=== PATIENT | female | born 1970 | race American Indian/Alaskan Native ===

== ENCOUNTER 2019-02-28 22:30 | Emergency (ER) | payer MEDICARE, OTHER ==
[~2019-02-28] VITALS: Ht 162.6 cm; Wt 114.3 kg
--- OUTSIDE RECORDS SUMMARY | 2019-02-28 22:33 | XMS REPORT | Clinical Summary ---
Author Author DINO [facility] Address Unknown Phone Unavailable Care Team Providers Care Fire Control Technician B Name Role Phone Rashaad Rivera MD PCP Unavailable Allergies Comments Active Allergy Reactions Severity Noted Date Aspirin 12/23/2016 Salicylates Anaphylaxis High 02/29/2016 Meperidine 06/17/2015 Dichloralphenazone 12/23/2016 Dicyclomine 12/23/2016 Erythromycin 06/17/2015 Erythromycin (Bulk) 12/23/2016 Eyes don't blink Haloperidol 06/17/2015 Sumatriptan Succinate Anaphylaxis High 02/29/2016 Isometheptene 12/23/2016 Other reaction(s): Hives Nsaids (Non-Steroidal Anaphylaxis High 06/17/2015 Anti-Inflammatory Drug) Shellfish Containing 12/23/2016 Products Sulfa (Sulfonamide Hives 06/17/2015 Antibiotics) Sumatriptan 12/23/2016 Tolmetin 12/23/2016 Ketorolac Anaphylaxis High 06/17/2015 Tramadol 12/23/2016 Troleandomycin 12/23/2016 Hydrocodone-Acetaminophen 06/17/2015 Vancomycin 12/23/2016 Medications End Date Status Medication Sig Dispensed Refills Start Date Active clonazePAM (KLONOPIN) 1 Take 1 mg by 0 MG tablet mouth 3 (three) times daily . Active QUEtiapine (SEROQUEL) 300 Take 100 mg 0 MG tablet by mouth 2 (two) times daily . Active ziprasidone (GEODON) 60 Take 60 mg by 0 MG capsule mouth 2 (two) times daily with breakfast and dinner. Active ondansetron (ZOFRAN) 4 MG Take 4 mg by 0 tablet mouth 2 (two) times daily as needed for Nausea. Active metFORMIN (GLUCOPHAGE) Take 500 mg 0 500 MG tablet by mouth 2 (two) times daily with breakfast and dinner. Active QUEtiapine (SEROQUEL) 400 Take 400 mg 0 MG tablet by mouth nightly. Active zolpidem (AMBIEN) 10 mg Take 10 mg by 0 tablet mouth every night as needed for Insomnia. 07/03/2019 Active atorvastatin (LIPITOR) 20 Take 1 tablet 30 tablet 0 07/03/201 MG tablet (20 mg total) 8 by mouth nightly. Active clopidogrel (PLAVIX) 75 Take 1 tablet 30 tablet 0 07/03/201 mg tablet (75 mg total) 8 by mouth daily. Active escitalopram oxalate Take 1 tablet 30 tablet 0 (LEXAPRO) 20 MG tablet (20 mg total) 8 by mouth daily. Active levETIRAcetam (KEPPRA) Take 1 tablet 60 tablet 0 500 MG tablet (500 mg 8 total) by mouth 2 (two) times daily. Active metoprolol (LOPRESSOR) 25 Take 1 tablet 60 tablet 0 07/03/201 MG tablet (25 mg total) 8 by mouth 2 (two) times daily. 07/03/2018 Discontinued citalopram (CELEXA) 40 MG Take 40 mg by 0 tablet mouth daily. 07/03/2018 Discontinued divalproex (DEPAKOTE) 500 Take 500 mg 0 MG EC tablet by mouth 3 (three) times daily. 07/03/2018 Discontinued temazepam (RESTORIL) 22.5 Take 22.5 mg 0 MG capsule by mouth every night as needed for Sleep. 07/03/2018 Discontinued methadone (DOLOPHINE) 10 Take 10 mg by 0 MG tablet mouth every 6 (six) hours as needed for Pain. 07/03/2018 Discontinued clopidogrel (PLAVIX) 75 Take 75 mg by 0 mg tablet mouth daily. 07/03/2018 Discontinued escitalopram oxalate Take 20 mg by 0 (LEXAPRO) 20 MG tablet mouth daily. 07/03/2018 Discontinued lisinopril Take 20 mg by 0 (PRINIVIL,ZESTRIL) 20 MG mouth daily. tablet 07/03/2018 Discontinued levETIRAcetam (KEPPRA) Take 500 mg 0 500 MG tablet by mouth 2 (two) times daily. 07/03/2018 Discontinued metoprolol (LOPRESSOR) 25 Take 25 mg by 0 MG tablet mouth 2 (two) times daily. Active Problems Problem Noted Date Dizziness 07/01/2018 Dyspnea 07/01/2018 Chest pain 07/01/2018 Chest pain at rest 06/30/2018 Encounters Care Team Description Date Type Specialty [employer] MD Ray-Droddy, Kelly Morris MD Chest pain on breathing 06/30/2018 [facility] General Internal Medicine - Encounter 07/03/2018 06/30/2018 Orders Only General Internal Medicine after 02/27/2018 Social History Date Tobacco Use Types Packs/Day Years Used Current Every Day Smoker Cigarettes Alcohol Use Drinks/Week oz/Week Comments No Sex Assigned at Date Recorded Not on file Industry Job Start Date Occupation Not on file Not on file Not on file Travel End Travel History Travel Start No recent travel history available. Last Filed Vital Signs Time Taken Vital Sign Reading 07/03/2018 11:11 AM CDT Blood Pressure 116/73 07/03/2018 11:11 AM CDT Pulse 84 07/03/2018 11:11 AM CDT Temperature 36.6 C (97.9 F) 07/03/2018 11:11 AM CDT Respiratory Rate 18 07/03/2018 11:11 AM CDT Oxygen Saturation 99% - Inhaled Oxygen - Concentration 06/30/2018 11:31 PM CDT Weight 100.2 kg (221 lb) 06/30/2018 11:31 PM CDT Height 162.6 cm (5' 4") 06/30/2018 11:31 PM CDT Body Mass Index 37.93 Plan of Treatment Not on file Procedures Comments Procedure Name Priority Date/Time Associated Diagnosis REPORT OF PROCEDURE - 07/04/2018 ENDOSCOPY SCAN 3:20 PM CDT RHYTHM STRIP - SCAN 07/04/2018 3:13 PM CDT STRESS-TEST SCANNED 07/04/2018 3:13 PM CDT POCT-GLUCOSE METER Routine 07/03/2018 11:47 AM CDT NM MYOCARDIAL PERFUSION Routine 07/03/2018 SPECT, PHARM(LEXISCAN) 10:12 AM CDT POCT-GLUCOSE METER Routine 07/03/2018 5:00 AM CDT COMPREHENSIVE METABOLIC Routine 07/03/2018 PANEL 3:25 AM CDT POCT-GLUCOSE METER Routine 07/02/2018 7:46 PM CDT CBC (HEMOGRAM ONLY) Routine 07/02/2018 4:13 PM CDT POCT-GLUCOSE METER Routine 07/02/2018 3:35 PM CDT POCT-GLUCOSE METER Routine 07/02/2018 11:09 AM CDT ECHOCARDIOGRAM REPORT - 07/02/2018 SCAN 8:20 AM CDT POCT-GLUCOSE METER Routine 07/02/2018 5:33 AM CDT POCT-GLUCOSE METER Routine 07/01/2018 8:53 PM CDT POCT-GLUCOSE METER Routine 07/01/2018 4:00 PM CDT XR CHEST 1 VIEW STAT 07/01/2018 PORTABLE/BEDSIDE 1:11 PM CDT POCT-GLUCOSE METER Routine 07/01/2018 10:49 AM CDT APTT Routine 07/01/2018 9:40 AM CDT 2D ECHO W/ DOPPLER Routine 07/01/2018 (CW/PW/COLOR) 7:41 AM CDT POCT-GLUCOSE METER Routine 07/01/2018 6:04 AM CDT CBC W/PLT COUNT & AUTO Routine 07/01/2018 DIFFERENTIAL 4:48 AM CDT CBC W/PLT COUNT & AUTO Routine 07/01/2018 DIFFERENTIAL 4:48 AM CDT LIPID PANEL Routine 07/01/2018 4:48 AM CDT MAGNESIUM Routine 07/01/2018 4:48 AM CDT BASIC METABOLIC PANEL (7) Routine 07/01/2018 4:48 AM CDT TROPONIN I Routine 07/01/2018 4:48 AM CDT APTT Routine 07/01/2018 1:17 AM CDT PLATELET COUNT Routine 06/30/2018 10:38 PM CDT B-TYPE NATRIURETIC FACTOR Routine 06/30/2018 (BNP) 10:38 PM CDT TROPONIN I Routine 06/30/2018 10:38 PM CDT POCT-GLUCOSE METER Routine 06/30/2018 9:28 PM CDT ECG 12-LEAD Routine 06/30/2018 8:41 PM CDT Procedure Note - Interface, External Ris In - 06/30/2018 9:37 PM CDT Ventricula r Rate 82 BPM Atrial Rate 82 BPM P-R Interval 170 ms QRS Duration 94 ms Q-T Interval 410 ms QTC Calculatio n(Bazett) 479 ms P [place] 63 degrees R [place] 58 degrees T [place] 70 degrees Normal sinus rhythm Normal ECG When compared with ECG of 7 23:04, PREVIOUS ECG IS PRESENT after 02/27/2018 Results * EKG-SCANNED (07/04/2018 3:20 PM CDT) Narrative Performed At * RHYTHM STRIP - SCAN (07/04/2018 3:13 PM CDT) Narrative Performed At * STRESS-TEST SCANNED (07/04/2018 3:13 PM CDT) Narrative Performed At * POC-Glucose meter (07/03/2018 11:47 AM CDT) Only the most recent of 11 results within the time period is included. POC-Glucose Meter 129 (H)Comment: TESTED AT [facility] 70 - 110 mg/dL [facility]outrL[facility] [address] [facility] [id number] Specimen Blood Performing Organization Address City/State/Zipcode Phone Number [facility] [address] [place] [address] [facility] * NM myocardial perfusion SPECT, pharm(Lexiscan) (07/03/2018 10:12 AM CDT) Narrative Performed At FINAL REPORT [employer] PROCEDURE: Rest/Stress MYOCARDIAL PERFUSION SCAN with regadenosine CPT CODE:94825, 47296, 01621 INDICATION:Chest pain PROTOCOL: The patient underwent rest and post-stress imaging. 9.9 mCi of Tc-99m sestamibi was injected intravenously at rest, and tomographic (SPECT) images were obtained. 30 mCi of Tc-99m sestamibi was injected intravenously during intravenous infusion of 0.4 mg of regadenosine.The patient's resting heart rate of 69 beats/minute reached a peak rate of 97 beats/minute (57% of MPHR).Blood pressure reached a maximum of 112/68 mm Hg.Other stress and monitoring data are reported separately.Gated SPECT images were obtained after stress injection. FINDINGS:Images obtained after resting and stress injections of tracer show normal tracer distribution in the LV myocardium.LV size appears size appears normal.Gated images obtained at rest after stress injection show normal LV wall motion and thickening. The QGS LVEF is 67%. IMPRESSION:Normal myocardial perfusion.Normal resting LV function. Signed: Pasha Lugo MD Report Verified Date/Time:07/03/2018 12:29:53 Reading Location: [facility] Cardiology Reading Room Procedure Note Interface, External Ris In - 07/03/2018 12:32 PM CDT FINAL REPORT PROCEDURE: Rest/Stress MYOCARDIAL PERFUSION SCAN with regadenosine CPT CODE: 78028, 84297, 23665 INDICATION: Chest pain PROTOCOL: The patient underwent rest and post-stress imaging. 9.9 mCi of Tc-99m sestamibi was injected intravenously at rest, and tomographic (SPECT) images were obtained. 30 mCi of Tc-99m sestamibi was injected intravenously during intravenous infusion of 0.4 mg of regadenosine. The patient's resting heart rate of 69 beats/minute reached a peak rate of 97 beats/minute (57% of MPHR). Blood pressure reached a maximum of 112/68 mm Hg. Other stress and monitoring data are reported separately. Gated SPECT images were obtained after stress injection. FINDINGS: Images obtained after resting and stress injections of tracer show normal tracer distribution in the LV myocardium. LV size appears size appears normal. Gated images obtained at rest after stress injection show normal LV wall motion and thickening. The QGS LVEF is 67%. IMPRESSION: Normal myocardial perfusion. Normal resting LV function. Signed: Pasha Lugo MD Report Verified Date/Time: 07/03/2018 12:29:53 Reading Location: [facility] Cardiology Reading Room Performing Organization Address [facility] Phone Number GE RIS * Comprehensive metabolic panel (07/03/2018 3:25 AM CDT) Protein, Total 6.3 6.0 - 8.5 gm/dL [facility] Albumin 3.4 (L) 3.5 - 5.0 g/dL [facility] Alkaline Phosphatase 105 30 - 115 U/L [facility] Total Bilirubin 0.2 0.1 - 1.3 mg/dL [facility] Sodium 139 135 - 148 meq/L [facility] Potassium 4.5 3.5 - 5.5 meq/L [facility] Chloride 111 (H) 98 - 106 meq/L [facility] CO2 20 20 - 31 meq/L [facility] BUN 20 10 - 26 mg/dL [facility] Creatinine 0.69 0.50 - 1.20 mg/dL [facility] Glucose 99 70 - 110 mg/dL [facility] Calcium 8.7 8.5 - 10.5 mg/dL [facility] AST 16 5 - 40 U/L [facility] ALT 37 6 - 50 U/L [facility] EGFR 90Comment: ESTIMATED GFR IS mL/min/1.73 sq m [facility] NOT ACCURATE CREATININE CLEARANCE IN PREDICTING GLOMERULAR FILTRATION RATE. ESTIMATED GFR IS NOT APPLICABLE FOR DIALYSIS PATIENTS. Specimen Blood - Arm, Left Performing Organization Address City/[facility] Phone Number [facility] [address] [place], [place] [address] * CBC (hemogram only) (07/02/2018 4:13 PM CDT) WBC 6.2 4.0 - 10.0 K/L [facility] RBC 3.61 (L) 4.00 - 5.00 M/L [facility] Hemoglobin 11.6 (L) 12.0 - 15.0 GM/DL [facility] Hematocrit 33.8 (L) 36.0 - 45.0 % [facility] MCV 93.4 82.0 - 99.0 fL [facility] MCH 32.0 27.0 - 33.0 pg [facility] MCHC 34.3 32.0 - 36.0 GM/DL [facility] RDW 13.3 12.0 - 15.0 % [facility] Platelets 126 (L) 150 - 430 K/CU MM [facility] MPV 8.1 6.5 - 10.5 fL [facility] nRBC 0 0 - 0 /100 WBC [facility] Specimen Blood - Line, Venous Performing Organization Address City/State/Zipcode Phone Number [facility] [address] [place] [address] * ECHOCARDIOGRAM REPORT - SCAN (07/02/2018 8:20 AM CDT) Narrative Performed At * XR chest 1 view portable / bedside (07/01/2018 1:11 PM CDT) Narrative Performed At FINAL REPORT [facility] Chest, AP view. History: Chest pain. Comparison: 01/05/2017. Discussion:The cardiomediastinal silhouette and pulmonary vasculature are within normal limits. The lungs are clear without evidence of consolidation or effusion.There are no acute osseous abnormalities. The soft tissues are unremarkable. IMPRESSION: No acute cardiopulmonary abnormality. Signed: Eli Berry MD Report Verified Date/Time:07/01/2018 13:12:56 Reading Location: [address] Ortho Consult Reading Room Procedure Note Interface, External Ris In - 07/01/2018 1:15 PM CDT FINAL REPORT Chest, AP view. History: Chest pain. Comparison: 01/05/2017. Discussion: The cardiomediastinal silhouette and pulmonary vasculature are within normal limits. The lungs are clear without evidence of consolidation or effusion. There are no acute osseous abnormalities. The soft tissues are unremarkable. IMPRESSION: No acute cardiopulmonary abnormality. Signed: Eli Berry MD Report Verified Date/Time: 07/01/2018 13:12:56 Reading Location: [facility] C013 Ortho Consult Reading Room Performing Organization Address City/[facility] Phone Number GE RIS * aPTT (07/01/2018 9:40 AM CDT) Only the most recent of 2 results within the time period is included. PTT 24.1 23.2 - 36.1 seconds [facility] Specimen Blood - Arm, Left Performing Organization Address City/[facility]/Zipcode Phone Number [facility] [address] [place] [address] * 2D Echo W/Doppler(CW/PW/Color) (07/01/2018 7:41 AM CDT) Ejection Fraction Est EF is 55-60% [facility] Narrative Performed At Transthoracic Echocardiography Report (TTE) [facility] Demographics [facility] Patient Name BJ,Date of Study 07/01/2018 ESTELA [id number] GenderFemale Visit Number [id number] RaceCaucasian [id number] Number [id number] Number Date of Birth1970 Referring Physician [employer]ANING Age48 year(s) Medical Billing Associate Jase Pope, RCS, RVT Inter[facility]tingPARKVIEW [facility]ALTH Physician Sandor Davis MD Procedure Type of Study TTE procedure:2DECHO W DOPPLER(CW/PW/COLOR) (Routine) Indications:Chest pain. Clinical History CAD,STENT Height: 64 inches Weight: 100.24 kg (220.99 lbs) BSA: 2.04 m^2 BMI: 37.93 kg/m^2 HR: 72 bpm BP: 100/63 mmHg Summary The aortic root is normal size at the Sinus of Valsalva. Normal left ventricular chamber size. Normal wall thickness. Normal overall left ventricular systolic function. No apparent segmental wall motion abnormalities. Estimated LVEF is 55-60%. Normal diastolic function. Normal right ventricle structure and function. No significant valvular heart disease. PA pressure estimated at 20-25 mmHg. No evidence of pericardial effusion. Signature Findings Technical Quality: TDS Left Ventricle Normal left ventricular chamber size. Normal wall thickness. Normal overall left ventricular systolic function. No apparent segmental wall motion abnormalities. Estimated LVEF is 55-60%. Normal diastolic function. Left AtriumNormal size left atrium. Right VentricleNormal right ventricle structure and function. Right Atrium Normal right atrium. Aortic Valve Normal aortic valve structure and function. Mitral Valve Normal mitral valve structure and function. Tricuspid ValveNormal tricuspid valve structure and function. PA pressure estimated at 20-25 mmHg. Pulmonic Valve Normal pulmonic valve structure and function. AortaThe aortic root is normal size at the Sinus of Valsalva. PericardiumNo evidence of pericardial effusion. IVC/SVC/PA/PV/PleuralRA pressure estimated at 5-10 mmHg. Chambers/Structures Left Atrium LA Dimension: 4.26 cmLA Area: 20.13 cm^2 LA Volume: 62.08 ml LA Vol. Index: 30 ml/m^2 Left Ventricle LVIDd: 4.52 cmLVEDV:92.3 6 ml LVIDs: 3.19 cmLVESV:32.3 3 ml LV Septum Diastolic: 0.99 cmLVEF 2D Cube: 65 % LV PW Diastolic: 0.97 cm LV FS: 29.4 % LVOT Diameter: 2.1 cm LVEF: 65 % Right Atrium RA Systolic Pressure: 10 mmHg Right Ventricle RV Systolic Pressure: 25.47 mmHg Aorta Ao Root S of Monique.: 2.98 cmAscending Aorta: 2.81 cm Pulmonary Vein: S Velocity: 0.37 m/s D Velocity: 0.27 m/s Doppler/Quantitative Measurements Mitral Valve MV Peak E-Wave: 0.7 m/s MV Peak A-Wave: 0.76 m/s Peak Velocity: 0.87 m/s E/A Ratio: 0.93 Mean Velocity: 0.54 m/s Peak Gradient: 1.96 mmHg Mean Gradient: 1.29 mmHgDeceleration Time: 343.9 msec Area (continuity): 3.79 cm^2 MV VTI: 22.82 cm MV Noble. Peak: Tissue Doppler E' Septal Velocity: 0.09 m/s E' Lateral Velocity: 0.09 m/s Aortic Valve Peak Velocity: 1.14 m/sMean Velocity: 0.82 m/s Peak Gradient: 5.22 mmHg Mean Gradient: 3.04 mmHg AV Area (continuity): 3.55 cm^2 AV VTI: 24.38 cm Cusp Separation: 2.02 cm AV DVI: 1.03 LVOT Peak Velocity: 1.18 m/s Peak Gradient: 5.54 mmHg Mean Velocity: 0.76 m/s Mean Gradient: 2.73 mmHg LVOT Diameter: 2.1 cm LVOT VTI: 24.99 cm LVOT Area: 3.46 cm^2LVOT SV:86.51 ml LVOT CO: 6.23 l/min LVOT CI: 3.05 l/min/m^2 Tricuspid Valve Estimated RVSP: 25.47 mmHg Estimated RAP: 10 mmHg TR Velocity: 1.97 m/s TR Gradient: 15.47 mmHg Pulmonic Valve Peak Velocity: 0.8 m/s Peak Gradient: 2.56 mmHg Estimated PASP: 25.47 mmHg Procedure Note Interface, External Ris In - 07/01/2018 10:17 PM CDT Transthoracic Echocardiography Report (TTE) Demographics Patient Name BJ, Date of Study 07/01/2018 ESTELA Gender Female Visit Number [id number] Race Room Number [id number] Number Date of 1970 Referring Physician E[employer]TA CLEANING Age 48 year(s) Medical Billing Associate HERMELINDO Garza, RVT Interpreting [facility] Physician Sandor Davis MD Procedure Type of Study TTE procedure:2DECHO W DOPPLER(CW/PW/COLOR) (Routine) Indications:Chest pain. Clinical History CAD,STENT Height: 64 inches Weight: 100.24 kg (220.99 lbs) BSA: 2.04 m^2 BMI: 37.93 kg/m^2 HR: 72 bpm BP: 100/63 mmHg Summary The aortic root is normal size at the Sinus of Valsalva. Normal left ventricular chamber size. Normal wall thickness. Normal overall left ventricular systolic function. No apparent segmental wall motion abnormalities. Estimated LVEF is 55-60%. Normal diastolic function. Normal right ventricle structure and function. No significant valvular heart disease. PA pressure estimated at 20-25 mmHg. No evidence of pericardial effusion. Signature Findings Technical Quality: TDS Left Ventricle Normal left ventricular chamber size. Normal wall thickness. Normal overall left ventricular systolic function. No apparent segmental wall motion abnormalities. Estimated LVEF is 55-60%. Normal diastolic function. Left Atrium Normal size left atrium. Right Ventricle Normal right ventricle structure and function. Right Atrium Normal right atrium. Aortic Valve Normal aortic valve structure and function. Mitral Valve Normal mitral valve structure and function. Tricuspid Valve Normal tricuspid valve structure and function. PA pressure estimated at 20-25 mmHg. Pulmonic Valve Normal pulmonic valve structure and function. Aorta The aortic root is normal size at the Sinus of Valsalva. Pericardium No evidence of pericardial effusion. IVC/SVC/PA/PV/Pleural RA pressure estimated at 5-10 mmHg. Chambers/Structures Left Atrium LA Dimension: 4.26 cm LA Area: 20.13 cm^2 LA Volume: 62.08 ml LA Vol. Index: 30 ml/m^2 Left Ventricle LVIDd: 4.52 cm LVEDV:92.36 ml LVIDs: 3.19 cm LVESV:32.33 ml LV Septum Diastolic: 0.99 cm LVEF 2D Cube: 65 % LV PW Diastolic: 0.97 cm LV FS: 29.4 % LVOT Diameter: 2.1 cm LVEF: 65 % Right Atrium RA Systolic Pressure: 10 mmHg Right Ventricle RV Systolic Pressure: 25.47 mmHg Aorta Ao Root S of Monique.: 2.98 cm Ascending Aorta: 2.81 cm Pulmonary Vein: S Velocity: 0.37 m/s D Velocity: 0.27 m/s Doppler/Quantitative Measurements Mitral Valve MV Peak E-Wave: 0.7 m/s MV Peak A-Wave: 0.76 m/s Peak Velocity: 0.87 m/s E/A Ratio: 0.93 Mean Velocity: 0.54 m/s Peak Gradient: 1.96 mmHg Mean Gradient: 1.29 mmHg Deceleration Time: 343.9 msec Area (continuity): 3.79 cm^2 MV VTI: 22.82 cm MV Noble. Peak: Tissue Doppler E' Septal Velocity: 0.09 m/s E' Lateral Velocity: 0.09 m/s Aortic Valve Peak Velocity: 1.14 m/s Mean Velocity: 0.82 m/s Peak Gradient: 5.22 mmHg Mean Gradient: 3.04 mmHg AV Area (continuity): 3.55 cm^2 AV VTI: 24.38 cm Cusp Separation: 2.02 cm AV DVI: 1.03 LVOT Peak Velocity: 1.18 m/s Peak Gradient: 5.54 mmHg Mean Velocity: 0.76 m/s Mean Gradient: 2.73 mmHg LVOT Diameter: 2.1 cm LVOT VTI: 24.99 cm LVOT Area: 3.46 cm^2 LVOT SV:86.51 ml LVOT CO: 6.23 l/min LVOT CI: 3.05 l/min/m^2 Tricuspid Valve Estimated RVSP: 25.47 mmHg Estimated RAP: 10 mmHg TR Velocity: 1.97 m/s TR Gradient: 15.47 mmHg Pulmonic Valve Peak Velocity: 0.8 m/s Peak Gradient: 2.56 mmHg Estimated PASP: 25.47 mmHg Performing Organization Address City/State/Zipcode Phone Number [facility] * CBC with platelet count + automated diff (07/01/2018 4:48 AM CDT) WBC 6.7 4.0 - 10.0 K/L [facility] RBC 3.76 (L) 4.00 - 5.00 M/L [facility] Hemoglobin 12.2 12.0 - 15.0 GM/DL [facility] Hematocrit 34.9 (L) 36.0 - 45.0 % [facility] MCV 92.9 82.0 - 99.0 fL [facility] MCH 32.5 27.0 - 33.0 pg [facility] MCHC 35.0 32.0 - 36.0 GM/DL [facility] RDW 13.4 12.0 - 15.0 % [facility] Platelets 134 (L) 150 - 430 K/CU MM [facility] MPV 7.6 6.5 - 10.5 fL [facility] nRBC 0 0 - 0 /100 WBC [facility] % Neutros 46 % [facility] % Lymphs 47 % [facility] % Monos 5 % [facility] % Eos 2 % [facility] % Baso 1 % [facility] # Neutros 3.00 1.80 - 8.00 K/L [facility] # Lymphs 3.20 1.48 - 4.50 K/L [facility] # Monos 0.30 0.00 - 1.30 K/L [facility] # Eos 0.10 0.00 - 0.50 K/L [facility] # Baso 0.00 0.00 - 0.20 K/L [facility] Specimen Blood Performing Organization Address [facility] Phone Number [facility] [address] [place] [address] * Troponin I (07/01/2018 4:48 AM CDT) Only the most recent of 2 results within the time period is included. Troponin I <0.01 0.00 - 0.15 ng/mL [facility] Specimen Blood Narrative Performed At Troponin I (TnI) levels must be interpreted in the context of the presenting [facility] symptoms and the clinical findings. Elevated TnI levels indicate myocardial damage, but are not specific for ischemic heart disease. Elevated TnI levels are seen in patients with other cardiac conditions (including myocarditis and congestive heart failure), and slight TnI elevations occur in patients with other conditions, including sepsis, renal failure, acidosis, acute neurological disease, and persistent tachyarrhythmia. Performing Organization Address City/[facility] Phone Number [facility] [address] [place] [address] * Magnesium (07/01/2018 4:48 AM CDT) Magnesium 1.7 1.5 - 3.0 mg/dL [facility] LABORATORY Specimen Blood Performing Organization Address [facility] Phone Number [facility] [address] [place] [address] * Lipid panel (07/01/2018 4:48 AM CDT) Triglycerides 151 mg/dL [facility] Cholesterol 162 mg/dL [facility] HDL 30 mg/dL [facility] LDL Calculated 102 mg/dL [facility] Specimen Blood Narrative Performed At Triglyceride Reference Range: [facility] Low Risk <150 [id number] High Risk 200-499 Very High Risk>=500 Cholesterol Reference Range: Low Risk <200 [id number] High Risk>240 HDL Cholesterol Reference Range: Low Risk >=60 High Risk <40 LDL Cholesterol Reference Range: Optimal<100 Near [id number] Very High >=190 Performing Organization Address [facility] Number [facility] [address] [place] [address] * Basic metabolic panel (07/01/2018 4:48 AM CDT) Sodium 139 135 - 148 meq/L [facility] Potassium 3.6 3.5 - 5.5 meq/L [facility] Chloride 111 (H) 98 - 106 meq/L [facility] CO2 17 (L) 20 - 31 meq/L [facility] BUN 19 10 - 26 mg/dL [facility] Creatinine 0.74 0.50 - 1.20 mg/dL [facility] Glucose 98 70 - 110 mg/dL [facility] Calcium 9.2 8.5 - 10.5 mg/dL [facility] EGFR 83Comment: ESTIMATED GFR IS mL/min/1.73 sq m [facility] NOT ACCURATE CREATININE CLEARANCE IN PREDICTING GLOMERULAR FILTRATION RATE. ESTIMATED GFR IS NOT APPLICABLE FOR DIALYSIS PATIENTS. Specimen Blood Performing Organization Address [facility] Phone Number [facility] [address] [place] [address] * Platelet count (06/30/2018 10:38 PM CDT) Platelets 139 (L) 150 - 430 K/CU MM [facility] Specimen Blood - Arm, Right Performing Organization Address [facility] Phone Number [facility] [address] [place] [address] * B-type Natriuretic Factor (BNP) (06/30/2018 10:38 PM CDT) BNP 11 0 - 100 pg/mL [facility] Specimen Blood - Arm, Right Performing Organization Address City/State/Zipcode Phone Number [facility] [address] [place] [address] after 02/27/2018 Insurance Payer Benefit Subscriber ID Type Phone Address Plan / Group MEDICARE MEDICARE A xxxxxxxxxxx Medicare B MEDICAID - MEDICAID [facility] xxxxxxxxx Medicaid CARE COMM STAR Contracted PLAN MEDICAID MEDICAID xxxxxxxxx Medicaid [place] Advance Directives For more information, please contact: [facility] [address] [place], [place] [id number] Date Inactivated Comments Code Status Date Activated 07/03/2018 10:16 PM Full Code 06/30/2018 8:22 PM This code status was determined by: Patient
--- OUTSIDE RECORDS SUMMARY | 2019-02-28 22:38 | XMS REPORT | Summary of Care ---
Author Organization Unknown Address Unknown Phone Unavailable Encounter [facility] [place](MARY BETH) [phone] Date(s): 05/02/15 - 05/03/15 [facility] [address] [employer] provided by [employer] [facility] [employer] [place] [address]- Discharge Diagnosis: Chronic leg pain Discharge Diagnosis: Chronic back pain Discharge Disposition: Home Physician Attending: Franko Forte MD Vital Signs 1 2 3 Most recent to oldest [Reference Range]: 165.1 cm (05/02/15 11:39 PM) Height 97.9 DegF (05/03/15 3:50 AM) 99.3 DegF *HI* (05/02/15 11:39 PM) Temperature Oral [96.4-99.1 DegF] 100/63 mmHg (05/03/15 8:49 AM) 99/60 mmHg (05/03/15 7:18 AM) 108/71 mmHg (05/03/15 3:50 AM) Blood Pressure [90-140/60-90 mmHg] 20 BRMIN (05/03/15 8:49 AM) 16 BRMIN (05/03/15 7:18 AM) 18 BRMIN (05/03/15 3:50 AM) Respiratory Rate [14-20 BRMIN] 86 bpm (05/03/15 8:49 AM) 72 bpm (05/03/15 7:18 AM) 65 bpm (05/03/15 3:50 AM) Peripheral Pulse Rate [60-100 bpm] 69.091 kg (05/02/15 11:39 PM) Weight 25.35 m2 (05/02/15 11:39 PM) Body Mass Index Problem List Condition Effective Dates Status Health Status Informant Bladder Resolved disease(Confirmed) Diabetic Active care(Confirmed) Hepatitis Resolved C(Confirmed) Lupus(Confirmed) Resolved Allergies, Adverse Reactions, Alerts Substance Reaction Severity Status aspirin Active Demerol HCl Active erythromycin Active Imitrex Active NSAIDs Active Stelazine Active sulfa drugs Active Toradol Active Medications Dilaudid 1 mg, Route: IM, ONCE, Dosing Weight 69.091, kg, Start date: 05/03/15 7:34:00, S top date: 05/03/15 7:34:00 Start Date: 05/03/15 Stop Date: 05/03/15 Status: Completed Dilaudid 1 mg, Route: IM, ONCE, Dosing Weight 69.091, kg, Priority: STAT, Start date: 6:00:00, Stop date: 05/03/15 6:00:00 Start Date: 05/03/15 Stop Date: 05/03/15 Status: Completed Tylenol 975 mg, Route: PO, Drug form: TAB, ONCE, Dosing Weight 69.091, kg, Priority: STA T, Start date: 05/03/15 5:56:00, Stop date: 05/03/15 5:56:00 Start Date: 05/03/15 Stop Date: 05/03/15 Status: Completed Results No data available for this section Immunizations Vaccine Date Refusal Reason diphtheria/pertussis, acel/tetanus adult 01/06/13 Procedures No data available for this section Social History Social History Type Response Smoking Status Current every day smoker; Type: Cigarettes; Exposure to Tobacco Smoke None; Cigarette Smoking Last 365 Days No; Reg Smoking Cessation Counseling No Assessment and Plan No data available for this section
--- OUTSIDE RECORDS SUMMARY | 2019-02-28 22:38 | XMS REPORT | Summary of Care ---
Author Author [facility] Organization [facility] Address Unknown Phone Unavailable Encounter [facility] [place](MARY BETH) [id number] Date(s): 02/09/16 - 02/10/16 [facility] [address] [place] [address]- [phone] Discharge Diagnosis: Herpes zoster, ocular Discharge Diagnosis: Herpes zoster Discharge Diagnosis: Corneal abrasion, right Discharge Diagnosis: Drug-seeking behavior Discharge Diagnosis: Bipolar disease, chronic Discharge Diagnosis: Shingles Discharge Diagnosis: Tobacco abuse Discharge Disposition: Home Attending Physician: Óscar Tracy DO Vital Signs 1 2 3 Most recent to oldest [Reference Range]: 162.56 cm (02/10/16 12:00 AM) Height 97.9 DegF (02/10/16 3:17 AM) 98.1 DegF (02/10/16 1:10 AM) 98.6 DegF (02/10/16 12:00 AM) Temperature Oral [96.4-99.1 DegF] 111/69 mmHg (02/10/16 3:17 AM) 122/69 mmHg (02/10/16 1:10 AM) 118/78 mmHg (02/10/16 12:00 AM) Blood Pressure [90-140/60-90 mmHg] 17 BRMIN (02/10/16 3:17 AM) 17 BRMIN (02/10/16 1:10 AM) 18 BRMIN (02/10/16 12:00 AM) Respiratory Rate [14-20 BRMIN] 99 bpm (02/10/16 3:17 AM) 97 bpm (02/10/16 1:10 AM) 98 bpm (02/10/16 12:00 AM) Peripheral Pulse Rate [60-100 bpm] 83.545 kg (02/10/16 12:00 AM) Weight 31.61 m2 (02/10/16 12:00 AM) Body Mass Index Problem List Condition Effective Dates Status Health Status Informant Bipolar(Confirmed) Active Bladder Resolved disease(Confirmed) COPD(Confirmed) Resolved Diabetic Active care(Confirmed) Hepatitis Resolved C(Confirmed) Lupus(Confirmed) Resolved Schizo-affective Active schizophrenia(Confir med) Seizure(Confirmed) Resolved Allergies, Adverse Reactions, Alerts Substance Reaction Severity Status aspirin Active Demerol HCl Active erythromycin Active Imitrex Active NSAIDs Active Stelazine Active sulfa drugs Active Toradol Active Medications acyclovir 800 mg oral tablet 800 mg=1 tab, PO, 5X Day, X 10 day, # 50 tab, 0 Refill(s) Start Date: 02/10/16 Stop Date: 02/20/16 Status: Ordered BD Normal Saline Flush 10 mL, Route: IV, Drug Form: INJ, PRN, PRN Line Flush, Start date: 02/10/16 2:11 :00, Duration: 30 day, Stop date: 03/11/16 2:10:00 Notes: (Same as: BD Posiflush) Start Date: 02/10/16 Stop Date: 02/10/16 Status: Discontinued ciprofloxacin ophthalmic 0.3% solution 2 drp, RIGHT EYE, Q4H, X 5 day, # 5 mL, 0 Refill(s) Start Date: 02/10/16 Stop Date: 02/15/16 Status: Ordered clindamycin 450 mg, Route: PO, ONCE, Dosing Weight 83.545, kg, Start date: 02/10/16 0:50:00, Stop date: 02/10/16 0:50:00 Start Date: 02/10/16 Stop Date: 02/10/16 Status: Completed clindamycin 300 mg oral capsule 300 mg=1 cap, PO, Q6H, X 10 day, # 40 cap, 0 Refill(s) Start Date: 02/10/16 Stop Date: 02/20/16 Status: Ordered fluorescein ophthalmic 1 mg test 1 strip, Route: RIGHT EYE, ONCE, Start date: 02/10/16 0:25:00, Stop date: 0:25:00 Start Date: 02/10/16 Stop Date: 02/10/16 Status: Completed morphine Sulfate 4 mg, Route: IM, Drug form: INJ, ONCE, Dosing Weight 83.545, kg, Priority: STAT, Start date: 02/10/16 0:24:00, Stop date: 02/10/16 0:24:00 Start Date: 02/10/16 Stop Date: 02/10/16 Status: Completed Frankewing 5/325 oral tablet 1 tab, Route: PO, Drug Form: TAB, Dosing Weight 83.545, kg, ONCE, STAT, Start da te: 02/10/16 2:16:00, Stop date: 02/10/16 2:16:00 Start Date: 02/10/16 Stop Date: 02/10/16 Status: Completed Frankewing 5/325 oral tablet 1 tab, PO, TID, X 5 day, # 15 tab, 0 Refill(s) Start Date: 02/10/16 Stop Date: 02/15/16 Status: Ordered Sodium Chloride 0.9% IV 25 mL, Route: IV, Start date: 02/10/16 2:11:00, Duration: 30 day, Stop date: 2:10:00, PRN Line Flush Start Date: 02/10/16 Stop Date: 02/10/16 Status: Discontinued tetracaine ophthalmic 0.5% solution 1 drp, Route: RIGHT EYE, ONCE, Start date: 02/10/16 0:25:00, Stop date: 02/10/16 0:25:00 Start Date: 02/10/16 Stop Date: 02/10/16 Status: Completed Valtrex 1,000 mg, 2 tab, Route: PO, Drug form: TAB, ONCE, Dosing Weight 83.545, kg, Star t date: 02/10/16 1:49:00, Stop date: 02/10/16 1:49:00 Notes: (Same As: Valtrex) Start Date: 02/10/16 Stop Date: 02/10/16 Status: Completed Zofran ODT 4 mg, 1 tab, Route: PO, Drug form: TABDIS, ONCE, Dosing Weight 83.545, kg, Prior ity: STAT, Start date: 02/10/16 2:44:00, Stop date: 02/10/16 2:44:00 Notes: (Same as: Zofran ODT) Start Date: 02/10/16 Stop Date: 02/10/16 Status: Completed Zofran ODT 4 mg, Route: PO, Drug form: TABDIS, ONCE, Dosing Weight 83.545, kg, Priority: ST AT, Start date: 02/10/16 0:24:00, Stop date: 02/10/16 0:24:00 Start Date: 02/10/16 Stop Date: 02/10/16 Status: Completed Results No data available for this section Immunizations Vaccine Date Refusal Reason diphtheria/pertussis, acel/tetanus adult 01/06/13 Procedures Procedure Date Related Diagnosis Body Site Appendectomy Cholecystectomy Hysterectomy PTCA - Percutaneous transluminal coronary angioplasty Social History Social History Type Response Smoking Status Current every day smoker; Type: Cigarettes; Exposure to Tobacco Smoke None; Cigarette Smoking Last 365 Days No; Reg Smoking Cessation Counseling No Assessment and Plan No data available for this section
--- OUTSIDE RECORDS SUMMARY | 2019-02-28 22:38 | XMS REPORT | Continuity of Care Document ---
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 tab, Route: PO, Drug form: ERTAB, Q12H, Dosing Weight 111.364, kg, Start date: 01/01/17 9:00:00 BIT SETTER, Duration: 30 day, Stop date: 01/30/17 21:00:00 CDTNotes: (Do not crush) (Same As: Wellbutrin SR) Inactive 01/01/2017 [facility] Dilaudid 0.2 mg, 0.2 mL, Route: IVP, Drug form: INJ, ONCE, Dosing Weight 111.364, kg, PRN Pain Score 7-10, Start date: 01/01/17 8:39:00 BIT SETTER Inactive 01/01/2017 [facility] Nitroglycerin 0.02 MG/MG Topical Ointment 0.5 inch, Route: TOP, Drug Form: OINT, Dosing Weight 111.364, kg, TID, Start date: 01/01/17 6:00:00 BIT SETTER, Duration: 30 day, Stop date: 01/30/17 18:00:00 CDTNotes: 1 gram is approximately 1 inch of nitroglycerin ointment (20 mg NTG per gram) (Same as:Nitro-Bid) Inactive 01/01/2017 [facility] Enoxaparin 40 mg, 0.4 mL, Route: SUB-Q, Drug form: INJ, [id number], Dosing Weight 111.364, kg, Consider for obese patients, Start date: 12/31/16 22:00:00 BIT SETTER, Duration: 30 day, Stop date: 01/30/17 10:00:00 CDTNotes: (Same as: Lovenox) No Longer Active 01/01/2017 [facility] Sodium Chloride 0.9% IV 250 mL, Route: IVPB, Start date: 12/31/16 21:34:00 BIT SETTER, Duration: 30 day, Stop date: 01/30/17 22:33:00 CDT, PRN Line Flush No Longer Active 01/01/2017 [facility] BD Normal Saline Flush 10 mL, Route: IVP, Drug Form: INJ, PRN, PRN Line Flush, Start date: 12/31/16 21:33:00 BIT SETTER, Duration: 30 day, Stop date: 01/30/17 22:32:00 CDTNotes: (Same as: BD Posiflush) No Longer Active 01/01/2017 [facility] Ambien 10 mg, 2 tab, Route: PO, Drug form: TAB, Bedtime, Dosing Weight 111.364, kg, PRN Sleep, Start date: 12/31/16 21:27:00 BIT SETTER, Duration: 30 day, Stop date: 01/30/17 21:26:00 CDTNotes: (Same As: Ambien) No Longer Active 01/01/2017 [facility] cyclobenzaprine 10 mg, 1 tab, Route: PO, Drug form: TAB, TID, Dosing Weight 111.364, kg, PRN as needed for muscle spasm, Start date: 12/31/16 21:25:00 BIT SETTER, Duration: 30 day, Stop date: 01/30/17 21:24:00 CDTNotes: (Same As: Flexeril) No Longer Active 01/01/2017 [facility] Saline Flush 0.9% 10 ml, Route: IVP, Drug Form: INJ, Dosing Weight 111.364, kg, PRN, PRN Line Flush, Start date: 12/31/16 21:23:00 BIT SETTER, Duration: 30 day, Stop date: 01/30/17 22:22:00 CDT Inactive 01/01/2017 [facility] Acetaminophen 325 MG / Hydrocodone Bitartrate 5 MG Oral Tablet 2 tab, Route: PO, Drug Form: TAB, Dosing Weight 111.364, kg, Q4H, PRN Pain Score 7-10, Start date: 12/31/16 21:23:00 BIT SETTER, Duration: 30 day, Stop date: 01/30/17 21:22:00 CDTNotes: (Same as: [place] 325/5) Do not exceed 4gm/day of acetaminophen. No Longer Active 01/01/2017 [facility] Acetaminophen 650 mg, 2 tab, Route: PO, Drug form: TAB, Q4H, Dosing Weight 111.364, kg, PRN Headache 1-5, Start date: 12/31/16 21:23:00 BIT SETTER, Duration: 30 day, Stop date: 01/30/17 21:22:00 CDTNotes: Do not exceed 4 gm/day. (Same as: Tylenol) No Longer Active 01/01/2017 [facility] Nitroglycerin 0.4 mg, 1 tab, Route: SL, Drug form: TAB, Q5Min, Dosing Weight 111.364, kg, PRN Chest Pain, Start date: 12/31/16 21:23:00 BIT SETTER, Duration: 30 day, Stop date: 01/30/17 22:22:00 CDTNotes: (Same as:Nitroq uick, Nitrostat) "Do Not Crush" Sublingual tablet No Longer Active 01/01/2017 [facility] Morphine 2 mg, 1 mL, Route: IVP, Drug form: INJ, Q15Min, Dosing Weight 111.364, kg, PRN Chest Pain, Start date: 12/31/16 21:23:00 BIT SETTER, Duration: 2 doses or times, Stop date: Limited # of timesNotes: (Same as: MORPhine Sulfate) No Longer Active 01/01/2017 [facility] Ondansetron 4 mg, 2 mL, Route: IV, Drug form: INJ, Q4H, Dosing Weight 111.364, kg, PRN Nausea & Vomiting, Start date: 12/31/16 21:23:00 BIT SETTER, Duration: 30 day, Stop date: 01/30/17 21:22:00 CDTNotes: (Same as: Zofran) MEDICATION WASTE Product Size: 4 mg Product Wasted: ___ mg No Longer Active 01/01/2017 [facility] Sodium Chloride 0.0769 MEQ/ML Injectable Solution 1,000 mL, Rate: 75 ml/hr, Infuse over: 13.3 hr, Route: IV, Dosing Weight 111.364 kg, Total Volume: 1,000, Start date: 12/31/16 21:23:00 BIT SETTER, Duration: 30 day, Stop date: 01/30/17 21:22:00 CDT No Longer Active 01/01/2017 [facility] Insulin, Aspart, Human 10 unit, 0.1 mL, Route: SUB-Q, Drug form: SOLN, Bedtime, Dosing Weight 111.364, kg, PRN Blood Glucose Results, Start date: 12/31/16 21:23:00 BIT SETTER, Duration: 30 day, Stop date: 01/30/17 21:22:00 CDTNotes: Roll in palms of hands gently; Do not shake vigorously. (Same as: NovoLOG) "single patient use only" WASTE: F/P - Black; E - Municipal Trash Bin Stable for 28 days at room temperature. Expires in days from Date No Longer Active 01/01/2017 [facility] Dextrose 50% Syringe 12.5 gm, 25 mL, Route: IVP, Drug Form: INJ, Dosing Weight 111.364, kg, PRN, PRN Blood Glucose Results, Start date: 12/31/16 21:23:00 BIT SETTER, Duration: 30 day, Stop date: 01/30/17 22:22:00 CDT No Longer Active 01/01/2017 [facility] Glucagon 1 mg, Route: IM, Drug form: PDR/INJ, PRN, Dosing Weight 111.364, kg, PRN Blood Glucose Results, Start date: 12/31/16 21:23:00 BIT SETTER, Duration: 30 day, Stop date: 01/30/17 22:22:00 CDT No Longer Active 01/01/2017 [facility] influenza virus vaccine, inactivated 0.5 mL, Route: IM, ONCALL, Start date: 12/31/16 21:19:45 BIT SETTER, Stop date: 01/30/17 21:14:45 CDT Inactive 01/01/2017 [facility] 24 HR Bupropion Hydrochloride 150 MG Extended Release Tablet [Wellbutrin] 150 mg=1 tab, PO, Q12H, 0 Refill(s) Active 01/01/2017 [facility] Metformin 500 mg, PO, BID, 0 Refill(s) Active 01/01/2017 [facility] lisinopril 20 mg oral tablet 20 mg=1 tab, PO, Daily, # 30 tab, 0 Refill(s) Active 01/01/2017 [facility] Ondansetron 4 mg, 2 mL, Route: IVP, Drug form: INJ, ONCE, Dosing Weight 100, kg, Priority: STAT, Start date: 12/31/16 16:37:00 BIT SETTER, Stop date: 12/31/16 16:37:00 CSTNotes: (Same as: Jen) MEDICATION WASTE Product Size: 4 mg Product Wasted: ___ mg Inactive 12/31/2016 [facility] Morphine 4 mg, 1 mL, Route: IVP, Drug form: INJ, ONCE, Dosing Weight 100, kg, Priority: STAT, Start date: 12/31/16 16:37:00 BIT SETTER, Stop date: 12/31/16 16:37:00 CSTNotes: (Same as:MORPhine Sulfate) Inactive 12/31/2016 [facility] Furosemide 20 MG Oral Tablet 20 mg, 1 tab, Route: PO, Drug form: TAB, Daily, Dosing Weight 95.455, kg, Start date: 12/19/16 9:00:00 BIT SETTER, Duration: 30 day, Stop date: 01/17/17 9:00:00 CSTNotes: (Same as: Lasix) May cause GI upset. Give with food or milk. No Longer Active 12/19/2016 [facility] 24 HR Divalproex Sodium 500 MG Extended Release Tablet 500 mg, 2 tab, Route: PO, Drug form: ERTAB, QAM, Dosing Weight 95.455, kg, Start date: 12/19/16 9:00:00 BIT SETTER, Duration: 30 day, Stop date: 01/17/17 9:00:00 CSTNotes: (Same as: Depakote ER) (Do Not Crush) "Do Not Crush" No Longer Active 12/19/2016 [facility] Plavix 75 mg, 1 tab, Route: PO, Drug form: TAB, Daily, Dosing Weight 95.455, kg, Start date: 12/19/16 9:00:00 BIT SETTER, Duration: 30 day, Stop date: 01/17/17 9:00:00 CSTNotes: (Same As: Plavix) No Longer Active 12/19/2016 [facility] RN: pls ask pt for lisinopril home dose RN: pls ask pt for lisinopril home dose, RN: to obtain home dose of lisinopril, Drug form: MISC, Route: MISCLILLY, 12/19/16 0:00:00 BIT SETTER, Duration: 30 day, Stop date: 01/17/17 16:00:00 BIT SETTER No Longer Active 12/19/2016 [facility] Lipitor 40 mg, 1 tab, Route: PO, Drug form: TAB, Bedtime, Dosing Weight 95.455, kg, Start date: 12/18/16 21:00:00 BIT SETTER, Duration: 30 day, Stop date: 01/16/17 21:00:00 CSTNotes: (Same as: Lipitor) Inactive 12/19/2016 [facility] Lisinopril Route: PO, BID, Dosing Weight 95.455, kg, Start date: 12/18/16 17:00:00 BIT SETTER, Duration: 30 day, Stop date: 01/17/17 9:00:00 BIT SETTER Inactive 12/18/2016 [facility] Levetiracetam 250 MG Oral Tablet [Keppra] 500 mg, 1 tab, Route: PO, Drug form: TAB, BID, Dosing Weight 95.455, kg, Start date: 12/18/16 17:00:00 BIT SETTER, Duration: 30 day, Stop date: 01/17/17 9:00:00 CSTNotes: (Same as:Keppra) Inactive 12/18/2016 [facility] 24 HR Divalproex Sodium 500 MG Extended Release Tablet 1,000 mg, 4 tab, Route: PO, Drug form: ERTAB, QPM, Dosing Weight 95.455, kg, Start date: 12/18/16 17:00:00 BIT SETTER, Duration: 30 day, Stop date: 01/16/17 17:00:00 CSTNotes: (Same as: Depakote ER) (Do Not Crush) "Do Not Crush" Inactive 12/18/2016 [facility] Klonopin 1 mg, 1 tab, Route: PO, Drug form: TAB, TID, Dosing Weight 95.455, kg, Start date: 12/18/16 17:00:00 BIT SETTER, Duration: 30 day, Stop date: 01/17/17 13:00:00 CSTNotes: (Same As: KlonoPIN) Inactive 12/18/2016 [facility] Geodon 60 mg, 3 cap, Route: PO, Drug form: CAP, TID, Dosing Weight 95.455, kg, Start date: 12/18/16 17:00:00 BIT SETTER, Duration: 30 day, Stop date: 01/17/17 13:00:00 CSTNotes: (Same As: Geodon) Give with Food Inactive 12/18/2016 [facility] Seroquel 100 mg, 1 tab, Route: PO, Drug form: TAB, BID, Dosing Weight 95.455, kg, Start date: 12/18/16 17:00:00 BIT SETTER, Duration: 30 day, Stop date: 01/17/17 9:00:00 CSTNotes: (Same as: SEROquel) Inactive 12/18/2016 [facility] Lyrica 25 mg, 1 cap, Route: PO, Drug form: CAP, BID, Dosing Weight 95.455, kg, Start date: 12/18/16 17:00:00 BIT SETTER, Duration: 30 day, Stop date: 01/17/17 9:00:00 CSTNotes: (Same as: Lyrica) Inactive 12/18/2016 [facility] Ambien 10 mg, 1 tab, Route: PO, Drug form: TAB, Bedtime, Dosing Weight 95.455, kg, PRN Sleep, Start date: 12/18/16 14:06:00 BIT SETTER, Duration: 30 day, Stop date: 01/17/17 14:05:00 CSTNotes: (Same As: Ambien) Inactive 12/18/2016 [facility] Zofran 4 mg, 1 tab, Route: PO, Drug form: TAB, Q6H, Dosing Weight 95.455, kg, PRN Nausea & Vomiting, Start date: 12/18/16 14:06:00 BIT SETTER, Duration: 30 day, Stop date: 01/17/17 14:05:00 CSTNotes: (Same as: Zofran) Inactive 12/18/2016 [facility] Methadone 10 mg, 1 tab, Route: PO, Drug form: TAB, TID, Dosing Weight 95.455, kg, PRN Pain Score 4-6, Start date: 12/18/16 14:05:00 BIT SETTER, Duration: 30 day, Stop date: 01/17/17 14:04:00 BIT SETTER, chronic painNotes: ( Same as: Dolophine) Inactive 12/18/2016 [facility] cyclobenzaprine 10 mg, 1 tab, Route: PO, Drug form: TAB, TID, Dosing Weight 95.455, kg, PRN as needed for muscle spasm, Start date: 12/18/16 14:05:00 BIT SETTER, Duration: 30 day, Stop date: 01/17/17 14:04:00 CSTNotes: (Same As: Flexeril) Inactive 12/18/2016 [facility] Lipitor 40 mg, PO, Bedtime, 0 Refill(s) Active 12/18/2016 [facility] Lisinopril PO, BID, 0 Refill(s) Active 12/18/2016 [facility] clopidogrel 75 MG Oral Tablet [Plavix] 75 mg=1 tab, PO, Daily, 0 Refill(s) Active 12/18/2016 [facility] influenza virus vaccine, inactivated 0.5 mL, Route: IM, Drug Form: SUSP, Daily, Start date: 12/18/16 9:00:00 BIT SETTER, Duration: 1 doses or times, Stop date: 12/18/16 9:00:00 CSTNotes: (Same as: Fluzone Quadrivalent, Fluarix Quadrivalent) For 3 years of age and older (0.5 mL IM) Shake well before use Inactive 12/18/2016 [facility] nitroglycerin 0.4 mg sublingual tablet 0.4 mg, 1 tab, Route: SL, Drug form: TAB, Q5Min, PRN Chest Pain, Start date: 12/18/16 6:59:00 BIT SETTER, Duration: 30 day, Stop date: 01/17/17 6:58:00 CSTNotes: (Same as:Nitroquick, Nitrostat) "Do Not Crush" Sublingual tablet Inactive 12/18/2016 [facility] atropine 0.5 mg, 5 mL, Route: IVP, Drug form: INJ, PRN, PRN Bradycardia, Start date: 12/18/16 6:59:00 BIT SETTER, Duration: 30 day, Stop date: 01/17/17 6:58:00 BIT SETTER Inactive 12/18/2016 [facility] Ondansetron 4 mg, 2 mL, Route: IVP, Drug form: INJ, Q6H, Dosing Weight 95.455, kg, PRN Nausea & Vomiting, Start date: 12/18/16 4:47:00 BIT SETTER, Duration: 30 day, Stop date: 01/17/17 4:46:00 CSTNotes: (Same as: Zofran) MEDICATION WASTE Product Size: 4 mg Product Wasted: ___ mg Inactive 12/18/2016 [facility] Acetaminophen 325 MG / Hydrocodone Bitartrate 5 MG Oral Tablet 1 tab, Route: PO, Drug Form: TAB, Dosing Weight 95.455, kg, Q4H, PRN Pain Score 4-6, Start date: 12/18/16 4:47:00 BIT SETTER, Duration: 30 day, Stop date: 01/17/17 4:46:00 CSTNotes: (Same as: [place] 325/5) Do not exceed 4gm/day of acetaminophen. Inactive 12/18/2016 [facility] Morphine 6 mg, 1.5 mL, Route: IVP, Drug form: SOLN, Q4H, Dosing Weight 95.455, kg, PRN as needed for chest pain, Start date: 12/18/16 4:01:00 BIT SETTER, Duration: 30 day, Stop date: 01/17/17 4:00:00 CSTNotes: (Same as:MORPhine Sulfate) Inactive 12/18/2016 [facility] Morphine 6 mg, Route: IVP, ONCE, Dosing Weight 95.455, kg, Priority: STAT, Start date: 12/18/16 4:00:00 BIT SETTER, Stop date: 12/18/16 4:00:00 BIT SETTER Inactive 12/18/2016 [facility] Zofran 4 mg, Route: IVP, Drug form: INJ, ONCE, Dosing Weight 95.455, kg, Start date: 12/18/16 2:49:00 BIT SETTER, Stop date: 12/18/16 2:49:00 BIT SETTER Inactive 12/18/2016 [facility] Nitroglycerin 0.4 MG Sublingual Tablet 0.4 mg, 0, Route: SL, Drug form: TAB, ONCE, Dosing Weight 95.455, kg, PRN Chest Pain, Start date: 12/18/16 2:38:00 BIT SETTER, Duration: 1 doses or times, Stop date: Limited # of times Inactive 12/18/2016 [facility] Morphine 2 mg, Route: IVP, ONCE, Dosing Weight 95.455, kg, Start date: 12/18/16 2:37:00 BIT SETTER, Stop date: 12/18/16 2:37:00 BIT SETTER Inactive 12/18/2016 [facility] Nitroglycerin 0.4 mg, Route: SL, ONCE, Dosing Weight 95.455, kg, Start date: 12/18/16 0:05:00 BIT SETTER, Stop date: 12/18/16 0:05:00 BIT SETTER Inactive 12/18/2016 [facility] Saline Flush 0.9% 10 mL, Route: IVP, Drug Form: INJ, Dosing Weight 95.455, kg, PRN, PRN Line Flush, Start date: 12/17/16 17:59:00 BIT SETTER, Duration: 30 day, Stop date: 01/16/17 17:58:00 CSTNotes: (Same as: BD Posiflush) No Longer Active 12/17/2016 [facility] tramadol hydrochloride 50 MG Oral Tablet [Ultram] 50 mg=1 tab, PO, Q4H, PRN pain, X 3 day, # 12 tab, 0 Refill(s) Active 03/22/2016 [facility] Cyclobenzaprine hydrochloride 10 MG Oral Tablet [Flexeril] 10 mg=1 tab, PO, TID, PRN for spasm, X 5 day, # 15 tab, 0 Refill(s) Active 03/22/2016 [facility] Acetaminophen 325 MG / Hydrocodone Bitartrate 5 MG Oral Tablet [[place] 5/325] 1 tab, Route: PO, Drug Form: TAB, Dosing Weight 86.364, kg, ONCE, STAT, Start date: 03/21/16 21:00:00 CDT, Stop date: 03/21/16 21:00:00 CDTNotes: (Same as: [place] 325/5) Do not exceed 4gm/day of acetaminophen. Inactive 03/22/2016 [facility] Furosemide 20 MG Oral Tablet 20 mg, 1 tab, Route: PO, Drug form: TAB, Daily, Dosing Weight 86.364, kg, Start date: 03/20/16 9:00:00 CDT, Duration: 30 day, Stop date: 04/18/16 9:00:00 CDTNotes: (Same as: Lasix) May cause GI upset. Give with food or milk. Inactive 03/20/2016 [facility] 24 HR Divalproex Sodium 500 MG Extended Release Tablet 500 mg, 1 tab, Route: PO, Drug form: ERTAB, QAM, Dosing Weight 86.364, kg, Start date: 03/20/16 9:00:00 CDT, Duration: 30 day, Stop date: 04/18/16 9:00:00 CDTNotes: (Same as: Depakote ER) Once daily dosing; indicated for migraines. Divalproex sodium extended-release tab. Do not chew or crush. "Do Not Crush" Inactive 03/20/2016 [facility] clopidogrel 75 mg, 1 tab, Route: PO, Drug form: TAB, Daily, Dosing Weight 86.364, kg, Start date: 03/20/16 9:00:00 CDT, Duration: 30 day, Stop date: 04/18/16 9:00:00 CDTNotes: (Same As: Plavix) Inactive 03/20/2016 [facility] Saline Flush 0.9% 10 ml, Route: IVP, Drug Form: INJ, Dosing Weight 86.364, kg, Q12H, Start date: 03/19/16 21:00:00 CDT, Duration: 30 day, Stop date: 04/18/16 9:00:00 CDTNotes: (Same as: BD Posiflush) No Longer Active 03/20/2016 [facility] quetiapine 200 mg, 1 tab, Route: PO, Drug form: TAB, Bedtime, Dosing Weight 86.364, kg, Start date: 03/19/16 21:00:00 CDT, Duration: 30 day, Stop date: 04/17/16 21:00:00 CDTNotes: (Same as: SEROquel) No Longer Active 03/20/2016 [facility] Levetiracetam 250 MG Oral Tablet [Keppra] 500 mg, 1 tab, Route: PO, Drug form: TAB, BID, Dosing Weight 86.364, kg, Start date: 03/19/16 17:00:00 CDT, Duration: 30 day, Stop date: 04/18/16 9:00:00 CDTNotes: (Same as:Keppra) No Longer Active 03/19/2016 [facility] 24 HR Divalproex Sodium 500 MG Extended Release Tablet 1,000 mg, 2 tab, Route: PO, Drug form: ERTAB, QPM, Dosing Weight 86.364, kg, Start date: 03/19/16 17:00:00 CDT, Duration: 30 day, Stop date: 04/17/16 17:00:00 CDTNotes: (Same as: Depakote ER) Once daily dosing; indicated for migraines. Divalproex sodium extended-release tab. Do not chew or crush. "Do Not Crush" No Longer Active 03/19/2016 [facility] Geodon 60 mg, 3 cap, Route: PO, Drug form: CAP, TID, Dosing Weight 86.364, kg, Start date: 03/19/16 17:00:00 CDT, Duration: 30 day, Stop date: 04/18/16 13:00:00 CDTNotes: (Same As: Tracy) Give with Food No Longer Active 03/19/2016 [facility] Seroquel 50 mg, 2 tab, Route: PO, Drug form: TAB, BID, Dosing Weight 86.364, kg, Start date: 03/19/16 17:00:00 CDT, Duration: 30 day, Stop date: 04/18/16 9:00:00 CDTNotes: (Same as: SEROquel) No Longer Active 03/19/2016 [facility] Klonopin 1 mg, 1 tab, Route: PO, Drug form: TAB, TID, Dosing Weight 86.364, kg, Start date: 03/19/16 17:00:00 CDT, Duration: 30 day, Stop date: 04/18/16 13:00:00 CDTNotes: (Same As: KlonoPIN) No Longer Active 03/19/2016 [facility] Lyrica 25 mg, 1 cap, Route: PO, Drug form: CAP, BID, Dosing Weight 86.364, kg, Start date: 03/19/16 17:00:00 CDT, Duration: 30 day, Stop date: 04/18/16 9:00:00 CDTNotes: (Same as: Lyrica) No Longer Active 03/19/2016 [facility] Zofran 4 mg, 2 mL, Route: IVP, Drug form: INJ, Q8H, PRN Nausea, Start date: 03/19/16 14:05:00 CDT, Duration: 30 day, Stop date: 04/18/16 14:04:00 CDTNotes: (Same as: Zofran) MEDICATION WASTE Product Size: 4 mg Product Wasted: ___ mg No Longer Active 03/19/2016 [facility] Morphine 2 mg, 1 mL, Route: IVP, Drug form: INJ, Q4H, Dosing Weight 86.364, kg, PRN Chest Pain, Start date: 03/19/16 13:19:00 CDT, Duration: 30 day, Stop date: 04/18/16 13:18:00 CDTNotes: (Same as:MORPhine Sulfate) No Longer Active 03/19/2016 [facility] Ambien 10 mg, 1 tab, Route: PO, Drug form: TAB, Bedtime, Dosing Weight 86.364, kg, PRN Sleep, Start date: 03/19/16 13:17:00 CDT, Duration: 30 day, Stop date: 04/18/16 13:16:00 CDTNotes: (Same As: Ambien) No Longer Active 03/19/2016 [facility] cyclobenzaprine 10 mg, 1 tab, Route: PO, Drug form: TAB, TID, Dosing Weight 86.364, kg, PRN Muscle Spasms, Start date: 03/19/16 13:15:00 CDT, Duration: 30 day, Stop date: 04/18/16 13:14:00 CDT, painNotes: (Same As: Flexeril) No Longer Active 03/19/2016 [facility] Saline Flush 0.9% 10 ml, Route: IVP, Drug Form: INJ, Dosing Weight 86.364, kg, PRN, PRN Line Flush, Start date: 03/19/16 12:41:00 CDT, Duration: 30 day, Stop date: 04/18/16 12:40:00 CDTNotes: (Same as: BD Posiflush) Inactive 03/19/2016 [facility] Morphine 2 mg, 1 mL, Route: IVP, Drug form: INJ, Q15Min, Dosing Weight 86.364, kg, PRN Chest Pain, Start date: 03/19/16 12:41:00 CDT, Duration: 2 doses or times, Stop date: Limited # of timesNotes: (Same as:M ORPhine Sulfate) No Longer Active 03/19/2016 [facility] Nitroglycerin 0.4 mg, 1 tab, Route: SL, Drug form: TAB, Q5Min, Dosing Weight 86.364, kg, PRN Chest Pain, Start date: 03/19/16 12:41:00 CDT, Duration: 3 doses or times, Stop date: Limited # of timesNotes: (Same as: Nitroquick, Nitrostat) "Do Not Crush" Sublingual tablet Inactive 03/19/2016 [facility] Morphine 2 mg, Route: IVP, ONCE, Dosing Weight 86.364, kg, Start date: 03/19/16 9:52:00 CDT, Stop date: 03/19/16 9:52:00 CDT Inactive 03/19/2016 [facility] Geodon 60 mg, 3 cap, Route: PO, Drug form: CAP, TID, Start date: 03/19/16 9:00:00 CDT, Duration: 30 day, Stop date: 04/17/16 17:00:00 CDTNotes: (Same As: Geodon) Give with Food Inactive 03/19/2016 [facility] SEROquel 50 mg, 2 tab, Route: PO, Drug form: TAB, BID, Start date: 03/19/16 9:00:00 CDT, Duration: 30 day, Stop date: 04/17/16 17:00:00 CDTNotes: (Same as: SEROquel) Inactive 03/19/2016 [facility] KlonoPIN 1 mg, 1 tab, Route: PO, Drug form: TAB, TID, Start date: 03/19/16 9:00:00 CDT, Duration: 30 day, Stop date: 04/17/16 17:00:00 CDTNotes: (Same As: KlonoPIN) Inactive 03/19/2016 [facility] Lyrica 25 mg, 1 cap, Route: PO, Drug form: CAP, BID, Start date: 03/19/16 9:00:00 CDT, Duration: 30 day, Stop date: 04/17/16 17:00:00 CDTNotes: (Same as: Lyrica) Inactive 03/19/2016 [facility] Keppra 500 mg, 1 tab, Route: PO, Drug form: TAB, BID, Start date: 03/19/16 9:00:00 CDT, Duration: 30 day, Stop date: 04/17/16 17:00:00 CDTNotes: (Same as:Keppra) Inactive 03/19/2016 [facility] Lasix 20 mg, 1 tab, Route: PO, Drug form: TAB, Daily, Start date: 03/19/16 9:00:00 CDT, Duration: 30 day, Stop date: 04/17/16 9:00:00 CDTNotes: (Same as: Lasix) May cause GI upset. Give with food or milk. Inactive 03/19/2016 [facility] divalproex sodium 500 mg, 1 tab, Route: PO, Drug form: ERTAB, Daily, Start date: 03/19/16 9:00:00 CDT, Duration: 30 day, Stop date: 04/17/16 9:00:00 CDTNotes: (Same as: Depakote ER) Once daily dosing; indicated for migraines. Divalproex sodium extended-release tab. Do not chew or crush. "Do Not Crush" Inactive 03/19/2016 [facility] Aspirin 81 MG Enteric Coated Tablet 81 mg, 1 tab, Route: PO, Drug form: ECTAB, Daily, Dosing Weight 86.364, kg, Start date: 03/19/16 9:00:00 CDT, Duration: 30 day, Stop date: 04/17/16 9:00:00 CDTNotes: Do not crush or chew. (Same As: Ecotrin) No Longer Active 03/19/2016 [facility] Nitroglycerin 0.02 MG/MG Topical Ointment 2 inch, Route: TOP, Drug Form: OINT, Dosing Weight 86.364, kg, ONCE, STAT, Start date: 03/19/16 8:19:00 CDT, Stop date: 03/19/16 8:19:00 CDT Inactive 03/19/2016 [facility] Morphine 2 mg, Route: IVP, Drug form: INJ, ONCE, Dosing Weight 86.364, kg, Priority: STAT, Start date: 03/19/16 8:05:00 CDT, Stop date: 03/19/16 8:05:00 CDT Inactive 03/19/2016 [facility] Plavix 75 mg, Route: PO, Drug form: TAB, ONCE, Dosing Weight 86.364, kg, Priority: STAT, Start date: 03/19/16 8:03:00 CDT, Stop date: 03/19/16 8:03:00 CDT Inactive 03/19/2016 [facility] Zofran 4 mg, Route: IVP, Drug form: INJ, ONCE, Dosing Weight 86.364, kg, Priority: STAT, Start date: 03/19/16 7:35:00 CDT, Stop date: 03/19/16 7:35:00 CDT Inactive 03/19/2016 [facility] Morphine 2 mg, Route: IVP, Drug form: INJ, ONCE, Dosing Weight 86.364, kg, Priority: STAT, Start date: 03/19/16 6:15:00 CDT, Stop date: 03/19/16 6:15:00 CDT Inactive 03/19/2016 [facility] Nitroglycerin 0.4 mg, 1 tab, Route: SL, Drug form: TAB, Q5Min, Dosing Weight 86.364, kg, PRN Chest Pain, Priority: STAT, Start date: 03/19/16 6:14:00 CDT, Duration: 3 doses or times, Stop date: Limited # of timesN otes: (Same as:Nitroquick, Nitrostat) "Do Not Crush" Sublingual tablet No Longer Active 03/19/2016 [facility] Saline Flush 0.9% 10 mL, Route: IVP, Drug Form: INJ, Dosing Weight 86.364, kg, PRN, PRN Line Flush, Start date: 03/19/16 5:44:00 CDT, Duration: 30 day, Stop date: 04/18/16 5:43:00 CDTNotes: (Same as: BD Posiflush) No Longer Active 03/19/2016 [facility] nitroglycerin 2% topical ointment 0.5 inch, Route: TOP, Drug form: OINT, Q8H, Start date: 03/19/16 0:00:00 CDT, Duration: 30 day, Stop date: 04/17/16 16:00:00 CDTNotes: 1 gram is approximately 1 inch of nitroglycerin ointment (20 mg NTG per gram) (Same as:Nitro-Bid) Inactive 03/19/2016 [facility] SEROquel 200 mg, 1 tab, Route: PO, Drug form: TAB, Bedtime, Start date: 03/18/16 21:00:00 CDT, Duration: 30 day, Stop date: 04/16/16 21:00:00 CDTNotes: (Same as: SEROquel) No Longer Active 03/19/2016 [facility] Saline Flush 0.9% 10 ml, Route: IVP, Drug Form: INJ, Dosing Weight 87.273, kg, Q12H, Start date: 03/18/16 21:00:00 CDT, Duration: 30 day, Stop date: 04/17/16 9:00:00 CDTNotes: (Same as: BD Posiflush) No Longer Active 03/19/2016 [facility] divalproex sodium 1,000 mg, 2 tab, Route: PO, Drug form: ERTAB, Bedtime, Start date: 03/18/16 21:00:00 CDT, Duration: 30 day, Stop date: 04/16/16 21:00:00 CDTNotes: (Same as: Depakote ER) Once daily dosing; indicated for migraines. Divalproex sodium extended-release tab. Do not chew or crush. "Do Not Crush" No Longer Active 03/19/2016 [facility] Tylenol 650 mg, 2 tab, Route: PO, Drug form: TAB, Q6H, PRN Pain Score 1-3, Start date: 03/18/16 19:11:00 CDT, Duration: 30 day, Stop date: 04/17/16 19:10:00 CDTNotes: Do not exceed 4 gm/day. (Same as: Tylenol) No Longer Active 03/19/2016 [facility] Ambien 10 mg, 2 tab, Route: PO, Drug form: TAB, Bedtime, PRN Sleep, Start date: 03/18/16 19:10:00 CDT, Duration: 30 day, Stop date: 04/17/16 19:09:00 CDTNotes: (Same As: Ambien) No Longer Active 03/19/2016 [facility] Zofran 4 mg, 1 tab, Route: PO, Drug form: TAB, Q6H, PRN Nausea, Start date: 03/18/16 19:08:00 CDT, Duration: 30 day, Stop date: 04/17/16 19:07:00 CDTNotes: (Same as: Zofran) No Longer Active 03/19/2016 [facility] 24 HR Divalproex Sodium 500 MG Extended Release Tablet 1,000 mg=2 tab, PO, QPM, # 60 tab, 1 Refill(s) Active 03/18/2016 [facility] pregabalin 25 MG Oral Capsule [Lyrica] 25 mg=1 cap, PO, BID, # 30 cap, 0 Refill(s) Active 03/18/2016 [facility] Enoxaparin 90 mg, 0.9 mL, Route: SUB-Q, Drug form: INJ, [id number], Dosing Weight 86.364, kg, Start date: 03/18/16 18:00:00 CDT, Duration: 30 day, Stop date: 04/17/16 6:00:00 CDTNotes: Nurse to ensure documentation of patient education per anticoagulation policy. (Same as: Lovenox) No Longer Active 03/18/2016 [facility] Saline Flush 0.9% 10 ml, Route: IVP, Drug Form: INJ, Dosing Weight 87.273, kg, PRN, PRN Line Flush, Start date: 03/18/16 17:52:00 CDT, Duration: 30 day, Stop date: 04/17/16 17:51:00 CDTNotes: (Same as: BD Posiflush) No Longer Active 03/18/2016 [facility] Nitroglycerin 0.4 mg, 1 tab, Route: SL, Drug form: TAB, Q5Min, Dosing Weight 87.273, kg, PRN Chest Pain, Start date: 03/18/16 17:52:00 CDT, Duration: 3 doses or times, Stop date: Limited # of timesNotes: (Same as: Nitroquick, Nitrostat) "Do Not Crush" Sublingual tablet No Longer Active 03/18/2016 [facility] Saline Flush 0.9% 10 ml, Route: IVP, Drug Form: INJ, Dosing Weight 86.364, kg, PRN, PRN Line Flush, Start date: 03/18/16 17:46:00 CDT, Duration: 30 day, Stop date: 04/17/16 17:45:00 CDTNotes: (Same as: BD Posiflush) No Longer Active 03/18/2016 [facility] Acetaminophen 650 mg, 2 tab, Route: PO, Drug form: TAB, Q4H, Dosing Weight 86.364, kg, PRN Headache 1-5, Start date: 03/18/16 17:46:00 CDT, Duration: 30 day, Stop date: 04/17/16 17:45:00 CDTNotes: Do not exceed 4 gm/day. (Same as: Tylenol) No Longer Active 03/18/2016 [facility] Nitroglycerin 0.4 mg, 1 tab, Route: SL, Drug form: TAB, Q5Min, Dosing Weight 86.364, kg, PRN Chest Pain, Start date: 03/18/16 17:46:00 CDT, Duration: 3 doses or times, Stop date: Limited # of timesNotes: (Same as: Nitroquick, Nitrostat) "Do Not Crush" Sublingual tablet No Longer Active 03/18/2016 [facility] pregabalin 200 MG Oral Capsule [Lyrica] 200 mg=1 cap, PO, Q12H, # 30 cap, 1 Refill(s) Inactive 03/18/2016 [facility] Zolpidem tartrate 10 MG Oral Tablet [Ambien] 10 mg=1 tab, PO, Bedtime, PRN for sleep, 0 Refill(s) Active 03/18/2016 [facility] Sodium Chloride 0.154 MEQ/ML Injectable Solution 1,000 mL, 1,000 ml/hr, Infuse Over: 1 hr, Route: IV, 1,000, Drug form: INJ, ONCE, Priority: STAT, Dosing Weight 86.364 kg, Start date: 03/18/16 13:54:00 CDT, Duration: 1 doses or times, Stop date: 03/18/16 13:54:00 CDT Inactive 03/18/2016 [facility] Ondansetron 4 mg, 2 mL, Route: IVP, Drug form: INJ, ONCE, Dosing Weight 86.364, kg, Priority: STAT, Start date: 03/18/16 13:54:00 CDT, Stop date: 03/18/16 13:54:00 CDTNotes: (Same as: Zoleeroy) MEDICATION WASTE Product Size: 4 mg Product Wasted: ___ mg Inactive 03/18/2016 [facility] Zofran ODT 4 mg, Route: PO, Drug form: TABDIS, ONCE, Dosing Weight 86.364, kg, Priority: STAT, Start date: 02/28/16 1:01:00 CDT, Stop date: 02/28/16 1:01:00 CDT Inactive 02/28/2016 [facility] Dilaudid 1 mg, 0.5 mL, Route: IM, Drug form: INJ, ONCE, Dosing Weight 86.364, kg, Start date: 02/27/16 23:13:00 CDT, Stop date: 02/27/16 23:13:00 CDTNotes: Same as: Dilaudid Inactive 02/28/2016 [facility] Dilaudid 1 mg, Route: IM, ONCE, Dosing Weight 86.364, kg, Start date: 02/27/16 22:14:00 CDT, Stop date: 02/27/16 22:14:00 CDT Inactive 02/28/2016 [facility] Metoclopramide 5 MG Oral Tablet [Reglan] 5 mg, 1 tab, Route: PO, Drug form: TAB, QID-Before Meals, Dosing Weight 86.364, kg, Start date: 02/27/16 21:00:00 CDT, Duration: 30 day, Stop date: 03/28/16 16:30:00 CDTNotes: (Same as: Reglan) Take 30 min before meals No Longer Active 02/28/2016 [facility] Acetaminophen 325 MG / Hydrocodone Bitartrate 5 MG Oral Tablet [[place] 5/325] 2 tab, Route: PO, Drug Form: TAB, Dosing Weight 86.364, kg, ONCE, STAT, Start date: 02/27/16 20:39:00 CDT, Stop date: 02/27/16 20:39:00 CDTNotes: (Same as: [place] 325/5) Do not exceed 4gm/day of acetaminophen. Inactive 02/28/2016 [facility] Acetaminophen 325 MG / Hydrocodone Bitartrate 5 MG Oral Tablet [[place] 5/325] 1 tab, Route: PO, Drug Form: TAB, Dosing Weight 86.364, kg, ONCE, STAT, Start date: 02/27/16 20:38:00 CDT, Stop date: 02/27/16 20:38:00 CDTNotes: (Same as: [place] 325/5) Do not exceed 4gm/day of acetaminophen. Inactive 02/28/2016 [facility] Acetaminophen 325 MG / Hydrocodone Bitartrate 5 MG Oral Tablet 1 tab, Route: PO, Drug Form: TAB, Dosing Weight 86.364, kg, ONCE, STAT, Start date: 02/27/16 4:12:00 CDT, Stop date: 02/27/16 4:12:00 CDTNotes: (Same as: [place] 325/5) Do not exceed 4gm/day of acetaminophen. Inactive 02/27/2016 [facility] Promethazine 12.5 mg, 0.5 mL, Route: IM, Drug form: INJ, ONCE, Dosing Weight 86.364, kg, Priority: STAT, Start date: 02/27/16 4:12:00 CDT, Stop date: 02/27/16 4:12:00 CDTNotes: Do not give IV push. (Same as: Phe nergan) Inactive 02/27/2016 [facility] Acetaminophen 325 MG / Hydrocodone Bitartrate 5 MG Oral Tablet 1 tab, Route: PO, Drug Form: TAB, Dosing Weight 86.364, kg, ONCE, STAT, Start date: 02/27/16 4:11:00 CDT, Stop date: 02/27/16 4:11:00 CDTNotes: (Same as: [place] 325/5) Do not exceed 4gm/day of acetaminophen. Inactive 02/27/2016 [facility] Zofran 4 mg, 1 tab, Route: PO, Drug form: TAB, Q6H, Dosing Weight 81.818, kg, PRN Nausea, Start date: 02/24/16 3:02:00 CDT, Duration: 30 day, Stop date: 03/25/16 3:01:00 CDTNotes: (Same as: Zofran) No Longer Active 02/24/2016 [facility] Acetaminophen 300 MG / Codeine Phosphate 30 MG Oral Tablet [Tylenol with Codeine #3] 1 tab, PO, BID, PRN Pain, X 3 day, # 6 tab, 0 Refill(s) No Longer Active 02/23/2016 [facility] 24 HR Nicotine 0.875 MG/HR Transdermal Patch =1 patch, TOP, Daily, X 7 day, # 7 patch, 0 Refill(s) Active 02/23/2016 [facility] Zofran 4 mg, 2 mL, Route: IV, Drug form: INJ, Q6H, Dosing Weight 81.818, kg, PRN Nausea, Start date: 02/23/16 0:43:00 CDT, Duration: 30 day, Stop date: 03/24/16 0:42:00 CDTNotes: (Same as: Zofran) MEDICATION WASTE Product Size: 4 mg Product Wasted: ___ mg No Longer Active 02/23/2016 [facility] Methadone 10 mg, 2 tab, Route: PO, Drug form: TAB, Q8H, Dosing Weight 81.818, kg, Priority: NOW, Start date: 02/23/16 0:42:00 CDT, Duration: 30 day, Stop date: 03/24/16 0:00:00 CDTNotes: (Same as: Dolophine) No Longer Active 02/23/2016 [facility] hydromorphone 1 mg, 1 mL, Route: IV, Drug form: INJ, Q4H, PRN Pain Score 7-10, Start date: 02/22/16 17:53:00 CDT, Duration: 30 day, Stop date: 03/23/16 17:52:00 CDT No Longer Active 02/22/2016 [facility] Furosemide 20 MG Oral Tablet 20 mg, 1 tab, Route: PO, Drug form: TAB, Daily, Dosing Weight 81.818, kg, Start date: 02/22/16 9:00:00, Duration: 30 day, Stop date: 03/22/16 9:00:00Notes: (Same as: Lasix) May cause GI upset. Give with food or milk. No Longer Active 02/22/2016 [facility] 24 HR Divalproex Sodium 500 MG Extended Release Tablet [Depakote] 500 mg, 1 tab, Route: PO, Drug form: ERTAB, Daily, Dosing Weight 81.818, kg, Start date: 02/22/16 9:00:00, Duration: 30 day, Stop date: 03/22/16 9:00:00Notes: (Same as: Depakote ER) Once daily dosing; indicated for migraines. Divalproex sodium extended-release tab. Do not chew or crush. "Do Not Crush" No Longer Active 02/22/2016 [facility] Citalopram 40 mg, 2 tab, Route: PO, Drug form: TAB, Daily, Dosing Weight 81.818, kg, Start date: 02/22/16 9:00:00, Duration: 30 day, Stop date: 03/22/16 9:00:00Notes: (Same As: CeleXA) No Longer Active 02/22/2016 [facility] remove patch 1 patch, Route: TOP, Drug form: ERFILM, Daily, Start date: 02/22/16 9:00:00, Duration: 30 day, Stop date: 03/22/16 9:00:00Notes: Remove old patch before application of new patch. WASTE: F/P - P Waste Black; E - P Waste Black No Longer Active 02/22/2016 [facility] Prednisone 5 mg, 1 tab, Route: PO, Drug form: TAB, Daily, Dosing Weight 81.818, kg, Start date: 02/22/16 9:00:00, Duration: 30 day, Stop date: 03/22/16 9:00:00Notes: Take with food. No Longer Active 02/22/2016 [facility] Rocephin 2 gm, Route: IVPB, Q12H, Dosing Weight 83.545, kg, Priority: Routine, Start date: 02/21/16 21:00:00, Duration: 30 day, Stop date: 03/22/16 9:00:00Notes: (Same As: Rocephin). Use with 100 mL NS and infuse over 30 min MEDICATION WASTE Product Size: 2000 mg Product Wasted: ___ mg Inactive 02/22/2016 [facility] Vancomycin 1 gm, Route: IVPB, Q12H, Dosing Weight 83.545, kg, Priority: Routine, Start date: 02/21/16 21:00:00, Duration: 30 day, Stop date: 03/22/16 9:00:00Notes: TIME CRITICAL MEDICATION (Same As: Vancocin) Inf usion rate 2001 mg: infuse over 2.5 hours MEDICATION WASTE Product Size: 1000 mg Product Wasted: ___ mg Inactive 02/22/2016 [facility] 24 HR Divalproex Sodium 500 MG Extended Release Tablet 1,000 mg, 2 tab, Route: PO, Drug form: ERTAB, Bedtime, Dosing Weight 81.818, kg, Start date: 02/21/16 21:00:00, Duration: 30 day, Stop date: 03/21/16 21:00:00Notes: (Same as: Depakote ER) Once daily dosing; indicated for migraines. Divalproex sodium extended-release tab. Do not chew or crush. "Do Not Crush" No Longer Active 02/22/2016 [facility] quetiapine 200 mg, 1 tab, Route: PO, Drug form: TAB, Bedtime, Dosing Weight 81.818, kg, Start date: 02/21/16 21:00:00, Duration: 30 day, Stop date: 03/21/16 21:00:00Notes: (Same as: SEROquel) No Longer Active 02/22/2016 [facility] Lyrica 25 mg, 1 cap, Route: PO, Drug form: CAP, Daily, Dosing Weight 81.818, kg, Start date: 02/21/16 19:02:00, Duration: 30 day, Stop date: 03/22/16 9:00:00Notes: (Same as: Lyrica) No Longer Active 02/22/2016 [facility] Ambien 5 mg, 1 tab, Route: PO, Drug form: TAB, Bedtime, PRN Sleep, Start date: 02/21/16 18:52:00, Duration: 30 day, Stop date: 03/22/16 18:51:00Notes: (Same As: Ambien) No Longer Active 02/21/2016 [facility] Levetiracetam 250 MG Oral Tablet [Keppra] 500 mg, 1 tab, Route: PO, Drug form: TAB, BID, Dosing Weight 81.818, kg, Start date: 02/21/16 17:00:00, Duration: 30 day, Stop date: 03/22/16 9:00:00Notes: (Same as:Keppra) No Longer Active 02/21/2016 [facility] Klonopin 1 mg, 1 tab, Route: PO, Drug form: TAB, TID, Dosing Weight 81.818, kg, Start date: 02/21/16 17:00:00, Duration: 30 day, Stop date: 03/22/16 13:00:00Notes: (Same As: KlonoPIN) No Longer Active 02/21/2016 [facility] Zofran 4 mg, 1 tab, Route: PO, Drug form: TAB, Q6H, Dosing Weight 81.818, kg, PRN Nausea, Start date: 02/21/16 16:20:00, Duration: 30 day, Stop date: 03/22/16 16:19:00Notes: (Same as: Zofran) No Longer Active 02/21/2016 [facility] cyclobenzaprine 10 mg, 1 tab, Route: PO, Drug form: TAB, TID, Dosing Weight 81.818, kg, PRN Spasm, Start date: 02/21/16 16:18:00, Duration: 30 day, Stop date: 03/22/16 16:17:00Notes: (Same As: Flexeril) No Longer Active 02/21/2016 [facility] Clindamycin 600 mg, 50 mL, Route: IVPB, Drug form: INJ, Q8H, Dosing Weight 83.545, kg, Priority: Routine, Start date: 02/21/16 16:00:00, Duration: 30 day, Stop date: 03/22/16 8:00:00 Inactive 02/21/2016 [facility] Morphine 4 mg, 1 mL, Route: IVP, Drug form: INJ, Q4H, Dosing Weight 83.545, kg, PRN Pain Score 6-10, Priority: Routine, Start date: 02/21/16 12:37:00, Duration: 2 doses or times, Stop date: Limited # of timesNotes: (Same as:MORPhine Sulfate) Inactive 02/21/2016 [facility] Acetaminophen 650 mg, 2 tab, Route: PO, Drug form: TAB, Q4H, Dosing Weight 81.818, kg, PRN Pain 1-3/Temp > 100.4 F, Start date: 02/21/16 12:37:00, Duration: 30 day, Stop date: 03/22/16 12:36:00Notes: Do not exceed 4 gm/day. (Same as: Tylenol) No Longer Active 02/21/2016 [facility] Ondansetron 4 mg, 2 mL, Route: IVP, Drug form: INJ, Q6H, Dosing Weight 81.818, kg, PRN Nausea & Vomiting, Start date: 02/21/16 12:37:00, Duration: 30 day, Stop date: 03/22/16 12:36:00Notes: (Same as: Zofran) MEDICATION WASTE Product Size: 4 mg Product Wasted: ___ mg Inactive 02/21/2016 [facility] Reglan 10 mg, 2 mL, Route: IVP, Drug form: INJ, Q6H, Dosing Weight 83.545, kg, Start date: 02/21/16 12:00:00, Duration: 30 day, Stop date: 03/22/16 6:00:00Notes: (Same as: Reglan) No Longer Active 02/21/2016 [facility] Lovenox 40 mg, 0.4 mL, Route: SUB-Q, Drug form: INJ, Q24H, Start date: 02/21/16 12:00:00, Duration: 30 day, Stop date: 03/21/16 12:00:00Notes: (Same as: Lovenox) No Longer Active 02/21/2016 [facility] Ondansetron 4 MG Oral Tablet [Zofran] 4 mg=1 tab, PO, Q6H, PRN Nausea/Vomiting, # 30 tab, 0 Refill(s) Active 02/21/2016 [facility] Clonazepam 1 MG Oral Tablet [Klonopin] 1 mg=1 tab, PO, TID, # 270 tab, 0 Refill(s) Active 02/21/2016 [facility] Levetiracetam 250 MG Oral Tablet [Keppra] 500 mg=2 tab, PO, BID, # 120 tab, 0 Refill(s) Active 02/21/2016 [facility] Nicotine 21 mg, 1 patch, Route: TOP, Drug form: ERFILM, Daily, Dosing Weight 83.545, kg, Start date: 02/21/16 9:00:00, Duration: 30 day, Stop date: 03/21/16 9:00:00Notes: (Same as: Habitrol) "Remove old patch before application of new patch" WASTE: F/P - P Waste Black; E - P Waste Black No Longer Active 02/21/2016 [facility] Lovenox 40 mg, Route: SUB-Q, Drug form: INJ, [id number], Dosing Weight 83.545, kg, Start date: 02/21/16 9:00:00, Duration: 30 day, Stop date: 03/21/16 9:00:00 Inactive 02/21/2016 [facility] Reglan 10 mg, Route: IVP, Drug form: INJ, ONCE, Dosing Weight 83.545, kg, Start date: 02/21/16 8:14:00, Stop date: 02/21/16 8:14:00 Inactive 02/21/2016 [facility] Acetaminophen 325 MG / butalbital 50 MG / Caffeine 40 MG Oral Tablet [Esgic] 1 tab, Route: PO, Drug Form: TAB, Dosing Weight 83.545, kg, Q6H, PRN Headache 1-5, Start date: 02/21/16 8:11:00, Duration: 30 day, Stop date: 03/22/16 8:10:00Notes: ([id number] 325-50-40mg) Do not exceed 4 gm/day of acetaminophen. (Same as: Esgic, Fioricet) No Longer Active 02/21/2016 [facility] Dilaudid 0.5 mg, 0.5 mL, Route: IV, Drug form: INJ, Q4H, Dosing Weight 83.545, kg, PRN Pain Score 7-10, Start date: 02/21/16 8:10:00, Duration: 30 day, Stop date: 03/22/16 8:09:00 No Longer Active 02/21/2016 [facility] Docusate 100 mg, 1 cap, Route: PO, Drug form: CAP, BID, Dosing Weight 83.545, kg, PRN Constipation, Start date: 02/21/16 8:09:00, Duration: 30 day, Stop date: 03/22/16 8:08:00Notes: (Same as: Colace) (Do Not Crush) No Longer Active 02/21/2016 [facility] Acetaminophen 650 mg, 2 tab, Route: PO, Drug form: TAB, Q4H, Dosing Weight 83.545, kg, PRN Pain 1-3/Temp > 100.4 F, Start date: 02/21/16 8:09:00, Duration: 30 day, Stop date: 03/22/16 8:08:00Notes: Do not exceed 4 gm/day. (Same as: Tylenol) No Longer Active 02/21/2016 [facility] Acetaminophen 325 MG / Hydrocodone Bitartrate 5 MG Oral Tablet 1 tab, Route: PO, Drug Form: TAB, Dosing Weight 83.545, kg, Q4H, PRN Pain Score 4-6, Start date: 02/21/16 8:09:00, Duration: 30 day, Stop date: 03/22/16 8:08:00Notes: (Same as: [place] 325/5) Do not exceed 4gm/day of acetaminophen. No Longer Active 02/21/2016 [facility] Morphine 4 mg, Route: IVP, Drug form: INJ, ONCE, Dosing Weight 83.545, kg, Priority: STAT, Start date: 02/21/16 6:23:00, Stop date: 02/21/16 6:23:00 Inactive 02/21/2016 [facility] Rocephin 2 gm, Route: IVPB, Drug form: PDR/INJ, ONCE, Dosing Weight 83.545, kg, Priority: STAT, Start date: 02/21/16 6:21:00, Stop date: 02/21/16 6:21:00 Inactive 02/21/2016 [facility] Zofran 4 mg, Route: IVP, Drug form: INJ, ONCE, Dosing Weight 83.545, kg, Priority: STAT, Start date: 02/21/16 5:53:00, Stop date: 02/21/16 5:53:00 Inactive 02/21/2016 [facility] Dilaudid 1 mg, Route: IVP, ONCE, Dosing Weight 83.545, kg, Priority: STAT, Start date: 02/21/16 2:15:00, Stop date: 02/21/16 2:15:00 Inactive 02/21/2016 [facility] Clindamycin 600 mg, Route: IVPB, ONCE, Dosing Weight 83.545, kg, Priority: STAT, Start date: 02/20/16 23:35:00, Stop date: 02/20/16 23:35:00 No Longer Active 02/21/2016 [facility] Vancomycin 1 gm, Route: IVPB, Drug form: INJ, ONCE, Dosing Weight 83.545, kg, Priority: STAT, Start date: 02/20/16 23:35:00, Stop date: 02/20/16 23:35:00 No Longer Active 02/21/2016 [facility] Sodium Chloride 0.154 MEQ/ML Injectable Solution 1,000 mL, Infuse Over: 1 hr, Route: IV, ONCE, Priority: STAT, Dosing Weight 83.545 kg, Start date: 02/20/16 22:47:00, Duration: 1 doses or times, Stop date: 02/20/16 22:47:00 No Longer Active 02/21/2016 [facility] Saline Flush 0.9% 10 mL, Route: IVP, Drug Form: INJ, Dosing Weight 83.545, kg, PRN, PRN Line Flush, Start date: 02/20/16 22:47:00, Duration: 30 day, Stop date: 03/21/16 22:46:00Notes: (Same as: BD Posiflush) No Longer Active 02/21/2016 [facility] Zofran 4 mg, Route: IVP, Drug form: INJ, ONCE, Dosing Weight 83.545, kg, Priority: STAT, Start date: 02/20/16 22:46:00, Stop date: 02/20/16 22:46:00 No Longer Active 02/21/2016 [facility] Morphine 4 mg, Route: IVP, Drug form: INJ, ONCE, Dosing Weight 83.545, kg, Priority: STAT, Start date: 02/20/16 22:46:00, Stop date: 02/20/16 22:46:00 No Longer Active 02/21/2016 [facility] Ciprofloxacin 3 MG/ML Ophthalmic Solution 2 drp, RIGHT EYE, Q4H, X 5 day, # 5 mL, 0 Refill(s) Active 02/10/2016 [facility] Zofran ODT 4 mg, 1 tab, Route: PO, Drug form: TABDIS, ONCE, Dosing Weight 83.545, kg, Priority: STAT, Start date: 02/10/16 2:44:00, Stop date: 02/10/16 2:44:00Notes: (Same as: Zofran ODT) Inactive 02/10/2016 [facility] Acetaminophen 325 MG / Hydrocodone Bitartrate 5 MG Oral Tablet [[place] 5/325] 1 tab, Route: PO, Drug Form: TAB, Dosing Weight 83.545, kg, ONCE, STAT, Start date: 02/10/16 2:16:00, Stop date: 02/10/16 2:16:00 Inactive 02/10/2016 [facility] Sodium Chloride 0.9% IV 25 mL, Route: IV, Start date: 02/10/16 2:11:00, Duration: 30 day, Stop date: 03/11/16 2:10:00, PRN Line Flush Inactive 02/10/2016 [facility] BD Normal Saline Flush 10 mL, Route: IV, Drug Form: INJ, PRN, PRN Line Flush, Start date: 02/10/16 2:11:00, Duration: 30 day, Stop date: 03/11/16 2:10:00Notes: (Same as: BD Posiflush) Inactive 02/10/2016 [facility] Valtrex 1,000 mg, 2 tab, Route: PO, Drug form: TAB, ONCE, Dosing Weight 83.545, kg, Start date: 02/10/16 1:49:00, Stop date: 02/10/16 1:49:00Notes: (Same As: Valtrex) Inactive 02/10/2016 [facility] Acetaminophen 325 MG / Hydrocodone Bitartrate 5 MG Oral Tablet [[place] 5/325] 1 tab, PO, TID, X 5 day, # 15 tab, 0 Refill(s) Active 02/10/2016 [facility] clindamycin 300 mg oral capsule 300 mg=1 cap, PO, Q6H, X 10 day, # 40 cap, 0 Refill(s) Active 02/10/2016 [facility] acyclovir 800 mg oral tablet 800 mg=1 tab, PO, 5X Day, X 10 day, # 50 tab, 0 Refill(s) Active 02/10/2016 [facility] Clindamycin 450 mg, Route: PO, ONCE, Dosing Weight 83.545, kg, Start date: 02/10/16 0:50:00, Stop date: 02/10/16 0:50:00 Inactive 02/10/2016 [facility] Tetracaine hydrochloride 5 MG/ML Ophthalmic Solution 1 drp, Route: RIGHT EYE, ONCE, Start date: 02/10/16 0:25:00, Stop date: 02/10/16 0:25:00 Inactive 02/10/2016 [facility] fluorescein ophthalmic 1 mg test 1 strip, Route: RIGHT EYE, ONCE, Start date: 02/10/16 0:25:00, Stop date: 02/10/16 0:25:00 Inactive 02/10/2016 [facility] Zofran ODT 4 mg, Route: PO, Drug form: TABDIS, ONCE, Dosing Weight 83.545, kg, Priority: STAT, Start date: 02/10/16 0:24:00, Stop date: 02/10/16 0:24:00 Inactive 02/10/2016 [facility] Morphine 4 mg, Route: IM, Drug form: INJ, ONCE, Dosing Weight 83.545, kg, Priority: STAT, Start date: 02/10/16 0:24:00, Stop date: 02/10/16 0:24:00 Inactive 02/10/2016 [facility] tramadol hydrochloride 50 MG Oral Tablet 50 mg=1 tab, PO, BID, X 15 day, # 30 tab, 0 Refill(s) Active 01/06/2016 [facility] Morphine 4 mg, Route: IVP, Drug form: INJ, ONCE, Dosing Weight 83.636, kg, Priority: STAT, Start date: 01/06/16 17:48:00, Stop date: 01/06/16 17:48:00 Inactive 01/06/2016 [facility] Zofran ODT 4 mg, Route: PO, Drug form: TABDIS, ONCE, Dosing Weight 83.636, kg, Priority: STAT, Start date: 01/06/16 15:26:00, Stop date: 01/06/16 15:26:00 Inactive 01/06/2016 [facility] Saline Flush 0.9% 10 mL, Route: IVP, Drug Form: INJ, Dosing Weight 83.636, kg, PRN, PRN Line Flush, Start date: 01/06/16 15:22:00, Duration: 30 day, Stop date: 02/05/16 16:21:00Notes: (Same as: BD Posiflush) Inactive 01/06/2016 [facility] Acetaminophen 325 MG / Hydrocodone Bitartrate 5 MG Oral Tablet [[place] 5/325] 1 tab, Route: PO, Drug Form: TAB, Dosing Weight 83.636, kg, ONCE, STAT, Start date: 01/06/16 15:22:00, Stop date: 01/06/16 15:22:00 Inactive 01/06/2016 [facility] Geodon 60 mg, 3 cap, Route: PO, Drug form: CAP, BID, Dosing Weight 81.818, kg, Start date: 06/08/15 9:00:00, Duration: 30 day, Stop date: 07/07/15 17:00:00Notes: (Same As: Tracy) Give with Food No Longer Active 06/08/2015 [facility] Ondansetron 4 mg, Route: IVP, Drug form: INJ, ONCE, Dosing Weight 81.818, kg, Priority: STAT, Start date: 06/07/15 16:43:00, Stop date: 06/07/15 16:43:00 Inactive 06/07/2015 [facility] Geodon 60 mg, 3 cap, Route: PO, Drug form: CAP, ONCE, Start date: 06/07/15 16:01:00, Stop date: 06/07/15 16:01:00Notes: (Same As: Tracy) Give with Food Inactive 06/07/2015 [facility] Prednisone 5 mg, 1 tab, Route: PO, Drug form: TAB, ONCE, Dosing Weight 81.818, kg, Priority: STAT, Start date: 06/07/15 15:38:00, Stop date: 06/07/15 15:38:00Notes: Take with food. Inactive 06/07/2015 [facility] Lasix 20 mg, 1 tab, Route: PO, Drug form: TAB, ONCE, Dosing Weight 81.818, kg, Priority: STAT, Start date: 06/07/15 15:38:00, Stop date: 06/07/15 15:38:00Notes: (Same as: Lasix) May cause GI upset. Give with food or milk. Inactive 06/07/2015 [facility] 24 HR Divalproex Sodium 500 MG Extended Release Tablet [Depakote] 500 mg, 1 tab, Route: PO, Drug form: ERTAB, ONCE, Dosing Weight 81.818, kg, Start date: 06/07/15 15:38:00, Stop date: 06/07/15 15:38:00Notes: (Same as: Depakote ER) Once daily dosing; indicated for migraines. Divalproex sodium extended-release tab. Do not chew or crush. "Do Not Crush" Inactive 06/07/2015 [facility] quetiapine 50 MG Oral Tablet [Seroquel] 50 mg=1 tab, PO, BID, # 180 tab, 0 Refill(s) Active 06/07/2015 [facility] 24 HR Divalproex Sodium 500 MG Extended Release Tablet [Depakote] 500 mg=1 tab, PO, Daily, # 90 tab, 0 Refill(s) Active 06/07/2015 [facility] ziprasidone 60 MG Oral Capsule [Geodon] 60 mg=1 cap, PO, TID, # 180 cap, 0 Refill(s) Active 06/07/2015 [facility] cyclobenzaprine 10 mg oral tablet 10 mg=1 tab, PO, TID, PRN for spasms, # 30 tab, 0 Refill(s) Active 06/07/2015 [facility] methadone 10 mg oral tablet 10 mg=1 tab, PO, TID, PRN Pain, 0 Refill(s) Active 06/07/2015 [facility] trazodone 150 mg oral tablet 150 mg=1 tab, PO, Bedtime, 0 Refill(s) Active 06/07/2015 [facility] predniSONE 5 mg oral tablet 5 mg=1 tab, PO, Daily, Give with food., # 10 tab, 0 Refill(s)Special Instructions: Give with food. Active 06/07/2015 [facility] 24 HR Divalproex Sodium 500 MG Extended Release Tablet 1,000 mg=2 tab, PO, Bedtime, # 90 tab, 0 Refill(s) Active 06/07/2015 [facility] Furosemide 20 MG Oral Tablet 20 mg=1 tab, PO, Daily, # 90 tab, 0 Refill(s) Active 06/07/2015 [facility] pregabalin 25 MG Oral Capsule [Lyrica] 25 mg=1 cap, PO, Daily, # 30 cap, 0 Refill(s) Active 06/07/2015 [facility] citalopram 40 mg oral tablet 40 mg=1 tab, PO, Daily, # 30 tab, 1 Refill(s) Active 06/07/2015 [facility] QUEtiapine 200 mg oral tablet 200 mg=1 tab, PO, Bedtime, # 180 tab, 0 Refill(s) Active 06/07/2015 [facility] Ondansetron 4 mg, Route: IVP, Drug form: INJ, ONCE, Dosing Weight 81.818, kg, Priority: STAT, Start date: 06/07/15 10:50:00, Stop date: 06/07/15 10:50:00 Inactive 06/07/2015 [facility] Ondansetron 4 MG Disintegrating Tablet 4 mg, Route: PO, Drug form: TABDIS, ONCE, Dosing Weight 81.818, kg, Priority: STAT, Start date: 06/07/15 5:53:00, Stop date: 06/07/15 5:53:00 Inactive 06/07/2015 [facility] Metoclopramide 10 MG Oral Tablet [Reglan] 10 mg, 1 tab, Route: PO, ONCE, Dosing Weight 81.818, kg, Priority: STAT, Start date: 06/07/15 5:50:00, Stop date: 06/07/15 5:50:00 Inactive 06/07/2015 [facility] Reglan 10 mg, Route: IVP, Drug form: INJ, ONCE, Dosing Weight 81.818, kg, Priority: STAT, Start date: 06/07/15 5:49:00, Stop date: 06/07/15 5:49:00 Inactive 06/07/2015 [facility] Protonix 40 mg, Route: PO, Drug form: ECTAB, ONCE, Dosing Weight 81.818, kg, Priority: STAT, Start date: 06/06/15 19:35:00, Stop date: 06/06/15 19:35:00 Inactive 06/07/2015 [facility] Zofran ODT 4 mg, 1 tab, Route: PO, Drug form: TABDIS, ONCE, Dosing Weight 81.818, kg, Priority: STAT, Start date: 06/06/15 19:34:00, Stop date: 06/06/15 19:34:00Notes: (Same as: Zofran ODT) Inactive 06/07/2015 [facility] Protonix 40 mg, Route: IVP, ONCE, Dosing Weight 81.818, kg, Priority: STAT, Start date: 06/06/15 19:32:00, Stop date: 06/06/15 19:32:00 Inactive 06/07/2015 [facility] normal saline 0.9% IV 1,000 mL 1,000 mL, Rate: 75 ml/hr, Infuse over: 13.3 hr, Route: IV, Dosing Weight 81.818 kg, Total Volume: 1,000, Priority: STAT, Start date: 06/06/15 4:45:00, Duration: 1 doses or times, Stop date: 06/06/15 18:02:00 Inactive 06/06/2015 [facility] charcoal 50 g oral suspension 50 gm, 240 mL, Route: PO, Drug form: SUSP, ONCE, Dosing Weight 81.818, kg, Priority: STAT, Start date: 06/05/15 22:57:00, Stop date: 06/05/15 22:57:00Notes: (Same As: Actidose-Aqua, Liqui-Theresa) Inactive 06/06/2015 [facility] Saline Flush 0.9% 10 mL, Route: IVP, Drug Form: INJ, Dosing Weight 81.818, kg, PRN, PRN Line Flush, Start date: 06/05/15 22:57:00, Duration: 30 day, Stop date: 07/05/15 22:56:00Notes: (Same as: BD Posiflush) No Longer Active 06/06/2015 [facility] Amoxicillin 875 MG / Clavulanate 125 MG Oral Tablet [Augmentin 875-mg] 875 mg, Route: PO, Drug Form: TAB, Dosing Weight 73.182, kg, Q12H, Start date: 06/05/15 21:00:00, Duration: 14 day, Stop date: 06/19/15 9:00:00, Special Instructions: Notes: With food. (Same as: Augmentin 875) Inactive 06/06/2015 [facility] Gentamicin Sulfate ([facility]) 0.003 MG/MG Ophthalmic Ointment 0.25 inch, Route: BOTH EYES, TID, Drug form: OINT, Priority: STAT, Start date: 06/05/15 17:45:00, Duration: 30 day, Stop date: 07/05/15 17:00:00Notes: (Same as: Garamcyin) Inactive 06/05/2015 [facility] Gentamicin Sulfate ([facility]) 3 MG/ML Ophthalmic Solution [Gentak] 1 drp, RIGHT EYE, QID, # 5 ml, 0 Refill(s) Inactive 06/05/2015 [facility] Amoxicillin 875 MG / Clavulanate 125 MG Oral Tablet [Augmentin 875-mg] 875 mg=1 tab, PO, Q12H, X 14 day, # 28 tab, 0 Refill(s) Active 06/05/2015 [facility] Gentamicin Sulfate ([facility]) 0.003 MG/MG Ophthalmic Ointment 0.25 inch, Route: BOTH EYES, TID, Drug form: OINT, Start date: 06/05/15 13:00:00, Duration: 30 day, Stop date: 07/05/15 9:00:00Notes: (Same as: Garamcyin) Inactive 06/05/2015 [facility] tramadol hydrochloride 50 MG Oral Tablet 100 mg, 2 tab, Route: PO, Drug form: TAB, ONCE, Dosing Weight 73.182, kg, Priority: STAT, Start date: 06/05/15 11:45:00, Stop date: 06/05/15 11:45:00Notes: Not to exceed 400mg/day. (Same As: Ultram) Inactive 06/05/2015 [facility] Dilaudid 1 mg, Route: IM, ONCE, Dosing Weight 69.091, kg, Start date: 05/03/15 7:34:00, Stop date: 05/03/15 7:34:00 Inactive 05/03/2015 [facility] Dilaudid 1 mg, Route: IM, ONCE, Dosing Weight 69.091, kg, Priority: STAT, Start date: 05/03/15 6:00:00, Stop date: 05/03/15 6:00:00 Inactive 05/03/2015 [facility] Tylenol 975 mg, Route: PO, Drug form: TAB, ONCE, Dosing Weight 69.091, kg, Priority: STAT, Start date: 05/03/15 5:56:00, Stop date: 05/03/15 5:56:00 Inactive 05/03/2015 [facility] Allergies, Adverse Reactions, Alerts Substance Category Reaction Severity Reaction type Status Date Reported Comments Source aspirin Assertion Drug allergy Active [facility] Demerol HCl Assertion Drug allergy Active [facility] erythromycin Assertion Drug allergy Active [facility] Imitrex Assertion Drug allergy Active [facility] NSAIDs Assertion Drug allergy Active [facility] Stelazine Assertion Drug allergy Active [facility] sulfa drugs Assertion Drug allergy Active [facility] Toradol Assertion Drug allergy Active [facility] Haldol Assertion Drug allergy Active [facility] Immunizations Immunization Date Given Site Status Last Updated Comments Source pneumococcal 23-valent vaccine<sup>1</sup> 01/15/2017 Not Given [facility] influenza virus vaccine, inactivated 12/18/2016 Right deltoid completed Ricki [facility] diphtheria/pertussis, acel/tetanus adult 01/06/2013 Right deltoid completed Bauman [facility] Results Order Name Results Value Reference Range Date Interpretation Comments Source CARDIAC ENZYMES Troponin-I null 0.00 - 0.40 02/03/2017 [facility] CHEM PANEL Lactic Acid Lvl 1.2 mMol/L 0.5 - 2.2 02/03/2017 [facility] CHEM PANEL eGFR 103 mL/min/1.73m2 02/03/2017 Result Comment: The eGFR is calculated using the CKD-EPI formula. In most young, healthy individuals the eGFR will be >90 mL/min/1.73m2. The eGFR declines with age. An eGFR of 60-89 may be normal in some populations, particularly the elderly, for whom the CKD-EPI formula has not been extensively validated. Use of the eGFR is not recommended in the following populations: Individuals with unstable creatinine concentrations, including patients and those with serious co-morbid conditions. Patients with extremes in muscle mass or diet. The data above are obtained from the National Kidney Disease Education Program (NKDEP) which additionally recommends that when the eGFR is used in patients with extremes of body mass index for purposes of drug dosing, the eGFR should be multiplied by the estimated BMI. [facility] CHEM PANEL Chloride Lvl 108 meq/L 95 - 109 02/03/2017 [facility] CHEM PANEL Calcium Lvl 9.3 mg/dL 8.5 - 10.5 02/03/2017 [facility] CHEM PANEL AGAP 15.0 meq/L 10.0 - 20.0 02/03/2017 [facility] CHEM PANEL CO2 23 meq/L 24 - 32 02/03/2017 [facility] CHEM PANEL Glucose Lvl 88 mg/dL 70 - 99 02/03/2017 [facility] CHEM PANEL Potassium Lvl 3.0 meq/L 3.5 - 5.1 02/03/2017 Result Comment: Critical Result(s) called to Dr. Larissa Aquino at _02/03/2017 17:49 by_CPang. Read back OK. [facility] CHEM PANEL Sodium Lvl 143 meq/L 135 - 145 02/03/2017 [facility] CHEM PANEL Creatinine Lvl 0.69 mg/dL 0.50 - 1.40 02/03/2017 [facility] CHEM PANEL BUN 11 mg/dL 7 - 22 02/03/2017 [facility] HEMATOLOGY MPV 8.2 fL 7.4 - 10.4 02/03/2017 [facility] HEMATOLOGY Platelet 199 K/CMM 133 - 450 02/03/2017 [facility] HEMATOLOGY MCHC 35.2 g/dL 32.0 - 36.0 02/03/2017 [facility] HEMATOLOGY RDW 14.2 % 11.5 - 14.5 02/03/2017 [facility] HEMATOLOGY RBC 4.05 M/CMM 4.20 - 5.40 02/03/2017 [facility] HEMATOLOGY Hgb 13.0 g/dL 12.0 - 16.0 02/03/2017 [facility] HEMATOLOGY Hct 37.0 % 36.0 - 48.0 02/03/2017 [facility] HEMATOLOGY MCV 91.4 fL 80.0 - 98.0 02/03/2017 [facility] HEMATOLOGY MCH 32.2 pg 27.0 - 31.0 02/03/2017 [facility] HEMATOLOGY WBC 9.5 K/CMM 3.7 - 10.4 02/03/2017 [facility] HEMATOLOGY Monocytes # 0.5 K/CMM 0.0 - 0.8 02/03/2017 [facility] HEMATOLOGY Segs-Bands # 4.4 K/CMM 1.5 - 8.1 02/03/2017 [facility] HEMATOLOGY Eosinophils # 0.1 K/CMM 0.0 - 0.5 02/03/2017 [facility] HEMATOLOGY Lymphocytes # 4.3 K/CMM 1.0 - 5.5 02/03/2017 [facility] HEMATOLOGY Basophils # 0.1 K/CMM 0.0 - 0.2 02/03/2017 [facility] HEMATOLOGY Segs 46.9 % 45.0 - 75.0 02/03/2017 [facility] HEMATOLOGY Eosinophils 1.5 % 0.0 - 4.0 02/03/2017 [facility] HEMATOLOGY Lymphocytes 45.5 % 20.0 - 40.0 02/03/2017 [facility] HEMATOLOGY Monocytes 5.3 % 2.0 - 12.0 02/03/2017 [facility] HEMATOLOGY Basophils 0.8 % 0.0 - 1.0 02/03/2017 [facility] Chest 2 views DX Chest 2 views DX EXAM: XR CHEST 2 VIEWS DATE: 02/03/2017 3:55 PM CDT INDICATION: Chest pain - h/o CAD \\T\\ ID s/p stent x2, frequent CP=angina, with acute on chronic CP COMPARISON: Chest radiographs dated 01/30/2017 TECHNIQUE: PA and lateral chest radiographs FINDINGS: Lungs and pleura: No pulmonary or pleural based abnormality is identified. Again seen is minimal interstitial prominence. No focal consolidation or pleural effusion is identified. Heart and mediastinum: The heart size is normal. The mediastinal contours are normal. Bones: No acute bony abnormality is identified. Note made of post vertebroplasty changes at the thoracolumbar junction. Surgical clips overlie the right upper quadrant. IMPRESSION: Unchanged appearance of the chest without acute cardiopulmonary abnormality. 02/03/2017 - - This report was dictated by a Coating Mixer Supervisor/Fellow. I have personally reviewed the images as well as the Resident's interpretation and agree with the findings. Read by: Kilo Love MD Resident: Kilo Love MD Dictated Date/time: 02/03/17 16:25 Electronically Signed by: Ned To MD 02/03/17 16:32 FINAL REPORT [facility] URINE AND STOOL UA Sq Epi Few /LPF Few /LPF 01/30/2017 [facility] URINE AND STOOL UA Urobilinogen <=1.0 mg/dL 0.1 - 1.0 01/30/2017 [facility] URINE AND STOOL UA Bacteria Occasional /HPF None Seen /HPF 01/30/2017 [facility] URINE AND STOOL UA WBC 2 /HPF 0 - 5 01/30/2017 [facility] URINE AND STOOL UA RBC 5 /HPF 0 - 2 01/30/2017 [facility] URINE AND STOOL UA Mucus Few /LPF None Seen /LPF 01/30/2017 [facility] URINE AND STOOL UA Blood Small *ABN* (01/30/17 5:28 PM) Negative 01/30/2017 [facility] URINE AND STOOL UA Leuk Est Negative (01/30/17 5:28 PM) Negative 01/30/2017 [facility] URINE AND STOOL UA Nitrite Negative (01/30/17 5:28 PM) Negative 01/30/2017 [facility] URINE AND STOOL UA Spec Grav 1.020 <=1.030 01/30/2017 [facility] URINE AND STOOL UA pH 6.0 5.0 - 8.0 01/30/2017 [facility] URINE AND STOOL UA Protein 50 mg/dL Negative mg/dL 01/30/2017 [facility] URINE AND STOOL UA Glucose Negative mg/dL Negative mg/dL 01/30/2017 [facility] URINE AND STOOL UA Bili Negative *NA* (01/30/17 5:28 PM) Negative 01/30/2017 [facility] URINE AND STOOL UA Ketones Negative mg/dL Negative mg/dL 01/30/2017 [facility] URINE AND STOOL UA Color Yellow *NA* (01/30/17 5:28 PM) Yellow 01/30/2017 [facility] URINE AND STOOL UA Turbidity Clear (01/30/17 5:28 PM) Clear 01/30/2017 [facility] CARDIAC ENZYMES Troponin-I null 0.00 - 0.40 01/30/2017 [facility] CHEM PANEL Lactic Acid Lvl 1.2 mMol/L 0.5 - 2.2 01/30/2017 [facility] CHEM PANEL Lactic Acid WB 1.1 mmol/L 0.5 - 2.2 01/30/2017 [facility] CARDIAC ENZYMES Troponin-I null 0.00 - 0.40 01/30/2017 [facility] CHEM PANEL eGFR 89 mL/min/1.73m2 01/30/2017 Result Comment: The eGFR is calculated using the CKD-EPI formula. In most young, healthy individuals the eGFR will be >90 mL/min/1.73m2. The eGFR declines with age. An eGFR of 60-89 may be normal in some populations, particularly the elderly, for whom the CKD-EPI formula has not been extensively validated. Use of the eGFR is not recommended in the following populations: Individuals with unstable creatinine concentrations, including patients and those with serious co-morbid conditions. Patients with extremes in muscle mass or diet. The data above are obtained from the National Kidney Disease Education Program (NKDEP) which additionally recommends that when the eGFR is used in patients with extremes of body mass index for purposes of drug dosing, the eGFR should be multiplied by the estimated BMI. [facility] CHEM PANEL Calcium Lvl 8.5 mg/dL 8.5 - 10.5 01/30/2017 [facility] CHEM PANEL Chloride Lvl 106 meq/L 95 - 109 01/30/2017 [facility] CHEM PANEL CO2 20 meq/L 24 - 32 01/30/2017 [facility] CHEM PANEL Potassium Lvl 3.9 meq/L 3.5 - 5.1 01/30/2017 [facility] CHEM PANEL Creatinine Lvl 0.79 mg/dL 0.50 - 1.40 01/30/2017 [facility] CHEM PANEL Sodium Lvl 140 meq/L 135 - 145 01/30/2017 [facility] CHEM PANEL Glucose Lvl 84 mg/dL 70 - 99 01/30/2017 [facility] CHEM PANEL BUN 13 mg/dL 7 - 22 01/30/2017 [facility] CHEM PANEL AGAP 17.9 meq/L 10.0 - 20.0 01/30/2017 [facility] HEMATOLOGY Eosinophils 1.2 % 0.0 - 4.0 01/30/2017 [facility] HEMATOLOGY Monocytes 6.4 % 2.0 - 12.0 01/30/2017 [facility] HEMATOLOGY Lymphocytes 34.5 % 20.0 - 40.0 01/30/2017 [facility] HEMATOLOGY Segs-Bands # 6.0 K/CMM 1.5 - 8.1 01/30/2017 [facility] HEMATOLOGY Basophils 0.7 % 0.0 - 1.0 01/30/2017 [facility] HEMATOLOGY Basophils # 0.1 K/CMM 0.0 - 0.2 01/30/2017 [facility] HEMATOLOGY Lymphocytes # 3.6 K/CMM 1.0 - 5.5 01/30/2017 [facility] HEMATOLOGY Monocytes # 0.7 K/CMM 0.0 - 0.8 01/30/2017 [facility] HEMATOLOGY Eosinophils # 0.1 K/CMM 0.0 - 0.5 01/30/2017 [facility] HEMATOLOGY Segs 57.2 % 45.0 - 75.0 01/30/2017 [facility] HEMATOLOGY Hct 37.2 % 36.0 - 48.0 01/30/2017 [facility] HEMATOLOGY MCV 91.4 fL 80.0 - 98.0 01/30/2017 [facility] HEMATOLOGY WBC 10.5 K/CMM 3.7 - 10.4 01/30/2017 [facility] HEMATOLOGY RBC 4.08 M/CMM 4.20 - 5.40 01/30/2017 [facility] HEMATOLOGY Platelet 194 K/CMM 133 - 450 01/30/2017 [facility] HEMATOLOGY MPV 8.1 fL 7.4 - 10.4 01/30/2017 [facility] HEMATOLOGY MCH 32.1 pg 27.0 - 31.0 01/30/2017 [facility] HEMATOLOGY MCHC 35.1 g/dL 32.0 - 36.0 01/30/2017 [facility] HEMATOLOGY RDW 14.2 % 11.5 - 14.5 01/30/2017 [facility] HEMATOLOGY Hgb 13.1 g/dL 12.0 - 16.0 01/30/2017 [facility] CHEM PANEL Lactic Acid WB 3.0 mmol/L 0.5 - 2.2 01/30/2017 [facility] Chest 2 views DX Chest 2 views DX EXAM: XR CHEST 2 VIEWS DATE: 01/30/2017 at 1106 hours INDICATION: chest pain, productive cough COMPARISON: 01/24/2017 TECHNIQUE: PA and lateral chest radiographs FINDINGS: Lines and tubes: None. Surgical clips overlie the gallbladder fossa. Lungs and pleura: No pulmonary or pleural based abnormality is identified. Minimal interstitial prominence is unchanged from prior, without focal consolidation or effusion. Heart and mediastinum: The heart size is normal. The mediastinal contours are normal. Bones: No acute bony abnormality is identified. Vertebroplasty cement is again identified at the thoracolumbar junction. IMPRESSION: No acute cardiopulmonary abnormality. 01/30/2017 - - Read by: Adia Montaño MD Dictated Date/time: 01/30/17 11:16 Electronically Signed by: Adia Montaño MD 01/30/17 11:17 FINAL REPORT [facility] CARDIAC ENZYMES Troponin-I null 0.00 - 0.40 01/25/2017 [facility] CARDIAC ENZYMES Troponin-I null 0.00 - 0.40 01/24/2017 [facility] CARDIAC ENZYMES Troponin-T null 0.000 - 0.100 01/24/2017 [facility] CARDIAC ENZYMES Total CK 40 unit/L 12 - 191 01/24/2017 [facility] CHEM PANEL eGFR 89 mL/min/1.73m2 01/24/2017 Result Comment: The eGFR is calculated using the CKD-EPI formula. In most young, healthy individuals the eGFR will be >90 mL/min/1.73m2. The eGFR declines with age. An eGFR of 60-89 may be normal in some populations, particularly the elderly, for whom the CKD-EPI formula has not been extensively validated. Use of the eGFR is not recommended in the following populations: Individuals with unstable creatinine concentrations, including patients and those with serious co-morbid conditions. Patients with extremes in muscle mass or diet. The data above are obtained from the National Kidney Disease Education Program (NKDEP) which additionally recommends that when the eGFR is used in patients with extremes of body mass index for purposes of drug dosing, the eGFR should be multiplied by the estimated BMI. [facility] CHEM PANEL Calcium Lvl 9.9 mg/dL 8.5 - 10.5 01/24/2017 [facility] CHEM PANEL CO2 28 meq/L 24 - 32 01/24/2017 [facility] CHEM PANEL Creatinine Lvl 0.79 mg/dL 0.50 - 1.40 01/24/2017 [facility] CHEM PANEL BUN 12 mg/dL 7 - 22 01/24/2017 [facility] CHEM PANEL Glucose Lvl 92 mg/dL 70 - 99 01/24/2017 [facility] CHEM PANEL Sodium Lvl 143 meq/L 135 - 145 01/24/2017 [facility] CHEM PANEL Chloride Lvl 107 meq/L 95 - 109 01/24/2017 [facility] CHEM PANEL Potassium Lvl 4.9 meq/L 3.5 - 5.1 01/24/2017 [facility] CHEM PANEL AGAP 12.9 meq/L 10.0 - 20.0 01/24/2017 [facility] HEMATOLOGY MPV 7.9 fL 7.4 - 10.4 01/24/2017 [facility] HEMATOLOGY RDW 14.3 % 11.5 - 14.5 01/24/2017 [facility] HEMATOLOGY MCHC 34.8 g/dL 32.0 - 36.0 01/24/2017 [facility] HEMATOLOGY MCH 32.0 pg 27.0 - 31.0 01/24/2017 [facility] HEMATOLOGY Platelet 204 K/CMM 133 - 450 01/24/2017 [facility] HEMATOLOGY Hct 38.8 % 36.0 - 48.0 01/24/2017 [facility] HEMATOLOGY RBC 4.21 M/CMM 4.20 - 5.40 01/24/2017 [facility] HEMATOLOGY Hgb 13.5 g/dL 12.0 - 16.0 01/24/2017 [facility] HEMATOLOGY MCV 92.1 fL 80.0 - 98.0 01/24/2017 [facility] HEMATOLOGY WBC 9.2 K/CMM 3.7 - 10.4 01/24/2017 [facility] HEMATOLOGY Eosinophils # 0.2 K/CMM 0.0 - 0.5 01/24/2017 [facility] HEMATOLOGY Basophils # 0.1 K/CMM 0.0 - 0.2 01/24/2017 [facility] HEMATOLOGY Lymphocytes # 3.9 K/CMM 1.0 - 5.5 01/24/2017 [facility] HEMATOLOGY Segs-Bands # 4.5 K/CMM 1.5 - 8.1 01/24/2017 [facility] HEMATOLOGY Basophils 0.6 % 0.0 - 1.0 01/24/2017 [facility] HEMATOLOGY Eosinophils 1.7 % 0.0 - 4.0 01/24/2017 [facility] HEMATOLOGY Monocytes # 0.5 K/CMM 0.0 - 0.8 01/24/2017 [facility] HEMATOLOGY Lymphocytes 42.7 % 20.0 - 40.0 01/24/2017 [facility] HEMATOLOGY Segs 49.1 % 45.0 - 75.0 01/24/2017 [facility] HEMATOLOGY Monocytes 5.9 % 2.0 - 12.0 01/24/2017 [facility] Chest 2 views DX Chest 2 views DX EXAM: XR CHEST PA AND LATERAL 2 VIEWS DATE: 01/24/2017 12:20 PM CDT INDICATION: Chest pain COMPARISON: 01/14/2017 1233 hours TECHNIQUE: Chest PA and Lateral -- 2 Views FINDINGS: Cardiac silhouette size is normal. Central pulmonary vascularity is within normal limits. Mediastinal and hilar contours are normal. No airspace consolidation, pleural effusion, or pneumothorax present. Skeletal structures demonstrate no acute findings. Mild degenerative disk disease is present. Vertebroplasty and chronic compression fractures at the thoracolumbar junction noted. IMPRESSION: No acute cardiopulmonary abnormality is observed. 01/24/2017 - - Read by: Brien Zapien MD Dictated Date/time: 01/24/17 13:07 Electronically Signed by: Brien Zapien MD 01/24/17 13:09 FINAL REPORT [facility] CARDIAC ENZYMES Troponin-I null 0.00 - 0.40 01/17/2017 [facility] CARDIAC ENZYMES Total CK 40 unit/L 12 - 191 01/17/2017 [facility] ELECTROLYTES AGAP 14.9 meq/L 10.0 - 20.0 01/17/2017 [facility] ELECTROLYTES eGFR 60 mL/min/1.73m2 01/17/2017 Result Comment: The eGFR is calculated using the CKD-EPI formula. In most young, healthy individuals the eGFR will be >90 mL/min/1.73m2. The eGFR declines with age. An eGFR of 60-89 may be normal in some populations, particularly the elderly, for whom the CKD-EPI formula has not been extensively validated. Use of the eGFR is not recommended in the following populations: Individuals with unstable creatinine concentrations, including patients and those with serious co-morbid conditions. Patients with extremes in muscle mass or diet. The data above are obtained from the National Kidney Disease Education Program (NKDEP) which additionally recommends that when the eGFR is used in patients with extremes of body mass index for purposes of drug dosing, the eGFR should be multiplied by the estimated BMI. [facility] ELECTROLYTES CO2 24 meq/L 24 - 32 01/17/2017 [facility] ELECTROLYTES BUN 20 mg/dL 7 - 22 01/17/2017 [facility] ELECTROLYTES Creatinine Lvl 1.10 mg/dL 0.50 - 1.40 01/17/2017 [facility] ELECTROLYTES Potassium Lvl 3.9 meq/L 3.5 - 5.1 01/17/2017 [facility] ELECTROLYTES Sodium Lvl 142 meq/L 135 - 145 01/17/2017 [facility] ELECTROLYTES Chloride Lvl 107 meq/L 95 - 109 01/17/2017 [facility] ELECTROLYTES Calcium Lvl 9.4 mg/dL 8.5 - 10.5 01/17/2017 [facility] ELECTROLYTES Glucose Lvl 128 mg/dL 70 - 99 01/17/2017 [facility] HEMATOLOGY Segs 50.7 % 45.0 - 75.0 01/17/2017 [facility] HEMATOLOGY Lymphocytes 40.4 % 20.0 - 40.0 01/17/2017 [facility] HEMATOLOGY Segs-Bands # 4.6 K/CMM 1.5 - 8.1 01/17/2017 [facility] HEMATOLOGY Basophils 0.5 % 0.0 - 1.0 01/17/2017 [facility] HEMATOLOGY Eosinophils 2.2 % 0.0 - 4.0 01/17/2017 [facility] HEMATOLOGY Monocytes 6.2 % 2.0 - 12.0 01/17/2017 [facility] HEMATOLOGY Monocytes # 0.6 K/CMM 0.0 - 0.8 01/17/2017 [facility] HEMATOLOGY Lymphocytes # 3.6 K/CMM 1.0 - 5.5 01/17/2017 [facility] HEMATOLOGY Eosinophils # 0.2 K/CMM 0.0 - 0.5 01/17/2017 [facility] HEMATOLOGY Hct 39.2 % 36.0 - 48.0 01/17/2017 [facility] HEMATOLOGY Hgb 13.4 g/dL 12.0 - 16.0 01/17/2017 [facility] HEMATOLOGY RBC 4.28 M/CMM 4.20 - 5.40 01/17/2017 [facility] HEMATOLOGY WBC 9.0 K/CMM 3.7 - 10.4 01/17/2017 [facility] HEMATOLOGY MCH 31.4 pg 27.0 - 31.0 01/17/2017 [facility] HEMATOLOGY MCV 91.7 fL 80.0 - 98.0 01/17/2017 [facility] HEMATOLOGY Platelet 189 K/CMM 133 - 450 01/17/2017 [facility] HEMATOLOGY RDW 13.9 % 11.5 - 14.5 01/17/2017 [facility] HEMATOLOGY MCHC 34.3 g/dL 32.0 - 36.0 01/17/2017 [facility] HEMATOLOGY MPV 7.7 fL 7.4 - 10.4 01/17/2017 [facility] TOXICOLOGY Salicylate Lvl 2.4 mg/dL 0.0 - 30.0 01/17/2017 [facility] TOXICOLOGY Ethanol Lvl <3.0 mg/dL 01/17/2017 [facility] TOXICOLOGY Etoh (%) <0.003 % 01/17/2017 [facility] TOXICOLOGY Acetaminoph Lvl <2
(01/17/17 2:24 AM) 10 - 20 01/17/2017 [facility] DRUG SCREEN U Phencyc Scr Negative *NA* (01/17/17 2:11 AM) Negative 01/17/2017 [facility] DRUG SCREEN UDS Note See Note *NA* (01/17/17 2:11 AM) 01/17/2017 [facility] DRUG SCREEN U Opiate Scr Negative *NA* (01/17/17 2:11 AM) Negative 01/17/2017 [facility] DRUG SCREEN U Cannab Scr Negative *NA* (01/17/17 2:11 AM) Negative 01/17/2017 [facility] DRUG SCREEN U Benzodia Scr Negative *NA* (01/17/17 2:11 AM) Negative 01/17/2017 [facility] DRUG SCREEN U Cocaine Scr Negative *NA* (01/17/17 2:11 AM) Negative 01/17/2017 [facility] DRUG SCREEN U Rahel Scr Negative *NA* (01/17/17 2:11 AM) Negative 01/17/2017 [facility] DRUG SCREEN U Amph Scr Negative *NA* (01/17/17 2:11 AM) Negative 01/17/2017 [facility] URINE AND STOOL UA RBC 1-3 01/17/2017 [facility] URINE AND STOOL UA Leuk Est Negative (01/17/17 2:11 AM) Negative 01/17/2017 [facility] URINE AND STOOL UA Bacteria Few /HPF None Seen /HPF 01/17/2017 [facility] URINE AND STOOL UA WBC 0-2 /HPF None Seen /HPF 01/17/2017 [facility] URINE AND STOOL UA Sq Epi Few /LPF Few /LPF 01/17/2017 [facility] URINE AND STOOL UA Nitrite Negative (01/17/17 2:11 AM) Negative 01/17/2017 [facility] URINE AND STOOL UA Urobilinogen 0.2 EU/dL 0.1 - 1.0 01/17/2017 [facility] URINE AND STOOL UA Ketones Trace *ABN* (01/17/17 2:11 AM) Negative 01/17/2017 [facility] URINE AND STOOL UA Glucose Negative (01/17/17 2:11 AM) Negative 01/17/2017 [facility] URINE AND STOOL UA Bili Negative *NA* (01/17/17 2:11 AM) Negative 01/17/2017 [facility] URINE AND STOOL UA Blood Moderate *ABN* (01/17/17 2:11 AM) Negative 01/17/2017 [facility] URINE AND STOOL UA Protein Negative (01/17/17 2:11 AM) Negative 01/17/2017 [facility] URINE AND STOOL UA Turbidity Clear (01/17/17 2:11 AM) Clear 01/17/2017 [facility] URINE AND STOOL UA Color Yellow *NA* (01/17/17 2:11 AM) Yellow 01/17/2017 [facility] URINE AND STOOL UA pH 7.0 5.0 - 8.0 01/17/2017 [facility] URINE AND STOOL UA Spec Grav 1.015 <=1.030 01/17/2017 [facility] DRUG SCREEN U Methadone Scr Negative *NA* (01/15/17 4:52 AM) Negative 01/15/2017 [facility] DRUG SCREEN U Alcohol Negative *NA* (01/15/17 4:52 AM) Negative 01/15/2017 [facility] DRUG SCREEN U Propoxyph Scr Negative *NA* (01/15/17 4:52 AM) Negative 01/15/2017 [facility] DRUG SCREEN U Amph Scr Negative *NA* (01/15/17 4:52 AM) Negative 01/15/2017 [facility] DRUG SCREEN U Opiate Scr Positive *ABN* (01/15/17 4:52 AM) Negative 01/15/2017 [facility] DRUG SCREEN U Cannab Scr Negative *NA* (01/15/17 4:52 AM) Negative 01/15/2017 [facility] DRUG SCREEN UDS Note See Note (01/15/17 4:52 AM) 01/15/2017 [facility] DRUG SCREEN U Phencyc Scr Negative *NA* (01/15/17 4:52 AM) Negative 01/15/2017 [facility] DRUG SCREEN U Benzodia Scr Negative *NA* (01/15/17 4:52 AM) Negative 01/15/2017 [facility] DRUG SCREEN U Rahel Scr Negative *NA* (01/15/17 4:52 AM) Negative 01/15/2017 [facility] DRUG SCREEN U Cocaine Scr Negative *NA* (01/15/17 4:52 AM) Negative 01/15/2017 [facility] ELECTROLYTES AGAP 15.2 meq/L 10.0 - 20.0 01/15/2017 [facility] ELECTROLYTES eGFR 102 mL/min/1.73m2 01/15/2017 Result Comment: The eGFR is calculated using the CKD-EPI formula. In most young, healthy individuals the eGFR will be >90 mL/min/1.73m2. The eGFR declines with age. An eGFR of 60-89 may be normal in some populations, particularly the elderly, for whom the CKD-EPI formula has not been extensively validated. Use of the eGFR is not recommended in the following populations: Individuals with unstable creatinine concentrations, including patients and those with serious co-morbid conditions. Patients with extremes in muscle mass or diet. The data above are obtained from the National Kidney Disease Education Program (NKDEP) which additionally recommends that when the eGFR is used in patients with extremes of body mass index for purposes of drug dosing, the eGFR should be multiplied by the estimated BMI. [facility] ELECTROLYTES Creatinine Lvl 0.71 mg/dL 0.50 - 1.40 01/15/2017 [facility] ELECTROLYTES BUN 12 mg/dL 7 - 22 01/15/2017 [facility] ELECTROLYTES Glucose Lvl 108 mg/dL 70 - 99 01/15/2017 [facility] ELECTROLYTES CO2 22 meq/L 24 - 32 01/15/2017 [facility] ELECTROLYTES Sodium Lvl 137 meq/L 135 - 145 01/15/2017 [facility] ELECTROLYTES Chloride Lvl 104 meq/L 95 - 109 01/15/2017 [facility] ELECTROLYTES Potassium Lvl 4.2 meq/L 3.5 - 5.1 01/15/2017 [facility] ELECTROLYTES Calcium Lvl 9.0 mg/dL 8.5 - 10.5 01/15/2017 [facility] HEMATOLOGY Basophils # 0.1 K/CMM 0.0 - 0.2 01/15/2017 [facility] HEMATOLOGY Segs-Bands # 3.3 K/CMM 1.5 - 8.1 01/15/2017 [facility] HEMATOLOGY Lymphocytes # 2.9 K/CMM 1.0 - 5.5 01/15/2017 [facility] HEMATOLOGY Basophils 0.8 % 0.0 - 1.0 01/15/2017 [facility] HEMATOLOGY Monocytes # 0.4 K/CMM 0.0 - 0.8 01/15/2017 [facility] HEMATOLOGY Eosinophils # 0.1 K/CMM 0.0 - 0.5 01/15/2017 [facility] HEMATOLOGY Segs 48.9 % 45.0 - 75.0 01/15/2017 [facility] HEMATOLOGY Lymphocytes 42.5 % 20.0 - 40.0 01/15/2017 [facility] HEMATOLOGY Monocytes 5.7 % 2.0 - 12.0 01/15/2017 [facility] HEMATOLOGY Eosinophils 2.1 % 0.0 - 4.0 01/15/2017 [facility] HEMATOLOGY MCH 31.7 pg 27.0 - 31.0 01/15/2017 [facility] HEMATOLOGY MCV 90.8 fL 80.0 - 98.0 01/15/2017 [facility] HEMATOLOGY MCHC 34.9 g/dL 32.0 - 36.0 01/15/2017 [facility] HEMATOLOGY Platelet 173 K/CMM 133 - 450 01/15/2017 [facility] HEMATOLOGY RDW 13.6 % 11.5 - 14.5 01/15/2017 [facility] HEMATOLOGY MPV 8.0 fL 7.4 - 10.4 01/15/2017 [facility] HEMATOLOGY RBC 4.11 M/CMM 4.20 - 5.40 01/15/2017 [facility] HEMATOLOGY Hct 37.3 % 36.0 - 48.0 01/15/2017 [facility] HEMATOLOGY Hgb 13.0 g/dL 12.0 - 16.0 01/15/2017 [facility] HEMATOLOGY WBC 6.8 K/CMM 3.7 - 10.4 01/15/2017 [facility] CARDIAC ENZYMES Troponin-T null 0.000 - 0.100 01/14/2017 [facility] Chest w contrast CT Chest w contrast CT EXAM: CT CHEST WITH CONTRAST DATE: 01/14/2017 at 1916 hours INDICATION: Chest pain ADDITIONAL INFORMATION: 46-year-old female with chest pain. TECHNIQUE: Volumetric CT acquisition of the chest was obtained following the intravenous administration of 75 mL Omnipaque 350 contrast. Sagittal, coronal and axial MIP reformatted images were reconstructed and obtained at the workstation. COMPARISON: No prior chest CT is available for comparison. FINDINGS: The heart is not enlarged, and no pericardial effusion is identified. The ascending aorta and central pulmonary arteries are normal in caliber. Note is made of subcentimeter mediastinal and hilar lymph nodes. Note is made of cholecystectomy clips. There are a few clusters of tiny pulmonary nodules in the right upper lobe predominantly toward the right apex measuring 2 to 3 mm. Additional tiny 2 to 4 mm pulmonary nodules are identified in the right lower lobe on image 174, left upper lobe image 174, and left lower lobe image 278. There may be some mild paraseptal emphysema at the right apex versus artifact. No pleural effusions are identified. There is a compression deformity of the T12 vertebral body which contains cement. There is also been cement repair of the L1 vertebral body. There are degenerative changes of thoracic spine with osteophytes. IMPRESSION: Several tiny 2 to 4 mm pulmonary nodules are identified, predominantly in the right upper lobe where there are a few small clusters of tiny pulmonary nodules. These could be infectious or inflammatory. According to the Fleischner Society guidelines, if this patient has a low risk patient (nonsmoker and no known tumor or risk factors thereof), then no further follow-up of pulmonary nodules measuring less than 4 mm is required; however, if this patient is considered to be a high risk patient (history of smoking or other known risk factors), then a repeat chest CT may be obtained in 12 months to document long-term stability or resolution. 01/14/2017 - - Read by: Alana Thomason MD Dictated Date/time: 01/14/17 20:03 Electronically Signed by: Alana Thomason MD 01/14/17 20:21 FINAL REPORT [facility] CARDIAC ENZYMES Troponin-I null 0.00 - 0.40 01/14/2017 [facility] CHEM PANEL Calcium Lvl 9.3 mg/dL 8.5 - 10.5 01/14/2017 [facility] CHEM PANEL CO2 21 meq/L 24 - 32 01/14/2017 [facility] CHEM PANEL eGFR 105 mL/min/1.73m2 01/14/2017 Result Comment: The eGFR is calculated using the CKD-EPI formula. In most young, healthy individuals the eGFR will be >90 mL/min/1.73m2. The eGFR declines with age. An eGFR of 60-89 may be normal in some populations, particularly the elderly, for whom the CKD-EPI formula has not been extensively validated. Use of the eGFR is not recommended in the following populations: Individuals with unstable creatinine concentrations, including patients and those with serious co-morbid conditions. Patients with extremes in muscle mass or diet. The data above are obtained from the National Kidney Disease Education Program (NKDEP) which additionally recommends that when the eGFR is used in patients with extremes of body mass index for purposes of drug dosing, the eGFR should be multiplied by the estimated BMI. [facility] CHEM PANEL Glucose Lvl 112 mg/dL 70 - 99 01/14/2017 [facility] CHEM PANEL BUN 12 mg/dL 7 - 22 01/14/2017 [facility] CHEM PANEL Chloride Lvl 108 meq/L 95 - 109 01/14/2017 [facility] CHEM PANEL Potassium Lvl 4.5 meq/L 3.5 - 5.1 01/14/2017 [facility] CHEM PANEL Creatinine Lvl 0.65 mg/dL 0.50 - 1.40 01/14/2017 [facility] CHEM PANEL Sodium Lvl 139 meq/L 135 - 145 01/14/2017 [facility] CHEM PANEL AGAP 14.5 meq/L 10.0 - 20.0 01/14/2017 [facility] HEMATOLOGY MPV 7.7 fL 7.4 - 10.4 01/14/2017 [facility] HEMATOLOGY RBC 4.44 M/CMM 4.20 - 5.40 01/14/2017 [facility] HEMATOLOGY Hct 40.6 % 36.0 - 48.0 01/14/2017 [facility] HEMATOLOGY MCV 91.4 fL 80.0 - 98.0 01/14/2017 [facility] HEMATOLOGY MCHC 34.8 g/dL 32.0 - 36.0 01/14/2017 [facility] HEMATOLOGY MCH 31.8 pg 27.0 - 31.0 01/14/2017 [facility] HEMATOLOGY WBC 7.3 K/CMM 3.7 - 10.4 01/14/2017 [facility] HEMATOLOGY Hgb 14.1 g/dL 12.0 - 16.0 01/14/2017 [facility] HEMATOLOGY RDW 13.7 % 11.5 - 14.5 01/14/2017 [facility] HEMATOLOGY Platelet 183 K/CMM 133 - 450 01/14/2017 [facility] HEMATOLOGY Segs 57.6 % 45.0 - 75.0 01/14/2017 [facility] HEMATOLOGY Lymphocytes 35.5 % 20.0 - 40.0 01/14/2017 [facility] HEMATOLOGY Eosinophils # 0.1 K/CMM 0.0 - 0.5 01/14/2017 [facility] HEMATOLOGY Lymphocytes # 2.6 K/CMM 1.0 - 5.5 01/14/2017 [facility] HEMATOLOGY Monocytes # 0.4 K/CMM 0.0 - 0.8 01/14/2017 [facility] HEMATOLOGY Segs-Bands # 4.2 K/CMM 1.5 - 8.1 01/14/2017 [facility] HEMATOLOGY Basophils 0.4 % 0.0 - 1.0 01/14/2017 [facility] HEMATOLOGY Eosinophils 1.3 % 0.0 - 4.0 01/14/2017 [facility] HEMATOLOGY Monocytes 5.2 % 2.0 - 12.0 01/14/2017 [facility] Chest 2 views DX Chest 2 views DX EXAM: XR CHEST 2 VIEWS DATE: 01/14/2017 11:14 AM BIT SETTER INDICATION: Chest pain COMPARISON: 12/31/2016 TECHNIQUE: PA and lateral chest radiographs FINDINGS: Lung volumes are slightly low with crowding of bronchovascular markings. No priti consolidation or other pulmonary or pleural-based abnormality is identified. The heart size is normal. No acute bony abnormality is identified. Vertebroplasty changes are again noted, incidentally, as well as cholecystectomy clips. IMPRESSION: Low lung volumes with bronchovascular crowding, but no other acute abnormality. 01/14/2017 - - Read by: Lester Tucker MD Dictated Date/time: 01/14/17 12:40 Electronically Signed by: Lester Tucker MD 01/14/17 12:42 FINAL REPORT [facility] CHEM PANEL BUN 12 mg/dL 7 - 22 01/09/2017 [facility] CHEM PANEL Glucose Lvl 117 mg/dL 70 - 99 01/09/2017 [facility] CHEM PANEL Creatinine Lvl 0.77 mg/dL 0.50 - 1.40 01/09/2017 [facility] CHEM PANEL Sodium Lvl 144 meq/L 135 - 145 01/09/2017 [facility] CHEM PANEL Chloride Lvl 110 meq/L 95 - 109 01/09/2017 [facility] CHEM PANEL Potassium Lvl 3.7 meq/L 3.5 - 5.1 01/09/2017 [facility] CHEM PANEL CO2 24 meq/L 24 - 32 01/09/2017 [facility] CHEM PANEL Calcium Lvl 8.9 mg/dL 8.5 - 10.5 01/09/2017 [facility] CHEM PANEL eGFR 92 mL/min/1.73m2 01/09/2017 Result Comment: The eGFR is calculated using the CKD-EPI formula. In most young, healthy individuals the eGFR will be >90 mL/min/1.73m2. The eGFR declines with age. An eGFR of 60-89 may be normal in some populations, particularly the elderly, for whom the CKD-EPI formula has not been extensively validated. Use of the eGFR is not recommended in the following populations: Individuals with unstable creatinine concentrations, including patients and those with serious co-morbid conditions. Patients with extremes in muscle mass or diet. The data above are obtained from the National Kidney Disease Education Program (NKDEP) which additionally recommends that when the eGFR is used in patients with extremes of body mass index for purposes of drug dosing, the eGFR should be multiplied by the estimated BMI. [facility] CHEM PANEL AGAP 13.7 meq/L 10.0 - 20.0 01/09/2017 [facility] CHEM PANEL Lipase Lvl 59 unit/L 73 - 393 01/09/2017 [facility] CHEM PANEL Bili Total 0.2 mg/dL 0.2 - 1.3 01/09/2017 [facility] CHEM PANEL Bili Indirect 0.1 mg/dL 0.0 - 1.0 01/09/2017 [facility] CHEM PANEL Bili Direct 0.1 mg/dL 0.0 - 0.3 01/09/2017 [facility] CHEM PANEL Alk Phos 150 unit/L 39 - 136 01/09/2017 [facility] CHEM PANEL AST 14 unit/L 0 - 37 01/09/2017 [facility] CHEM PANEL A/G Ratio 0.8 0.7 - 1.6 01/09/2017 [facility] CHEM PANEL ALT 39 unit/L 0 - 65 01/09/2017 [facility] CHEM PANEL Albumin Lvl 3.4 g/dL 3.5 - 5.0 01/09/2017 [facility] CHEM PANEL Globulin 4.1 g/dL 2.7 - 4.2 01/09/2017 [facility] CHEM PANEL Total Protein 7.5 g/dL 6.4 - 8.4 01/09/2017 [facility] HEMATOLOGY MPV 7.7 fL 7.4 - 10.4 01/09/2017 [facility] Platelet 164 K/CMM 133 - 450 01/09/2017 [facility] RDW 13.3 % 11.5 - 14.5 01/09/2017 [facility] MCV 91.5 fL 80.0 - 98.0 01/09/2017 [facility] MCH 30.8 pg 27.0 - 31.0 01/09/2017 [facility] MCHC 33.6 g/dL 32.0 - 36.0 01/09/2017 [facility] Hct 40.1 % 36.0 - 48.0 01/09/2017 [facility] WBC 7.7 K/CMM 3.7 - 10.4 01/09/2017 [facility] RBC 4.39 M/CMM 4.20 - 5.40 01/09/2017 [facility] Hgb 13.5 g/dL 12.0 - 16.0 01/09/2017 [facility] Eosinophils # 0.1 K/CMM 0.0 - 0.5 01/09/2017 [facility] HEMATOLOGY Basophils # 0.0 K/CMM 0.0 - 0.2 01/09/2017 [facility] Basophils 0.6 % 0.0 - 1.0 01/09/2017 [facility] HEMATOLOGY Segs-Bands # 4.9 K/CMM 1.5 - 8.1 01/09/2017 [facility] Lymphocytes # 2.3 K/CMM 1.0 - 5.5 01/09/2017 [facility] Monocytes # 0.4 K/CMM 0.0 - 0.8 01/09/2017 [facility] HEMATOLOGY Lymphocytes 29.4 % 20.0 - 40.0 01/09/2017 [facility] HEMATOLOGY Monocytes 4.8 % 2.0 - 12.0 01/09/2017 [facility] HEMATOLOGY Segs 63.7 % 45.0 - 75.0 01/09/2017 [facility] HEMATOLOGY Eosinophils 1.5 % 0.0 - 4.0 01/09/2017 [facility] URINE AND STOOL UA Bacteria Occasional /HPF None Seen /HPF 01/09/2017 [facility] URINE AND STOOL UA Mucus Few /LPF None Seen /LPF 01/09/2017 [facility] URINE AND STOOL UA pH 6.0 5.0 - 8.0 01/09/2017 [facility] URINE AND STOOL UA Protein 30 mg/dL Negative mg/dL 01/09/2017 [facility] URINE AND STOOL UA Glucose Negative mg/dL Negative mg/dL 01/09/2017 [facility] URINE AND STOOL UA Spec Grav 1.019 <=1.030 01/09/2017 [facility] URINE AND STOOL UA Turbidity Slight *ABN* (01/09/17 9:34 AM) Clear 01/09/2017 [facility] URINE AND STOOL UA Urobilinogen <=1.0 mg/dL 0.1 - 1.0 01/09/2017 [facility] URINE AND STOOL UA Color Yellow 01/09/2017 [facility] URINE AND STOOL UA RBC 10 /HPF 0 - 2 01/09/2017 [facility] URINE AND STOOL UA Ketones Negative mg/dL Negative mg/dL 01/09/2017 [facility] URINE AND STOOL UA Nitrite Negative (01/09/17 9:34 AM) Negative 01/09/2017 [facility] URINE AND STOOL UA Leuk Est Negative (01/09/17 9:34 AM) Negative 01/09/2017 [facility] URINE AND STOOL UA Sq Epi Few /LPF Few /LPF 01/09/2017 [facility] URINE AND STOOL UA WBC 2 /HPF 0 - 5 01/09/2017 [facility] URINE AND STOOL UA Bili Negative *NA* (01/09/17 9:34 AM) Negative 01/09/2017 [facility] URINE AND STOOL UA Blood Small *ABN* (01/09/17 9:34 AM) Negative 01/09/2017 [facility] URINE AND STOOL UA Mucus Few /LPF None Seen /LPF 01/07/2017 [facility] URINE AND STOOL UA RBC 13 /HPF 0 - 2 01/07/2017 [facility] URINE AND STOOL UA Urobilinogen <=1.0 mg/dL 0.1 - 1.0 01/07/2017 [facility] URINE AND STOOL UA Leuk Est Negative (01/07/17 11:23 AM) Negative 01/07/2017 [facility] URINE AND STOOL UA WBC 1 /HPF 0 - 5 01/07/2017 [facility] URINE AND STOOL UA Sq Epi Many /LPF Few /LPF 01/07/2017 [facility] URINE AND STOOL UA Color Light Yellow *NA* (01/07/17 11:23 AM) Yellow 01/07/2017 [facility] URINE AND STOOL UA Glucose Negative mg/dL Negative mg/dL 01/07/2017 [facility] URINE AND STOOL UA Protein Negative mg/dL Negative mg/dL 01/07/2017 [facility] URINE AND STOOL UA pH 6.0 5.0 - 8.0 01/07/2017 [facility] URINE AND STOOL UA Nitrite Negative (01/07/17 11:23 AM) Negative 01/07/2017 [facility] URINE AND STOOL UA Blood Moderate *ABN* (01/07/17 11:23 AM) Negative 01/07/2017 [facility] URINE AND STOOL UA Bili Negative *NA* (01/07/17 11:23 AM) Negative 01/07/2017 [facility] URINE AND STOOL UA Ketones Negative mg/dL Negative mg/dL 01/07/2017 [facility] URINE AND STOOL UA Spec Grav 1.047 <=1.030 01/07/2017 [facility] URINE AND STOOL UA Turbidity Slight *ABN* (01/07/17 11:23 AM) Clear 01/07/2017 [facility] CARDIAC ENZYMES Troponin-I null 0.00 - 0.40 01/07/2017 [facility] CARDIAC ENZYMES CK MB null 0.5 - 3.6 01/07/2017 [facility] CHEM PANEL Lipase Lvl 63 unit/L 73 - 393 01/07/2017 [facility] CHEM PANEL A/G Ratio 0.9 0.7 - 1.6 01/07/2017 [facility] CHEM PANEL Globulin 4.6 g/dL 2.7 - 4.2 01/07/2017 [facility] CHEM PANEL AGAP 15.2 meq/L 10.0 - 20.0 01/07/2017 [facility] CHEM PANEL B/C Ratio 25 6 - 25 01/07/2017 [facility] CHEM PANEL eGFR 93 mL/min/1.73m2 01/07/2017 Result Comment: The eGFR is calculated using the CKD-EPI formula. In most young, healthy individuals the eGFR will be >90 mL/min/1.73m2. The eGFR declines with age. An eGFR of 60-89 may be normal in some populations, particularly the elderly, for whom the CKD-EPI formula has not been extensively validated. Use of the eGFR is not recommended in the following populations: Individuals with unstable creatinine concentrations, including patients and those with serious co-morbid conditions. Patients with extremes in muscle mass or diet. The data above are obtained from the National Kidney Disease Education Program (NKDEP) which additionally recommends that when the eGFR is used in patients with extremes of body mass index for purposes of drug dosing, the eGFR should be multiplied by the estimated BMI. [facility] CHEM PANEL Glucose Lvl 97 mg/dL 70 - 99 01/07/2017 [facility] CHEM PANEL BUN 19 mg/dL 7 - 22 01/07/2017 [facility] CHEM PANEL Creatinine Lvl 0.76 mg/dL 0.50 - 1.40 01/07/2017 [facility] CHEM PANEL Sodium Lvl 143 meq/L 135 - 145 01/07/2017 [facility] CHEM PANEL Bili Total 0.4 mg/dL 0.2 - 1.3 01/07/2017 [facility] CHEM PANEL Potassium Lvl 4.2 meq/L 3.5 - 5.1 01/07/2017 [facility] CHEM PANEL Chloride Lvl 106 meq/L 95 - 109 01/07/2017 [facility] CHEM PANEL CO2 26 meq/L 24 - 32 01/07/2017 [facility] CHEM PANEL Calcium Lvl 9.3 mg/dL 8.5 - 10.5 01/07/2017 [facility] CHEM PANEL Total Protein 8.6 g/dL 6.4 - 8.4 01/07/2017 [facility] CHEM PANEL Albumin Lvl 4.0 g/dL 3.5 - 5.0 01/07/2017 [facility] CHEM PANEL AST 20 unit/L 0 - 37 01/07/2017 [facility] CHEM PANEL Alk Phos 166 unit/L 39 - 136 01/07/2017 [facility] CHEM PANEL ALT 45 unit/L 0 - 65 01/07/2017 [facility] HEMATOLOGY RDW 12.9 % 11.5 - 14.5 01/07/2017 [facility] HEMATOLOGY MCV 91.6 fL 80.0 - 98.0 01/07/2017 [facility] RBC 5.09 M/CMM 4.20 - 5.40 01/07/2017 [facility] Hgb 15.6 g/dL 12.0 - 16.0 01/07/2017 [facility] Hct 46.7 % 36.0 - 48.0 01/07/2017 [facility] MCH 30.5 pg 27.0 - 31.0 01/07/2017 [facility] MCHC 33.4 g/dL 32.0 - 36.0 01/07/2017 [facility] Platelet 224 K/CMM 133 - 450 01/07/2017 [facility] MPV 7.8 fL 7.4 - 10.4 01/07/2017 [facility] WBC 7.9 K/CMM 3.7 - 10.4 01/07/2017 [facility] Basophils # 0.0 K/CMM 0.0 - 0.2 01/07/2017 [facility] Eosinophils # 0.1 K/CMM 0.0 - 0.5 01/07/2017 [facility] Monocytes # 0.4 K/CMM 0.0 - 0.8 01/07/2017 [facility] Basophils 0.3 % 0.0 - 1.0 01/07/2017 [facility] Segs 62.7 % 45.0 - 75.0 01/07/2017 [facility] Lymphocytes 30.7 % 20.0 - 40.0 01/07/2017 [facility] Monocytes 5.0 % 2.0 - 12.0 01/07/2017 [facility] Eosinophils 1.3 % 0.0 - 4.0 01/07/2017 [facility] Segs-Bands # 4.9 K/CMM 1.5 - 8.1 01/07/2017 [facility] Lymphocytes # 2.4 K/CMM 1.0 - 5.5 01/07/2017 [facility] ED Abdomen/Pelvis IV contrast only CT ED Abdomen/Pelvis IV contrast only CT ED Abdomen/Pelvis IV contrast only CT 01/07/2017 7:15 AM BIT SETTER Ordering Physician:Anastasia Bull CLINICAL HISTORY: Generalized abdominal pain, acute; dlp 1701mGycm COMPARISON: Abdominopelvic CT December 2008 TECHNIQUE: 5 mm thick axial images of the abdomen and pelvis were obtained with IV contrast. . 5 mm thick delayed axial images were obtained. Coronal and sagittal reformations were created. FINDINGS: Visualized lung bases are clear. Mild diffuse fatty perforation of liver is present. Gallbladder surgically absent, with most likely expected compensatory mild central intrahepatic and extrahepatic biliary ductal prominence is noted. Spleen, pancreas, and adrenal glands are normal. Right renal multifocal cortical scarring is present. Otherwise, kidneys and ureters are normal. Bladder is partially distended. Couple of prominently distended loops of proximal jejunum reaching a maximum caliber of 3.3 cm are present. Remaining gastric intestinal tract is grossly normal. Appendix is not identified. No mesenteric or retroperitoneal lymphadenopathy is present. No free air or free fluid is present. Bones demonstrate T12 and L1 vertebral augmentation postoperative changes, with T12 marked anterior wedge compression deformity greater than 50% anterior height loss that is old. IMPRESSION: 1. Possible mild postinfectious or inflammatory jejunal enteritis. 2. Mild diffuse fatty infiltration of liver. 3. Probable stigmata of old right pyelonephritis. SL: [id number] 01/07/2017 - - Read by: Mica Talbert MD Dictated Date/time: 01/07/17 11:14 Electronically Signed by: Mica Talbert MD 01/07/17 11:26 FINAL REPORT [facility] CARDIAC ENZYMES Total CK 29 unit/L 12 - 191 01/01/2017 [facility] CARDIAC ENZYMES Troponin-I null 0.00 - 0.40 01/01/2017 [facility] CARDIAC ENZYMES Troponin-I null 0.00 - 0.40 01/01/2017 [facility] CARDIAC ENZYMES Total CK 33 unit/L 12 - 191 01/01/2017 [facility] CHEM PANEL Magnesium Lvl 1.8 mg/dL 1.8 - 2.4 01/01/2017 [facility] CHEM PANEL eGFR 103 mL/min/1.73m2 01/01/2017 Result Comment: The eGFR is calculated using the CKD-EPI formula. In most young, healthy individuals the eGFR will be >90 mL/min/1.73m2. The eGFR declines with age. An eGFR of 60-89 may be normal in some populations, particularly the elderly, for whom the CKD-EPI formula has not been extensively validated. Use of the eGFR is not recommended in the following populations: Individuals with unstable creatinine concentrations, including patients and those with serious co-morbid conditions. Patients with extremes in muscle mass or diet. The data above are obtained from the National Kidney Disease Education Program (NKDEP) which additionally recommends that when the eGFR is used in patients with extremes of body mass index for purposes of drug dosing, the eGFR should be multiplied by the estimated BMI. [facility] CHEM PANEL Alk Phos 125 unit/L 39 - 136 01/01/2017 [facility] CHEM PANEL ALT 30 unit/L 0 - 65 01/01/2017 [facility] CHEM PANEL AST 13 unit/L 0 - 37 01/01/2017 [facility] CHEM PANEL Bili Total 0.3 mg/dL 0.2 - 1.3 01/01/2017 [facility] CHEM PANEL Calcium Lvl 9.1 mg/dL 8.5 - 10.5 01/01/2017 [facility] CHEM PANEL Albumin Lvl 3.3 g/dL 3.5 - 5.0 01/01/2017 [facility] CHEM PANEL Chloride Lvl 108 meq/L 95 - 109 01/01/2017 [facility] CHEM PANEL Total Protein 7.1 g/dL 6.4 - 8.4 01/01/2017 [facility] CHEM PANEL CO2 25 meq/L 24 - 32 01/01/2017 [facility] CHEM PANEL Glucose Lvl 97 mg/dL 70 - 99 01/01/2017 [facility] CHEM PANEL BUN 14 mg/dL 7 - 22 01/01/2017 [facility] CHEM PANEL Creatinine Lvl 0.70 mg/dL 0.50 - 1.40 01/01/2017 [facility] CHEM PANEL Potassium Lvl 3.7 meq/L 3.5 - 5.1 01/01/2017 [facility] CHEM PANEL Sodium Lvl 142 meq/L 135 - 145 01/01/2017 [facility] CHEM PANEL Globulin 3.8 g/dL 2.7 - 4.2 01/01/2017 [facility] CHEM PANEL A/G Ratio 0.9 0.7 - 1.6 01/01/2017 [facility] CHEM PANEL AGAP 12.7 meq/L 10.0 - 20.0 01/01/2017 [facility] CHEM PANEL B/C Ratio 20 6 - 25 01/01/2017 [facility] HEMATOLOGY RDW 13.1 % 11.5 - 14.5 01/01/2017 [facility] MCHC 33.7 g/dL 32.0 - 36.0 01/01/2017 [facility] MPV 7.8 fL 7.4 - 10.4 01/01/2017 [facility] Platelet 168 K/CMM 133 - 450 01/01/2017 [facility] MCH 30.7 pg 27.0 - 31.0 01/01/2017 [facility] HEMATOLOGY MCV 91.0 fL 80.0 - 98.0 01/01/2017 [facility] HEMATOLOGY RBC 3.99 M/CMM 4.20 - 5.40 01/01/2017 [facility] HEMATOLOGY WBC 7.7 K/CMM 3.7 - 10.4 01/01/2017 [facility] HEMATOLOGY Hct 36.3 % 36.0 - 48.0 01/01/2017 [facility] Hgb 12.2 g/dL 12.0 - 16.0 01/01/2017 [facility] HEMATOLOGY Basophils # 0.0 K/CMM 0.0 - 0.2 01/01/2017 [facility] HEMATOLOGY Eosinophils # 0.2 K/CMM 0.0 - 0.5 01/01/2017 [facility] HEMATOLOGY Monocytes # 0.4 K/CMM 0.0 - 0.8 01/01/2017 [facility] HEMATOLOGY Lymphocytes # 3.8 K/CMM 1.0 - 5.5 01/01/2017 [facility] HEMATOLOGY Segs-Bands # 3.3 K/CMM 1.5 - 8.1 01/01/2017 [facility] Monocytes 5.2 % 2.0 - 12.0 01/01/2017 [facility] HEMATOLOGY Basophils 0.4 % 0.0 - 1.0 01/01/2017 [facility] HEMATOLOGY Eosinophils 2.2 % 0.0 - 4.0 01/01/2017 [facility] Lymphocytes 49.1 % 20.0 - 40.0 01/01/2017 [facility] HEMATOLOGY Segs 43.1 % 45.0 - 75.0 01/01/2017 [facility] LIPIDS VLDL 27 01/01/2017 [facility] LIPIDS LDL (Calculated) 113 mg/dL <=99 mg/dL 01/01/2017 [facility] LIPIDS HDL 39 mg/dL >=61 mg/dL 01/01/2017 [facility] LIPIDS Chol 179 mg/dL <=199 mg/dL 01/01/2017 [facility] LIPIDS CHD Risk 4.59 3.90 - 5.80 01/01/2017 [facility] LIPIDS Trig 137 mg/dL <=149 mg/dL 01/01/2017 [facility] CARDIAC ENZYMES Troponin-I null 0.00 - 0.40 01/01/2017 [facility] CARDIAC ENZYMES CK MB null 0.5 - 3.6 01/01/2017 [facility] CARDIAC ENZYMES Total CK 34 unit/L 12 - 191 01/01/2017 [facility] CARDIAC ENZYMES CK MB Index null 0.0 - 2.5 01/01/2017 [facility] CHEM PANEL A/G Ratio 0.8 0.7 - 1.6 01/01/2017 [facility] CHEM PANEL eGFR 103 mL/min/1.73m2 01/01/2017 Result Comment: The eGFR is calculated using the CKD-EPI formula. In most young, healthy individuals the eGFR will be >90 mL/min/1.73m2. The eGFR declines with age. An eGFR of 60-89 may be normal in some populations, particularly the elderly, for whom the CKD-EPI formula has not been extensively validated. Use of the eGFR is not recommended in the following populations: Individuals with unstable creatinine concentrations, including patients and those with serious co-morbid conditions. Patients with extremes in muscle mass or diet. The data above are obtained from the National Kidney Disease Education Program (NKDEP) which additionally recommends that when the eGFR is used in patients with extremes of body mass index for purposes of drug dosing, the eGFR should be multiplied by the estimated BMI. [facility] CHEM PANEL Globulin 4.1 g/dL 2.7 - 4.2 01/01/2017 [facility] CHEM PANEL B/C Ratio 23 6 - 25 01/01/2017 [facility] CHEM PANEL Total Protein 7.5 g/dL 6.4 - 8.4 01/01/2017 [facility] CHEM PANEL Albumin Lvl 3.4 g/dL 3.5 - 5.0 01/01/2017 [facility] CHEM PANEL ALT 32 unit/L 0 - 65 01/01/2017 [facility] CHEM PANEL Calcium Lvl 8.5 mg/dL 8.5 - 10.5 01/01/2017 [facility] CHEM PANEL AGAP 12.8 meq/L 10.0 - 20.0 01/01/2017 [facility] CHEM PANEL Bili Total 0.3 mg/dL 0.2 - 1.3 01/01/2017 [facility] CHEM PANEL CO2 25 meq/L 24 - 32 01/01/2017 [facility] CHEM PANEL Alk Phos 138 unit/L 39 - 136 01/01/2017 [facility] CHEM PANEL AST 12 unit/L 0 - 37 01/01/2017 [facility] CHEM PANEL Glucose Lvl 90 mg/dL 70 - 99 01/01/2017 [facility] CHEM PANEL BUN 16 mg/dL 7 - 22 01/01/2017 [facility] CHEM PANEL Chloride Lvl 110 meq/L 95 - 109 01/01/2017 [facility] CHEM PANEL Sodium Lvl 144 meq/L 135 - 145 01/01/2017 [facility] CHEM PANEL Potassium Lvl 3.8 meq/L 3.5 - 5.1 01/01/2017 [facility] CHEM PANEL Creatinine Lvl 0.70 mg/dL 0.50 - 1.40 01/01/2017 [facility] PTT 26.1 s 22.9 - 35.8 01/01/2017 [facility] PT 12.9 s 12.0 - 14.7 01/01/2017 [facility] INR 0.95 0.85 - 1.17 01/01/2017 [facility] MPV 7.8 fL 7.4 - 10.4 01/01/2017 [facility] WBC 8.4 K/CMM 3.7 - 10.4 01/01/2017 [facility] Hgb 12.6 g/dL 12.0 - 16.0 01/01/2017 [facility] RBC 4.14 M/CMM 4.20 - 5.40 01/01/2017 [facility] MCHC 33.4 g/dL 32.0 - 36.0 01/01/2017 [facility] Hct 37.7 % 36.0 - 48.0 01/01/2017 [facility] MCH 30.4 pg 27.0 - 31.0 01/01/2017 [facility] RDW 12.8 % 11.5 - 14.5 01/01/2017 [facility] Platelet 179 K/CMM 133 - 450 01/01/2017 [facility] MCV 91.0 fL 80.0 - 98.0 01/01/2017 [facility] Lymphocytes # 4.2 K/CMM 1.0 - 5.5 01/01/2017 [facility] Basophils # 0.0 K/CMM 0.0 - 0.2 01/01/2017 [facility] Monocytes # 0.4 K/CMM 0.0 - 0.8 01/01/2017 [facility] Eosinophils # 0.1 K/CMM 0.0 - 0.5 01/01/2017 [facility] Lymphocytes 50.0 % 20.0 - 40.0 01/01/2017 [facility] Basophils 0.3 % 0.0 - 1.0 01/01/2017 [facility] HEMATOLOGY Monocytes 4.9 % 2.0 - 12.0 01/01/2017 [facility] HEMATOLOGY Segs-Bands # 3.6 K/CMM 1.5 - 8.1 01/01/2017 [facility] HEMATOLOGY Eosinophils 1.6 % 0.0 - 4.0 01/01/2017 [facility] HEMATOLOGY Segs 43.2 % 45.0 - 75.0 01/01/2017 [facility] Chest 1view DX Chest 1view DX Patient Name: SHIRLENE LORENZO : 1970; Age: 46 years Female MR: [id number] Study: Chest 1view DX Order Time: 12/31/2016 4:37 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 Lungs: The lungs are grossly clear. Mediastinum: The cardiac silhouette is within normal limits of size. Midline trachea. Bones and soft tissues: No acute abnormalities. IMPRESSION: No acute cardiopulmonary abnormalities. SL: [id number] 12/31/2016 - - Read by: Jared Jane MD Dictated Date/time: 12/31/16 16:51 Electronically Signed by: Jared Jane MD 12/31/16 16:51 FINAL REPORT [facility] CARDIAC ENZYMES Troponin-I null 0.00 - 0.40 12/18/2016 [facility] URINE AND STOOL UA Bili Negative *NA* (12/18/16 2:42 AM) Negative 12/18/2016 [facility] URINE AND STOOL UA Nitrite Negative (12/18/16 2:42 AM) Negative 12/18/2016 [facility] URINE AND STOOL UA Blood Small *ABN* (12/18/16 2:42 AM) Negative 12/18/2016 [facility] URINE AND STOOL UA Sq Epi Few /LPF Few /LPF 12/18/2016 [facility] URINE AND STOOL UA Leuk Est Negative (12/18/16 2:42 AM) Negative 12/18/2016 [facility] URINE AND STOOL UA Mucus Few /LPF None Seen /LPF 12/18/2016 [facility] URINE AND STOOL UA Bacteria Occasional /HPF None Seen /HPF 12/18/2016 [facility] URINE AND STOOL UA Urobilinogen <=1.0 mg/dL 0.1 - 1.0 12/18/2016 [facility] URINE AND STOOL UA Protein 30 mg/dL Negative mg/dL 12/18/2016 [facility] URINE AND STOOL UA pH 6.0 5.0 - 8.0 12/18/2016 [facility] URINE AND STOOL UA Ketones Trace mg/dL Negative mg/dL 12/18/2016 [facility] URINE AND STOOL UA Glucose Negative mg/dL Negative mg/dL 12/18/2016 [facility] URINE AND STOOL UA WBC 2 /HPF 0 - 5 12/18/2016 [facility] URINE AND STOOL UA RBC 8 /HPF 0 - 2 12/18/2016 [facility] URINE AND STOOL UA Spec Grav 1.018 <=1.030 12/18/2016 [facility] URINE AND STOOL UA Turbidity Slight *ABN* (12/18/16 2:42 AM) Clear 12/18/2016 [facility] URINE AND STOOL UA Color Yellow *NA* (12/18/16 2:42 AM) Yellow 12/18/2016 [facility] CARDIAC ENZYMES CK MB null 0.5 - 3.6 12/18/2016 [facility] CARDIAC ENZYMES Total CK 70 unit/L 12 - 191 12/18/2016 [facility] CARDIAC ENZYMES Troponin-I null 0.00 - 0.40 12/18/2016 [facility] CARDIAC ENZYMES CK MB Index null 0.0 - 2.5 12/18/2016 [facility] CHEM PANEL Alk Phos 156 unit/L 39 - 136 12/18/2016 [facility] CHEM PANEL Bili Total 0.3 mg/dL 0.2 - 1.3 12/18/2016 [facility] CHEM PANEL Globulin 4.8 g/dL 2.7 - 4.2 12/18/2016 [facility] CHEM PANEL A/G Ratio 0.9 0.7 - 1.6 12/18/2016 [facility] CHEM PANEL B/C Ratio 16 6 - 25 12/18/2016 [facility] CHEM PANEL AGAP 16.1 meq/L 10.0 - 20.0 12/18/2016 [facility] CHEM PANEL eGFR 95 mL/min/1.73m2 12/18/2016 Result Comment: The eGFR is calculated using the CKD-EPI formula. In most young, healthy individuals the eGFR will be >90 mL/min/1.73m2. The eGFR declines with age. An eGFR of 60-89 may be normal in some populations, particularly the elderly, for whom the CKD-EPI formula has not been extensively validated. Use of the eGFR is not recommended in the following populations: Individuals with unstable creatinine concentrations, including patients and those with serious co-morbid conditions. Patients with extremes in muscle mass or diet. The data above are obtained from the National Kidney Disease Education Program (NKDEP) which additionally recommends that when the eGFR is used in patients with extremes of body mass index for purposes of drug dosing, the eGFR should be multiplied by the estimated BMI. [facility] CHEM PANEL AST 14 unit/L 0 - 37 12/18/2016 [facility] CHEM PANEL Albumin Lvl 4.4 g/dL 3.5 - 5.0 12/18/2016 [facility] CHEM PANEL ALT 26 unit/L 0 - 65 12/18/2016 [facility] CHEM PANEL Calcium Lvl 9.5 mg/dL 8.5 - 10.5 12/18/2016 [facility] CHEM PANEL Total Protein 9.2 g/dL 6.4 - 8.4 12/18/2016 [facility] CHEM PANEL Glucose Lvl 102 mg/dL 70 - 99 12/18/2016 [facility] CHEM PANEL BUN 12 mg/dL 7 - 22 12/18/2016 [facility] CHEM PANEL Chloride Lvl 98 meq/L 95 - 109 12/18/2016 [facility] CHEM PANEL CO2 26 meq/L 24 - 32 12/18/2016 [facility] CHEM PANEL Sodium Lvl 136 meq/L 135 - 145 12/18/2016 [facility] CHEM PANEL Potassium Lvl 4.1 meq/L 3.5 - 5.1 12/18/2016 [facility] CHEM PANEL Creatinine Lvl 0.75 mg/dL 0.50 - 1.40 12/18/2016 [facility] HEMATOLOGY MPV 7.3 fL 7.4 - 10.4 12/18/2016 [facility] Platelet 219 K/CMM 133 - 450 12/18/2016 [facility] HEMATOLOGY MCV 90.2 fL 80.0 - 98.0 12/18/2016 [facility] MCHC 34.9 g/dL 32.0 - 36.0 12/18/2016 [facility] MCH 31.5 pg 27.0 - 31.0 12/18/2016 [facility] RDW 12.9 % 11.5 - 14.5 12/18/2016 [facility] WBC 10.9 K/CMM 3.7 - 10.4 12/18/2016 [facility] Hgb 14.7 g/dL 12.0 - 16.0 12/18/2016 [facility] RBC 4.65 M/CMM 4.20 - 5.40 12/18/2016 [facility] HEMATOLOGY Hct 42.0 % 36.0 - 48.0 12/18/2016 [facility] HEMATOLOGY Lymphocytes 34.5 % 20.0 - 40.0 12/18/2016 [facility] HEMATOLOGY Monocytes 5.1 % 2.0 - 12.0 12/18/2016 [facility] Eosinophils 1.5 % 0.0 - 4.0 12/18/2016 [facility] Segs-Bands # 6.4 K/CMM 1.5 - 8.1 12/18/2016 [facility] HEMATOLOGY Segs 58.2 % 45.0 - 75.0 12/18/2016 [facility] Basophils 0.7 % 0.0 - 1.0 12/18/2016 [facility] Basophils # 0.1 K/CMM 0.0 - 0.2 12/18/2016 [facility] Lymphocytes # 3.8 K/CMM 1.0 - 5.5 12/18/2016 [facility] Eosinophils # 0.2 K/CMM 0.0 - 0.5 12/18/2016 [facility] Monocytes # 0.6 K/CMM 0.0 - 0.8 12/18/2016 [facility] Chest 1view DX Chest 1view DX Study: Frontal chest x-ray compared to 03/21/2016 History: Chest pain Comments: The trachea is midline. The cardiomediastinal silhouette is normal in size. No pneumonia.. Linear atelectasis in the left lung base No pleural effusions or pneumothorax. Impression: No acute cardiopulmonary disease. 12/17/2016 - - Read by: Allison Regalado MD Dictated Date/time: 12/17/16 19:32 Electronically Signed by: Allison Regalado MD 12/17/16 19:37 FINAL REPORT [place] Rib[place] unilateral 3 views w PA chest DX Ribs unilateral 3 views w PA chest DX RIGHT RIBS, 4 VIEWS HISTORY: Pain from a fall; fall from wheelchair onto concrete, right-sided chest pain, right knee pain COMPARISON: Chest radiography dated 03/19/2016 FINDINGS: No right rib fracture is seen. No pleural effusion or pleural thickening. No pneumothorax. No acute fractures seen in the thorax. Vertebroplasty noted at T12 and L1. The lungs are clear. Heart size normal. SL: [id number] 03/21/2016 - - Read by: Mark Gilmore MD Dictated Date/time: 03/21/16 21:20 Electronically Signed by: Mark Gilmore MD 03/21/16 21:22 FINAL REPORT [facility] Knee 3 views DX Knee 3 views DX RIGHT KNEE, 4 VIEWS HISTORY: Pain, Trauma; COMPARISON: None available. FINDINGS: No fracture or dislocation is seen. Mild medial and lateral compartment degenerative joint space tear. Moderate patellofemoral degenerative joint space narrowing. SL: [id number] 03/21/2016 - - Read by: Mark Gilmore MD Dictated Date/time: 03/21/16 21:33 Electronically Signed by: Mark Gilmore MD 03/21/16 21:34 FINAL REPORT [facility] CARDIAC ENZYMES CK MB Index null 0.0 - 2.5 03/19/2016 [facility] CARDIAC ENZYMES Total CK 45 unit/L 12 - 191 03/19/2016 [facility] CARDIAC ENZYMES CK MB null 0.5 - 3.6 03/19/2016 [facility] CARDIAC ENZYMES Troponin-I null 0.00 - 0.40 03/19/2016 [facility] CHEM PANEL Magnesium Lvl 2.1 mg/dL 1.8 - 2.4 03/19/2016 [facility] CHEM PANEL eGFR 93 mL/min/1.73m2 03/19/2016 Result Comment: The eGFR is calculated using the CKD-EPI formula. In most young, healthy individuals the eGFR will be >90 mL/min/1.73m2. The eGFR declines with age. An eGFR of 60-89 may be normal in some populations, particularly the elderly, for whom the CKD-EPI formula has not been extensively validated. Use of the eGFR is not recommended in the following populations: Individuals with unstable creatinine concentrations, including patients and those with serious co-morbid conditions. Patients with extremes in muscle mass or diet. The data above are obtained from the National Kidney Disease Education Program (NKDEP) which additionally recommends that when the eGFR is used in patients with extremes of body mass index for purposes of drug dosing, the eGFR should be multiplied by the estimated BMI. [facility] CHEM PANEL Creatinine Lvl 0.77 mg/dL 0.50 - 1.40 03/19/2016 [facility] CHEM PANEL Potassium Lvl 4.3 meq/L 3.5 - 5.1 03/19/2016 [facility] CHEM PANEL Chloride Lvl 108 meq/L 95 - 109 03/19/2016 [facility] CHEM PANEL Sodium Lvl 140 meq/L 135 - 145 03/19/2016 [facility] CHEM PANEL Glucose Lvl 106 mg/dL 70 - 99 03/19/2016 [facility] CHEM PANEL BUN 25 mg/dL 7 - 22 03/19/2016 [facility] CHEM PANEL AST 8 unit/L 0 - 37 03/19/2016 [facility] CHEM PANEL Globulin 3.8 g/dL 2.0 - 4.0 03/19/2016 [facility] CHEM PANEL Albumin Lvl 3.0 g/dL 3.5 - 5.0 03/19/2016 [facility] CHEM PANEL ALT 15 unit/L 0 - 65 03/19/2016 [facility] CHEM PANEL Alk Phos 108 unit/L 39 - 136 03/19/2016 [facility] CHEM PANEL Total Protein 6.8 g/dL 6.4 - 8.4 03/19/2016 [facility] CHEM PANEL B/C Ratio 32 6 - 25 03/19/2016 [facility] CHEM PANEL AGAP 11.3 meq/L 10.0 - 20.0 03/19/2016 [facility] CHEM PANEL CO2 25 meq/L 24 - 32 03/19/2016 [facility] CHEM PANEL A/G Ratio 0.8 0.7 - 1.6 03/19/2016 [facility] CHEM PANEL Calcium Lvl 9.1 mg/dL 8.5 - 10.5 03/19/2016 [facility] CHEM PANEL Bili Total 0.2 mg/dL 0.2 - 1.3 03/19/2016 [facility] HEMATOLOGY Monocytes 7.5 % 2.0 - 12.0 03/19/2016 [facility] HEMATOLOGY Segs 43.9 % 45.0 - 75.0 03/19/2016 [facility] HEMATOLOGY Lymphocytes 46.4 % 20.0 - 40.0 03/19/2016 [facility] HEMATOLOGY Eosinophils # 0.1 K/CMM 0.0 - 0.5 03/19/2016 [facility] HEMATOLOGY Basophils # 0.1 K/CMM 0.0 - 0.2 03/19/2016 [facility] HEMATOLOGY Eosinophils 1.2 % 0.0 - 4.0 03/19/2016 [facility] HEMATOLOGY Lymphocytes # 3.9 K/CMM 1.0 - 5.5 03/19/2016 [facility] HEMATOLOGY Monocytes # 0.6 K/CMM 0.0 - 0.8 03/19/2016 [facility] HEMATOLOGY Basophils 1.0 % 0.0 - 1.0 03/19/2016 [facility] HEMATOLOGY Segs-Bands # 3.7 K/CMM 1.5 - 8.1 03/19/2016 [facility] PTT 32.8 s 22.9 - 35.8 03/19/2016 [facility] INR 1.18 0.85 - 1.17 03/19/2016 [facility] PT 15.3 s 12.0 - 14.7 03/19/2016 [facility] WBC 8.3 K/CMM 3.7 - 10.4 03/19/2016 [facility] Hgb 12.7 g/dL 12.0 - 16.0 03/19/2016 [facility] Hct 38.9 % 36.0 - 48.0 03/19/2016 [facility] RBC 4.05 M/CMM 4.20 - 5.40 03/19/2016 [facility] Platelet 186 K/CMM 133 - 450 03/19/2016 [facility] MCV 96.2 fL 80.0 - 98.0 03/19/2016 [facility] MPV 8.0 fL 7.4 - 10.4 03/19/2016 [facility] MCHC 32.6 g/dL 32.0 - 36.0 03/19/2016 [facility] RDW 14.6 % 11.5 - 14.5 03/19/2016 [facility] MCH 31.3 pg 27.0 - 31.0 03/19/2016 [facility] URINE AND STOOL UA Bacteria Occasional /HPF None Seen /HPF 03/19/2016 [facility] URINE AND STOOL UA Mucus Few /LPF None Seen /LPF 03/19/2016 [facility] URINE AND STOOL UA WBC 3-5 /HPF None Seen /HPF 03/19/2016 [facility] URINE AND STOOL Micro? Performed (03/19/16 6:29 AM) 03/19/2016 [facility] URINE AND STOOL UA Sq Epi Few /LPF Few /LPF 03/19/2016 [facility] URINE AND STOOL UA RBC 3-5 /HPF 0 - 2 03/19/2016 [facility] URINE AND STOOL UA Nitrite Negative (03/19/16 6:29 AM) Negative 03/19/2016 [facility] URINE AND STOOL UA Leuk Est Trace *ABN* (03/19/16 6:29 AM) Negative 03/19/2016 [facility] URINE AND STOOL UA Urobilinogen 0.2 EU/dL 0.1 - 1.0 03/19/2016 [facility] URINE AND STOOL UA Ketones Negative *NA* (03/19/16 6:29 AM) Negative 03/19/2016 [facility] URINE AND STOOL UA Glucose Negative (03/19/16 6:29 AM) Negative 03/19/2016 [facility] URINE AND STOOL UA Blood Small *ABN* (03/19/16 6:29 AM) Negative 03/19/2016 [facility] URINE AND STOOL UA Bili Negative *NA* (03/19/16 6:29 AM) Negative 03/19/2016 [facility] URINE AND STOOL UA pH 7.0 5.0 - 8.0 03/19/2016 [facility] URINE AND STOOL UA Spec Grav 1.020 <=1.030 03/19/2016 [facility] URINE AND STOOL UA Turbidity Clear (03/19/16 6:29 AM) Clear 03/19/2016 [facility] URINE AND STOOL UA Protein Negative (03/19/16 6:29 AM) Negative 03/19/2016 [facility] URINE AND STOOL UA Color Yellow *NA* (03/19/16 6:29 AM) Yellow 03/19/2016 [facility] URINE AND STOOL UA RBC 7 /HPF 0 - 2 03/19/2016 [facility] URINE AND STOOL UA Sq Epi Occasional /LPF Few /LPF 03/19/2016 [facility] URINE AND STOOL UA Urobilinogen null 0.1 - 1.0 03/19/2016 [facility] URINE AND STOOL UA Blood Small *ABN* (03/19/16 4:16 AM) Negative 03/19/2016 [facility] URINE AND STOOL UA Nitrite Negative (03/19/16 4:16 AM) Negative 03/19/2016 [facility] URINE AND STOOL UA Leuk Est Negative (03/19/16 4:16 AM) Negative 03/19/2016 [facility] URINE AND STOOL UA Ketones Negative mg/dL Negative mg/dL 03/19/2016 [facility] URINE AND STOOL UA Bili Negative *NA* (03/19/16 4:16 AM) Negative 03/19/2016 [facility] URINE AND STOOL UA pH 6.0 5.0 - 8.0 03/19/2016 [facility] URINE AND STOOL UA Protein Negative mg/dL Negative mg/dL 03/19/2016 [facility] URINE AND STOOL UA Glucose Negative mg/dL Negative mg/dL 03/19/2016 [facility] URINE AND STOOL UA Turbidity Clear (03/19/16 4:16 AM) Clear 03/19/2016 [facility] URINE AND STOOL UA Spec Grav 1.016 <=1.030 03/19/2016 [facility] URINE AND STOOL UA Color Light Yellow *NA* (03/19/16 4:16 AM) Yellow 03/19/2016 [facility] URINE CHEM U Preg Negative (03/19/16 4:16 AM) Negative 03/19/2016 [facility] Chest 1view DX Chest 1view DX Patient Name: SHIRLENE LORENZO : 1970; Age: 45 years Female MR: [id number] Study: Chest 1view DX Order Time: 03/19/2016 5:44 AM CDT Clinical Indication: Chest pain. COMPARISON: March 2016. December 2015. May 2015. August 2012. FINDINGS: Views: 1 LUNGS: There is normal lung volume. Left lower lobe atelectasis. There are no pleural effusions. There is no pneumothorax. The pulmonary vasculature is normal. MEDIASTINUM: The cardiac silhouette is normal. The trachea is midline. BONES: There are no clinically significant osseous abnormalities noted. IMPRESSION: Left lower lobe atelectasis. SL: [id number] 03/19/2016 - - Read by: Kuldip Fernandez MD Dictated Date/time: 03/19/16 07:54 Electronically Signed by: Kuldip Fernandez MD 03/19/16 07:55 FINAL REPORT [facility] CARDIAC ENZYMES Troponin-I null 0.00 - 0.40 03/19/2016 [facility] CARDIAC ENZYMES CK MB 0.5 ng/mL 0.5 - 3.6 03/19/2016 [facility] CARDIAC ENZYMES Total CK 31 unit/L 12 - 191 03/19/2016 [facility] CHEM PANEL Globulin 3.0 g/dL 2.0 - 4.0 03/19/2016 [facility] CHEM PANEL ALT 12 unit/L 0 - 65 03/19/2016 [facility] CHEM PANEL AST 9 unit/L 0 - 37 03/19/2016 [facility] CHEM PANEL Alk Phos 76 unit/L 39 - 136 03/19/2016 [facility] CHEM PANEL Bili Total 0.2 mg/dL 0.2 - 1.3 03/19/2016 [facility] CHEM PANEL Bili Indirect Unable to Calculate 0.0 - 1.0 03/19/2016 [facility] CHEM PANEL Bili Direct null 0.0 - 0.3 03/19/2016 [facility] CHEM PANEL Total Protein 5.6 g/dL 6.4 - 8.4 03/19/2016 [facility] CHEM PANEL Albumin Lvl 2.6 g/dL 3.5 - 5.0 03/19/2016 [facility] CHEM PANEL A/G Ratio 0.9 0.7 - 1.6 03/19/2016 [facility] CHEM PANEL Phosphorus 2.3 mg/dL 2.5 - 4.5 03/19/2016 [facility] CHEM PANEL Magnesium Lvl 1.8 mg/dL 1.8 - 2.4 03/19/2016 [facility] CHEM PANEL eGFR 116 mL/min/1.73m2 03/19/2016 Result Comment: The eGFR is calculated using the CKD-EPI formula. In most young, healthy individuals the eGFR will be >90 mL/min/1.73m2. The eGFR declines with age. An eGFR of 60-89 may be normal in some populations, particularly the elderly, for whom the CKD-EPI formula has not been extensively validated. Use of the eGFR is not recommended in the following populations: Individuals with unstable creatinine concentrations, including patients and those with serious co-morbid conditions. Patients with extremes in muscle mass or diet. The data above are obtained from the National Kidney Disease Education Program (NKDEP) which additionally recommends that when the eGFR is used in patients with extremes of body mass index for purposes of drug dosing, the eGFR should be multiplied by the estimated BMI. [facility] CHEM PANEL Creatinine Lvl 0.50 mg/dL 0.50 - 1.40 03/19/2016 [facility] CHEM PANEL Chloride Lvl 114 meq/L 95 - 109 03/19/2016 [facility] CHEM PANEL BUN 17 mg/dL 7 - 22 03/19/2016 [facility] CHEM PANEL Sodium Lvl 145 meq/L 135 - 145 03/19/2016 [facility] CHEM PANEL Potassium Lvl 3.3 meq/L 3.5 - 5.1 03/19/2016 [facility] CHEM PANEL AGAP 13.3 meq/L 10.0 - 20.0 03/19/2016 [facility] CHEM PANEL CO2 21 meq/L 24 - 32 03/19/2016 [facility] CHEM PANEL Calcium Lvl 7.2 mg/dL 8.5 - 10.5 03/19/2016 [facility] CHEM PANEL Glucose Lvl 113 mg/dL 70 - 99 03/19/2016 [facility] CARDIAC ENZYMES Total CK 45 unit/L 12 - 191 03/18/2016 [facility] CARDIAC ENZYMES Troponin-I null 0.00 - 0.40 03/18/2016 [facility] CHEM PANEL Lipase Lvl 49 unit/L 73 - 393 03/18/2016 [facility] CHEM PANEL B/C Ratio 31 6 - 25 03/18/2016 [facility] CHEM PANEL A/G Ratio 0.8 0.7 - 1.6 03/18/2016 [facility] CHEM PANEL Globulin 4.0 g/dL 2.0 - 4.0 03/18/2016 [facility] CHEM PANEL AGAP 10.1 meq/L 10.0 - 20.0 03/18/2016 [facility] CHEM PANEL eGFR 108 mL/min/1.73m2 03/18/2016 Result Comment: The eGFR is calculated using the CKD-EPI formula. In most young, healthy individuals the eGFR will be >90 mL/min/1.73m2. The eGFR declines with age. An eGFR of 60-89 may be normal in some populations, particularly the elderly, for whom the CKD-EPI formula has not been extensively validated. Use of the eGFR is not recommended in the following populations: Individuals with unstable creatinine concentrations, including patients and those with serious co-morbid conditions. Patients with extremes in muscle mass or diet. The data above are obtained from the National Kidney Disease Education Program (NKDEP) which additionally recommends that when the eGFR is used in patients with extremes of body mass index for purposes of drug dosing, the eGFR should be multiplied by the estimated BMI. [facility] CHEM PANEL Bili Total 0.2 mg/dL 0.2 - 1.3 03/18/2016 [facility] CHEM PANEL Alk Phos 100 unit/L 39 - 136 03/18/2016 [facility] CHEM PANEL AST 10 unit/L 0 - 37 03/18/2016 [facility] CHEM PANEL Albumin Lvl 3.2 g/dL 3.5 - 5.0 03/18/2016 [facility] CHEM PANEL Total Protein 7.2 g/dL 6.4 - 8.4 03/18/2016 [facility] CHEM PANEL Calcium Lvl 8.7 mg/dL 8.5 - 10.5 03/18/2016 [facility] CHEM PANEL CO2 25 meq/L 24 - 32 03/18/2016 [facility] CHEM PANEL ALT 16 unit/L 0 - 65 03/18/2016 [facility] CHEM PANEL Sodium Lvl 139 meq/L 135 - 145 03/18/2016 [facility] CHEM PANEL Creatinine Lvl 0.61 mg/dL 0.50 - 1.40 03/18/2016 [facility] CHEM PANEL BUN 19 mg/dL 7 - 22 03/18/2016 [facility] CHEM PANEL Glucose Lvl 81 mg/dL 70 - 99 03/18/2016 [facility] CHEM PANEL Chloride Lvl 108 meq/L 95 - 109 03/18/2016 [facility] CHEM PANEL Potassium Lvl 4.1 meq/L 3.5 - 5.1 03/18/2016 [facility] HEMATOLOGY MPV 8.1 fL 7.4 - 10.4 03/18/2016 [facility] MCHC 32.6 g/dL 32.0 - 36.0 03/18/2016 [facility] RDW 14.9 % 11.5 - 14.5 03/18/2016 [facility] Platelet 175 K/CMM 133 - 450 03/18/2016 [facility] Hgb 13.0 g/dL 12.0 - 16.0 03/18/2016 [facility] RBC 4.13 M/CMM 4.20 - 5.40 03/18/2016 [facility] MCV 96.3 fL 80.0 - 98.0 03/18/2016 [facility] Hct 39.8 % 36.0 - 48.0 03/18/2016 [facility] MCH 31.4 pg 27.0 - 31.0 03/18/2016 [facility] WBC 9.0 K/CMM 3.7 - 10.4 03/18/2016 [facility] Lymphocytes # 4.4 K/CMM 1.0 - 5.5 03/18/2016 [facility] HEMATOLOGY Segs-Bands # 3.9 K/CMM 1.5 - 8.1 03/18/2016 [facility] Monocytes # 0.5 K/CMM 0.0 - 0.8 03/18/2016 [facility] HEMATOLOGY Eosinophils # 0.1 K/CMM 0.0 - 0.5 03/18/2016 [facility] Basophils # 0.1 K/CMM 0.0 - 0.2 03/18/2016 [facility] HEMATOLOGY Eosinophils 1.0 % 0.0 - 4.0 03/18/2016 [facility] Monocytes 5.3 % 2.0 - 12.0 03/18/2016 [facility] HEMATOLOGY Basophils 1.0 % 0.0 - 1.0 03/18/2016 [facility] HEMATOLOGY Segs 43.9 % 45.0 - 75.0 03/18/2016 [facility] HEMATOLOGY Lymphocytes 48.8 % 20.0 - 40.0 03/18/2016 [facility] HEMATOLOGY PT 13.7 s 12.0 - 14.7 03/18/2016 [facility] HEMATOLOGY INR 1.02 0.85 - 1.17 03/18/2016 [facility] Chest 1view DX Chest 1view DX Study: Chest 1view DX Clinical Indication: Chest pain Comparison: 01/06/2016 FINDINGS: The cardiac silhouette is normal in size. The lungs are clear and without consolidation or congestion. No pleural effusion or pneumothorax is seen. The osseous structures are unremarkable. IMPRESSION: No acute cardiopulmonary disease. SL: [id number] 03/18/2016 - - Read by: Leonard Sparks MD Dictated Date/time: 03/18/16 15:21 Electronically Signed by: Leonard Sparks MD 03/18/16 15:21 FINAL REPORT [facility] CHEM PANEL Phosphorus 4.1 mg/dL 2.5 - 4.5 02/23/2016 [facility] CHEM PANEL Magnesium Lvl 2.0 mg/dL 1.8 - 2.4 02/23/2016 [facility] CHEM PANEL Calcium Lvl 9.1 mg/dL 8.5 - 10.5 02/23/2016 [facility] CHEM PANEL ALT 20 unit/L 0 - 65 02/23/2016 [facility] CHEM PANEL Total Protein 7.0 g/dL 6.4 - 8.4 02/23/2016 [facility] CHEM PANEL CO2 23 meq/L 24 - 32 02/23/2016 [facility] CHEM PANEL Albumin Lvl 3.2 g/dL 3.5 - 5.0 02/23/2016 [facility] CHEM PANEL Alk Phos 114 unit/L 39 - 136 02/23/2016 [facility] CHEM PANEL Globulin 3.8 g/dL 2.0 - 4.0 02/23/2016 [facility] CHEM PANEL B/C Ratio 29 6 - 25 02/23/2016 [facility] CHEM PANEL Bili Total 0.2 mg/dL 0.2 - 1.3 02/23/2016 [facility] CHEM PANEL AST 12 unit/L 0 - 37 02/23/2016 [facility] CHEM PANEL AGAP 16.3 meq/L 10.0 - 20.0 02/23/2016 [facility] CHEM PANEL Potassium Lvl 4.3 meq/L 3.5 - 5.1 02/23/2016 [facility] CHEM PANEL Creatinine Lvl 0.70 mg/dL 0.50 - 1.40 02/23/2016 [facility] CHEM PANEL Glucose Lvl 89 mg/dL 70 - 99 02/23/2016 [facility] CHEM PANEL Sodium Lvl 141 meq/L 135 - 145 02/23/2016 [facility] CHEM PANEL BUN 20 mg/dL 7 - 22 02/23/2016 [facility] CHEM PANEL Chloride Lvl 106 meq/L 95 - 109 02/23/2016 [facility] CHEM PANEL A/G Ratio 0.8 0.7 - 1.6 02/23/2016 [facility] CHEM PANEL eGFR 104 mL/min/1.73m2 02/23/2016 Result Comment: The eGFR is calculated using the CKD-EPI formula. In most young, healthy individuals the eGFR will be >90 mL/min/1.73m2. The eGFR declines with age. An eGFR of 60-89 may be normal in some populations, particularly the elderly, for whom the CKD-EPI formula has not been extensively validated. Use of the eGFR is not recommended in the following populations: Individuals with unstable creatinine concentrations, including patients and those with serious co-morbid conditions. Patients with extremes in muscle mass or diet. The data above are obtained from the National Kidney Disease Education Program (NKDEP) which additionally recommends that when the eGFR is used in patients with extremes of body mass index for purposes of drug dosing, the eGFR should be multiplied by the estimated BMI. [facility] MCHC 33.5 g/dL 32.0 - 36.0 02/23/2016 [facility] HEMATOLOGY RDW 14.3 % 11.5 - 14.5 02/23/2016 [facility] Platelet 199 K/CMM 133 - 450 02/23/2016 [facility] MPV 8.4 fL 7.4 - 10.4 02/23/2016 [facility] RBC 3.85 M/CMM 4.20 - 5.40 02/23/2016 [facility] WBC 9.3 K/CMM 3.7 - 10.4 02/23/2016 [facility] Hgb 12.1 g/dL 12.0 - 16.0 02/23/2016 [facility] MCH 31.4 pg 27.0 - 31.0 02/23/2016 [facility] Hct 36.1 % 36.0 - 48.0 02/23/2016 [facility] MCV 93.8 fL 80.0 - 98.0 02/23/2016 [facility] HEMATOLOGY Basophils 0.4 % 0.0 - 1.0 02/23/2016 [facility] Eosinophils 1.8 % 0.0 - 4.0 02/23/2016 [facility] Monocytes 6.0 % 2.0 - 12.0 02/23/2016 [facility] Segs-Bands # 3.3 K/CMM 1.5 - 8.1 02/23/2016 [facility] Lymphocytes # 5.2 K/CMM 1.0 - 5.5 02/23/2016 [facility] Lymphocytes 55.7 % 20.0 - 40.0 02/23/2016 [facility] Segs 36.1 % 45.0 - 75.0 02/23/2016 [facility] Eosinophils # 0.2 K/CMM 0.0 - 0.5 02/23/2016 [facility] Monocytes # 0.6 K/CMM 0.0 - 0.8 02/23/2016 [facility] ELECTROLYTES Potassium Lvl 4.2 meq/L 3.5 - 5.1 02/22/2016 [facility] ELECTROLYTES Chloride Lvl 116 meq/L 95 - 109 02/22/2016 [facility] ELECTROLYTES Calcium Lvl 8.6 mg/dL 8.5 - 10.5 02/22/2016 [facility] ELECTROLYTES CO2 21 meq/L 24 - 32 02/22/2016 [facility] ELECTROLYTES eGFR 109 mL/min/1.73m2 02/22/2016 Result Comment: The eGFR is calculated using the CKD-EPI formula. In most young, healthy individuals the eGFR will be >90 mL/min/1.73m2. The eGFR declines with age. An eGFR of 60-89 may be normal in some populations, particularly the elderly, for whom the CKD-EPI formula has not been extensively validated. Use of the eGFR is not recommended in the following populations: Individuals with unstable creatinine concentrations, including patients and those with serious co-morbid conditions. Patients with extremes in muscle mass or diet. The data above are obtained from the National Kidney Disease Education Program (NKDEP) which additionally recommends that when the eGFR is used in patients with extremes of body mass index for purposes of drug dosing, the eGFR should be multiplied by the estimated BMI. [facility] ELECTROLYTES BUN 16 mg/dL 7 - 22 02/22/2016 [facility] ELECTROLYTES Glucose Lvl 91 mg/dL 70 - 99 02/22/2016 [facility] ELECTROLYTES Sodium Lvl 144 meq/L 135 - 145 02/22/2016 [facility] ELECTROLYTES Creatinine Lvl 0.60 mg/dL 0.50 - 1.40 02/22/2016 [facility] ELECTROLYTES AGAP 11.2 meq/L 10.0 - 20.0 02/22/2016 [facility] HEMATOLOGY MPV 7.9 fL 7.4 - 10.4 02/22/2016 [facility] MCH 31.6 pg 27.0 - 31.0 02/22/2016 [facility] MCV 94.8 fL 80.0 - 98.0 02/22/2016 [facility] RDW 14.3 % 11.5 - 14.5 02/22/2016 [facility] Platelet 196 K/CMM 133 - 450 02/22/2016 [facility] MCHC 33.4 g/dL 32.0 - 36.0 02/22/2016 [facility] Hgb 12.9 g/dL 12.0 - 16.0 02/22/2016 [facility] RBC 4.09 M/CMM 4.20 - 5.40 02/22/2016 [facility] WBC 8.1 K/CMM 3.7 - 10.4 02/22/2016 [facility] Hct 38.8 % 36.0 - 48.0 02/22/2016 [facility] Eosinophils # 0.2 K/CMM 0.0 - 0.5 02/22/2016 [facility] Basophils # 0.0 K/CMM 0.0 - 0.2 02/22/2016 [facility] Monocytes # 0.4 K/CMM 0.0 - 0.8 02/22/2016 [facility] Basophils 0.4 % 0.0 - 1.0 02/22/2016 [facility] Lymphocytes # 4.3 K/CMM 1.0 - 5.5 02/22/2016 [facility] Segs-Bands # 3.1 K/CMM 1.5 - 8.1 02/22/2016 [facility] Eosinophils 2.1 % 0.0 - 4.0 02/22/2016 [facility] Segs 38.2 % 45.0 - 75.0 02/22/2016 [facility] HEMATOLOGY Plt Morph Normal (02/22/16 1:31 AM) 02/22/2016 [facility] HEMATOLOGY Monocytes 5.5 % 2.0 - 12.0 02/22/2016 [facility] HEMATOLOGY Lymphocytes 53.8 % 20.0 - 40.0 02/22/2016 [facility] HEMATOLOGY RBC Morph Normal (02/22/16 1:31 AM) 02/22/2016 [facility] TOXICOLOGY Valproic Acid Lvl null 50 - 100 02/22/2016 [facility] CHEM PANEL Lactic Acid Lvl 0.8 mMol/L 0.5 - 2.2 02/21/2016 [facility] Brain wo contrast CT Brain wo contrast CT Study: Brain wo contrast CT Clinical Indication: Headache with Dizziness and Giddiness Comparison: None TECHNIQUE: Multiple axial CT images of the brain were acquired without the administration of intravenous contrast. Coronal and sagittal reconstructions were obtained. CT radiation dose DLP: 577 mGy-cm FINDINGS: Age-related involutional changes of the brain parenchyma are seen. No acute intracranial hemorrhage, mass effect, midline shift, or hydrocephalus is seen. There are no extra-axial fluid collections. The visualized paranasal sinuses and mastoid air cells are well aerated. IMPRESSION: No acute intracranial abnormality. SL: [id number] 02/21/2016 - - Read by: Leonard Sparks MD Dictated Date/time: 02/21/16 05:10 Electronically Signed by: Leonard Sparks MD 02/21/16 05:11 FINAL REPORT [facility] DRUG SCREEN U Phencyc Scr Negative *NA* (02/20/16 6:52 PM) Negative 02/20/2016 [facility] DRUG SCREEN U Opiate Scr Negative *NA* (02/20/16 6:52 PM) Negative 02/20/2016 [facility] DRUG SCREEN UDS Note See Note *NA* (02/20/16 6:52 PM) 02/20/2016 [facility] DRUG SCREEN U Benzodia Scr Negative *NA* (02/20/16 6:52 PM) Negative 02/20/2016 [facility] DRUG SCREEN U Cocaine Scr Negative *NA* (02/20/16 6:52 PM) Negative 02/20/2016 [facility] DRUG SCREEN U Cannab Scr Negative *NA* (02/20/16 6:52 PM) Negative 02/20/2016 [facility] DRUG SCREEN U Amph Scr Negative *NA* (02/20/16 6:52 PM) Negative 02/20/2016 [facility] DRUG SCREEN U Rahel Scr Negative *NA* (02/20/16 6:52 PM) Negative 02/20/2016 [facility] DRUG SCREEN U Propoxyph Scr Negative *NA* (02/20/16 6:52 PM) Negative 02/20/2016 [facility] DRUG SCREEN U Methadone Scr Negative *NA* (02/20/16 6:52 PM) Negative 02/20/2016 [facility] ELECTROLYTES AGAP 10.6 meq/L 10.0 - 20.0 02/20/2016 [facility] ELECTROLYTES Globulin 4.6 g/dL 2.0 - 4.0 02/20/2016 [facility] ELECTROLYTES B/C Ratio 26 6 - 25 02/20/2016 [facility] ELECTROLYTES A/G Ratio 1.0 0.7 - 1.6 02/20/2016 [facility] ELECTROLYTES eGFR 94 mL/min/1.73m2 02/20/2016 Result Comment: The eGFR is calculated using the CKD-EPI formula. In most young, healthy individuals the eGFR will be >90 mL/min/1.73m2. The eGFR declines with age. An eGFR of 60-89 may be normal in some populations, particularly the elderly, for whom the CKD-EPI formula has not been extensively validated. Use of the eGFR is not recommended in the following populations: Individuals with unstable creatinine concentrations, including patients and those with serious co-morbid conditions. Patients with extremes in muscle mass or diet. The data above are obtained from the National Kidney Disease Education Program (NKDEP) which additionally recommends that when the eGFR is used in patients with extremes of body mass index for purposes of drug dosing, the eGFR should be multiplied by the estimated BMI. [facility] ELECTROLYTES ALT 31 unit/L 0 - 65 02/20/2016 [facility] ELECTROLYTES Glucose Lvl 100 mg/dL 70 - 99 02/20/2016 [facility] ELECTROLYTES Total Protein 9.2 g/dL 6.4 - 8.4 02/20/2016 [facility] ELECTROLYTES BUN 20 mg/dL 7 - 22 02/20/2016 [facility] ELECTROLYTES Sodium Lvl 140 meq/L 135 - 145 02/20/2016 [facility] ELECTROLYTES Creatinine Lvl 0.76 mg/dL 0.50 - 1.40 02/20/2016 [facility] ELECTROLYTES Chloride Lvl 110 meq/L 95 - 109 02/20/2016 [facility] ELECTROLYTES Potassium Lvl 3.6 meq/L 3.5 - 5.1 02/20/2016 [facility] ELECTROLYTES Calcium Lvl 10.1 mg/dL 8.5 - 10.5 02/20/2016 [facility] ELECTROLYTES CO2 23 meq/L 24 - 32 02/20/2016 [facility] ELECTROLYTES Albumin Lvl 4.6 g/dL 3.5 - 5.0 02/20/2016 [facility] ELECTROLYTES Alk Phos 132 unit/L 39 - 136 02/20/2016 [facility] ELECTROLYTES AST 16 unit/L 0 - 37 02/20/2016 [facility] ELECTROLYTES Bili Total 0.5 mg/dL 0.2 - 1.3 02/20/2016 [facility] ENDOCRINOLOGY S Preg Negative *NA* (02/20/16 6:52 PM) Negative 02/20/2016 [facility] HEMATOLOGY Basophils # 0.0 K/CMM 0.0 - 0.2 02/20/2016 [facility] HEMATOLOGY Monocytes # 0.6 K/CMM 0.0 - 0.8 02/20/2016 [facility] HEMATOLOGY Lymphocytes # 4.8 K/CMM 1.0 - 5.5 02/20/2016 [facility] HEMATOLOGY Eosinophils # 0.1 K/CMM 0.0 - 0.5 02/20/2016 [facility] HEMATOLOGY Basophils 0.4 % 0.0 - 1.0 02/20/2016 [facility] HEMATOLOGY Segs-Bands # 5.3 K/CMM 1.5 - 8.1 02/20/2016 [facility] HEMATOLOGY Eosinophils 0.7 % 0.0 - 4.0 02/20/2016 [facility] Monocytes 5.5 % 2.0 - 12.0 02/20/2016 [facility] Lymphocytes 44.1 % 20.0 - 40.0 02/20/2016 [facility] HEMATOLOGY Segs 49.3 % 45.0 - 75.0 02/20/2016 [facility] WBC 10.8 K/CMM 3.7 - 10.4 02/20/2016 [facility] Hgb 16.1 g/dL 12.0 - 16.0 02/20/2016 [facility] Hct 48.5 % 36.0 - 48.0 02/20/2016 [facility] RBC 5.22 M/CMM 4.20 - 5.40 02/20/2016 [facility] HEMATOLOGY MCV 92.8 fL 80.0 - 98.0 02/20/2016 [facility] HEMATOLOGY MPV 7.8 fL 7.4 - 10.4 02/20/2016 [facility] HEMATOLOGY MCH 30.9 pg 27.0 - 31.0 02/20/2016 [facility] HEMATOLOGY Platelet 263 K/CMM 133 - 450 02/20/2016 [facility] HEMATOLOGY RDW 14.1 % 11.5 - 14.5 02/20/2016 [facility] HEMATOLOGY MCHC 33.3 g/dL 32.0 - 36.0 02/20/2016 [facility] URINE AND STOOL UA WBC 0-2 /HPF None Seen /HPF 02/20/2016 [facility] URINE AND STOOL UA Sq Epi Occasional /LPF Few /LPF 02/20/2016 [facility] URINE AND STOOL UA Bacteria Few /HPF None Seen /HPF 02/20/2016 [facility] URINE AND STOOL UA RBC 6-10 /HPF 0 - 2 02/20/2016 [facility] URINE AND STOOL UA Mucus Moderate /LPF None Seen /LPF 02/20/2016 [facility] URINE AND STOOL UA CaOx Miriam Occasional /HPF None Seen /HPF 02/20/2016 [facility] URINE AND STOOL UA Amorph Miriam Few /HPF None Seen /HPF 02/20/2016 [facility] URINE AND STOOL UA Ketones 15 mg/dL Negative mg/dL 02/20/2016 [facility] URINE AND STOOL UA Urobilinogen 1.0 EU/dL 0.1 - 1.0 02/20/2016 [facility] URINE AND STOOL UA Nitrite Negative (02/20/16 6:52 PM) Negative 02/20/2016 [facility] URINE AND STOOL UA Bili Moderate *ABN* (02/20/16 6:52 PM) Negative 02/20/2016 [facility] URINE AND STOOL UA Blood Large *ABN* (02/20/16 6:52 PM) Negative 02/20/2016 [facility] URINE AND STOOL UA Leuk Est Negative (02/20/16 6:52 PM) Negative 02/20/2016 [facility] URINE AND STOOL UA pH 6.0 5.0 - 8.0 02/20/2016 [facility] URINE AND STOOL UA Protein 100 mg/dL Negative mg/dL 02/20/2016 [facility] URINE AND STOOL UA Turbidity Clear (02/20/16 6:52 PM) Clear 02/20/2016 [facility] URINE AND STOOL UA Spec Grav 1.025 <=1.030 02/20/2016 [facility] URINE AND STOOL UA Glucose Negative (02/20/16 6:52 PM) Negative 02/20/2016 [facility] URINE AND STOOL UA Color Yellow *NA* (02/20/16 6:52 PM) Yellow 02/20/2016 [facility] URINE AND STOOL UA Urobilinogen <=1.0 mg/dL 0.1 - 1.0 01/06/2016 [facility] URINE AND STOOL UA Sq Epi Many /LPF Few /LPF 01/06/2016 [facility] URINE AND STOOL UA Leuk Est Small *ABN* (01/06/16 4:15 PM) Negative 01/06/2016 [facility] URINE AND STOOL UA Nitrite Negative (01/06/16 4:15 PM) Negative 01/06/2016 [facility] URINE AND STOOL UA Ketones Negative 01/06/2016 [facility] URINE AND STOOL UA Spec Grav 1.012 <=1.030 01/06/2016 [facility] URINE AND STOOL UA Turbidity Slight *ABN* (01/06/16 4:15 PM) Clear 01/06/2016 [facility] URINE AND STOOL UA Color Yellow *NA* (01/06/16 4:15 PM) Yellow 01/06/2016 [facility] URINE AND STOOL UA Mucus Few /LPF None Seen /LPF 01/06/2016 [facility] URINE AND STOOL UA RBC 22 /HPF 0 - 2 01/06/2016 [facility] URINE AND STOOL UA WBC 8 /HPF 0 - 5 01/06/2016 [facility] URINE AND STOOL UA Bacteria Occasional /HPF None Seen /HPF 01/06/2016 [facility] URINE AND STOOL UA Glucose Negative mg/dL Negative mg/dL 01/06/2016 [facility] URINE AND STOOL UA Blood Moderate *ABN* (01/06/16 4:15 PM) Negative 01/06/2016 [facility] URINE AND STOOL UA Bili Negative *NA* (01/06/16 4:15 PM) Negative 01/06/2016 [facility] URINE AND STOOL UA Protein Negative mg/dL Negative mg/dL 01/06/2016 [facility] URINE AND STOOL UA pH 6.0 5.0 - 8.0 01/06/2016 [facility] CARDIAC ENZYMES CK MB Index 1.0 0.0 - 2.5 01/06/2016 [facility] CARDIAC ENZYMES Troponin-I null 0.00 - 0.40 01/06/2016 [facility] CARDIAC ENZYMES Total CK 84 unit/L 12 - 191 01/06/2016 [facility] CARDIAC ENZYMES CK MB 0.8 ng/mL 0.5 - 3.6 01/06/2016 [facility] CHEM PANEL eGFR 108 mL/min/1.73m2 01/06/2016 Result Comment: The eGFR is calculated using the CKD-EPI formula. In most young, healthy individuals the eGFR will be >90 mL/min/1.73m2. The eGFR declines with age. An eGFR of 60-89 may be normal in some populations, particularly the elderly, for whom the CKD-EPI formula has not been extensively validated. Use of the eGFR is not recommended in the following populations: Individuals with unstable creatinine concentrations, including patients and those with serious co-morbid conditions. Patients with extremes in muscle mass or diet. The data above are obtained from the National Kidney Disease Education Program (NKDEP) which additionally recommends that when the eGFR is used in patients with extremes of body mass index for purposes of drug dosing, the eGFR should be multiplied by the estimated BMI. [facility] CHEM PANEL BUN 14 mg/dL 7 - 22 01/06/2016 [facility] CHEM PANEL Total Protein 7.5 g/dL 6.4 - 8.4 01/06/2016 [facility] CHEM PANEL Creatinine Lvl 0.61 mg/dL 0.50 - 1.40 01/06/2016 [facility] CHEM PANEL CO2 25 meq/L 24 - 32 01/06/2016 [facility] CHEM PANEL B/C Ratio 23 6 - 25 01/06/2016 [facility] CHEM PANEL Globulin 4.2 g/dL 2.0 - 4.0 01/06/2016 [facility] CHEM PANEL A/G Ratio 0.8 0.7 - 1.6 01/06/2016 [facility] CHEM PANEL ALT 28 unit/L 0 - 65 01/06/2016 [facility] CHEM PANEL Albumin Lvl 3.3 g/dL 3.5 - 5.0 01/06/2016 [facility] CHEM PANEL AST 20 unit/L 0 - 37 01/06/2016 [facility] CHEM PANEL Alk Phos 119 unit/L 39 - 136 01/06/2016 [facility] CHEM PANEL Bili Total 0.4 mg/dL 0.2 - 1.3 01/06/2016 [facility] CHEM PANEL AGAP 12.4 meq/L 10.0 - 20.0 01/06/2016 [facility] CHEM PANEL Glucose Lvl 80 mg/dL 70 - 99 01/06/2016 [facility] CHEM PANEL Sodium Lvl 144 meq/L 135 - 145 01/06/2016 [facility] CHEM PANEL Potassium Lvl 4.4 meq/L 3.5 - 5.1 01/06/2016 [facility] CHEM PANEL Chloride Lvl 111 meq/L 95 - 109 01/06/2016 [facility] CHEM PANEL Calcium Lvl 9.0 mg/dL 8.5 - 10.5 01/06/2016 [facility] ENDOCRINOLOGY S Preg Negative *NA* (01/06/16 3:31 PM) Negative 01/06/2016 [facility] HEMATOLOGY Monocytes # 0.5 K/CMM 0.0 - 0.8 01/06/2016 [facility] HEMATOLOGY Lymphocytes # 3.0 K/CMM 1.0 - 5.5 01/06/2016 [facility] HEMATOLOGY Eosinophils # 0.2 K/CMM 0.0 - 0.5 01/06/2016 [facility] HEMATOLOGY Basophils # 0.0 K/CMM 0.0 - 0.2 01/06/2016 [facility] HEMATOLOGY Segs 55.1 % 45.0 - 75.0 01/06/2016 [facility] HEMATOLOGY Lymphocytes 35.9 % 20.0 - 40.0 01/06/2016 [facility] HEMATOLOGY Eosinophils 2.4 % 0.0 - 4.0 01/06/2016 [facility] HEMATOLOGY Monocytes 6.3 % 2.0 - 12.0 01/06/2016 [facility] HEMATOLOGY Basophils 0.3 % 0.0 - 1.0 01/06/2016 [facility] HEMATOLOGY Segs-Bands # 4.6 K/CMM 1.5 - 8.1 01/06/2016 [facility] HEMATOLOGY MPV 7.9 fL 7.4 - 10.4 01/06/2016 [facility] HEMATOLOGY Platelet 161 K/CMM 133 - 450 01/06/2016 [facility] HEMATOLOGY MCHC 33.3 g/dL 32.0 - 36.0 01/06/2016 [facility] HEMATOLOGY MCH 31.2 pg 27.0 - 31.0 01/06/2016 [facility] HEMATOLOGY RDW 13.3 % 11.5 - 14.5 01/06/2016 [facility] HEMATOLOGY Hct 41.4 % 36.0 - 48.0 01/06/2016 [facility] HEMATOLOGY Hgb 13.8 g/dL 12.0 - 16.0 01/06/2016 [facility] HEMATOLOGY MCV 93.6 fL 80.0 - 98.0 01/06/2016 [facility] HEMATOLOGY WBC 8.3 K/CMM 3.7 - 10.4 01/06/2016 [facility] HEMATOLOGY RBC 4.42 M/CMM 4.20 - 5.40 01/06/2016 [facility] IMMUNOLOGY CDC HIV 4th GEN Negative (01/06/16 3:31 PM) Negative 01/06/2016 [facility] Chest 1view DX Chest 1view DX EXAM: Single view chest. INDICATION: Chest pain. COMPARISON: Chest x-ray: 06/06/2015. FINDINGS: Support apparatus: None. Cardiac silhouette: Unremarkable. Justina: Unremarkable. Lobar consolidation: None. Pleural effusion: None. Pneumothorax: None. Other: None. Bones: Unremarkable. Other: None. IMPRESSION: 1. No acute cardiopulmonary process. 01/06/2016 - - Read by: Cecil Aggarwal MD Dictated Date/time: 01/06/16 16:06 Electronically Signed by: Cecil Aggarwal MD 01/06/16 16:07 FINAL REPORT [facility] CARDIAC ENZYMES Troponin-I null 0.00 - 0.40 06/07/2015 [facility] CARDIAC ENZYMES Total CK 41 unit/L 12 - 191 06/07/2015 [facility] Chest 1view DX Chest 1view DX Clinical history: Chest pain. : 1970. Technique: Portable AP chest x-ray on Jun 06, 2015 07:34:00 PM compared to previous on August 23, 2012. Heart size is normal. No acute consolidation. Interval improved bibasilar opacities with small persistent linear scarring on the left noted No pleural effusion. Impression: 1. No active disease in the chest. 06/06/2015 - - Read by: Leonard Diaz MD Dictated Date/time: 06/06/15 20:03 Electronically Signed by: Leonard Diaz MD 06/06/15 20:04 FINAL REPORT [facility] TOXICOLOGY Salicylate Lvl null 0.0 - 30.0 06/06/2015 [facility] TOXICOLOGY Acetaminoph Lvl null 10 - 20 06/06/2015 [facility] DRUG SCREEN UDS Note See Note *NA* (06/06/15 12:51 AM) 06/06/2015 [facility] DRUG SCREEN U Phencyc Scr Negative *NA* (06/06/15 12:51 AM) Negative 06/06/2015 [facility] DRUG SCREEN U Amph Scr Negative *NA* (06/06/15 12:51 AM) Negative 06/06/2015 [facility] DRUG SCREEN U Cannab Scr Negative *NA* (06/06/15 12:51 AM) Negative 06/06/2015 [facility] DRUG SCREEN U Opiate Scr Negative *NA* (06/06/15 12:51 AM) Negative 06/06/2015 [facility] DRUG SCREEN U Rahel Scr Negative *NA* (06/06/15 12:51 AM) Negative 06/06/2015 [facility] DRUG SCREEN U Benzodia Scr Negative *NA* (06/06/15 12:51 AM) Negative 06/06/2015 [facility] DRUG SCREEN U Cocaine Scr Negative *NA* (06/06/15 12:51 AM) Negative 06/06/2015 [facility] URINE AND STOOL UA Urobilinogen <=1.0 mg/dL 0.1 - 1.0 06/06/2015 [facility] URINE AND STOOL UA Bili Negative *NA* (06/06/15 12:51 AM) Negative 06/06/2015 [facility] URINE AND STOOL UA Blood Moderate *ABN* (06/06/15 12:51 AM) Negative 06/06/2015 [facility] URINE AND STOOL UA Nitrite Negative (06/06/15 12:51 AM) Negative 06/06/2015 [facility] URINE AND STOOL UA Ketones Negative mg/dL Negative mg/dL 06/06/2015 [facility] URINE AND STOOL UA Leuk Est Negative (06/06/15 12:51 AM) Negative 06/06/2015 [facility] URINE AND STOOL UA Sq Epi Occasional /LPF Few /LPF 06/06/2015 [facility] URINE AND STOOL UA WBC 6 /HPF 0 - 5 06/06/2015 [facility] URINE AND STOOL UA RBC 24 /HPF 0 - 2 06/06/2015 [facility] URINE AND STOOL UA Mucus Few /LPF None Seen /LPF 06/06/2015 [facility] URINE AND STOOL UA Color Yellow *NA* (06/06/15 12:51 AM) Yellow 06/06/2015 [facility] URINE AND STOOL UA Turbidity Clear (06/06/15 12:51 AM) Clear 06/06/2015 [facility] URINE AND STOOL UA Protein 30 mg/dL Negative mg/dL 06/06/2015 [facility] URINE AND STOOL UA Glucose Negative mg/dL Negative mg/dL 06/06/2015 [facility] URINE AND STOOL UA Spec Grav 1.013 <=1.030 06/06/2015 [facility] URINE AND STOOL UA pH 8.0 5.0 - 8.0 06/06/2015 [facility] CHEM PANEL A/G Ratio 0.8 0.7 - 1.6 06/06/2015 [facility] CHEM PANEL AST 11 unit/L 0 - 37 06/06/2015 [facility] CHEM PANEL Bili Total 0.6 mg/dL 0.2 - 1.3 06/06/2015 [facility] CHEM PANEL Alk Phos 98 unit/L 39 - 136 06/06/2015 [facility] CHEM PANEL ALT 17 unit/L 0 - 65 06/06/2015 [facility] CHEM PANEL Globulin 4.0 g/dL 2.0 - 4.0 06/06/2015 [facility] CHEM PANEL Total Protein 7.0 g/dL 6.4 - 8.4 06/06/2015 [facility] CHEM PANEL AGAP 12.7 meq/L 10.0 - 20.0 06/06/2015 [facility] CHEM PANEL B/C Ratio 24 6 - 25 06/06/2015 [facility] CHEM PANEL Albumin Lvl 3.0 g/dL 3.5 - 5.0 06/06/2015 [facility] CHEM PANEL Glucose Lvl 125 mg/dL 70 - 99 06/06/2015 [facility] CHEM PANEL BUN 17 mg/dL 7 - 22 06/06/2015 [facility] CHEM PANEL CO2 26 meq/L 24 - 32 06/06/2015 [facility] CHEM PANEL Calcium Lvl 8.7 mg/dL 8.5 - 10.5 06/06/2015 [facility] CHEM PANEL eGFR 104 mL/min/1.73m2 06/06/2015 Result Comment: The eGFR is calculated using the CKD-EPI formula. In most young, healthy individuals the eGFR will be >90 mL/min/1.73m2. The eGFR declines with age. An eGFR of 60-89 may be normal in some populations, particularly the elderly, for whom the CKD-EPI formula has not been extensively validated. Use of the eGFR is not recommended in the following populations: Individuals with unstable creatinine concentrations, including patients and those with serious co-morbid conditions. Patients with extremes in muscle mass or diet. The data above are obtained from the National Kidney Disease Education Program (NKDEP) which additionally recommends that when the eGFR is used in patients with extremes of body mass index for purposes of drug dosing, the eGFR should be multiplied by the estimated BMI. [facility] CHEM PANEL Potassium Lvl 3.7 meq/L 3.5 - 5.1 06/06/2015 [facility] CHEM PANEL Sodium Lvl 140 meq/L 135 - 145 06/06/2015 [facility] CHEM PANEL Chloride Lvl 105 meq/L 95 - 109 06/06/2015 [facility] CHEM PANEL Creatinine Lvl 0.7 mg/dL 0.5 - 1.4 06/06/2015 [facility] HEMATOLOGY Monocytes 3.9 % 2.0 - 12.0 06/06/2015 [facility] HEMATOLOGY Eosinophils # 0.1 K/CMM 0.0 - 0.5 06/06/2015 [facility] HEMATOLOGY Segs-Bands # 4.9 K/CMM 1.5 - 8.1 06/06/2015 [facility] HEMATOLOGY Lymphocytes # 4.1 K/CMM 1.0 - 5.5 06/06/2015 [facility] HEMATOLOGY Eosinophils 1.2 % 0.0 - 4.0 06/06/2015 [facility] HEMATOLOGY Monocytes # 0.4 K/CMM 0.0 - 0.8 06/06/2015 [facility] HEMATOLOGY Lymphocytes 42.8 % 20.0 - 40.0 06/06/2015 [facility] HEMATOLOGY Basophils 0.3 % 0.0 - 1.0 06/06/2015 [facility] HEMATOLOGY Segs 51.8 % 45.0 - 75.0 06/06/2015 [facility] HEMATOLOGY Platelet 186 K/CMM 133 - 450 06/06/2015 [facility] HEMATOLOGY MPV 7.4 fL 7.4 - 10.4 06/06/2015 [facility] HEMATOLOGY MCHC 33.5 g/dL 32.0 - 36.0 06/06/2015 [facility] HEMATOLOGY RDW 14.2 % 11.5 - 14.5 06/06/2015 [facility] HEMATOLOGY MCH 31.2 pg 27.0 - 31.0 06/06/2015 [facility] HEMATOLOGY Hct 37.1 % 36.0 - 48.0 06/06/2015 [facility] HEMATOLOGY MCV 93.0 fL 80.0 - 98.0 06/06/2015 [facility] HEMATOLOGY RBC 3.99 M/CMM 4.20 - 5.40 06/06/2015 [facility] HEMATOLOGY Hgb 12.5 g/dL 12.0 - 16.0 06/06/2015 [facility] HEMATOLOGY WBC 9.5 K/CMM 3.7 - 10.4 06/06/2015 [facility] TOXICOLOGY Salicylate Lvl null 0.0 - 30.0 06/06/2015 [facility] TOXICOLOGY Acetaminoph Lvl null 10 - 20 06/06/2015 [facility] TOXICOLOGY Ethanol Lvl null 06/06/2015 [facility] TOXICOLOGY Etoh (%) null 06/06/2015 [facility] CHEM PANEL eGFR 109 mL/min/1.73m2 06/05/2015 Result Comment: The eGFR is calculated using the CKD-EPI formula. In most young, healthy individuals the eGFR will be >90 mL/min/1.73m2. The eGFR declines with age. An eGFR of 60-89 may be normal in some populations, particularly the elderly, for whom the CKD-EPI formula has not been extensively validated. Use of the eGFR is not recommended in the following populations: Individuals with unstable creatinine concentrations, including patients and those with serious co-morbid conditions. Patients with extremes in muscle mass or diet. The data above are obtained from the National Kidney Disease Education Program (NKDEP) which additionally recommends that when the eGFR is used in patients with extremes of body mass index for purposes of drug dosing, the eGFR should be multiplied by the estimated BMI. [facility] CHEM PANEL Sodium Lvl 138 meq/L 135 - 145 06/05/2015 [facility] CHEM PANEL Creatinine Lvl 0.6 mg/dL 0.5 - 1.4 06/05/2015 [facility] CHEM PANEL Potassium Lvl 4.5 meq/L 3.5 - 5.1 06/05/2015 [facility] CHEM PANEL Calcium Lvl 8.6 mg/dL 8.5 - 10.5 06/05/2015 [facility] CHEM PANEL Chloride Lvl 103 meq/L 95 - 109 06/05/2015 [facility] CHEM PANEL BUN 20 mg/dL 7 - 22 06/05/2015 [facility] CHEM PANEL AGAP 13.5 meq/L 10.0 - 20.0 06/05/2015 [facility] CHEM PANEL CO2 26 meq/L 24 - 32 06/05/2015 [facility] CHEM PANEL Glucose Lvl 84 mg/dL 70 - 99 06/05/2015 [facility] Brain wo contrast CT Brain wo contrast CT CT BRAIN WITHOUT CONTRAST COMPARISON: 01/06/2013 CT exam. COMMENTS: Coronal and sagittal multiplanar reformatted images are also submitted for interpretation. The DLP is 780 mGy - cm. No intracranial hemorrhage, ventriculomegaly, or midline shift is seen. Beam hardening artifacts obscure portions of the exam. The calvarium appears intact. Paranasal sinusitis is present. IMPRESSION: 1. No acute intracranial hemorrhage, mass or acute ischemia seen. 06/05/2015 - - Read by: Bruno Cervantes MD Dictated Date/time: 06/05/15 14:21 Electronically Signed by: Bruon Cervantes MD 06/05/15 14:46 FINAL REPORT [facility] Sinus wo contrast CT Sinus wo contrast CT CT paranasal sinuses without contrast Clinical: Facial pain. Comparison: None available. Finding: The DLP is 97 mGy - cm. Maxillary: Mild bilateral maxillary sinus mucosal disease is seen without air- fluid level. Sphenoid: Well-aerated. Ethmoid: Complete opacification of the left posterior ethmoid air cell. Otherwise well aerated ethmoid air cells. Frontal: Well-aerated. Nasal cavity/Ostiomeatal units: Nasal septal deviation to the left with a small bony spur projecting to the left is seen, with the tip of the bony spur approximately 6.8 mm from the midline. No león bullosa or nasal cavity soft tissue mass is seen. Moderate nasal turbinate mucosal hypertrophy is present. Small Wilbur air cells are seen bilaterally. There is mild stenosis of the bilateral ethmoid infundibuli and bilateral middle meati. Soft tissues/Mastoids: Unremarkable. IMPRESSION: 1. Mild bilateral maxillary sinusitis without air-fluid level. 2. Complete opacification of left posterior ethmoid air cell. 3. Nasal septal deviation to the left with bony spur as above. 4. Mild stenosis of the bilateral ostiomeatal units. 06/05/2015 - - Read by: Bruno Cervantes MD Dictated Date/time: 06/05/15 14:05 Electronically Signed by: Bruno Cervantes MD 06/05/15 14:13 FINAL REPORT [facility] Vital Signs Vital Sign Value Date Comments Source Respitory Rate 16 02/04/2017 [facility] Systolic (mm Hg) 100 02/04/2017 [facility] Diastolic (mm Hg) 66 02/04/2017 [facility] Temperature Oral (F) 97.9 F 02/03/2017 [facility] Systolic (mm Hg) 113 02/03/2017 [facility] Diastolic (mm Hg) 74 02/03/2017 [facility] Respitory Rate 18 02/03/2017 [facility] Systolic (mm Hg) 111 02/03/2017 [facility] Diastolic (mm Hg) 78 02/03/2017 [facility] Respitory Rate 16 02/03/2017 [facility] BMI Calculated 45.86 02/03/2017 [facility] Height 165.1 cm 02/03/2017 [facility] Temperature Oral (F) 98.2 F 02/03/2017 [facility] Heart Rate 92 02/03/2017 [facility] Weight 125 02/03/2017 [facility] Respitory Rate 18 01/30/2017 [facility] Temperature Oral (F) 98.3 F 01/30/2017 [facility] Systolic (mm Hg) 101 01/30/2017 [facility] Diastolic (mm Hg) 57 01/30/2017 [facility] Respitory Rate 16 01/30/2017 [facility] Systolic (mm Hg) 100 01/30/2017 [facility] Diastolic (mm Hg) 59 01/30/2017 [facility] Systolic (mm Hg) 85 01/30/2017 [facility] Diastolic (mm Hg) 63 01/30/2017 [facility] Respitory Rate 18 01/30/2017 [facility] Temperature Oral (F) 98.1 F 01/30/2017 [facility] BMI Calculated 35.26 01/30/2017 [facility] Height 162.56 cm 01/30/2017 [facility] Weight 93.182 01/30/2017 [facility] Temperature Oral (F) 98.6 F 01/30/2017 [facility] Heart Rate 80 01/30/2017 [facility] Systolic (mm Hg) 105 01/25/2017 [facility] Diastolic (mm Hg) 58 01/25/2017 [facility] Systolic (mm Hg) 104 01/25/2017 [facility] Diastolic (mm Hg) 64 01/25/2017 [facility] Systolic (mm Hg) 111 01/25/2017 [facility] Diastolic (mm Hg) 68 01/25/2017 [facility] Height 162.56 cm 01/25/2017 [facility] BMI Calculated 35.26 01/25/2017 [facility] Weight 93.182 01/25/2017 [facility] Temperature Oral (F) 97.2 F 01/25/2017 [facility] Heart Rate 99 01/25/2017 [facility] Respitory Rate 20 01/25/2017 [facility] Systolic (mm Hg) 95 01/25/2017 [facility] Diastolic (mm Hg) 54 01/25/2017 [facility] Temperature Oral (F) 98 F 01/25/2017 [facility] Respitory Rate 20 01/25/2017 [facility] Temperature Oral (F) 97.9 F 01/24/2017 [facility] Respitory Rate 38 01/24/2017 [facility] Systolic (mm Hg) 103 01/24/2017 [facility] Diastolic (mm Hg) 65 01/24/2017 [facility] Temperature Oral (F) 98.9 F 01/24/2017 [facility] Systolic (mm Hg) 108 01/24/2017 [facility] Diastolic (mm Hg) 63 01/24/2017 [facility] Respitory Rate 33 01/24/2017 [facility] Weight 93.182 01/24/2017 [facility] BMI Calculated 35.26 01/24/2017 [facility] Height 162.56 cm 01/24/2017 [facility] Heart Rate 83 01/24/2017 [facility] Respitory Rate 16 01/17/2017 [facility] Heart Rate 76 01/17/2017 [facility] Temperature Oral (F) 98.4 F 01/17/2017 [facility] Systolic (mm Hg) 123 01/17/2017 [facility] Diastolic (mm Hg) 68 01/17/2017 [facility] Systolic (mm Hg) 110 01/17/2017 [facility] Diastolic (mm Hg) 79 01/17/2017 [facility] Respitory Rate 18 01/17/2017 [facility] Temperature Oral (F) 98.2 F 01/17/2017 [facility] Heart Rate 82 01/17/2017 [facility] Systolic (mm Hg) 102 01/17/2017 [facility] Diastolic (mm Hg) 78 01/17/2017 [facility] Respitory Rate 18 01/17/2017 [facility] Heart Rate 85 01/17/2017 [facility] Height 162.56 cm 01/17/2017 [facility] Temperature Oral (F) 97.7 F 01/17/2017 [facility] Weight 93.182 01/17/2017 [facility] BMI Calculated 35.26 01/17/2017 [facility] Systolic (mm Hg) 110 01/15/2017 [facility] Diastolic (mm Hg) 55 01/15/2017 [facility] Temperature Oral (F) 97.9 F 01/15/2017 [facility] Respitory Rate 18 01/15/2017 [facility] Heart Rate 94 01/15/2017 [facility] Heart Rate 92 01/15/2017 [facility] Temperature Oral (F) 97.7 F 01/15/2017 [facility] Systolic (mm Hg) 140 01/15/2017 [facility] Diastolic (mm Hg) 79 01/15/2017 [facility] Respitory Rate 17 01/15/2017 [facility] Temperature Oral (F) 98.8 F 01/15/2017 [facility] Systolic (mm Hg) 133 01/15/2017 [facility] Diastolic (mm Hg) 93 01/15/2017 [facility] Heart Rate 97 01/14/2017 [facility] Respitory Rate 23 01/14/2017 [facility] BMI Calculated 35.26 01/14/2017 [facility] Height 162.56 cm 01/14/2017 [facility] Weight 93.182 01/14/2017 [facility] Height 162.56 cm 01/14/2017 [facility] Weight 93.182 01/14/2017 [facility] BMI Calculated 35.26 01/14/2017 [facility] Temperature Oral (F) 98.2 F 01/09/2017 [facility] Respitory Rate 18 01/09/2017 [facility] Heart Rate 85 01/09/2017 [facility] Systolic (mm Hg) 102 01/09/2017 [facility] Diastolic (mm Hg) 60 01/09/2017 [facility] BMI Calculated 35.26 01/09/2017 [facility] Height 162.56 cm 01/09/2017 [facility] Weight 93.182 01/09/2017 [facility] Systolic (mm Hg) 126 01/09/2017 [facility] Diastolic (mm Hg) 90 01/09/2017 [facility] Temperature Oral (F) 98.8 F 01/09/2017 [facility] Respitory Rate 20 01/09/2017 [facility] Heart Rate 94 01/09/2017 [facility] Heart Rate 90 01/07/2017 [facility] Temperature Oral (F) 98.5 F 01/07/2017 [facility] Respitory Rate 19 01/07/2017 [facility] Systolic (mm Hg) 143 01/07/2017 [facility] Diastolic (mm Hg) 82 01/07/2017 [facility] Systolic (mm Hg) 137 01/07/2017 [facility] Diastolic (mm Hg) 87 01/07/2017 [facility] Respitory Rate 20 01/07/2017 [facility] Heart Rate 77 01/07/2017 [facility] Temperature Oral (F) 97.9 F 01/07/2017 [facility] Respitory Rate 18 01/07/2017 [facility] Systolic (mm Hg) 132 01/07/2017 [facility] Diastolic (mm Hg) 89 01/07/2017 [facility] Heart Rate 81 01/07/2017 [facility] Weight 93.182 01/07/2017 [facility] Temperature Oral (F) 98.0 F 01/07/2017 [facility] BMI Calculated 35.26 01/07/2017 [facility] Height 162.56 cm 01/07/2017 [facility] Respitory Rate 18 01/01/2017 [facility] Systolic (mm Hg) 123 01/01/2017 [facility] Diastolic (mm Hg) 73 01/01/2017 [facility] Heart Rate 76 01/01/2017 [facility] Temperature Oral (F) 98.3 F 01/01/2017 [facility] Systolic (mm Hg) 119 01/01/2017 [facility] Diastolic (mm Hg) 73 01/01/2017 [facility] Temperature Oral (F) 98.4 F 01/01/2017 [facility] Heart Rate 80 01/01/2017 [facility] Respitory Rate 18 01/01/2017 [facility] Systolic (mm Hg) 113 01/01/2017 [facility] Diastolic (mm Hg) 76 01/01/2017 [facility] Respitory Rate 20 01/01/2017 [facility] Heart Rate 84 01/01/2017 [facility] Temperature Oral (F) 98 F 01/01/2017 [facility] Weight 111.364 01/01/2017 [facility] BMI Calculated 42.14 01/01/2017 [facility] Height 162.56 cm 01/01/2017 [facility] Weight 100 12/31/2016 [facility] BMI Calculated 37.84 12/31/2016 [facility] Height 162.56 cm 12/31/2016 [facility] Systolic (mm Hg) 132 12/18/2016 [facility] Diastolic (mm Hg) 84 12/18/2016 [facility] Temperature Oral (F) 98.4 F 12/18/2016 [facility] Heart Rate 92 12/18/2016 [facility] Respitory Rate 17 12/18/2016 [facility] Respitory Rate 18 12/18/2016 [facility] Systolic (mm Hg) 128 12/18/2016 [facility] Diastolic (mm Hg) 76 12/18/2016 [facility] Temperature Oral (F) 98.0 F 12/18/2016 [facility] Heart Rate 75 12/18/2016 [facility] Respitory Rate 18 12/18/2016 [facility] Heart Rate 86 12/18/2016 [facility] Systolic (mm Hg) 152 12/18/2016 [facility] Diastolic (mm Hg) 84 12/18/2016 [facility] Temperature Oral (F) 98.5 F 12/18/2016 [facility] Weight 95.455 12/18/2016 [facility] Height 165.1 cm 12/18/2016 [facility] BMI Calculated 35.02 12/18/2016 [facility] Weight 95.455 12/17/2016 [facility] BMI Calculated 35.02 12/17/2016 [facility] Height 165.1 cm 12/17/2016 [facility] Weight 86.364 03/22/2016 [facility] BMI Calculated 31.68 03/22/2016 [facility] Temperature Oral (F) 97.8 F 03/22/2016 [facility] Height 165.1 cm 03/22/2016 [facility] Respitory Rate 18 03/22/2016 [facility] Heart Rate 104 03/22/2016 [facility] Systolic (mm Hg) 104 03/22/2016 [facility] Diastolic (mm Hg) 61 03/22/2016 [facility] Heart Rate 90 03/22/2016 [facility] Respitory Rate 18 03/22/2016 [facility] Systolic (mm Hg) 120 03/22/2016 [facility] Diastolic (mm Hg) 75 03/22/2016 [facility] Respitory Rate 18 03/22/2016 [facility] Heart Rate 99 03/22/2016 [facility] Systolic (mm Hg) 123 03/22/2016 [facility] Diastolic (mm Hg) 78 03/22/2016 [facility] Temperature Oral (F) 97.8 F 03/22/2016 [facility] Weight 86.364 03/22/2016 [facility] BMI Calculated 32.68 03/22/2016 [facility] Height 162.56 cm 03/22/2016 [facility] Systolic (mm Hg) 104 03/20/2016 [facility] Diastolic (mm Hg) 72 03/20/2016 [facility] Temperature Oral (F) 98.3 F 03/20/2016 [facility] Respitory Rate 16 03/20/2016 [facility] Heart Rate 78 03/20/2016 [facility] Temperature Oral (F) 98.9 F 03/20/2016 [facility] Heart Rate 89 03/20/2016 [facility] Respitory Rate 17 03/20/2016 [facility] Systolic (mm Hg) 98 03/20/2016 [facility] Diastolic (mm Hg) 69 03/20/2016 [facility] Respitory Rate 18 03/19/2016 [facility] Temperature Oral (F) 98.5 F 03/19/2016 [facility] Heart Rate 96 03/19/2016 [facility] Systolic (mm Hg) 107 03/19/2016 [facility] Diastolic (mm Hg) 70 03/19/2016 [facility] Height 162.56 cm 03/19/2016 [facility] BMI Calculated 32.68 03/19/2016 [facility] Weight 86.364 03/19/2016 [facility] Height 162.56 cm 03/19/2016 [facility] Systolic (mm Hg) 120 03/19/2016 [facility] Diastolic (mm Hg) 80 03/19/2016 [facility] Respitory Rate 16 03/19/2016 [facility] Heart Rate 84 03/19/2016 [facility] Temperature Oral (F) 98.5 F 03/19/2016 [facility] Systolic (mm Hg) 120 03/19/2016 [facility] Diastolic (mm Hg) 80 03/19/2016 [facility] Temperature Oral (F) 98.3 F 03/19/2016 [facility] Respitory Rate 17 03/19/2016 [facility] Heart Rate 96 03/19/2016 [facility] Systolic (mm Hg) 117 03/19/2016 [facility] Diastolic (mm Hg) 79 03/19/2016 [facility] Heart Rate 93 03/19/2016 [facility] Temperature Oral (F) 98.3 F 03/19/2016 [facility] Respitory Rate 17 03/19/2016 [facility] Weight 87.273 03/18/2016 [facility] BMI Calculated 33.03 03/18/2016 [facility] Height 162.56 cm 03/18/2016 [facility] Weight 86.364 03/18/2016 [facility] BMI Calculated 32.68 03/18/2016 [facility] Height 162.56 cm 03/18/2016 [facility] Temperature Oral (F) 97.6 F 02/28/2016 [facility] Heart Rate 94 02/28/2016 [facility] Respitory Rate 18 02/28/2016 [facility] Systolic (mm Hg) 106 02/28/2016 [facility] Diastolic (mm Hg) 68 02/28/2016 [facility] Height 167.64 cm 02/28/2016 [facility] BMI Calculated 30.73 02/28/2016 [facility] Weight 86.364 02/28/2016 [facility] Respitory Rate 18 02/28/2016 [facility] Heart Rate 98 02/28/2016 [facility] Temperature Oral (F) 98.4 F 02/28/2016 [facility] Systolic (mm Hg) 144 02/28/2016 [facility] Diastolic (mm Hg) 94 02/28/2016 [facility] Systolic (mm Hg) 112 02/27/2016 [facility] Diastolic (mm Hg) 57 02/27/2016 [facility] Respitory Rate 16 02/27/2016 [facility] Heart Rate 65 02/27/2016 [facility] Temperature Oral (F) 96.8 F 02/27/2016 [facility] Systolic (mm Hg) 125 02/27/2016 [facility] Diastolic (mm Hg) 68 02/27/2016 [facility] Temperature Oral (F) 98.0 F 02/27/2016 [facility] Respitory Rate 16 02/27/2016 [facility] Heart Rate 82 02/27/2016 [facility] Respitory Rate 18 02/27/2016 [facility] Heart Rate 91 02/27/2016 [facility] Temperature Oral (F) 98.4 F 02/27/2016 [facility] Systolic (mm Hg) 142 02/27/2016 [facility] Diastolic (mm Hg) 92 02/27/2016 [facility] BMI Calculated 32.68 02/26/2016 [facility] Weight 86.364 02/26/2016 [facility] Height 162.56 cm 02/26/2016 [facility] Heart Rate 88 02/24/2016 [facility] Temperature Oral (F) 97.4 F 02/24/2016 [facility] Respitory Rate 18 02/24/2016 [facility] Systolic (mm Hg) 132 02/24/2016 [facility] Diastolic (mm Hg) 84 02/24/2016 [facility] Systolic (mm Hg) 112 02/24/2016 [facility] Diastolic (mm Hg) 87 02/24/2016 [facility] Heart Rate 97 02/24/2016 [facility] Respitory Rate 18 02/24/2016 [facility] Temperature Oral (F) 97 F 02/24/2016 [facility] Respitory Rate 20 02/24/2016 [facility] Systolic (mm Hg) 111 02/24/2016 [facility] Diastolic (mm Hg) 64 02/24/2016 [facility] Temperature Oral (F) 96.6 F 02/24/2016 [facility] Heart Rate 92 02/24/2016 [facility] Height 162.56 cm 02/21/2016 [facility] Height 162.56 cm 02/21/2016 [facility] BMI Calculated 30.96 02/21/2016 [facility] Weight 81.818 02/21/2016 [facility] Systolic (mm Hg) 111 02/10/2016 [facility] Diastolic (mm Hg) 69 02/10/2016 [facility] Respitory Rate 17 02/10/2016 [facility] Temperature Oral (F) 97.9 F 02/10/2016 [facility] Heart Rate 99 02/10/2016 [facility] Heart Rate 97 02/10/2016 [facility] Respitory Rate 17 02/10/2016 [facility] Temperature Oral (F) 98.1 F 02/10/2016 [facility] Systolic (mm Hg) 122 02/10/2016 [facility] Diastolic (mm Hg) 69 02/10/2016 [facility] Weight 83.545 02/10/2016 [facility] Heart Rate 98 02/10/2016 [facility] Respitory Rate 18 02/10/2016 [facility] Systolic (mm Hg) 118 02/10/2016 [facility] Diastolic (mm Hg) 78 02/10/2016 [facility] Height 162.56 cm 02/10/2016 [facility] BMI Calculated 31.61 02/10/2016 [facility] Temperature Oral (F) 98.6 F 02/10/2016 [facility] Systolic (mm Hg) 118 01/07/2016 [facility] Diastolic (mm Hg) 82 01/07/2016 [facility] Respitory Rate 18 01/07/2016 [facility] Heart Rate 94 01/07/2016 [facility] Respitory Rate 18 01/06/2016 [facility] Heart Rate 86 01/06/2016 [facility] Systolic (mm Hg) 118 01/06/2016 [facility] Diastolic (mm Hg) 79 01/06/2016 [facility] Heart Rate 85 01/06/2016 [facility] [facility] Systolic (mm Hg) 101 01/06/2016 [facility] Diastolic (mm Hg) 69 01/06/2016 [facility] Respitory Rate 18 01/06/2016 [facility] Weight 83.636 01/06/2016 [facility] Height 162.56 cm 01/06/2016 [facility] BMI Calculated 31.65 01/06/2016 [facility] Temperature Oral (F) 98 F 01/06/2016 [facility] Respitory Rate 18 06/07/2015 [facility] Systolic (mm Hg) 114 06/07/2015 [facility] Diastolic (mm Hg) 75 06/07/2015 [facility] Temperature Oral (F) 98.1 F 06/07/2015 [facility] Respitory Rate 18 06/07/2015 [facility] Heart Rate 70 06/07/2015 [facility] Systolic (mm Hg) 113 06/07/2015 [facility] Diastolic (mm Hg) 70 06/07/2015 [facility] Systolic (mm Hg) 115 06/07/2015 [facility] Diastolic (mm Hg) 67 06/07/2015 [facility] Heart Rate 72 06/07/2015 [facility] Respitory Rate 18 06/07/2015 [facility] Heart Rate 69 06/07/2015 [facility] Temperature Oral (F) 98.5 F 06/07/2015 [facility] Temperature Oral (F) 98.2 F 06/07/2015 [facility] Weight 81.818 06/06/2015 [facility] Height 162.56 cm 06/06/2015 [facility] BMI Calculated 30.96 06/06/2015 [facility] Respitory Rate 16 06/06/2015 [facility] Systolic (mm Hg) 134 06/06/2015 [facility] Diastolic (mm Hg) 76 06/06/2015 [facility] Heart Rate 96 06/06/2015 [facility] Temperature Oral (F) 98.7 F 06/06/2015 [facility] Heart Rate 97 06/06/2015 [facility] Systolic (mm Hg) 138 06/06/2015 [facility] Diastolic (mm Hg) 78 06/06/2015 [facility] Respitory Rate 16 06/06/2015 [facility] Heart Rate 100 06/05/2015 [facility] Respitory Rate 16 06/05/2015 [facility] Systolic (mm Hg) 140 06/05/2015 [facility] Diastolic (mm Hg) 88 06/05/2015 [facility] Temperature Oral (F) 98 F 06/05/2015 [facility] BMI Calculated 27.69 06/05/2015 [facility] Weight 73.182 06/05/2015 [facility] Height 162.56 cm 06/05/2015 [facility] Temperature Oral (F) 98.6 F 06/05/2015 [facility] Respitory Rate 20 05/03/2015 [facility] Heart Rate 86 05/03/2015 [facility] Systolic (mm Hg) 100 05/03/2015 [facility] Diastolic (mm Hg) 63 05/03/2015 [facility] Systolic (mm Hg) 99 05/03/2015 [facility] Diastolic (mm Hg) 60 05/03/2015 [facility] Heart Rate 72 05/03/2015 [facility] Respitory Rate 16 05/03/2015 [facility] Systolic (mm Hg) 108 05/03/2015 [facility] Diastolic (mm Hg) 71 05/03/2015 [facility] Respitory Rate 18 05/03/2015 [facility] Heart Rate 65 05/03/2015 [facility] Temperature Oral (F) 97.9 F 05/03/2015 [facility] Weight 69.091 05/03/2015 [facility] BMI Calculated 25.35 05/03/2015 [facility] Height 165.1 cm 05/03/2015 [facility] Temperature Oral (F) 99.3 F 05/03/2015 [facility] Encounters Location Location Details Encounter Type Encounter Number Reason For Visit Attending Provider ADM Date DC Date Status Source [facility] [id number] Franko Forte 05/03/2015 05/03/2015 [facility] [id number] Simone Olivaresu 06/05/2015 06/06/[address] [facility] [id number] Min Obando 06/06/2015 06/07/2015 [facility] Outpatient [id number] GILBERT MARI 07/22/2015 Active [facility] [id number] Malaika Goss 01/06/2016 01/07/2016 [facility] [id number] Óscar Tracy 02/10/2016 02/10/2016 [facility] Inpatient [id number] Yahir Keenan 02/20/2016 02/24/2016 [facility] [id number] Urban Rolle 02/26/2016 02/27/2016 [facility] Emergency [facility] [id number] Ovidio Diop 02/28/2016 02/28/2016 [facility] OBS Observation Patient [id number] Arvind Car 03/18/2016 03/19/2016 [facility] OBS Observation Patient [id number] Harley Florin 03/19/2016 03/20/2016 [facility] [id number] Blake Boyd 03/22/2016 03/22/2016 [facility] [id number] Blake Boyd 03/22/2016 03/22/2016 [facility] Observation [id number] Law Lyons Jr 12/17/2016 12/19/2016 [facility] Observation [id number] Junito Pizano 12/31/2016 01/01/2017 [facility] Emergency [id number] Gilbert Villavicencio 01/07/2017 01/07/2017 [facility] Emergency [id number] Cinthia Stubbs 01/09/2017 01/09/2017 [facility] Observation [id number] Prince Banks 01/14/2017 01/15/2017 [facility] Emergency [id number] Jeremy Doran 01/17/2017 01/17/2017 [facility] Emergency [id number] Jeremy Schraderw 01/24/2017 01/25/2017 [facility] Emergency [id number] Laurel Childs 01/25/2017 01/25/2017 [facility] Emergency [id number] Jarrod Moreira 01/30/2017 01/31/2017 [facility] Emergency [id number] Rosa Loza 02/03/2017 02/04/2017 [facility] Outpatient [id number] SASCHA ANTHONYCKO 02/07/2017 Active [facility] Procedures Procedure Code Date Perfomer Comments Source Appendectomy [id number] [facility] Cholecystectomy [id number] [facility] Hysterectomy [id number] [facility] Nasal tip rhinoplasty [id number] [facility] PTCA - Percutaneous transluminal coronary angioplasty [id number] [facility] Revision rhinoplasty [id number] [facility] Appendectomy [id number] [facility] Cholecystectomy [id number] [facility] Hysterectomy [id number] [facility] Nasal tip rhinoplasty [id number] [facility] PTCA - Percutaneous transluminal coronary angioplasty [id number] [facility] Revision rhinoplasty [id number] [facility] Appendectomy [id number] [facility] Cholecystectomy [id number] [facility] Hysterectomy [id number] [facility] PTCA - Percutaneous transluminal coronary angioplasty [id number] [facility] Appendectomy [id number] [facility] Cholecystectomy [id number] [facility] Hysterectomy [id number] [facility] PTCA - Percutaneous transluminal coronary angioplasty [id number] [facility] Appendectomy [id number] [facility] [id number] [facility] Hyste[facility] [id number] [facility] Nasal tip rhinoplasty [id number] [facility] - Percutaneous transluminal coronary angioplasty [id number] [facility] Revision rhinoplasty [id number] [facility]
--- OUTSIDE RECORDS SUMMARY | 2019-02-28 22:38 | XMS REPORT | Summary of Care ---
Author Author [facility] Organization [facility] Address Unknown Phone Unavailable Encounter POLO Haynes(MARY BETH) [id number] Date(s): 01/06/16 - 01/06/16 [id number] [place] [address]- Discharge Diagnosis: Atypical chest pain Discharge Disposition: Home Attending Physician: Malaika Goss MD Vital Signs 1 2 3 Most recent to oldest [Reference Range]: 162.56 cm (01/06/16 1:30 PM) Height 98 DegF (01/06/16 1:30 PM) Temperature Oral [96.4-99.1 DegF] 118/82 mmHg (01/06/16 7:01 PM) 118/79 mmHg (01/06/16 4:28 PM) 101/69 mmHg (01/06/16 3:31 PM) Blood Pressure [90-140/60-90 mmHg] 18 BRMIN (01/06/16 7:01 PM) 18 BRMIN (01/06/16 4:28 PM) 18 BRMIN (01/06/16 3:31 PM) Respiratory Rate [14-20 BRMIN] 94 bpm (01/06/16 7:01 PM) 86 bpm (01/06/16 4:28 PM) 85 bpm (01/06/16 3:31 PM) Peripheral Pulse Rate [60-100 bpm] 83.636 kg (01/06/16 1:30 PM) Weight 31.65 m2 (01/06/16 1:30 PM) Body Mass Index Problem List Condition Effective Dates Status Health Status Informant Bipolar(Confirmed) Active Bladder Resolved disease(Confirmed) COPD(Confirmed) Resolved Diabetic Active care(Confirmed) Hepatitis Resolved C(Confirmed) Lupus(Confirmed) Resolved Schizo-affective Active schizophrenia(Confir med) Seizure(Confirmed) Resolved Allergies, Adverse Reactions, Alerts Substance Reaction Severity Status aspirin Active Demerol HCl Active erythromycin Active Imitrex Active NSAIDs Active Stelazine Active sulfa drugs Active Toradol Active Medications morphine Sulfate 4 mg, Route: IVP, Drug form: INJ, ONCE, Dosing Weight 83.636, kg, Priority: STAT , Start date: 01/06/16 17:48:00, Stop date: 01/06/16 17:48:00 Start Date: 01/06/16 Stop Date: 01/06/16 Status: Completed [place] 5/325 oral tablet 1 tab, Route: PO, Drug Form: TAB, Dosing Weight 83.636, kg, ONCE, STAT, Start da te: 01/06/16 15:22:00, Stop date: 01/06/16 15:22:00 Start Date: 01/06/16 Stop Date: 01/06/16 Status: Completed Saline Flush 0.9% 10 mL, Route: IVP, Drug Form: INJ, Dosing Weight 83.636, kg, PRN, PRN Line Flush , Start date: 01/06/16 15:22:00, Duration: 30 day, Stop date: 02/05/16 16:21:00 Notes: (Same as: BD Posiflush) Start Date: 01/06/16 Stop Date: 01/06/16 Status: Discontinued tramadol 50 mg oral tablet 50 mg=1 tab, PO, BID, X 15 day, # 30 tab, 0 Refill(s) Start Date: 01/06/16 Stop Date: 01/21/16 Status: Ordered Zofran ODT 4 mg, Route: PO, Drug form: TABDIS, ONCE, Dosing Weight 83.636, kg, Priority: ST AT, Start date: 01/06/16 15:26:00, Stop date: 01/06/16 15:26:00 Start Date: 01/06/16 Stop Date: 01/06/16 Status: Completed Results ELECTROLYTES Most recent to 1 oldest [Reference Range]: Sodium Lvl [135-145 144 mEq/L mEq/L] (01/06/16 3:31 PM) Potassium Lvl 4.4 mEq/L [3.5-5.1 mEq/L] (01/06/16 3:31 PM) Chloride Lvl [95-109 111 mEq/L mEq/L] *HI* (01/06/16 3:31 PM) CO2 [24-32 mEq/L] 25 mEq/L (01/06/16 3:31 PM) AGAP [10.0-20.0 12.4 mEq/L mEq/L] (01/06/16 3:31 PM) CHEM PANEL Most recent to 1 oldest [Reference Range]: Creatinine Lvl 0.61 mg/dL [0.50-1.40 mg/dL] (01/06/16 3:31 PM) eGFR 108 mL/min/1.73m2 1 *NA* (01/06/16 3:31 PM) BUN [7-22 mg/dL] 14 mg/dL (01/06/16 3:31 PM) B/C Ratio [6-25] 23 (01/06/16 3:31 PM) Glucose Lvl [70-99 80 mg/dL mg/dL] (01/06/16 3:31 PM) Total Protein 7.5 g/dL [6.4-8.4 g/dL] (01/06/16 3:31 PM) Albumin Lvl [3.5-5.0 3.3 g/dL g/dL] *LOW* (01/06/16 3:31 PM) Globulin [2.0-4.0 4.2 g/dL g/dL] *HI* (01/06/16 3:31 PM) A/G Ratio [0.7-1.6] 0.8 (01/06/16 3:31 PM) Calcium Lvl 9.0 mg/dL [8.5-10.5 mg/dL] (01/06/16 3:31 PM) ALT [0-65 unit/L] 28 unit/L (01/06/16 3:31 PM) AST [0-37 unit/L] 20 unit/L (01/06/16 3:31 PM) Alk Phos [39-136 119 unit/L unit/L] (01/06/16 3:31 PM) Bili Total [0.2-1.3 0.4 mg/dL mg/dL] (01/06/16 3:31 PM) 1Result Comment: The eGFR is calculated using the [...] from the National Kidney Disease Education Program ( NKDEP) which additionally recommends that when the eGFR is used in patients with extremes of body mass index for purposes of drug dosing, the eGFR should be mul tiplied by the estimated BMI. CARDIAC ENZYMES Most recent to 1 oldest [Reference Range]: Total CK [12-191 84 unit/L unit/L] (01/06/16 3:31 PM) CK MB [0.5-3.6 0.8 ng/mL ng/mL] (01/06/16 3:31 PM) CK MB Index 1.0 [0.0-2.5] (01/06/16 3:31 PM) Troponin-I <0.02 ng/mL [0.00-0.40 ng/mL] (01/06/16 3:31 PM) ENDOCRINOLOGY Most recent to 1 oldest [Reference Range]: S Preg [Negative] Negative *NA* (01/06/16 3:31 PM) URINE AND STOOL Most recent to 1 oldest [Reference Range]: UA Turbidity [Clear] Slight *ABN* (01/06/16 4:15 PM) UA Color [Yellow] Yellow *NA* (01/06/16 4:15 PM) UA pH [5.0-8.0] 6.0 (01/06/16 4:15 PM) UA Spec Grav 1.012 [<=1.030] (01/06/16 4:15 PM) UA Glucose [Negative Negative mg/dL mg/dL] *NA* (01/06/16 4:15 PM) UA Blood [Negative] Moderate *ABN* (01/06/16 4:15 PM) UA Ketones Negative *NA* (01/06/16 4:15 PM) UA Protein [Negative Negative mg/dL mg/dL] (01/06/16 4:15 PM) UA Urobilinogen <=1.0 mg/dL [0.1-1.0 mg/dL] *NA* (01/06/16 4:15 PM) UA Bili [Negative] Negative *NA* (01/06/16 4:15 PM) UA Leuk Est Small [Negative] *ABN* (01/06/16 4:15 PM) UA Nitrite Negative [Negative] (01/06/16 4:15 PM) UA WBC [0-5 /HPF] 8 /HPF *HI* (01/06/16 4:15 PM) UA RBC [0-2 /HPF] 22 /HPF *HI* (01/06/16 4:15 PM) UA Bacteria [None Occasional /HPF Seen /HPF] *NA* (01/06/16 4:15 PM) UA Sq Epi [Few /LPF] Many /LPF *ABN* (01/06/16 4:15 PM) UA Mucus [None Seen Few /LPF /LPF] *NA* (01/06/16 4:15 PM) IMMUNOLOGY Most recent to 1 oldest [Reference Range]: CDC HIV 4th GEN Negative [Negative] (01/06/16 3:31 PM) HEMATOLOGY Most recent to 1 oldest [Reference Range]: WBC [3.7-10.4 K/CMM] 8.3 K/CMM (01/06/16 3:31 PM) RBC [4.20-5.40 4.42 M/CMM M/CMM] (01/06/16 3:31 PM) Hgb [12.0-16.0 g/dL] 13.8 g/dL (01/06/16 3:31 PM) Hct [36.0-48.0 %] 41.4 % (01/06/16 3:31 PM) MCV [80.0-98.0 fL] 93.6 fL (01/06/16 3:31 PM) MCH [27.0-31.0 pg] 31.2 pg *HI* (01/06/16 3:31 PM) MCHC [32.0-36.0 33.3 g/dL g/dL] (01/06/16 3:31 PM) RDW [11.5-14.5 %] 13.3 % (01/06/16 3:31 PM) Platelet [133-450 161 K/CMM K/CMM] (01/06/16 3:31 PM) MPV [7.4-10.4 fL] 7.9 fL (01/06/16 3:31 PM) Segs [45.0-75.0 %] 55.1 % (01/06/16 3:31 PM) Lymphocytes 35.9 % [20.0-40.0 %] (01/06/16 3:31 PM) Monocytes [2.0-12.0 6.3 % %] (01/06/16 3:31 PM) Eosinophils [0.0-4.0 2.4 % %] (01/06/16 3:31 PM) Basophils [0.0-1.0 0.3 % %] (01/06/16 3:31 PM) Segs-Bands # 4.6 K/CMM [1.5-8.1 K/CMM] (01/06/16 3:31 PM) Lymphocytes # 3.0 K/CMM [1.0-5.5 K/CMM] (01/06/16 3:31 PM) Monocytes # [0.0-0.8 0.5 K/CMM K/CMM] (01/06/16 3:31 PM) Eosinophils # 0.2 K/CMM [0.0-0.5 K/CMM] (01/06/16 3:31 PM) Basophils # [0.0-0.2 0.0 K/CMM K/CMM] (01/06/16 3:31 PM) Immunizations Vaccine Date Refusal Reason diphtheria/pertussis, acel/tetanus [...]
--- OUTSIDE RECORDS SUMMARY | 2019-02-28 22:38 | XMS REPORT | Summary of Care ---
Author Author [facility] Organization [facility] Address Unknown Phone Unavailable Encounter POLO Haynes(MARY BETH) [id number] Date(s): 06/05/15 - 06/07/15 [id number] [place] [address]- Discharge Disposition: Acute Care Attending Physician: Min Obando MD Vital Signs 1 2 3 Most recent to oldest [Reference Range]: 162.56 cm (06/05/15 10:07 PM) Height 1 2 3 Most recent to oldest [Reference Range]: 98.1 DegF (06/07/15 5:32 PM) 98.5 DegF (06/07/15 4:57 AM) 98.2 DegF (06/07/15 3:54 AM) Temperature Oral [96.4-99.1 DegF] 1 2 3 Most recent to oldest [Reference Range]: 114/75 mmHg (06/07/15 5:32 PM) 113/70 mmHg (06/07/15 4:36 PM) 115/67 mmHg (06/07/15 3:20 PM) Blood Pressure [90-140/60-90 mmHg] 1 2 3 Most recent to oldest [Reference Range]: 18 BRMIN (06/07/15 5:32 PM) 18 BRMIN (06/07/15 4:36 PM) 18 BRMIN (06/07/15 3:20 PM) Respiratory Rate [14-20 BRMIN] 1 2 3 Most recent to oldest [Reference Range]: 70 bpm (06/07/15 4:36 PM) 72 bpm (06/07/15 3:20 PM) 69 bpm (06/07/15 1:32 PM) Peripheral Pulse Rate [60-100 bpm] 1 2 3 Most recent to oldest [Reference Range]: 81.818 kg (06/05/15 10:07 PM) Weight 1 2 3 Most recent to oldest [Reference Range]: 30.96 m2 (06/05/15 10:07 PM) Body Mass Index Problem List Condition Effective Dates Status Health Status Informant Bipolar(Confirmed) Active Bladder Resolved disease(Confirmed) Diabetic Active care(Confirmed) Hepatitis Resolved C(Confirmed) Lupus(Confirmed) Resolved Schizo-affective Active schizophrenia(Confir med) Allergies, Adverse Reactions, Alerts Substance Reaction Severity Status aspirin Active Demerol HCl Active erythromycin Active Imitrex Active NSAIDs Active Stelazine Active sulfa drugs Active Toradol Active Medications charcoal 50 g oral suspension 50 gm, 240 mL, Route: PO, Drug form: SUSP, ONCE, Dosing Weight 81.818, kg, Prior ity: STAT, Start date: 06/05/15 22:57:00, Stop date: 06/05/15 22:57:00 Notes: (Same As: Actidose-Aqua, Liqui-Theresa) Start Date: 06/05/15 Stop Date: 06/05/15 Status: Completed citalopram 40 mg oral tablet 40 mg=1 tab, PO, Daily, # 30 tab, 1 Refill(s) Start Date: 06/07/15 Status: Ordered cyclobenzaprine 10 mg oral tablet 10 mg=1 tab, PO, TID, PRN for spasms, # 30 tab, 0 Refill(s) Start Date: 06/07/15 Stop Date: 06/17/15 Status: Ordered Depakote ER 500 mg oral tablet, extended release 500 mg, 1 tab, Route: PO, Drug form: ERTAB, ONCE, Dosing Weight 81.818, kg, Star t date: 06/07/15 15:38:00, Stop date: 06/07/15 15:38:00 Notes: (Same as: Depakote ER) Once daily dosing; indicated for migraines. Dival proex sodium extended-release tab. Do not chew or crush. "Do Not Crush" Start Date: 06/07/15 Stop Date: 06/07/15 Status: Completed Depakote ER 500 mg oral tablet, extended release 500 mg=1 tab, PO, Daily, # 90 tab, 0 Refill(s) Start Date: 06/07/15 Status: Ordered divalproex sodium 500 mg oral tablet, extended release(Depakote ER) 1,000 mg=2 tab, PO, Bedtime, # 90 tab, 0 Refill(s) Start Date: 06/07/15 Status: Ordered furosemide 20 mg oral tablet 20 mg=1 tab, PO, Daily, # 90 tab, 0 Refill(s) Start Date: 06/07/15 Status: Ordered Geodon 60 mg, 3 cap, Route: PO, Drug form: CAP, ONCE, Start date: 06/07/15 16:01:00, St op date: 06/07/15 16:01:00 Notes: (Same As: Geodon)Give with Food Start Date: 06/07/15 Stop Date: 06/07/15 Status: Completed Geodon 60 mg, 3 cap, Route: PO, Drug form: CAP, BID, Dosing Weight 81.818, kg, Start da te: 06/08/15 9:00:00, Duration: 30 day, Stop date: 07/07/15 17:00:00 Notes: (Same As: Geodon)Give with Food Start Date: 06/08/15 Stop Date: 06/07/15 Status: Canceled Geodon 60 mg oral capsule 60 mg=1 cap, PO, TID, # 180 cap, 0 Refill(s) Start Date: 06/07/15 Status: Ordered Lasix 20 mg, 1 tab, Route: PO, Drug form: TAB, ONCE, Dosing Weight 81.818, kg, Priorit y: STAT, Start date: 06/07/15 15:38:00, Stop date: 06/07/15 15:38:00 Notes: (Same as: Lasix) May cause GI upset. Give with food or milk. Start Date: 06/07/15 Stop Date: 06/07/15 Status: Completed Lyrica 25 mg oral capsule 25 mg=1 cap, PO, Daily, # 30 cap, 0 Refill(s) Start Date: 06/07/15 Status: Ordered methadone 10 mg oral tablet 10 mg=1 tab, PO, TID, PRN Pain, 0 Refill(s) Start Date: 06/07/15 Stop Date: 06/14/15 Status: Ordered normal saline 0.9% IV 1,000 mL 1,000 mL, Rate: 75 ml/hr, Infuse over: 13.3 hr, Route: IV, Dosing Weight 81.818 kg, Total Volume: 1,000, Priority: STAT, Start date: 06/06/15 4:45:00, Duration: 1 doses or times, Stop date: 06/06/15 18:02:00 Start Date: 06/06/15 Stop Date: 06/06/15 Status: Completed ondansetron 4 mg, Route: IVP, Drug form: INJ, ONCE, Dosing Weight 81.818, kg, Priority: STAT , Start date: 06/07/15 16:43:00, Stop date: 06/07/15 16:43:00 Start Date: 06/07/15 Stop Date: 06/07/15 Status: Completed ondansetron 4 mg, Route: IVP, Drug form: INJ, ONCE, Dosing Weight 81.818, kg, Priority: STAT , Start date: 06/07/15 10:50:00, Stop date: 06/07/15 10:50:00 Start Date: 06/07/15 Stop Date: 06/07/15 Status: Completed ondansetron 4 mg oral tablet, disintegrating 4 mg, Route: PO, Drug form: TABDIS, ONCE, Dosing Weight 81.818, kg, Priority: ST AT, Start date: 06/07/15 5:53:00, Stop date: 06/07/15 5:53:00 Start Date: 06/07/15 Stop Date: 06/07/15 Status: Completed predniSONE 5 mg, 1 tab, Route: PO, Drug form: TAB, ONCE, Dosing Weight 81.818, kg, Priority : STAT, Start date: 06/07/15 15:38:00, Stop date: 06/07/15 15:38:00 Notes: Take with food. Start Date: 06/07/15 Stop Date: 06/07/15 Status: Completed predniSONE 5 mg oral tablet 5 mg=1 tab, PO, Daily, Give with food., # 10 tab, 0 Refill(s) Special Instructions: Give with food. Start Date: 06/07/15 Stop Date: 06/17/15 Status: Ordered Protonix 40 mg, Route: PO, Drug form: ECTAB, ONCE, Dosing Weight 81.818, kg, Priority: ST AT, Start date: 06/06/15 19:35:00, Stop date: 06/06/15 19:35:00 Start Date: 06/06/15 Stop Date: 06/06/15 Status: Discontinued Protonix 40 mg, Route: IVP, ONCE, Dosing Weight 81.818, kg, Priority: STAT, Start date: 0 06/06/15 19:32:00, Stop date: 06/06/15 19:32:00 Start Date: 06/06/15 Stop Date: 06/06/15 Status: Discontinued Protonix 40 mg, 1 tab, Route: PO, Drug form: ECTAB, ONCE, Dosing Weight 81.818, kg, Prior ity: STAT, Start date: 06/06/15 19:35:00, Stop date: 06/06/15 19:35:00 Notes: Tablet should not be chewed or crushed.(Same as: Protonix) Start Date: 06/06/15 Stop Date: 06/06/15 Status: Completed QUEtiapine 200 mg oral tablet 200 mg=1 tab, PO, Bedtime, # 180 tab, 0 Refill(s) Start Date: 06/07/15 Stop Date: 09/05/15 Status: Ordered Reglan 10 mg, Route: IVP, Drug form: INJ, ONCE, Dosing Weight 81.818, kg, Priority: STA T, Start date: 06/07/15 5:49:00, Stop date: 06/07/15 5:49:00 Start Date: 06/07/15 Stop Date: 06/07/15 Status: Discontinued Reglan 10 mg oral tablet 10 mg, 1 tab, Route: PO, ONCE, Dosing Weight 81.818, kg, Priority: STAT, Start d ate: 06/07/15 5:50:00, Stop date: 06/07/15 5:50:00 Start Date: 06/07/15 Stop Date: 06/07/15 Status: Completed Saline Flush 0.9% 10 mL, Route: IVP, Drug Form: INJ, Dosing Weight 81.818, kg, PRN, PRN Line Flush , Start date: 06/05/15 22:57:00, Duration: 30 day, Stop date: 07/05/15 22:56:00 Notes: (Same as: BD Posiflush) Start Date: 06/05/15 Stop Date: 06/07/15 Status: Discontinued SEROquel 50 mg oral tablet 50 mg=1 tab, PO, BID, # 180 tab, 0 Refill(s) Start Date: 06/07/15 Status: Ordered trazodone 150 mg oral tablet 150 mg=1 tab, PO, Bedtime, 0 Refill(s) Start Date: 06/07/15 Status: Ordered Zofran ODT 4 mg, 1 tab, Route: PO, Drug form: TABDIS, ONCE, Dosing Weight 81.818, kg, Prior ity: STAT, Start date: 06/06/15 19:34:00, Stop date: 06/06/15 19:34:00 Notes: (Same as: Zofran ODT) Start Date: 06/06/15 Stop Date: 06/06/15 Status: Completed Results ELECTROLYTES Most recent to 1 2 oldest [Reference Range]: Sodium Lvl [135-145 140 mEq/L mEq/L] (06/05/15 11:36 PM) Potassium Lvl 3.7 mEq/L [3.5-5.1 mEq/L] (06/05/15 11:36 PM) Chloride Lvl [95-109 105 mEq/L mEq/L] (06/05/15 11:36 PM) CO2 [24-32 mEq/L] 26 mEq/L (06/05/15 11:36 PM) AGAP [10.0-20.0 12.7 mEq/L mEq/L] (06/05/15 11:36 PM) CHEM PANEL Most recent to 1 2 oldest [Reference Range]: Creatinine Lvl 0.7 mg/dL [0.5-1.4 mg/dL] (06/05/15 11:36 PM) eGFR 104 mL/min/1.73m2 1 *NA* (06/05/15 11:36 PM) BUN [7-22 mg/dL] 17 mg/dL (06/05/15 11:36 PM) B/C Ratio [6-25] 24 (06/05/15 11:36 PM) Glucose Lvl [70-99 125 mg/dL mg/dL] *HI* (06/05/15 11:36 PM) Total Protein 7.0 g/dL [6.4-8.4 g/dL] (06/05/15 11:36 PM) Albumin Lvl [3.5-5.0 3.0 g/dL g/dL] *LOW* (06/05/15 11:36 PM) Globulin [2.0-4.0 4.0 g/dL g/dL] (06/05/15 11:36 PM) A/G Ratio [0.7-1.6] 0.8 (06/05/15 11:36 PM) Calcium Lvl 8.7 mg/dL [8.5-10.5 mg/dL] (06/05/15 11:36 PM) ALT [0-65 unit/L] 17 unit/L (06/05/15 11:36 PM) AST [0-37 unit/L] 11 unit/L (06/05/15 11:36 PM) Alk Phos [39-136 98 unit/L unit/L] (06/05/15 11:36 PM) Bili Total [0.2-1.3 0.6 mg/dL mg/dL] (06/05/15 11:36 PM) 1Result Comment: The eGFR is calculated [...] BMI. CARDIAC ENZYMES Most recent to 1 2 oldest [Reference Range]: Total CK [12-191 41 unit/L unit/L] (06/06/15 7:50 PM) Troponin-I <0.02 ng/mL [0.00-0.40 ng/mL] (06/06/15 7:50 PM) DRUG SCREEN Most recent to 1 2 oldest [Reference Range]: U Amph Scr Negative [Negative] *NA* (06/06/15 12:51 AM) U Rahel Scr Negative [Negative] *NA* (06/06/15 12:51 AM) U Benzodia Scr Negative [Negative] *NA* (06/06/15 12:51 AM) U Cocaine Scr Negative [Negative] *NA* (06/06/15 12:51 AM) U Opiate Scr Negative [Negative] *NA* (06/06/15 12:51 AM) U Phencyc Scr Negative [Negative] *NA* (06/06/15 12:51 AM) U Cannab Scr Negative [Negative] *NA* (06/06/15 12:51 AM) UDS Note See Note *NA* (06/06/15 12:51 AM) TOXICOLOGY Most recent to 1 2 oldest [Reference Range]: Acetaminoph Lvl <2 ug/ml <2 ug/ml [10-20 ug/ml] *LOW* *LOW* (06/06/15 4:24 AM) (06/05/15 11:36 PM) Salicylate Lvl <1.7 mg/dL <1.7 mg/dL [0.0-30.0 mg/dL] (06/06/15 4:24 AM) (06/05/15 11:36 PM) Etoh (%) <.003 % *NA* (06/05/15 11:36 PM) Ethanol Lvl <3 mg/dL *NA* (06/05/15 11:36 PM) URINE AND STOOL Most recent to 1 2 oldest [Reference Range]: UA Turbidity [Clear] Clear (06/06/15 12:51 AM) UA Color [Yellow] Yellow *NA* (06/06/15 12:51 AM) UA pH [5.0-8.0] 8.0 (06/06/15 12:51 AM) UA Spec Grav 1.013 [<=1.030] (06/06/15 12:51 AM) UA Glucose [Negative Negative mg/dL mg/dL] *NA* (06/06/15 12:51 AM) UA Blood [Negative] Moderate *ABN* (06/06/15 12:51 AM) UA Ketones [Negative Negative mg/dL mg/dL] *NA* (06/06/15 12:51 AM) UA Protein [Negative 30 mg/dL mg/dL] *ABN* (06/06/15 12:51 AM) UA Urobilinogen <=1.0 mg/dL [0.1-1.0 mg/dL] *NA* (06/06/15 12:51 AM) UA Bili [Negative] Negative *NA* (06/06/15 12:51 AM) UA Leuk Est Negative [Negative] (06/06/15 12:51 AM) UA Nitrite Negative [Negative] (06/06/15 12:51 AM) UA WBC [0-5 /HPF] 6 /HPF *HI* (06/06/15 12:51 AM) UA RBC [0-2 /HPF] 24 /HPF *HI* (06/06/15 12:51 AM) UA Sq Epi [Few /LPF] Occasional /LPF *NA* (06/06/15 12:51 AM) UA Mucus [None Seen Few /LPF /LPF] *NA* (06/06/15 12:51 AM) HEMATOLOGY Most recent to 1 2 oldest [Reference Range]: WBC [3.7-10.4 K/CMM] 9.5 K/CMM (06/05/15 11:36 PM) RBC [4.20-5.40 3.99 M/CMM M/CMM] *LOW* (06/05/15 11:36 PM) Hgb [12.0-16.0 g/dL] 12.5 g/dL (06/05/15 11:36 PM) Hct [36.0-48.0 %] 37.1 % (06/05/15 11:36 PM) MCV [80.0-98.0 fL] 93.0 fL (06/05/15 11:36 PM) MCH [27.0-31.0 pg] 31.2 pg *HI* (06/05/15 11:36 PM) MCHC [32.0-36.0 33.5 g/dL g/dL] (06/05/15 11:36 PM) RDW [11.5-14.5 %] 14.2 % (06/05/15 11:36 PM) Platelet [133-450 186 K/CMM K/CMM] (06/05/15 11:36 PM) MPV [7.4-10.4 fL] 7.4 fL (06/05/15 11:36 PM) Segs [45.0-75.0 %] 51.8 % (06/05/15 11:36 PM) Lymphocytes 42.8 % [20.0-40.0 %] *HI* (06/05/15 11:36 PM) Monocytes [2.0-12.0 3.9 % %] (06/05/15 11:36 PM) Eosinophils [0.0-4.0 1.2 % %] (06/05/15 11:36 PM) Basophils [0.0-1.0 0.3 % %] (06/05/15 11:36 PM) Segs-Bands # 4.9 K/CMM [1.5-8.1 K/CMM] (06/05/15 11:36 PM) Lymphocytes # 4.1 K/CMM [1.0-5.5 K/CMM] (06/05/15 11:36 PM) Monocytes # [0.0-0.8 0.4 K/CMM K/CMM] (06/05/15 11:36 PM) Eosinophils # 0.1 K/CMM [0.0-0.5 K/CMM] (06/05/15 11:36 PM) Immunizations Vaccine Date Refusal Reason diphtheria/pertussis, acel/tetanus adult 01/06/13 Procedures No data available for this section Social History Social History Type Response Smoking Status Current every day smoker; Type: Cigarettes; Exposure to Tobacco Smoke None; Cigarette Smoking Last 365 Days No; Reg Smoking Cessation Counseling No Assessment and Plan No data available for this section
--- OUTSIDE RECORDS SUMMARY | 2019-02-28 22:38 | XMS REPORT | Summary of Care ---
Author Author [facility] Organization [facility] Address Unknown Phone Unavailable Encounter POLO Haynes(MARY BETH) [id number] Date(s): 02/20/16 - 02/24/16 [facility] [address] [place] [address]- Discharge Disposition: Home Attending Physician: Yahir Keenan MD Admitting Physician: Yahir Keenan MD Vital Signs 1 2 3 Most recent to oldest [Reference Range]: 162.56 cm (02/21/16 12:10 PM) 162.56 cm (02/21/16 10:24 AM) Height 81.818 kg (02/21/16 12:10 PM) Current Weight 97.4 DegF (02/24/16 11:08 AM) 97 DegF (02/24/16 7:10 AM) 96.6 DegF (02/24/16 4:00 AM) Temperature Oral [96.4-99.1 DegF] 132/84 mmHg (02/24/16 11:08 AM) 112/87 mmHg (02/24/16 7:10 AM) 111/64 mmHg (02/24/16 4:00 AM) Blood Pressure [90-140/60-90 mmHg] 18 BRMIN (02/24/16 11:08 AM) 18 BRMIN (02/24/16 7:10 AM) 20 BRMIN (02/24/16 4:00 AM) Respiratory Rate [14-20 BRMIN] 88 bpm (02/24/16 11:08 AM) 97 bpm (02/24/16 7:10 AM) 92 bpm (02/24/16 4:00 AM) Peripheral Pulse Rate [60-100 bpm] 81.818 kg (02/21/16 10:24 AM) Weight 30.96 m2 (02/21/16 10:24 AM) Body Mass Index Problem List Condition Effective Dates Status Health Status Informant Anxiety(Confirmed) Resolved Autoimmune Resolved diabetes(Confirmed) Back Resolved fracture(Confirmed)1 Bipolar(Confirmed) Active Bladder Resolved disease(Confirmed) COPD(Confirmed) Resolved Diabetic Active care(Confirmed) Hepatitis Resolved C(Confirmed) Lupus(Confirmed) Resolved Schizo-affective Active schizophrenia(Confir med) Seizure(Confirmed) Resolved [id number] Allergies, Adverse Reactions, Alerts Substance Reaction Severity Status aspirin Active Demerol HCl Active erythromycin Active Imitrex Active NSAIDs Active Stelazine Active sulfa drugs Active Toradol Active Medications acetaminophen 650 mg, 2 tab, Route: PO, Drug form: TAB, Q4H, Dosing Weight 81.818, kg, PRN Jada n 1-3/Temp > 100.4 F, Start date: 02/21/16 12:37:00, Duration: 30 day, Stop date: 03/22/16 12:36:00 Notes: Do not exceed 4 gm/day. (Same as: Tylenol) Start Date: 02/21/16 Stop Date: 02/25/16 Status: Discontinued acetaminophen 650 mg, 2 tab, Route: PO, Drug form: TAB, Q4H, Dosing Weight 83.545, kg, PRN Jada n 1-3/Temp > 100.4 F, Start date: 02/21/16 8:09:00, Duration: 30 day, Stop date: 03/22/16 8:08:00 Notes: Do not exceed 4 gm/day. (Same as: Tylenol) Start Date: 02/21/16 Stop Date: 02/25/16 Status: Discontinued acetaminophen-hydrocodone 325 mg-5 mg oral tablet 1 tab, Route: PO, Drug Form: TAB, Dosing Weight 83.545, kg, Q4H, PRN Pain Score 4-6, Start date: 02/21/16 8:09:00, Duration: 30 day, Stop date: 03/22/16 8:08:00 Notes: (Same as: Orrtanna 325/5) Do not exceed 4gm/day of acetaminophen. Start Date: 02/21/16 Stop Date: 02/25/16 Status: Discontinued Ambien 5 mg, 1 tab, Route: PO, Drug form: TAB, Bedtime, PRN Sleep, Start date: 02/21/16 18:52:00, Duration: 30 day, Stop date: 03/22/16 18:51:00 Notes: (Same As: Ambien) Start Date: 02/21/16 Stop Date: 02/25/16 Status: Discontinued citalopram 40 mg, 2 tab, Route: PO, Drug form: TAB, Daily, Dosing Weight 81.818, kg, Start date: 02/22/16 9:00:00, Duration: 30 day, Stop date: 03/22/16 9:00:00 Notes: (Same As: CeleXA) Start Date: 02/22/16 Stop Date: 02/25/16 Status: Discontinued clindamycin 600 mg, 50 mL, Route: IVPB, Drug form: INJ, Q8H, Dosing Weight 83.545, kg, Prior ity: Routine, Start date: 02/21/16 16:00:00, Duration: 30 day, Stop date: 8:00:00 Start Date: 02/21/16 Stop Date: 02/21/16 Status: Discontinued clindamycin 600 mg, Route: IVPB, ONCE, Dosing Weight 83.545, kg, Priority: STAT, Start date: 02/20/16 23:35:00, Stop date: 02/20/16 23:35:00 Start Date: 02/20/16 Stop Date: 02/21/16 Status: Completed cyclobenzaprine 10 mg, 1 tab, Route: PO, Drug form: TAB, TID, Dosing Weight 81.818, kg, PRN Spas m, Start date: 02/21/16 16:18:00, Duration: 30 day, Stop date: 03/22/16 16:17:00 Notes: (Same As: Flexeril) Start Date: 02/21/16 Stop Date: 02/25/16 Status: Discontinued Depakote ER 500 mg oral tablet, extended release 500 mg, 1 tab, Route: PO, Drug form: ERTAB, Daily, Dosing Weight 81.818, kg, Sta rt date: 02/22/16 9:00:00, Duration: 30 day, Stop date: 03/22/16 9:00:00 Notes: (Same as: Depakote ER) Once daily dosing; indicated for migraines. Dival proex sodium extended-release tab. Do not chew or crush. "Do Not Crush" Start Date: 02/22/16 Stop Date: 02/25/16 Status: Discontinued Dilaudid 1 mg, Route: IVP, ONCE, Dosing Weight 83.545, kg, Priority: STAT, Start date: 2:15:00, Stop date: 02/21/16 2:15:00 Start Date: 02/21/16 Stop Date: 02/21/16 Status: Completed Dilaudid 0.5 mg, 0.5 mL, Route: IV, Drug form: INJ, Q4H, Dosing Weight 83.545, kg, PRN Pa in Score 7-10, Start date: 02/21/16 8:10:00, Duration: 30 day, Stop date: 8:09:00 Start Date: 02/21/16 Stop Date: 02/22/16 Status: Discontinued divalproex sodium 500 mg oral tablet, extended release(Depakote ER) 1,000 mg, 2 tab, Route: PO, Drug form: ERTAB, Bedtime, Dosing Weight 81.818, kg, Start date: 02/21/16 21:00:00, Duration: 30 day, Stop date: 03/21/16 21:00:00 Notes: (Same as: Depakote ER) Once daily dosing; indicated for migraines. Dival proex sodium extended-release tab. Do not chew or crush. "Do Not Crush" Start Date: 02/21/16 Stop Date: 02/25/16 Status: Discontinued docusate 100 mg, 1 cap, Route: PO, Drug form: CAP, BID, Dosing Weight 83.545, kg, PRN Con stipation, Start date: 02/21/16 8:09:00, Duration: 30 day, Stop date: 03/22/16 8 :08:00 Notes: (Same as: Colace) (Do Not Crush) Start Date: 02/21/16 Stop Date: 02/25/16 Status: Discontinued Esgic 325 mg-50 mg-40 mg oral tablet 1 tab, Route: PO, Drug Form: TAB, Dosing Weight 83.545, kg, Q6H, PRN Headache 1- 5, Start date: 02/21/16 8:11:00, Duration: 30 day, Stop date: 03/22/16 8:10:00 Notes: ([id number]-dgvpymporg-obwydcwq 325-50-40mg) Do not exceed 4 gm/day o f acetaminophen. (Same as: Esgic, Fioricet) Start Date: 02/21/16 Stop Date: 02/25/16 Status: Discontinued furosemide 20 mg oral tablet 20 mg, 1 tab, Route: PO, Drug form: TAB, Daily, Dosing Weight 81.818, kg, Start date: 02/22/16 9:00:00, Duration: 30 day, Stop date: 03/22/16 9:00:00 Notes: (Same as: Lasix) May cause GI upset. Give with food or milk. Start Date: 02/22/16 Stop Date: 02/25/16 Status: Discontinued hydromorphone 1 mg, 1 mL, Route: IV, Drug form: INJ, Q4H, PRN Pain Score 7-10, Start date: 08/29 17:53:00 CDT, Duration: 30 day, Stop date: 03/23/16 17:52:00 CDT Start Date: 02/22/16 Stop Date: 02/24/16 Status: Discontinued Keppra 250 mg oral tablet 500 mg, 1 tab, Route: PO, Drug form: TAB, BID, Dosing Weight 81.818, kg, Start d ate: 02/21/16 17:00:00, Duration: 30 day, Stop date: 03/22/16 9:00:00 Notes: (Same as:Keppra) Start Date: 02/21/16 Stop Date: 02/25/16 Status: Discontinued Keppra 250 mg oral tablet 500 mg=2 tab, PO, BID, # 120 tab, 0 Refill(s) Start Date: 02/21/16 Status: Ordered KlonoPIN 1 mg, 1 tab, Route: PO, Drug form: TAB, TID, Dosing Weight 81.818, kg, Start cate e: 02/21/16 17:00:00, Duration: 30 day, Stop date: 03/22/16 13:00:00 Notes: (Same As: KlonoPIN) Start Date: 02/21/16 Stop Date: 02/25/16 Status: Discontinued KlonoPIN 1 mg oral tablet 1 mg=1 tab, PO, TID, # 270 tab, 0 Refill(s) Start Date: 02/21/16 Status: Ordered Lovenox 40 mg, 0.4 mL, Route: SUB-Q, Drug form: INJ, Q24H, Start date: 02/21/16 12:00:00 , Duration: 30 day, Stop date: 03/21/16 12:00:00 Notes: (Same as: Lovenox) Start Date: 02/21/16 Stop Date: 02/25/16 Status: Discontinued Lovenox 40 mg, Route: SUB-Q, Drug form: INJ, [id number], Dosing Weight 83.545, kg, Start d ate: 02/21/16 9:00:00, Duration: 30 day, Stop date: 03/21/16 9:00:00 Start Date: 02/21/16 Stop Date: 02/21/16 Status: Deleted Lyrica 25 mg, 1 cap, Route: PO, Drug form: CAP, Daily, Dosing Weight 81.818, kg, Start date: 02/21/16 19:02:00, Duration: 30 day, Stop date: 03/22/16 9:00:00 Notes: (Same as: Lyrica) Start Date: 02/21/16 Stop Date: 02/25/16 Status: Discontinued methadone 10 mg, 2 tab, Route: PO, Drug form: TAB, Q8H, Dosing Weight 81.818, kg, Priority : NOW, Start date: 02/23/16 0:42:00 CDT, Duration: 30 day, Stop date: 03/24/16 0 :00:00 CDT Notes: (Same as: Dolophine) Start Date: 02/23/16 Stop Date: 02/25/16 Status: Discontinued morphine Sulfate 4 mg, 1 mL, Route: IVP, Drug form: INJ, Q4H, Dosing Weight 83.545, kg, PRN Pain Score 6-10, Priority: Routine, Start date: 02/21/16 12:37:00, Duration: 2 doses or times, Stop date: Limited # of times Notes: (Same as:MORPhine Sulfate) Start Date: 02/21/16 Stop Date: 02/21/16 Status: Discontinued morphine Sulfate 2 mg, 1 mL, Route: IVP, Drug form: INJ, Q4H, Dosing Weight 83.545, kg, PRN Pain Score 1-5, Priority: Routine, Start date: 02/21/16 12:37:00, Duration: 2 doses o r times, Stop date: Limited # of times Notes: (Same as:MORPhine Sulfate) Start Date: 02/21/16 Stop Date: 02/21/16 Status: Discontinued morphine Sulfate 4 mg, Route: IVP, Drug form: INJ, ONCE, Dosing Weight 83.545, kg, Priority: STAT , Start date: 02/21/16 6:23:00, Stop date: 02/21/16 6:23:00 Start Date: 02/21/16 Stop Date: 02/21/16 Status: Completed morphine Sulfate 4 mg, Route: IVP, Drug form: INJ, ONCE, Dosing Weight 83.545, kg, Priority: STAT , Start date: 02/20/16 22:46:00, Stop date: 02/20/16 22:46:00 Start Date: 02/20/16 Stop Date: 02/21/16 Status: Completed nicotine 21 mg, 1 patch, Route: TOP, Drug form: ERFILM, Daily, Dosing Weight 83.545, kg, Start date: 02/21/16 9:00:00, Duration: 30 day, Stop date: 03/21/16 9:00:00 Notes: (Same as: Habitrol)"Remove old patch before application of new patch"WAST E: F/P - P Waste Black; E - P Waste Black Start Date: 02/21/16 Stop Date: 02/25/16 Status: Discontinued nicotine 21 mg/24 hr transdermal film, extended release =1 patch, TOP, Daily, X 7 day, # 7 patch, 0 Refill(s) Start Date: 02/23/16 Stop Date: 03/01/16 Status: Ordered ondansetron 4 mg, 2 mL, Route: IVP, Drug form: INJ, Q6H, Dosing Weight 81.818, kg, PRN Nause a & Vomiting, Start date: 02/21/16 12:37:00, Duration: 30 day, Stop date: 03/22/16 12:36:00 Notes: (Same as: Jen) MEDICATION WASTE Product Size: 4 mgProduct Was delonte: ___ mg Start Date: 02/21/16 Stop Date: 02/21/16 Status: Discontinued predniSONE 5 mg, 1 tab, Route: PO, Drug form: TAB, Daily, Dosing Weight 81.818, kg, Start d ate: 02/22/16 9:00:00, Duration: 30 day, Stop date: 03/22/16 9:00:00 Notes: Take with food. Start Date: 02/22/16 Stop Date: 02/25/16 Status: Discontinued QUEtiapine 200 mg, 1 tab, Route: PO, Drug form: TAB, Bedtime, Dosing Weight 81.818, kg, Sta rt date: 02/21/16 21:00:00, Duration: 30 day, Stop date: 03/21/16 21:00:00 Notes: (Same as: SEROquel) Start Date: 02/21/16 Stop Date: 02/25/16 Status: Discontinued Reglan 10 mg, Route: IVP, Drug form: INJ, ONCE, Dosing Weight 83.545, kg, Start date: 0 02/21/16 8:14:00, Stop date: 02/21/16 8:14:00 Start Date: 02/21/16 Stop Date: 02/21/16 Status: Deleted Reglan 10 mg, 2 mL, Route: IVP, Drug form: INJ, Q6H, Dosing Weight 83.545, kg, Start da te: 02/21/16 12:00:00, Duration: 30 day, Stop date: 03/22/16 6:00:00 Notes: (Same as: Reglan) Start Date: 02/21/16 Stop Date: 02/25/16 Status: Discontinued remove patch 1 patch, Route: TOP, Drug form: ERFILM, Daily, Start date: 02/22/16 9:00:00, Dur ation: 30 day, Stop date: 03/22/16 9:00:00 Notes: Remove old patch before application of new patch.WASTE: F/P - P Waste Wai ck; E - P Waste Black Start Date: 02/22/16 Stop Date: 02/25/16 Status: Discontinued Rocephin 2 gm, Route: IVPB, Drug form: PDR/INJ, ONCE, Dosing Weight 83.545, kg, Priority: STAT, Start date: 02/21/16 6:21:00, Stop date: 02/21/16 6:21:00 Start Date: 02/21/16 Stop Date: 02/21/16 Status: Completed Rocephin + Sodium Chloride 0.9% IV 100 mL 2 gm, Route: IVPB, Q12H, Dosing Weight 83.545, kg, Priority: Routine, Start date : 02/21/16 21:00:00, Duration: 30 day, Stop date: 03/22/16 9:00:00 Notes: (Same As: Rocephin).Use with 100 mL NS and infuse over 30 min MEDICA TION WASTE Product Size: 2000 mgProduct Wasted: ___ mg Start Date: 02/21/16 Stop Date: 02/21/16 Status: Canceled Saline Flush 0.9% 10 mL, Route: IVP, Drug Form: INJ, Dosing Weight 83.545, kg, PRN, PRN Line Flush , Start date: 02/20/16 22:47:00, Duration: 30 day, Stop date: 03/21/16 22:46:00 Notes: (Same as: BD Posiflush) Start Date: 02/20/16 Stop Date: 02/25/16 Status: Discontinued Sodium Chloride 0.9% (Bolus) IV 1,000 mL, Infuse Over: 1 hr, Route: IV, ONCE, Priority: STAT, Dosing Weight 83.5 45 kg, Start date: 02/20/16 22:47:00, Duration: 1 doses or times, Stop date: 06/29 22:47:00 Start Date: 02/20/16 Stop Date: 02/21/16 Status: Completed Tylenol with Codeine #3 oral tablet 1 tab, PO, BID, PRN Pain, X 3 day, # 6 tab, 0 Refill(s) Start Date: 02/23/16 Stop Date: 02/26/16 Status: Completed vancomycin 1 gm, Route: IVPB, Drug form: INJ, ONCE, Dosing Weight 83.545, kg, Priority: STA T, Start date: 02/20/16 23:35:00, Stop date: 02/20/16 23:35:00 Start Date: 02/20/16 Stop Date: 02/21/16 Status: Completed vancomycin + Sodium Chloride 0.9% IV 250 mL 1 gm, Route: IVPB, Q12H, Dosing Weight 83.545, kg, Priority: Routine, Start date : 02/21/16 21:00:00, Duration: 30 day, Stop date: 03/22/16 9:00:00 Notes: TIME CRITICAL MEDICATION(Same As: Vancocin)Infusion rate< 1000 mg: infuse over 1 [id number] - 1500 mg: infuse over 1.5 [id number] - 2000 mg: infuse over 2 hours> 2001 mg: infuse over 2.5 hours MEDICATION WASTE Product Size: 1000 mgProduct Wasted: ___ mg Start Date: 02/21/16 Stop Date: 02/21/16 Status: Canceled Zofran 4 mg, Route: IVP, Drug form: INJ, ONCE, Dosing Weight 83.545, kg, Priority: STAT , Start date: 02/21/16 5:53:00, Stop date: 02/21/16 5:53:00 Start Date: 02/21/16 Stop Date: 02/21/16 Status: Completed Zofran 4 mg, 1 tab, Route: PO, Drug form: TAB, Q6H, Dosing Weight 81.818, kg, PRN Nause a, Start date: 02/21/16 16:20:00, Duration: 30 day, Stop date: 03/22/16 16:19:00 Notes: (Same as: Zofran) Start Date: 02/21/16 Stop Date: 02/23/16 Status: Discontinued Zofran 4 mg, 1 tab, Route: PO, Drug form: TAB, Q6H, Dosing Weight 81.818, kg, PRN Nause a, Start date: 02/24/16 3:02:00 CDT, Duration: 30 day, Stop date: 03/25/16 3:01: 00 CDT Notes: (Same as: Zofran) Start Date: 02/24/16 Stop Date: 02/25/16 Status: Discontinued Zofran 4 mg, Route: IVP, Drug form: INJ, ONCE, Dosing Weight 83.545, kg, Priority: STAT , Start date: 02/20/16 22:46:00, Stop date: 02/20/16 22:46:00 Start Date: 02/20/16 Stop Date: 02/21/16 Status: Completed Zofran 4 mg, 2 mL, Route: IV, Drug form: INJ, Q6H, Dosing Weight 81.818, kg, PRN Nausea , Start date: 02/23/16 0:43:00 CDT, Duration: 30 day, Stop date: 03/24/16 0:42:0 0 CDT Notes: (Same as: Zofran) MEDICATION WASTE Product Size: 4 mgProduct Was delonte: ___ mg Start Date: 02/23/16 Stop Date: 02/24/16 Status: Discontinued Zofran 4 mg oral tablet 4 mg=1 tab, PO, Q6H, PRN Nausea/Vomiting, # 30 tab, 0 Refill(s) Start Date: 02/21/16 Stop Date: 02/29/16 Status: Ordered Results ELECTROLYTES 1 2 3 Most recent to oldest [Reference Range]: 141 mEq/L (02/23/16 5:53 AM) 144 mEq/L (02/22/16 1:31 AM) 140 mEq/L (02/20/16 6:52 PM) Sodium Lvl [135-145 mEq/L] 4.3 mEq/L (02/23/16 5:53 AM) 4.2 mEq/L (02/22/16 1:31 AM) 3.6 mEq/L (02/20/16 6:52 PM) Potassium Lvl [3.5-5.1 mEq/L] 106 mEq/L (02/23/16 5:53 AM) 116 mEq/L *HI* (02/22/16 1:31 AM) 110 mEq/L *HI* (02/20/16 6:52 PM) Chloride Lvl [95-109 mEq/L] 23 mEq/L *LOW* (02/23/16 5:53 AM) 21 mEq/L *LOW* (02/22/16 1:31 AM) 23 mEq/L *LOW* (02/20/16 6:52 PM) CO2 [24-32 mEq/L] 16.3 mEq/L (02/23/16 5:53 AM) 11.2 mEq/L (02/22/16 1:31 AM) 10.6 mEq/L (02/20/16 6:52 PM) AGAP [10.0-20.0 mEq/L] CHEM PANEL 1 2 3 Most recent to oldest [Reference Range]: 0.70 mg/dL (02/23/16 5:53 AM) 0.60 mg/dL (02/22/16 1:31 AM) 0.76 mg/dL (02/20/16 6:52 PM) Creatinine Lvl [0.50-1.40 mg/dL] 104 mL/min/1.73m2 1 *NA* (02/23/16 5:53 AM) 109 mL/min/1.73m2 2 *NA* (02/22/16 1:31 AM) 94 mL/min/1.73m2 3 *NA* (02/20/16 6:52 PM) eGFR 20 mg/dL (02/23/16 5:53 AM) 16 mg/dL (02/22/16 1:31 AM) 20 mg/dL (02/20/16 6:52 PM) BUN [7-22 mg/dL] 29 *HI* (02/23/16 5:53 AM) 26 *HI* (02/20/16 6:52 PM) B/C Ratio [6-25] 89 mg/dL (02/23/16 5:53 AM) 91 mg/dL (02/22/16 1:31 AM) 100 mg/dL *HI* (02/20/16 6:52 PM) Glucose Lvl [70-99 mg/dL] 7.0 g/dL (02/23/16 5:53 AM) 9.2 g/dL *HI* (02/20/16 6:52 PM) Total Protein [6.4-8.4 g/dL] 3.2 g/dL *LOW* (02/23/16 5:53 AM) 4.6 g/dL (02/20/16 6:52 PM) Albumin Lvl [3.5-5.0 g/dL] 3.8 g/dL (02/23/16 5:53 AM) 4.6 g/dL *HI* (02/20/16 6:52 PM) Globulin [2.0-4.0 g/dL] 0.8 (02/23/16 5:53 AM) 1.0 (02/20/16 6:52 PM) A/G Ratio [0.7-1.6] 9.1 mg/dL (02/23/16 5:53 AM) 8.6 mg/dL (02/22/16 1:31 AM) 10.1 mg/dL (02/20/16 6:52 PM) Calcium Lvl [8.5-10.5 mg/dL] 4.1 mg/dL (02/23/16 5:53 AM) Phosphorus [2.5-4.5 mg/dL] 2.0 mg/dL (02/23/16 5:53 AM) Magnesium Lvl [1.8-2.4 mg/dL] 20 unit/L (02/23/16 5:53 AM) 31 unit/L (02/20/16 6:52 PM) ALT [0-65 unit/L] 12 unit/L (02/23/16 5:53 AM) 16 unit/L (02/20/16 6:52 PM) AST [0-37 unit/L] 114 unit/L (02/23/16 5:53 AM) 132 unit/L (02/20/16 6:52 PM) Alk Phos [39-136 unit/L] 0.2 mg/dL (02/23/16 5:53 AM) 0.5 mg/dL (02/20/16 6:52 PM) Bili Total [0.2-1.3 mg/dL] 0.8 mMol/L (02/21/16 12:36 AM) Lactic Acid Lvl [0.5-2.2 mMol/L] 1Result Comment: The eGFR is calculated using [...] be mul tiplied by the estimated BMI. 2Result Comment: The eGFR is calculated using the [...] be mul tiplied by the estimated BMI. 3Result Comment: The eGFR is calculated using the [...] be mul tiplied by the estimated BMI. DRUG SCREEN 1 2 3 Most recent to oldest [Reference Range]: Negative *NA* (02/20/16 6:52 PM) U Methadone Scr [Negative] Negative *NA* (02/20/16 6:52 PM) U Propoxyph Scr [Negative] Negative *NA* (02/20/16 6:52 PM) U Amph Scr [Negative] Negative *NA* (02/20/16 6:52 PM) U Rahel Scr [Negative] Negative *NA* (02/20/16 6:52 PM) U Benzodia Scr [Negative] Negative *NA* (02/20/16 6:52 PM) U Cocaine Scr [Negative] Negative *NA* (02/20/16 6:52 PM) U Opiate Scr [Negative] Negative *NA* (02/20/16 6:52 PM) U Phencyc Scr [Negative] Negative *NA* (02/20/16 6:52 PM) U Cannab Scr [Negative] See Note *NA* (02/20/16 6:52 PM) UDS Note TOXICOLOGY 1 2 3 Most recent to oldest [Reference Range]: <3 ug/ml *LOW* (02/21/16 7:26 PM) Valproic Acid Lvl [50-100 ug/ml] ENDOCRINOLOGY 1 2 3 Most recent to oldest [Reference Range]: Negative *NA* (02/20/16 6:52 PM) S Preg [Negative] URINE AND STOOL 1 2 3 Most recent to oldest [Reference Range]: Clear (02/20/16 6:52 PM) UA Turbidity [Clear] Yellow *NA* (02/20/16 6:52 PM) UA Color [Yellow] 6.0 (02/20/16 6:52 PM) UA pH [5.0-8.0] 1.025 (02/20/16 6:52 PM) UA Spec Grav [<=1.030] Negative (02/20/16 6:52 PM) UA Glucose [Negative] Large *ABN* (02/20/16 6:52 PM) UA Blood [Negative] 15 mg/dL *NA* (02/20/16 6:52 PM) UA Ketones [Negative mg/dL] 100 mg/dL *ABN* (02/20/16 6:52 PM) UA Protein [Negative mg/dL] 1.0 EU/dL (02/20/16 6:52 PM) UA Urobilinogen [0.1-1.0 EU/dL] Moderate *ABN* (02/20/16 6:52 PM) UA Bili [Negative] Negative (02/20/16 6:52 PM) UA Leuk Est [Negative] Negative (02/20/16 6:52 PM) UA Nitrite [Negative] 0-2 /HPF (02/20/16 6:52 PM) UA WBC [None Seen /HPF] 6-10 /HPF *ABN* (02/20/16 6:52 PM) UA RBC [0-2 /HPF] Few /HPF (02/20/16 6:52 PM) UA Bacteria [None Seen /HPF] Occasional /LPF (02/20/16 6:52 PM) UA Sq Epi [Few /LPF] Occasional /HPF (02/20/16 6:52 PM) UA CaOx Miriam [None Seen /HPF] Few /HPF *ABN* (02/20/16 6:52 PM) UA Amorph Miriam [None Seen /HPF] Moderate /LPF *ABN* (02/20/16 6:52 PM) UA Mucus [None Seen /LPF] HEMATOLOGY 1 2 3 Most recent to oldest [Reference Range]: 9.3 K/CMM (02/23/16 5:53 AM) 8.1 K/CMM (02/22/16 1:31 AM) 10.8 K/CMM *HI* (02/20/16 6:52 PM) WBC [3.7-10.4 K/CMM] 3.85 M/CMM *LOW* (02/23/16 5:53 AM) 4.09 M/CMM *LOW* (02/22/16 1:31 AM) 5.22 M/CMM (02/20/16 6:52 PM) RBC [4.20-5.40 M/CMM] 12.1 g/dL (02/23/16 5:53 AM) 12.9 g/dL (02/22/16 1:31 AM) 16.1 g/dL *HI* (02/20/16 6:52 PM) Hgb [12.0-16.0 g/dL] 36.1 % (02/23/16 5:53 AM) 38.8 % (02/22/16 1:31 AM) 48.5 % *HI* (02/20/16 6:52 PM) Hct [36.0-48.0 %] 93.8 fL (02/23/16 5:53 AM) 94.8 fL (02/22/16 1:31 AM) 92.8 fL (02/20/16 6:52 PM) MCV [80.0-98.0 fL] 31.4 pg *HI* (02/23/16 5:53 AM) 31.6 pg *HI* (02/22/16 1:31 AM) 30.9 pg (02/20/16 6:52 PM) MCH [27.0-31.0 pg] 33.5 g/dL (02/23/16 5:53 AM) 33.4 g/dL (02/22/16 1:31 AM) 33.3 g/dL (02/20/16 6:52 PM) MCHC [32.0-36.0 g/dL] 14.3 % (02/23/16 5:53 AM) 14.3 % (02/22/16 1:31 AM) 14.1 % (02/20/16 6:52 PM) RDW [11.5-14.5 %] 199 K/CMM (02/23/16 5:53 AM) 196 K/CMM (02/22/16 1:31 AM) 263 K/CMM (02/20/16 6:52 PM) Platelet [133-450 K/CMM] 8.4 fL (02/23/16 5:53 AM) 7.9 fL (02/22/16 1:31 AM) 7.8 fL (02/20/16 6:52 PM) MPV [7.4-10.4 fL] 36.1 % *LOW* (02/23/16 5:53 AM) 38.2 % *LOW* (02/22/16 1:31 AM) 49.3 % (02/20/16 6:52 PM) Segs [45.0-75.0 %] 55.7 % *HI* (02/23/16 5:53 AM) 53.8 % *HI* (02/22/16 1:31 AM) 44.1 % *HI* (02/20/16 6:52 PM) Lymphocytes [20.0-40.0 %] 6.0 % (02/23/16 5:53 AM) 5.5 % (02/22/16 1:31 AM) 5.5 % (02/20/16 6:52 PM) Monocytes [2.0-12.0 %] 1.8 % (02/23/16 5:53 AM) 2.1 % (02/22/16 1:31 AM) 0.7 % (02/20/16 6:52 PM) Eosinophils [0.0-4.0 %] 0.4 % (02/23/16 5:53 AM) 0.4 % (02/22/16 1:31 AM) 0.4 % (02/20/16 6:52 PM) Basophils [0.0-1.0 %] 3.3 K/CMM (02/23/16 5:53 AM) 3.1 K/CMM (02/22/16 1:31 AM) 5.3 K/CMM (02/20/16 6:52 PM) Segs-Bands # [1.5-8.1 K/CMM] 5.2 K/CMM (02/23/16 5:53 AM) 4.3 K/CMM (02/22/16 1:31 AM) 4.8 K/CMM (02/20/16 6:52 PM) Lymphocytes # [1.0-5.5 K/CMM] 0.6 K/CMM (02/23/16 5:53 AM) 0.4 K/CMM (02/22/16 1:31 AM) 0.6 K/CMM (02/20/16 6:52 PM) Monocytes # [0.0-0.8 K/CMM] 0.2 K/CMM (02/23/16 5:53 AM) 0.2 K/CMM (02/22/16 1:31 AM) 0.1 K/CMM (02/20/16 6:52 PM) Eosinophils # [0.0-0.5 K/CMM] 0.0 K/CMM (02/22/16 1:31 AM) 0.0 K/CMM (02/20/16 6:52 PM) Basophils # [0.0-0.2 K/CMM] Normal (02/22/16 1:31 AM) RBC Morph Normal (02/22/16 1:31 AM) Plt Morph Immunizations Vaccine Date Refusal Reason diphtheria/pertussis, acel/tetanus adult 01/06/13 Procedures Procedure Date Related Diagnosis Body Site Appendectomy Cholecystectomy Hysterectomy Nasal tip rhinoplasty PTCA - Percutaneous transluminal coronary angioplasty Revision rhinoplasty Social History Social History Type Response Smoking Status Current every day smoker; Type: Cigarettes; Tobacco use per day: 10; Previous treatment: None; Ready to change: No; Concerns about tobacco use in household: No; Exposure to Tobacco Smoke None; Cigarette Smoking Last 365 Days No; Reg Smoking Cessation Counseling No Assessment and Plan Extracted from: Title: Clinical Document Author: Yahir Keenan MD Date: 02/22/16 The patient had right nose bleeding overnight. She has right face pain, bilateral elbow pain, and bilateral knee pain. VitalsTmp(F)Tmp(C)[id number] 02/21 08:[id number]/84---8219--------- 02/21 05:[id number]/85---9018--------- 02/21 00:1197.936.08cywu125/66---9418--------- 02/20 20:1998.236.46hbsk81/62---9818--------- 02/20 17:03 99------ 24 Hr Tmax: 98.4F (36.89c) at 02/21 05:10Vital Signs are the last 5 in the past 48 hours. 24 Hr Tmin: 97.0F (36.11c) at 02/21 08:54Weights are the last 5 in 60 days, plus initial. General: alert and oriented to person, place, and time. NAD. HEENT: mucus membranes moist. no oral lesions. Neck: supple. no thyromegaly. CV: normal S1S2. NO S3. no m/g/r. RR: lungs ctab. no wheezing or ronchi. chest expansion is symmetric. GI: ntnd. normoactive bowel sounds. no hsm. Ext: no c/c/e. peripheral pulses 2+. Neuro: strength 5/5. sensation full to light touch bilaterally. Psych: affect is appropriate. insight is appropriate. Lymph: no neck or groin LAD. 24hr Labs 02/21 0131 Glucose Lvl91 BUN16 Creatinine Lvl0.60 Sodium Wqi146 Potassium Lvl4.2 Chloride Zaj863 H CO221 L AGAP11.2 Calcium Lvl8.6 tFOR845 WBC8.1 RBC4.09 L Hgb12.9 Hct38.8 MCV94.8 MCH31.6 H MCHC33.4 RDW14.3 Ebplczol235 MPV7.9 Segs38.2 L Monocytes5.5 Qzsgnjatrhs77.8 H Eosinophils2.1 Basophils0.4 Segs-Bands #3.1 Lymphocytes #4.3 Monocytes #0.4 Eosinophils #0.2 Basophils #0.0 RBC MorphNormal Plt MorphNormal 02/20 1926 Valproic Acid Lvl<3 L 02/19 1852 U Amph ScrNegative U Rahel ScrNegative U Benzodia ScrNegative U Cannab ScrNegative U Cocaine ScrNegative U Methadone ScrNegative U Opiate ScrNegative U Phencyc ScrNegative U Propoxyph ScrNegative UDS NoteSee Note Scheduled Meds (13): QUEtiapine 200 mg PO Bedtime [eMAR Schedule: (02/22/16) 21:00] [Future Dose: 02/23/16 21:00] citalopram 40 mg PO Daily [eMAR Schedule: (02/22/16) 09:00] [Future Dose: 02/23/16 09:00] clonazePAM (KlonoPIN) 1 mg PO TID [eMAR Schedule: (02/22/16) 09:00, 13:00, 17:00] divalproex sodium (Depakote ER 500 mg oral tablet, extended release) 500 mg PO Daily [eMAR Schedule: (02/22/16) 09:00] [Future Dose: 02/23/16 09:00] divalproex sodium (divalproex sodium 500 mg oral tablet, extended release(Depakote ER)) 1,000 mg PO Bedtime [eMAR Schedule: (02/22/16) 21:00] [Future Dose: 02/23/16 21:00] enoxaparin (Lovenox) 40 mg SUB-Q Q24H [eMAR Schedule: (02/22/16) 12:00] [Future Dose: 02/23/16 12:00] furosemide (furosemide 20 mg oral tablet) 20 mg PO Daily [eMAR Schedule: (02/22/16) 09:00] [Future Dose: 02/23/16 09:00] levETIRAcetam (Keppra 250 mg oral tablet) 500 mg PO BID [eMAR Schedule: (02/22/16) 09:00, 17:00] metoclopramide (Reglan) 10 mg IVP Q6H [eMAR Schedule: (02/22/16) 00:00, 06:00, 12:00, 18:00; (02/23/16) 00:00] nicotine 21 mg TOP Daily [Last Rescheduled Dt/Tm: 02/22/16 9:00:00] [eMAR Schedule: (02/22/16) 09:00] [Future Dose: 02/23/16 09:00] predniSONE 5 mg PO Daily [eMAR Schedule: (02/22/16) 09:00] [Future Dose: 02/23/16 09:00] pregabalin (Lyrica) 25 mg PO Daily [Last Rescheduled Dt/Tm: 02/21/16 19:02:00] [eMAR Schedule: (02/22/16) 09:00] [Future Dose: 02/23/16 09:00] remove patch 1 patch TOP Daily [eMAR Schedule: (02/22/16) 09:00] [Future Dose: 02/23/16 09:00] Unscheduled Meds: None PRN Meds (10): APAP/butalbital/caffeine (Esgic 325 mg-50 mg-40 mg oral tablet) 1 tab PO Q6H acetaminophen-hydrocodone (acetaminophen-hydrocodone 325 mg-5 mg oral tablet) 1 tab PO Q4H acetaminophen 650 mg PO Q4H acetaminophen 650 mg PO Q4H cyclobenzaprine 10 mg PO TID docusate 100 mg PO BID hydromorphone (Dilaudid) 0.5 mg IV Q4H ondansetron (Zofran) 4 mg PO Q6H sodium chloride (Saline Flush 0.9%) 10 mL IVP PRN zolpidem (Ambien) 5 mg PO Bedtime One Time Meds (5): (Completed) cefTRIAXone (Rocephin) 2 gm IVPB ONCE (Completed) hydromorphone (Dilaudid) 1 mg IVP ONCE (Deleted) metoclopramide (Reglan) 10 mg IVP ONCE (Completed) morphine Sulfate 4 mg IVP ONCE (Completed) ondansetron (Zofran) 4 mg IVP ONCE Continuous Infusions: None No results Assessment and Plan: 1. Methadone dependence with intractable pain. The patient still requires IV narcotics. She needs a follow-up with her methadone clinic which is closed today. 2. Tobacco dependence. Continue nicotine patch. 3. Proteinuria. This can be quantified as an outpatient. 4. detention cannot take her back. Will ask the social media job titles to verify this. Addendum Will admit to inpatient due to intractable pain and need for IV narcotics. by Yahir Keenan MD on 02/22/2016 12:07
--- OUTSIDE RECORDS SUMMARY | 2019-02-28 22:38 | XMS REPORT | Summary of Care ---
Author Author [facility] Organization [facility] Address Unknown Phone Unavailable Encounter POLO Haynes(MARY BETH) [id number] Date(s): 06/05/15 - 06/05/15 [address] [place] [address]- Discharge Diagnosis: Acute conjunctivitis, right eye Discharge Diagnosis: Acute sinusitis Discharge Disposition: Home Attending Physician: Simone Abreu MD Vital Signs 1 2 3 Most recent to oldest [Reference Range]: 162.56 cm (06/05/15 10:45 AM) Height 1 2 3 Most recent to oldest [Reference Range]: 98.7 DegF (06/05/15 9:46 PM) 98 DegF (06/05/15 1:00 PM) 98.6 DegF (06/05/15 10:45 AM) Temperature Oral [96.4-99.1 DegF] 1 2 3 Most recent to oldest [Reference Range]: 138/78 mmHg (06/05/15 7:00 PM) 140/88 mmHg (06/05/15 1:00 PM) Blood Pressure [90-140/60-90 mmHg] 134 mmHg (06/05/15 9:46 PM) Systolic Blood Pressure [90-140 mmHg] 1 2 3 Most recent to oldest [Reference Range]: 76 mmHg (06/05/15 9:46 PM) Diastolic Blood Pressure [60-90 mmHg] 1 2 3 Most recent to oldest [Reference Range]: 16 BRMIN (06/05/15 9:46 PM) 16 BRMIN (06/05/15 7:00 PM) 16 BRMIN (06/05/15 1:00 PM) Respiratory Rate [14-20 BRMIN] 1 2 3 Most recent to oldest [Reference Range]: 96 bpm (06/05/15 9:46 PM) 97 bpm (06/05/15 7:00 PM) 100 bpm (06/05/15 1:00 PM) Peripheral Pulse Rate [60-100 bpm] 1 2 3 Most recent to oldest [Reference Range]: 73.182 kg (06/05/15 10:45 AM) Weight 1 2 3 Most recent to oldest [Reference Range]: 27.69 m2 (06/05/15 10:45 AM) Body Mass Index Problem List Condition Effective Dates Status Health Status Informant Bipolar(Confirmed) Active Bladder Resolved disease(Confirmed) Diabetic Active care(Confirmed) Hepatitis Resolved C(Confirmed) Lupus(Confirmed) Resolved Schizo-affective Active schizophrenia(Confir med) Allergies, Adverse Reactions, Alerts Substance Reaction Severity Status aspirin Active Demerol HCl Active erythromycin Active Imitrex Active NSAIDs Active Stelazine Active sulfa drugs Active Toradol Active Medications Augmentin 875 mg oral tablet 875 mg=1 tab, PO, Q12H, X 14 day, # 28 tab, 0 Refill(s) Start Date: 06/05/15 Stop Date: 06/19/15 Status: Ordered Augmentin 875 mg oral tablet 875 mg, Route: PO, Drug Form: TAB, Dosing Weight 73.182, kg, Q12H, Start date: 0 06/05/15 21:00:00, Duration: 14 day, Stop date: 06/19/15 9:00:00, Special Instructions: Notes: With food.(Same as: Augmentin 875) Start Date: 06/05/15 Stop Date: 06/05/15 Status: Discontinued Gentak 0.3% ophthalmic solution 1 drp, RIGHT EYE, QID, # 5 ml, 0 Refill(s) Start Date: 06/05/15 Stop Date: 06/05/15 Status: Completed gentamicin ophthalmic 0.3% ointment 0.25 inch, Route: BOTH EYES, TID, Drug form: OINT, Start date: 06/05/15 13:00:00 , Duration: 30 day, Stop date: 07/05/15 9:00:00 Notes: (Same as: Garamcyin) Start Date: 06/05/15 Stop Date: 06/05/15 Status: Discontinued gentamicin ophthalmic 0.3% ointment 0.25 inch, Route: BOTH EYES, TID, Drug form: OINT, Priority: STAT, Start date: 0 06/05/15 17:45:00, Duration: 30 day, Stop date: 07/05/15 17:00:00 Notes: (Same as: Garamcyin) Start Date: 06/05/15 Stop Date: 06/05/15 Status: Discontinued tramadol 50 mg oral tablet 100 mg, 2 tab, Route: PO, Drug form: TAB, ONCE, Dosing Weight 73.182, kg, Priori ty: STAT, Start date: 06/05/15 11:45:00, Stop date: 06/05/15 11:45:00 Notes: Not to exceed 400mg/day. (Same As: Ultram) Start Date: 06/05/15 Stop Date: 06/05/15 Status: Completed Results ELECTROLYTES Most recent to 1 oldest [Reference Range]: Sodium Lvl [135-145 138 mEq/L mEq/L] (06/05/15 12:00 PM) Potassium Lvl 4.5 mEq/L [3.5-5.1 mEq/L] (06/05/15 12:00 PM) Chloride Lvl [95-109 103 mEq/L mEq/L] (06/05/15 12:00 PM) CO2 [24-32 mEq/L] 26 mEq/L (06/05/15 12:00 PM) AGAP [10.0-20.0 13.5 mEq/L mEq/L] (06/05/15 12:00 PM) CHEM PANEL Most recent to 1 oldest [Reference Range]: Creatinine Lvl 0.6 mg/dL [0.5-1.4 mg/dL] (06/05/15 12:00 PM) eGFR 109 mL/min/1.73m2 1 *NA* (06/05/15 12:00 PM) BUN [7-22 mg/dL] 20 mg/dL (06/05/15 12:00 PM) Glucose Lvl [70-99 84 mg/dL mg/dL] (06/05/15 12:00 PM) Calcium Lvl 8.6 mg/dL [8.5-10.5 mg/dL] (06/05/15 12:00 PM) 1Result Comment: The eGFR is calculated [...] be mul tiplied by the estimated BMI. Immunizations Vaccine Date Refusal Reason diphtheria/pertussis, acel/tetanus adult 01/06/13 Procedures No data available for this section Social History Social History Type Response Smoking Status Current every day smoker; Type: Cigarettes; Exposure to Tobacco Smoke None; Cigarette Smoking Last 365 Days No; Reg Smoking Cessation Counseling No Assessment and Plan No data available for this section
--- OUTSIDE RECORDS SUMMARY | 2019-02-28 22:39 | XMS REPORT | Summary of Care ---
Author Author [facility] Organization [facility] Address Unknown Phone Unavailable Encounter POLO Haynes(MARY BETH) [id number] Date(s): 12/17/16 - 12/18/16 [facility] [address] [place] [address]- Discharge Disposition: Home or Self Care Attending Physician: Law Vora MD Admitting Physician: Law Vora MD Vital Signs 1 2 3 Most recent to oldest [Reference Range]: 165.1 cm (12/18/16 5:47 AM) 165.1 cm (12/17/16 5:46 PM) Height 98.4 DegF (12/18/16 3:25 PM) 98.0 DegF (12/18/16 11:19 AM) 98.5 DegF (12/18/16 7:01 AM) Temperature Oral [96.4-99.1 DegF] 132/84 mmHg (12/18/16 3:25 PM) 128/76 mmHg (12/18/16 11:19 AM) 152/84 mmHg *HI* (12/18/16 7:01 AM) Blood Pressure [90-140/60-90 mmHg] 17 BRMIN (12/18/16 3:25 PM) 18 BRMIN (12/18/16 11:19 AM) 18 BRMIN (12/18/16 7:01 AM) Respiratory Rate [14-20 BRMIN] 92 bpm (12/18/16 3:25 PM) 75 bpm (12/18/16 11:19 AM) 86 bpm (12/18/16 7:01 AM) Peripheral Pulse Rate [60-100 bpm] 95.455 kg (12/18/16 5:47 AM) 95.455 kg (12/17/16 5:46 PM) Weight 35.02 m2 (2/4/17 5:47 AM) 35.02 m2 (12/17/16 5:46 PM) Body Mass Index Problem List Condition Effective Dates Status Health Status Informant Anxiety(Confirmed) Active Autoimmune Active diabetes(Confirmed) Back Active fracture(Confirmed)1 Bipolar(Confirmed) Active Bladder Active disease(Confirmed) Melvina's Resolved osteochondritis(Conf irmed) COPD(Confirmed) Active Diabetic Active care(Confirmed) Hepatitis Active C(Confirmed) Lupus(Confirmed) Active Neuropathy, 2014 Active peripheral(Confirmed ) Schizo-affective Active schizophrenia(Confir med) Sciatica(Confirmed) 2014 Active Seizure(Confirmed) Active [id number] Allergies, Adverse Reactions, Alerts Substance Reaction Severity Status aspirin Active Demerol HCl Active erythromycin Active Imitrex Active NSAIDs Active Stelazine Active sulfa drugs Active Toradol Active Medications acetaminophen-hydrocodone 325 mg-5 mg oral tablet 1 tab, Route: PO, Drug Form: TAB, Dosing Weight 95.455, kg, Q4H, PRN Pain Score 4-6, Start date: 12/18/16 4:47:00 PARACHUTE RIGGER, Duration: 30 day, Stop date: 01/17/17 4:4 6:00 PARACHUTE RIGGER Notes: (Same as: [place] 325/5) Do not exceed 4gm/day of acetaminophen. Start Date: 12/18/16 Stop Date: 12/18/16 Status: Discontinued Ambien 10 mg, 1 tab, Route: PO, Drug form: TAB, Bedtime, Dosing Weight 95.455, kg, PRN Sleep, Start date: 12/18/16 14:06:00 PARACHUTE RIGGER, Duration: 30 day, Stop date: 01/17/17 14:05:00 PARACHUTE RIGGER Notes: (Same As: Ambien) Start Date: 12/18/16 Stop Date: 12/18/16 Status: Discontinued atropine 0.5 mg, 5 mL, Route: IVP, Drug form: INJ, PRN, PRN Bradycardia, Start date: 02/28 6:59:00 PARACHUTE RIGGER, Duration: 30 day, Stop date: 01/17/17 6:58:00 PARACHUTE RIGGER Start Date: 12/18/16 Stop Date: 12/18/16 Status: Discontinued cyclobenzaprine 10 mg, 1 tab, Route: PO, Drug form: TAB, TID, Dosing Weight 95.455, kg, PRN as n eeded for muscle spasm, Start date: 12/18/16 14:05:00 PARACHUTE RIGGER, Duration: 30 day, Sto p date: 01/17/17 14:04:00 PARACHUTE RIGGER Notes: (Same As: Flexeril) Start Date: 12/18/16 Stop Date: 12/18/16 Status: Discontinued divalproex sodium 500 mg oral tablet, extended release(Depakote ER) 500 mg, 2 tab, Route: PO, Drug form: ERTAB, QAM, Dosing Weight 95.455, kg, Start date: 12/19/16 9:00:00 PARACHUTE RIGGER, Duration: 30 day, Stop date: 01/17/17 9:00:00 PARACHUTE RIGGER Notes: (Same as: Depakote ER) (Do Not Crush) "Do Not Crush" Start Date: 12/19/16 Stop Date: 12/18/16 Status: Canceled divalproex sodium 500 mg oral tablet, extended release(Depakote ER) 1,000 mg, 4 tab, Route: PO, Drug form: ERTAB, QPM, Dosing Weight 95.455, kg, Sta rt date: 12/18/16 17:00:00 PARACHUTE RIGGER, Duration: 30 day, Stop date: 01/16/17 17:00:[address] Notes: (Same as: Depakote ER) (Do Not Crush) "Do Not Crush" Start Date: 12/18/16 Stop Date: 12/18/16 Status: Discontinued furosemide 20 mg oral tablet 20 mg, 1 tab, Route: PO, Drug form: TAB, Daily, Dosing Weight 95.455, kg, Start date: 12/19/16 9:00:00 PARACHUTE RIGGER, Duration: 30 day, Stop date: 01/17/17 9:00:00 PARACHUTE RIGGER Notes: (Same as: Lasix) May cause GI upset. Give with food or milk. Start Date: 12/19/16 Stop Date: 12/18/16 Status: Canceled Geodon 60 mg, 3 cap, Route: PO, Drug form: CAP, TID, Dosing Weight 95.455, kg, Start da te: 12/18/16 17:00:00 PARACHUTE RIGGER, Duration: 30 day, Stop date: 01/17/17 13:00:00 PARACHUTE RIGGER Notes: (Same As: Geodon)Give with Food Start Date: 12/18/16 Stop Date: 12/18/16 Status: Discontinued influenza virus vaccine, inactivated 0.5 mL, Route: IM, Drug Form: SUSP, Daily, Start date: 12/18/16 9:00:00 PARACHUTE RIGGER, Dur ation: 1 doses or times, Stop date: 12/18/16 9:00:00 PARACHUTE RIGGER Notes: (Same as: Fluzone Quadrivalent, Fluarix Quadrivalent)For 3 years of age a nd older (0.5 mL IM)Shake well before use Start Date: 12/18/16 Stop Date: 12/18/16 Status: Completed Keppra 250 mg oral tablet 500 mg, 1 tab, Route: PO, Drug form: TAB, BID, Dosing Weight 95.455, kg, Start d ate: 12/18/16 17:00:00 PARACHUTE RIGGER, Duration: 30 day, Stop date: 01/17/17 9:00:00 PARACHUTE RIGGER Notes: (Same as:Keppra) Start Date: 12/18/16 Stop Date: 12/18/16 Status: Discontinued KlonoPIN 1 mg, 1 tab, Route: PO, Drug form: TAB, TID, Dosing Weight 95.455, kg, Start cate e: 12/18/16 17:00:00 PARACHUTE RIGGER, Duration: 30 day, Stop date: 01/17/17 13:00:00 PARACHUTE RIGGER Notes: (Same As: KlonoPIN) Start Date: 12/18/16 Stop Date: 12/18/16 Status: Discontinued Lipitor 40 mg, PO, Bedtime, 0 Refill(s) Start Date: 12/18/16 Status: Ordered Lipitor 40 mg, 1 tab, Route: PO, Drug form: TAB, Bedtime, Dosing Weight 95.455, kg, Star t date: 12/18/16 21:00:00 PARACHUTE RIGGER, Duration: 30 day, Stop date: 01/16/17 21:00:00 CS T Notes: (Same as: Lipitor) Start Date: 12/18/16 Stop Date: 12/18/16 Status: Canceled lisinopril Route: PO, BID, Dosing Weight 95.455, kg, Start date: 12/18/16 17:00:00 PARACHUTE RIGGER, Dur ation: 30 day, Stop date: 01/17/17 9:00:00 PARACHUTE RIGGER Start Date: 12/18/16 Stop Date: 12/18/16 Status: Discontinued lisinopril PO, BID, 0 Refill(s) Start Date: 12/18/16 Status: Ordered Lyrica 25 mg, 1 cap, Route: PO, Drug form: CAP, BID, Dosing Weight 95.455, kg, Start da te: 12/18/16 17:00:00 PARACHUTE RIGGER, Duration: 30 day, Stop date: 01/17/17 9:00:00 PARACHUTE RIGGER Notes: (Same as: Lyrica) Start Date: 12/18/16 Stop Date: 12/18/16 Status: Discontinued methadone 10 mg, 1 tab, Route: PO, Drug form: TAB, TID, Dosing Weight 95.455, kg, PRN Pain Score 4-6, Start date: 12/18/16 14:05:00 PARACHUTE RIGGER, Duration: 30 day, Stop date: 04/30 14:04:00 PARACHUTE RIGGER, chronic pain Notes: (Same as: Dolophine) Start Date: 12/18/16 Stop Date: 12/18/16 Status: Discontinued morphine Sulfate 6 mg, 1.5 mL, Route: IVP, Drug form: SOLN, Q4H, Dosing Weight 95.455, kg, PRN as needed for chest pain, Start date: 12/18/16 4:01:00 PARACHUTE RIGGER, Duration: 30 day, Stop date: 01/17/17 4:00:00 PARACHUTE RIGGER Notes: (Same as:MORPhine Sulfate) Start Date: 12/18/16 Stop Date: 12/18/16 Status: Discontinued morphine Sulfate 6 mg, Route: IVP, ONCE, Dosing Weight 95.455, kg, Priority: STAT, Start date: 4:00:00 PARACHUTE RIGGER, Stop date: 12/18/16 4:00:00 PARACHUTE RIGGER Start Date: 12/18/16 Stop Date: 12/18/16 Status: Completed morphine Sulfate 2 mg, Route: IVP, ONCE, Dosing Weight 95.455, kg, Start date: 12/18/16 2:37:[address], Stop date: 12/18/16 2:37:00 PARACHUTE RIGGER Start Date: 12/18/16 Stop Date: 12/18/16 Status: Completed nitroglycerin 0.4 mg sublingual tablet 0.4 mg, 0, Route: SL, Drug form: TAB, ONCE, Dosing Weight 95.455, kg, PRN Chest Pain, Start date: 12/18/16 2:38:00 PARACHUTE RIGGER, Duration: 1 doses or times, Stop date: L imited # of times Start Date: 12/18/16 Stop Date: 12/18/16 Status: Completed nitroglycerin 0.4 mg sublingual tablet 0.4 mg, 1 tab, Route: SL, Drug form: TAB, Q5Min, PRN Chest Pain, Start date: 02/28 6:59:00 PARACHUTE RIGGER, Duration: 30 day, Stop date: 01/17/17 6:58:00 PARACHUTE RIGGER Notes: (Same as:Nitroquick, Nitrostat)"Do Not Crush" Sublingual tablet Start Date: 12/18/16 Stop Date: 12/18/16 Status: Discontinued nitroglycerin SL Tab 0.4 mg, Route: SL, ONCE, Dosing Weight 95.455, kg, Start date: 12/18/16 0:05:00 PARACHUTE RIGGER, Stop date: 12/18/16 0:05:00 PARACHUTE RIGGER Start Date: 12/18/16 Stop Date: 12/18/16 Status: Completed ondansetron 4 mg, 2 mL, Route: IVP, Drug form: INJ, Q6H, Dosing Weight 95.455, kg, PRN Nause a & Vomiting, Start date: 12/18/16 4:47:00 PARACHUTE RIGGER, Duration: 30 day, Stop date: 01/17/17 4:46:00 PARACHUTE RIGGER Notes: (Same as: Jen) MEDICATION WASTE Product Size: 4 mgProduct Was delonte: ___ mg Start Date: 12/18/16 Stop Date: 12/18/16 Status: Discontinued Plavix 75 mg, 1 tab, Route: PO, Drug form: TAB, Daily, Dosing Weight 95.455, kg, Start date: 12/19/16 9:00:00 PARACHUTE RIGGER, Duration: 30 day, Stop date: 01/17/17 9:00:00 PARACHUTE RIGGER Notes: (Same As: Plavix) Start Date: 12/19/16 Stop Date: 12/18/16 Status: Canceled Plavix 75 mg oral tablet 75 mg=1 tab, PO, Daily, 0 Refill(s) Start Date: 12/18/16 Status: Ordered RN: pls ask pt for lisinopril home dose RN: pls ask pt for lisinopril home dose, RN: to obtain home dose of lisinopril, Drug form: MISC, Route: MISC, QSHIFT, 12/19/16 0:00:00 PARACHUTE RIGGER, Duration: 30 day, St op date: 01/17/17 16:00:00 PARACHUTE RIGGER Start Date: 12/19/16 Stop Date: 12/18/16 Status: Canceled Saline Flush 0.9% 10 mL, Route: IVP, Drug Form: INJ, Dosing Weight 95.455, kg, PRN, PRN Line Flush , Start date: 12/17/16 17:59:00 PARACHUTE RIGGER, Duration: 30 day, Stop date: 01/16/17 17:58 :00 PARACHUTE RIGGER Notes: (Same as: BD Posiflush) Start Date: 12/17/16 Stop Date: 12/18/16 Status: Discontinued SEROquel 100 mg, 1 tab, Route: PO, Drug form: TAB, BID, Dosing Weight 95.455, kg, Start d ate: 12/18/16 17:00:00 PARACHUTE RIGGER, Duration: 30 day, Stop date: 01/17/17 9:00:00 PARACHUTE RIGGER Notes: (Same as: SEROquel) Start Date: 12/18/16 Stop Date: 12/18/16 Status: Discontinued Zofran 4 mg, Route: IVP, Drug form: INJ, ONCE, Dosing Weight 95.455, kg, Start date: 2:49:00 PARACHUTE RIGGER, Stop date: 12/18/16 2:49:00 PARACHUTE RIGGER Start Date: 12/18/16 Stop Date: 12/18/16 Status: Completed Zofran 4 mg, 1 tab, Route: PO, Drug form: TAB, Q6H, Dosing Weight 95.455, kg, PRN Nause a & Vomiting, Start date: 12/18/16 14:06:00 PARACHUTE RIGGER, Duration: 30 day, Stop date: 01/17/17 14:05:00 PARACHUTE RIGGER Notes: (Same as: Zofran) Start Date: 12/18/16 Stop Date: 12/18/16 Status: Discontinued Results ELECTROLYTES Most recent to 1 2 oldest [Reference Range]: Sodium Lvl [135-145 136 mEq/L mEq/L] (12/17/16 8:38 PM) Potassium Lvl 4.1 mEq/L [3.5-5.1 mEq/L] (12/17/16 8:38 PM) Chloride Lvl [95-109 98 mEq/L mEq/L] (12/17/16 8:38 PM) CO2 [24-32 mEq/L] 26 mEq/L (12/17/16 8:38 PM) AGAP [10.0-20.0 16.1 mEq/L mEq/L] (12/17/16 8:38 PM) CHEM PANEL Most recent to 1 2 oldest [Reference Range]: Creatinine Lvl 0.75 mg/dL [0.50-1.40 mg/dL] (12/17/16 8:38 PM) eGFR 95 mL/min/1.73m2 1 *NA* (12/17/16 8:38 PM) BUN [7-22 mg/dL] 12 mg/dL (12/17/16 8:38 PM) B/C Ratio [6-25] 16 (12/17/16 8:38 PM) Glucose Lvl [70-99 102 mg/dL mg/dL] *HI* (12/17/16 8:38 PM) Total Protein 9.2 g/dL [6.4-8.4 g/dL] *HI* (12/17/16 8:38 PM) Albumin Lvl [3.5-5.0 4.4 g/dL g/dL] (12/17/16 8:38 PM) Globulin [2.7-4.2 4.8 g/dL g/dL] *HI* (12/17/16 8:38 PM) A/G Ratio [0.7-1.6] 0.9 (12/17/16 8:38 PM) Calcium Lvl 9.5 mg/dL [8.5-10.5 mg/dL] (12/17/16 8:38 PM) ALT [0-65 unit/L] 26 unit/L (12/17/16 8:38 PM) AST [0-37 unit/L] 14 unit/L (12/17/16 8:38 PM) Alk Phos [39-136 156 unit/L unit/L] *HI* (12/17/16 8:38 PM) Bili Total [0.2-1.3 0.3 mg/dL mg/dL] (12/17/16 8:38 PM) 1Result Comment: The eGFR is calculated [...] 2 oldest [Reference Range]: Total CK [12-191 70 unit/L unit/L] (12/17/16 8:38 PM) CK MB [0.5-3.6 <0.5 ng/mL ng/mL] (12/17/16 8:38 PM) CK MB Index <0.7 [0.0-2.5] (12/17/16 8:38 PM) Troponin-I <0.02 ng/mL <0.02 ng/mL [0.00-0.40 ng/mL] (12/18/16 3:00 AM) (12/17/16 8:38 PM) URINE AND STOOL Most recent to 1 2 oldest [Reference Range]: UA Turbidity [Clear] Slight *ABN* (12/18/16 2:42 AM) UA Color [Yellow] Yellow *NA* (12/18/16 2:42 AM) UA pH [5.0-8.0] 6.0 (12/18/16 2:42 AM) UA Spec Grav 1.018 [<=1.030] (12/18/16 2:42 AM) UA Glucose [Negative Negative mg/dL mg/dL] *NA* (12/18/16 2:42 AM) UA Blood [Negative] Small *ABN* (12/18/16 2:42 AM) UA Ketones [Negative Trace mg/dL mg/dL] *ABN* (12/18/16 2:42 AM) UA Protein [Negative 30 mg/dL mg/dL] *ABN* (12/18/16 2:42 AM) UA Urobilinogen <=1.0 mg/dL [0.1-1.0 mg/dL] *NA* (12/18/16 2:42 AM) UA Bili [Negative] Negative *NA* (12/18/16 2:42 AM) UA Leuk Est Negative [Negative] (12/18/16 2:42 AM) UA Nitrite Negative [Negative] (12/18/16 2:42 AM) UA WBC [0-5 /HPF] 2 /HPF (12/18/16 2:42 AM) UA RBC [0-2 /HPF] 8 /HPF *HI* (12/18/16 2:42 AM) UA Bacteria [None Occasional /HPF Seen /HPF] *NA* (12/18/16 2:42 AM) UA Sq Epi [Few /LPF] Few /LPF *NA* (12/18/16 2:42 AM) UA Mucus [None Seen Few /LPF /LPF] *NA* (12/18/16 2:42 AM) HEMATOLOGY Most recent to 1 2 oldest [Reference Range]: WBC [3.7-10.4 K/CMM] 10.9 K/CMM *HI* (12/17/16 8:38 PM) RBC [4.20-5.40 4.65 M/CMM M/CMM] (12/17/16 8:38 PM) Hgb [12.0-16.0 g/dL] 14.7 g/dL (12/17/16 8:38 PM) Hct [36.0-48.0 %] 42.0 % (12/17/16 8:38 PM) MCV [80.0-98.0 fL] 90.2 fL (12/17/16 8:38 PM) MCH [27.0-31.0 pg] 31.5 pg *HI* (12/17/16 8:38 PM) MCHC [32.0-36.0 34.9 g/dL g/dL] (12/17/16 8:38 PM) RDW [11.5-14.5 %] 12.9 % (12/17/16 8:38 PM) Platelet [133-450 219 K/CMM K/CMM] (12/17/16 8:38 PM) MPV [7.4-10.4 fL] 7.3 fL *LOW* (12/17/16 8:38 PM) Segs [45.0-75.0 %] 58.2 % (12/17/16 8:38 PM) Lymphocytes 34.5 % [20.0-40.0 %] (12/17/16 8:38 PM) Monocytes [2.0-12.0 5.1 % %] (12/17/16 8:38 PM) Eosinophils [0.0-4.0 1.5 % %] (12/17/16 8:38 PM) Basophils [0.0-1.0 0.7 % %] (12/17/16 8:38 PM) Segs-Bands # 6.4 K/CMM [1.5-8.1 K/CMM] (12/17/16 8:38 PM) Lymphocytes # 3.8 K/CMM [1.0-5.5 K/CMM] (12/17/16 8:38 PM) Monocytes # [0.0-0.8 0.6 K/CMM K/CMM] (12/17/16 8:38 PM) Eosinophils # 0.2 K/CMM [0.0-0.5 K/CMM] (12/17/16 8:38 PM) Basophils # [0.0-0.2 0.1 K/CMM K/CMM] (12/17/16 8:38 PM) Immunizations Given and Recorded Vaccine Date Status Refusal Reason diphtheria/pertussis, acel/tetanus adult 01/06/13 Given influenza virus vaccine, inactivated 12/18/16 Given Procedures Procedure Date Related Diagnosis Body Site Appendectomy Cholecystectomy Hysterectomy Nasal tip rhinoplasty PTCA - Percutaneous transluminal coronary angioplasty Revision rhinoplasty Social History Social History Type Response Substance Abuse Use: None. Sexual Sexually active: No. Employment/School Status: Employed. Work/School description: part-time at [employer]. Alcohol Never Smoking Status Current every day smoker; Type: Cigarettes; Tobacco use per day: 10; Previous treatment: None; Ready to change: No; Concerns about tobacco use in household: No; Exposure to Tobacco Smoke None; Cigarette Smoking Last 365 Days No; Reg Smoking Cessation Counseling No Assessment and Plan Extracted from: Title: Clinical Document Author: Hugo Hancock MD Date: 12/18/16 Patient seen, report dictated. d/w psych response team. Ok to d.c to assisted living facility. Follow up with outpatient psychiatrist. Thank you for the consult. Extracted from: Title: Clinical Document Author: Jean Claude Cuevas MD Date: 12/18/16 PATIENT NAME: SHIRLENE LORENZO ATTENDING PHYSICIAN: LAW MEYERS DATE OF ADMISSION: 12/17/2016 * * * CC: "chest pain" REASON FOR ADMISSION: CHEST PAIN HISTORY OF PRESENT ILLNESS: 46 yo woman with PMHx of Bipolar d/o, schizoaffective d/o, CAD with stent placement x 2 in 07/2015, Type1 DM, COPD, seizure d/o, SLE on plaquenil, nasal cancer s/p resection, chronic active HCV, HLD presents to ED via EMS from assisted living c/o chest pain onset today. Patient states she was at rest when she felt a heavy pressure on her chest. Pain radiated to LUE and LLE. Pain was not worsened or i mproved by anything. Patient c/o SOB, fever, nausea, and subjective fever but denies vomiting, diarrhea, cough, congestion. Pt reports similar episode in the past. Pt denies taking aspirin due to allergy history. Patient states she was discharged from [facility] 3 weeks ago for pericarditis of unknown etiology, possibly related to SLE flare accd. to pt. She also reports several episodes of diarrhea over the past 2 days without hematochezia. In the ED she had a mildly elevated temp of 99.3, alk phos of 156, negative troponin, nml WBC and appeared slightly dehydrated. EKG showed NSR without ST changes. UA is negative. PAST MEDICAL HISTORY: as per HPI PAST SURGICAL HISTORY: coronary angioplasty with stent, cholecystectomy, appendectomy, JEFFREY, rhinoplasty with revision FAMILY HISTORY: father - CAD; mother - "cancer"; grandparent with hepatic CA ALLERGIES: Allergies (8) ActiveReaction ImitrexNone documented ToradolNone documented sulfa drugsNone documented NSAIDsNone documented erythromycinNone documented Demerol HClNone documented aspirinNone documented StelazineNone documented HOME MEDICATIONS: Please see medical reconciliation form. SOCIAL HISTORY: daily smoker, no EtOH no drug use admitted to. REVIEW OF SYSTEMS: 12-point review of systems negative except for that detailed in above HPI PHYSICAL EXAMINATION: VitalsTmp(F)[id number] 12/18 00:22----[id number]--- 12/17 23:56----[id number]------ 12/17 22:[id number]/101--98--- 12/17 17:[id number]--- 24 Hr Tmax: 99.3F (37.39c) at 12/17 17:46Vital Signs are the last 5 in the past 48 hours. I&ORecordInOutBal 24hr Tot 0 0 0 24hr Tot 0 0 0 GENERAL: in no apparent distress at this time. HEENT: EOMI. Nose: missing R nare tissue s/p cancer removal NECK: supple, no jugular venous distention, no masses, no bruits CARDIOVASCULAR: regular rate and rhythm, s1 and s2 present, no murmurs, rubs or gallops LUNGS: clear to auscultation bilaterally, no wheezes, rales or rhonchi. GASTROINTESTINAL: soft, non-tender, non-distended positive bowel sounds in all four quadrants, no fluid wave appreciated EXTREMITIES: no clubbing, cyanosis or edema, pulses 2+ bilaterally and symmetric. NEUROLOGICAL: intact, no gross deficits noted SKIN: warm, no erythema, ecchymoses, purpura or petechiae, no jaundice, no diaphoresis LABORATORY DATA: Labs (Last four charted values) WBC H 10.9(DEC 17) Hgb 14.7(DEC 17) Hct 42.0(DEC 17) Plt 219(DEC 17) Na 136(DEC 17) K 4.1(DEC 17) CO2 26(DEC 17) Cl 98(DEC 17) Cr 0.75(DEC 17) BUN 12(DEC 17) Glucose Random H 102(DEC 17) Ca 9.5(DEC 17) Troponin <0.02(DEC 17) CK MB <0.5(DEC 17) Total CK 70(DEC 17) Radiology: Study: Frontal chest x-ray compared to 03/21/2016 History: Chest pain Comments: The trachea is midline. The cardiomediastinal silhouette is normal in size. No pneumonia.. Linear atelectasis in the left lung base No pleural effusions or pneumothorax. Impression: No acute cardiopulmonary disease. Electrocardiogram: Time 12/17/2016 17:53, rate 89, normal sinus rhythm, No ST-T changes, no ectopy, normal NC & QRS intervals, EP Interp (and reviewed), artifact present. Assessment&Plan: 46 yo woman with above PMHx presents with acute CP 1. CHEST PAIN 2. RECENT PERICARDITIS 3. SLE 4. DM 5. HCV 6. SCHIZOAFFECTIVE AND BIPOLAR D/O's PLAN: 1. Troponins negative x 2 sets. EKG without evidence of ACS or pericarditis. Pt allergic to ASA. Cardiology consultation has been placed by ED staff and Dr. Kraft will assess pt in the morning. 2. Pt claims current pain is similar to that experienced with recent pericarditis, current w/u does not suggest acute pericarditis. 3. On plaquenil, will reconcile. Follow CBC. 4. reconcile meds. 5. chronic, active and stable. no current tx. 6. pt anxious but otherwise stable. reconcile psychotropics.
--- OUTSIDE RECORDS SUMMARY | 2019-02-28 22:39 | XMS REPORT | Summary of Care ---
Author Author [facility] Organization [facility] Address Unknown Phone Unavailable Encounter POLO Haynes(MARY BETH) [id number] Date(s): 03/21/16 - 03/21/16 [facility] [address] [place] [address]- Discharge Diagnosis: Fall on same level from slipping, tripping and stumbling wi th subsequent striking against sharp glass, sequela Discharge Disposition: Home Attending Physician: Blake Boyd MD Vital Signs Most recent to 1 2 oldest [Reference Range]: Height 162.56 cm (03/21/16 7:24 PM) Temperature Oral 97.8 DegF [96.4-99.1 DegF] (03/21/16 7:24 PM) Blood Pressure 120/75 mmHg 123/78 mmHg [90-140/60-90 mmHg] (03/21/16 9:08 PM) (03/21/16 7:24 PM) Respiratory Rate 18 BRMIN 18 BRMIN [14-20 BRMIN] (03/21/16 9:08 PM) (03/21/16 7:24 PM) Peripheral Pulse 90 bpm 99 bpm Rate [60-100 bpm] (03/21/16 9:08 PM) (03/21/16 7:24 PM) Weight 86.364 kg (03/21/16 7:24 PM) Body Mass Index 32.68 m2 (03/21/16 7:24 PM) Problem List Condition Effective Dates Status Health Status Informant Anxiety(Confirmed) Active Autoimmune Active diabetes(Confirmed) Back Active fracture(Confirmed)1 Bipolar(Confirmed) Active Bladder Active disease(Confirmed) COPD(Confirmed) Active Diabetic Active care(Confirmed) Hepatitis Active C(Confirmed) Lupus(Confirmed) Active Neuropathy, 2015 Active peripheral(Confirmed ) Schizo-affective Active schizophrenia(Confir med) Sciatica(Confirmed) 2014 Active Seizure(Confirmed) Active [id number] Allergies, Adverse Reactions, Alerts Substance Reaction Severity Status aspirin Active Demerol HCl Active erythromycin Active Imitrex Active NSAIDs Active Stelazine Active sulfa drugs Active Toradol Active Medications Flexeril 10 mg oral tablet 10 mg=1 tab, PO, TID, PRN for spasm, X 5 day, # 15 tab, 0 Refill(s) Start Date: 03/21/16 Stop Date: 03/26/16 Status: Ordered [place] 5/325 oral tablet 1 tab, Route: PO, Drug Form: TAB, Dosing Weight 86.364, kg, ONCE, STAT, Start da te: 03/21/16 21:00:00 CDT, Stop date: 03/21/16 21:00:00 CDT Notes: (Same as: [place] 325/5) Do not exceed 4gm/day of acetaminophen. Start Date: 03/21/16 Stop Date: 03/21/16 Status: Completed Ultram 50 mg oral tablet 50 mg=1 tab, PO, Q4H, PRN pain, X 3 day, # 12 tab, 0 Refill(s) Start Date: 03/21/16 Stop Date: 03/24/16 Status: Ordered Results No data available for this section Immunizations Vaccine Date Refusal Reason diphtheria/pertussis, acel/tetanus adult 01/06/13 Procedures Procedure Date Related Diagnosis Body Site Appendectomy Cholecystectomy Hysterectomy Nasal tip rhinoplasty PTCA - Percutaneous transluminal coronary angioplasty Revision rhinoplasty Social History Social History Type Response Substance Abuse Use: None. Sexual Sexually active: No. Employment/School Status: Employed. Work/School description: part-time at [employer]. Alcohol Never Smoking Status Current every day smoker; Type: Cigarettes; Tobacco use per day: 10; Previous treatment: None; Ready to change: No; Concerns about tobacco use in household: No; Exposure to Tobacco Smoke None; Cigarette Smoking Last 365 Days No; Reg Smoking Cessation Counseling No Assessment and Plan No data available for this section
--- OUTSIDE RECORDS SUMMARY | 2019-02-28 22:39 | XMS REPORT | Summary of Care ---
Author Author [facility] Organization [facility] Address Unknown Phone Unavailable Encounter [facility](MARY BETH) [id number] Date(s): 03/21/16 - 03/21/16 [facility] [address] [place] [address]- [phone] Discharge Disposition: Non-Emergent Attending Physician: Blake Boyd MD Vital Signs Most recent to 1 oldest [Reference Range]: Height 165.1 cm (03/21/16 10:05 PM) Temperature Oral 97.8 DegF [96.4-99.1 DegF] (03/21/16 10:05 PM) Blood Pressure 104/61 mmHg [90-140/60-90 mmHg] (03/21/16 10:05 PM) Respiratory Rate 18 BRMIN [14-20 BRMIN] (03/21/16 10:05 PM) Peripheral Pulse 104 bpm Rate [60-100 bpm] *HI* (03/21/16 10:05 PM) Weight 86.364 kg (03/21/16 10:05 PM) Body Mass Index 31.68 m2 (03/21/16 10:05 PM) Problem List Condition Effective Dates Status Health Status Informant Anxiety(Confirmed) Active Autoimmune Active diabetes(Confirmed) Back Active fracture(Confirmed)1 Bipolar(Confirmed) Active Bladder Active disease(Confirmed) COPD(Confirmed) Active Diabetic Active care(Confirmed) Hepatitis Active C(Confirmed) Lupus(Confirmed) Active Neuropathy, 2015 Active peripheral(Confirmed ) Schizo-affective Active schizophrenia(Confir med) Sciatica(Confirmed) 2014 Active Seizure(Confirmed) Active [id number] Allergies, Adverse Reactions, Alerts Substance Reaction Severity Status aspirin Active Demerol HCl Active erythromycin Active Imitrex Active NSAIDs Active Stelazine Active sulfa drugs Active Toradol Active Medications No data available for this section Results No data available for this section Immunizations Vaccine Date Refusal Reason diphtheria/pertussis, acel/tetanus adult 01/06/13 Procedures Procedure Date Related Diagnosis Body Site Appendectomy Cholecystectomy Hysterectomy Nasal tip rhinoplasty PTCA - Percutaneous transluminal coronary angioplasty Revision rhinoplasty Social History Social History Type Response Substance Abuse Use: None. Sexual Sexually active: No. Employment/School Status: Employed. Work/School description: part-time at [employer]. Alcohol Never Smoking Status Current every day smoker; Type: Cigarettes; Tobacco use per day: 10; Previous treatment: None; Ready to change: No; Concerns about tobacco use in household: No; Exposure to Tobacco Smoke None; Cigarette Smoking Last 365 Days No; Reg Smoking Cessation Counseling No Assessment and Plan No data available for this section
--- OUTSIDE RECORDS SUMMARY | 2019-02-28 22:39 | XMS REPORT | Summary of Care ---
Author Author [facility] Organization [facility] Address Unknown Phone Unavailable Encounter [facility] [place](MARY BETH) [id number] Date(s): 03/18/16 - 03/19/16 [facility] [address] [place] [address]- Discharge Disposition: Against Medical Advise Attending Physician: Arvind Car MD Vital Signs 1 2 3 Most recent to oldest [Reference Range]: 162.56 cm (03/18/16 5:45 PM) 162.56 cm (03/18/16 10:21 AM) Height 98.5 DegF (03/19/16 3:47 AM) 98.3 DegF (03/19/16 12:00 AM) 98.3 DegF (03/18/16 7:45 PM) Temperature Oral [96.4-99.1 DegF] 120/80 mmHg (03/19/16 3:47 AM) 120/80 mmHg (03/19/16 12:00 AM) 117/79 mmHg (03/18/16 7:45 PM) Blood Pressure [90-140/60-90 mmHg] 16 BRMIN (03/19/16 3:47 AM) 17 BRMIN (03/19/16 12:00 AM) 17 BRMIN (03/18/16 7:45 PM) Respiratory Rate [14-20 BRMIN] 84 bpm (03/19/16 3:47 AM) 96 bpm (03/19/16 12:00 AM) 93 bpm (03/18/16 7:45 PM) Peripheral Pulse Rate [60-100 bpm] 87.273 kg (03/18/16 5:45 PM) 86.364 kg (03/18/16 10:21 AM) Weight 33.03 m2 (03/18/16 5:45 PM) 32.68 m2 (03/18/16 10:21 AM) Body Mass Index Problem List Condition Effective Dates Status Health Status Informant Anxiety(Confirmed) Active Autoimmune Active diabetes(Confirmed) Back Active fracture(Confirmed)1 Bipolar(Confirmed) Active Bladder Active disease(Confirmed) COPD(Confirmed) Active Diabetic Active care(Confirmed) Hepatitis Active C(Confirmed) Lupus(Confirmed) Active Neuropathy, 2014 Active peripheral(Confirmed ) Schizo-affective Active schizophrenia(Confir med) Sciatica(Confirmed) 2014 Active Seizure(Confirmed) Active [id number] Allergies, Adverse Reactions, Alerts Substance Reaction Severity Status aspirin Active Demerol HCl Active erythromycin Active Imitrex Active NSAIDs Active Stelazine Active sulfa drugs Active Toradol Active Medications acetaminophen 650 mg, 2 tab, Route: PO, Drug form: TAB, Q4H, Dosing Weight 86.364, kg, PRN Hea dache 1-5, Start date: 03/18/16 17:46:00 CDT, Duration: 30 day, Stop date: 04/17 17:45:00 CDT Notes: Do not exceed 4 gm/day. (Same as: Tylenol) Start Date: 03/18/16 Stop Date: 03/19/16 Status: Discontinued Ambien 10 mg, 2 tab, Route: PO, Drug form: TAB, Bedtime, PRN Sleep, Start date: 6 19:10:00 CDT, Duration: 30 day, Stop date: 04/17/16 19:09:00 CDT Notes: (Same As: Ambien) Start Date: 03/18/16 Stop Date: 03/19/16 Status: Discontinued Ambien 10 mg oral tablet 10 mg=1 tab, PO, Bedtime, PRN for sleep, 0 Refill(s) Start Date: 03/18/16 Stop Date: 04/01/16 Status: Ordered aspirin 81 mg tablet, enteric coated 81 mg, 1 tab, Route: PO, Drug form: ECTAB, Daily, Dosing Weight 86.364, kg, Star t date: 03/19/16 9:00:00 CDT, Duration: 30 day, Stop date: 04/17/16 9:00:00 CDT Notes: Do not crush or chew.(Same As: Ecotrin) Start Date: 03/19/16 Stop Date: 03/18/16 Status: Deleted divalproex sodium 1,000 mg, 2 tab, Route: PO, Drug form: ERTAB, Bedtime, Start date: 03/18/16 21:0 0:00 CDT, Duration: 30 day, Stop date: 04/16/16 21:00:00 CDT Notes: (Same as: Depakote ER) Once daily dosing; indicated for migraines. Dival proex sodium extended-release tab. Do not chew or crush. "Do Not Crush" Start Date: 03/18/16 Stop Date: 03/19/16 Status: Discontinued divalproex sodium 500 mg, 1 tab, Route: PO, Drug form: ERTAB, Daily, Start date: 03/19/16 9:00:00 CDT, Duration: 30 day, Stop date: 04/17/16 9:00:00 CDT Notes: (Same as: Depakote ER) Once daily dosing; indicated for migraines. Dival proex sodium extended-release tab. Do not chew or crush. "Do Not Crush" Start Date: 03/19/16 Stop Date: 03/19/16 Status: Canceled divalproex sodium 500 mg oral tablet, extended release(Depakote ER) 1,000 mg=2 tab, PO, QPM, # 60 tab, 1 Refill(s) Start Date: 03/18/16 Status: Ordered divalproex sodium 500 mg oral tablet, extended release(Depakote ER) 500 mg=1 tab, PO, QAM, # 30 tab, 0 Refill(s) Start Date: 03/18/16 Status: Ordered enoxaparin 90 mg, 0.9 mL, Route: SUB-Q, Drug form: INJ, [id number], Dosing Weight 86.364, kg, Start date: 03/18/16 18:00:00 CDT, Duration: 30 day, Stop date: 04/17/16 6:00:00 CDT Notes: Nurse to ensure documentation of patient education per anticoagulation po licy.(Same as: Lovenox) Start Date: 03/18/16 Stop Date: 03/19/16 Status: Discontinued Geodon 60 mg, 3 cap, Route: PO, Drug form: CAP, TID, Start date: 03/19/16 9:00:00 CDT, Duration: 30 day, Stop date: 04/17/16 17:00:00 CDT Notes: (Same As: Geodon)Give with Food Start Date: 03/19/16 Stop Date: 03/19/16 Status: Canceled Keppra 500 mg, 1 tab, Route: PO, Drug form: TAB, BID, Start date: 03/19/16 9:00:00 CDT, Duration: 30 day, Stop date: 04/17/16 17:00:00 CDT Notes: (Same as:Keppra) Start Date: 03/19/16 Stop Date: 03/19/16 Status: Canceled KlonoPIN 1 mg, 1 tab, Route: PO, Drug form: TAB, TID, Start date: 03/19/16 9:00:00 CDT, D uration: 30 day, Stop date: 04/17/16 17:00:00 CDT Notes: (Same As: KlonoPIN) Start Date: 03/19/16 Stop Date: 03/19/16 Status: Canceled Lasix 20 mg, 1 tab, Route: PO, Drug form: TAB, Daily, Start date: 03/19/16 9:00:00 CDT , Duration: 30 day, Stop date: 04/17/16 9:00:00 CDT Notes: (Same as: Lasix) May cause GI upset. Give with food or milk. Start Date: 03/19/16 Stop Date: 03/19/16 Status: Canceled Lyrica 25 mg, 1 cap, Route: PO, Drug form: CAP, BID, Start date: 03/19/16 9:00:00 CDT, Duration: 30 day, Stop date: 04/17/16 17:00:00 CDT Notes: (Same as: Lyrica) Start Date: 03/19/16 Stop Date: 03/19/16 Status: Canceled Lyrica 200 mg oral capsule 200 mg=1 cap, PO, Q12H, # 30 cap, 1 Refill(s) Start Date: 03/18/16 Stop Date: 03/18/16 Status: Completed Lyrica 25 mg oral capsule 25 mg=1 cap, PO, BID, # 30 cap, 0 Refill(s) Start Date: 03/18/16 Status: Ordered nitroglycerin 2% topical ointment 0.5 inch, Route: TOP, Drug form: OINT, Q8H, Start date: 03/19/16 0:00:00 CDT, Du ration: 30 day, Stop date: 04/17/16 16:00:00 CDT Notes: 1 gram is approximately 1 inch of nitroglycerin ointment (20 mg NTG pe r gram) (Same as:Nitro-Bid) Start Date: 03/19/16 Stop Date: 03/19/16 Status: Discontinued nitroglycerin SL Tab 0.4 mg, 1 tab, Route: SL, Drug form: TAB, Q5Min, Dosing Weight 87.273, kg, PRN C hest Pain, Start date: 03/18/16 17:52:00 CDT, Duration: 3 doses or times, Stop d ate: Limited # of times Notes: (Same as:Nitroquick, Nitrostat)"Do Not Crush" Sublingual tablet Start Date: 03/18/16 Stop Date: 03/19/16 Status: Discontinued nitroglycerin SL Tab 0.4 mg, 1 tab, Route: SL, Drug form: TAB, Q5Min, Dosing Weight 86.364, kg, PRN C hest Pain, Start date: 03/18/16 17:46:00 CDT, Duration: 3 doses or times, Stop d ate: Limited # of times Notes: (Same as:Nitroquick, Nitrostat)"Do Not Crush" Sublingual tablet Start Date: 03/18/16 Stop Date: 03/19/16 Status: Discontinued ondansetron 4 mg, 2 mL, Route: IVP, Drug form: INJ, ONCE, Dosing Weight 86.364, kg, Priority : STAT, Start date: 03/18/16 13:54:00 CDT, Stop date: 03/18/16 13:54:00 CDT Notes: (Same as: Jen) MEDICATION WASTE Product Size: 4 mgProduct Was delonte: ___ mg Start Date: 03/18/16 Stop Date: 03/18/16 Status: Completed Saline Flush 0.9% 10 ml, Route: IVP, Drug Form: INJ, Dosing Weight 87.273, kg, PRN, PRN Line Flush , Start date: 03/18/16 17:52:00 CDT, Duration: 30 day, Stop date: 04/17/16 17:51 :00 CDT Notes: (Same as: BD Posiflush) Start Date: 03/18/16 Stop Date: 03/19/16 Status: Discontinued Saline Flush 0.9% 10 ml, Route: IVP, Drug Form: INJ, Dosing Weight 87.273, kg, Q12H, Start date: 0 03/18/16 21:00:00 CDT, Duration: 30 day, Stop date: 04/17/16 9:00:00 CDT Notes: (Same as: BD Posiflush) Start Date: 03/18/16 Stop Date: 03/19/16 Status: Discontinued Saline Flush 0.9% 10 ml, Route: IVP, Drug Form: INJ, Dosing Weight 86.364, kg, PRN, PRN Line Flush , Start date: 03/18/16 17:46:00 CDT, Duration: 30 day, Stop date: 04/17/16 17:45 :00 CDT Notes: (Same as: BD Posiflush) Start Date: 03/18/16 Stop Date: 03/19/16 Status: Discontinued Saline Flush 0.9% 10 ml, Route: IVP, Drug Form: INJ, Dosing Weight 86.364, kg, Q12H, Start date: 0 03/18/16 21:00:00 CDT, Duration: 30 day, Stop date: 04/17/16 9:00:00 CDT Notes: (Same as: BD Posiflush) Start Date: 03/18/16 Stop Date: 03/19/16 Status: Discontinued SEROquel 200 mg, 1 tab, Route: PO, Drug form: TAB, Bedtime, Start date: 03/18/16 21:00:00 CDT, Duration: 30 day, Stop date: 04/16/16 21:00:00 CDT Notes: (Same as: SEROquel) Start Date: 03/18/16 Stop Date: 03/19/16 Status: Discontinued SEROquel 50 mg, 2 tab, Route: PO, Drug form: TAB, BID, Start date: 03/19/16 9:00:00 CDT, Duration: 30 day, Stop date: 04/17/16 17:00:00 CDT Notes: (Same as: SEROquel) Start Date: 03/19/16 Stop Date: 03/19/16 Status: Canceled Sodium Chloride 0.9% (Bolus) IV 1,000 mL, 1,000 ml/hr, Infuse Over: 1 hr, Route: IV, 1,000, Drug form: INJ, ONCE , Priority: STAT, Dosing Weight 86.364 kg, Start date: 03/18/16 13:54:00 CDT, Du ration: 1 doses or times, Stop date: 03/18/16 13:54:00 CDT Start Date: 03/18/16 Stop Date: 03/18/16 Status: Completed Tylenol 650 mg, 2 tab, Route: PO, Drug form: TAB, Q6H, PRN Pain Score 1-3, Start date: 0 03/18/16 19:11:00 CDT, Duration: 30 day, Stop date: 04/17/16 19:10:00 CDT Notes: Do not exceed 4 gm/day. (Same as: Tylenol) Start Date: 03/18/16 Stop Date: 03/19/16 Status: Discontinued Zofran 4 mg, 1 tab, Route: PO, Drug form: TAB, Q6H, PRN Nausea, Start date: 03/18/16 19 :08:00 CDT, Duration: 30 day, Stop date: 04/17/16 19:07:00 CDT Notes: (Same as: Zofran) Start Date: 03/18/16 Stop Date: 03/19/16 Status: Discontinued Results ELECTROLYTES Most recent to 1 2 oldest [Reference Range]: Sodium Lvl [135-145 145 mEq/L 139 mEq/L mEq/L] (03/18/16 8:49 PM) (03/18/16 2:28 PM) Potassium Lvl 3.3 mEq/L 4.1 mEq/L [3.5-5.1 mEq/L] *LOW* (03/18/16 2:28 PM) (03/18/16 8:49 PM) Chloride Lvl [95-109 114 mEq/L 108 mEq/L mEq/L] *HI* (03/18/16 2:28 PM) (03/18/16 8:49 PM) CO2 [24-32 mEq/L] 21 mEq/L 25 mEq/L *LOW* (03/18/16 2:28 PM) (03/18/16 8:49 PM) AGAP [10.0-20.0 13.3 mEq/L 10.1 mEq/L mEq/L] (03/18/16 8:49 PM) (03/18/16 2:28 PM) CHEM PANEL Most recent to 1 2 oldest [Reference Range]: Creatinine Lvl 0.50 mg/dL 0.61 mg/dL [0.50-1.40 mg/dL] (03/18/16 8:49 PM) (03/18/16 2:28 PM) eGFR 116 mL/min/1.73m2 1 108 mL/min/1.73m2 2 *NA* *NA* (03/18/16 8:49 PM) (03/18/16 2:28 PM) BUN [7-22 mg/dL] 17 mg/dL 19 mg/dL (03/18/16 8:49 PM) (03/18/16 2:28 PM) B/C Ratio [6-25] 31 *HI* (03/18/16 2:28 PM) Glucose Lvl [70-99 113 mg/dL 81 mg/dL mg/dL] *HI* (03/18/16 2:28 PM) (03/18/16 8:49 PM) Total Protein 5.6 g/dL 7.2 g/dL [6.4-8.4 g/dL] *LOW* (03/18/16 2:28 PM) (03/18/16 8:49 PM) Albumin Lvl [3.5-5.0 2.6 g/dL 3.2 g/dL g/dL] *LOW* *LOW* (03/18/16 8:49 PM) (03/18/16 2:28 PM) Globulin [2.0-4.0 3.0 g/dL 4.0 g/dL g/dL] (03/18/16 8:49 PM) (03/18/16 2:28 PM) A/G Ratio [0.7-1.6] 0.9 0.8 (03/18/16 8:49 PM) (03/18/16 2:28 PM) Calcium Lvl 7.2 mg/dL 8.7 mg/dL [8.5-10.5 mg/dL] *LOW* (03/18/16 2:28 PM) (03/18/16 8:49 PM) Phosphorus [2.5-4.5 2.3 mg/dL mg/dL] *LOW* (03/18/16 8:49 PM) Magnesium Lvl 1.8 mg/dL [1.8-2.4 mg/dL] (03/18/16 8:49 PM) ALT [0-65 unit/L] 12 unit/L 16 unit/L (03/18/16 8:49 PM) (03/18/16 2:28 PM) AST [0-37 unit/L] 9 unit/L 10 unit/L (03/18/16 8:49 PM) (03/18/16 2:28 PM) Alk Phos [39-136 76 unit/L 100 unit/L unit/L] (03/18/16 8:49 PM) (03/18/16 2:28 PM) Bili Total [0.2-1.3 0.2 mg/dL 0.2 mg/dL mg/dL] (03/18/16 8:49 PM) (03/18/16 2:28 PM) Bili Direct [0.0-0.3 <0.1 mg/dL mg/dL] (03/18/16 8:49 PM) Bili Indirect Unable to Calculate [0.0-1.0] *NA* (03/18/16 8:49 PM) Lipase Lvl [73-393 49 unit/L unit/L] *LOW* (03/18/16 2:28 PM) 1Result Comment: The eGFR is calculated [...] estimated BMI. CARDIAC ENZYMES Most recent to [Reference Range]: Total CK [12-191 31 unit/L 45 unit/L unit/L] (03/18/16 8:49 PM) (03/18/16 2:28 PM) CK MB [0.5-3.6 0.5 ng/mL ng/mL] (03/18/16 8:49 PM) Troponin-I <0.02 ng/mL <0.02 ng/mL [0.00-0.40 ng/mL] (03/18/16 8:49 PM) (03/18/16 2:28 PM) URINE CHEM Most recent to 11 15 oldest [Reference Range]: U Preg [Negative] Negative (03/19/16 4:16 AM) URINE AND STOOL Most recent to 11 15 oldest [Reference Range]: UA Turbidity [Clear] Clear (03/19/16 4:16 AM) UA Color [Yellow] Light Yellow *NA* (03/19/16 4:16 AM) UA pH [5.0-8.0] 6.0 (03/19/16 4:16 AM) UA Spec Grav 1.016 [<=1.030] (03/19/16 4:16 AM) UA Glucose [Negative Negative mg/dL mg/dL] *NA* (03/19/16 4:16 AM) UA Blood [Negative] Small *ABN* (03/19/16 4:16 AM) UA Ketones [Negative Negative mg/dL mg/dL] *NA* (03/19/16 4:16 AM) UA Protein [Negative Negative mg/dL mg/dL] (03/19/16 4:16 AM) UA Urobilinogen <=1.0 mg/dL [0.1-1.0 mg/dL] *NA* (03/19/16 4:16 AM) UA Bili [Negative] Negative *NA* (03/19/16 4:16 AM) UA Leuk Est Negative [Negative] (03/19/16 4:16 AM) UA Nitrite Negative [Negative] (03/19/16 4:16 AM) UA RBC [0-2 /HPF] 7 /HPF *NA* (03/19/16 4:16 AM) UA Sq Epi [Few /LPF] Occasional /LPF *NA* (03/19/16 4:16 AM) HEMATOLOGY Most recent to 1 2 oldest [Reference Range]: WBC [3.7-10.4 K/CMM] 9.0 K/CMM (03/18/16 2:28 PM) RBC [4.20-5.40 4.13 M/CMM M/CMM] *LOW* (03/18/16 2:28 PM) Hgb [12.0-16.0 g/dL] 13.0 g/dL (03/18/16 2:28 PM) Hct [36.0-48.0 %] 39.8 % (03/18/16 2:28 PM) MCV [80.0-98.0 fL] 96.3 fL (03/18/16 2:28 PM) MCH [27.0-31.0 pg] 31.4 pg *HI* (03/18/16 2:28 PM) MCHC [32.0-36.0 32.6 g/dL g/dL] (03/18/16 2:28 PM) RDW [11.5-14.5 %] 14.9 % *HI* (03/18/16 2:28 PM) Platelet [133-450 175 K/CMM K/CMM] (03/18/16 2:28 PM) MPV [7.4-10.4 fL] 8.1 fL (03/18/16 2:28 PM) Segs [45.0-75.0 %] 43.9 % *LOW* (03/18/16 2:28 PM) Lymphocytes 48.8 % [20.0-40.0 %] *HI* (03/18/16 2:28 PM) Monocytes [2.0-12.0 5.3 % %] (03/18/16 2:28 PM) Eosinophils [0.0-4.0 1.0 % %] (03/18/16 2:28 PM) Basophils [0.0-1.0 1.0 % %] (03/18/16 2:28 PM) Segs-Bands # 3.9 K/CMM [1.5-8.1 K/CMM] (03/18/16 2:28 PM) Lymphocytes # 4.4 K/CMM [1.0-5.5 K/CMM] (03/18/16 2:28 PM) Monocytes # [0.0-0.8 0.5 K/CMM K/CMM] (03/18/16 2:28 PM) Eosinophils # 0.1 K/CMM [0.0-0.5 K/CMM] (03/18/16 2:28 PM) Basophils # [0.0-0.2 0.1 K/CMM K/CMM] (03/18/16 2:28 PM) PT [12.0-14.7 13.7 seconds seconds] (03/18/16 2:28 PM) INR [0.85-1.17] 1.02 (03/18/16 2:28 PM) Immunizations Vaccine Date Refusal Reason diphtheria/pertussis, acel/tetanus adult 01/06/13 Procedures Procedure Date Related Diagnosis Body Site Appendectomy Cholecystectomy Hysterectomy Nasal tip rhinoplasty PTCA - Percutaneous transluminal coronary angioplasty Revision rhinoplasty Social History Social History Type Response Substance Abuse Use: None. Sexual Sexually active: No. Employment/School Status: Employed. Work/School description: part-time at [employer]. Alcohol Never Smoking Status Current every day smoker; Type: Cigarettes; Tobacco use per day: 10; Previous treatment: None; Ready to change: No; Concerns about tobacco use in household: No; Exposure to Tobacco Smoke None; Cigarette Smoking Last 365 Days No; Reg Smoking Cessation Counseling No Assessment and Plan No data available for this section
--- OUTSIDE RECORDS SUMMARY | 2019-02-28 22:39 | XMS REPORT | Summary of Care ---
Author Author [facility] Organization [facility] Address Unknown Phone Unavailable Encounter POLO Haynes(MARY BETH) [id number] Date(s): 12/31/16 - 01/01/17 [facility] [address] [place] [address]- Discharge Disposition: Home or Self Care Attending Physician: Junito Pizano MD Vital Signs 1 2 3 Most recent to oldest [Reference Range]: 162.56 cm (12/31/16 9:01 PM) 162.56 cm (12/31/16 3:27 PM) Height 98.3 DegF (01/01/17 11:45 AM) 98.4 DegF (01/01/17 7:45 AM) 98 DegF (01/01/17 3:50 AM) Temperature Oral [96.4-99.1 DegF] 123/73 mmHg (01/01/17 11:45 AM) 119/73 mmHg (01/01/17 7:45 AM) 113/76 mmHg (01/01/17 3:50 AM) Blood Pressure [90-140/60-90 mmHg] 18 BRMIN (01/01/17 11:45 AM) 18 BRMIN (01/01/17 7:45 AM) 20 BRMIN (01/01/17 3:50 AM) Respiratory Rate [14-20 BRMIN] 76 bpm (01/01/17 11:45 AM) 80 bpm (01/01/17 7:45 AM) 84 bpm (01/01/17 3:50 AM) Peripheral Pulse Rate [60-100 bpm] 111.364 kg (12/31/16 9:01 PM) 100 kg (12/31/16 3:27 PM) Weight 42.14 m2 (12/31/16 9:01 PM) 37.84 m2 (12/31/16 3:27 PM) Body Mass Index Problem List Condition Effective Dates Status Health Status Informant Anxiety(Confirmed) Active Autoimmune Active diabetes(Confirmed) Back Active fracture(Confirmed)1 Bipolar(Confirmed) Active Bladder Active disease(Confirmed) Melvina's Resolved osteochondritis(Conf irmed) COPD(Confirmed) Active Diabetic Active care(Confirmed) Hepatitis Active C(Confirmed) Lupus(Confirmed) Active Neuropathy, 2014 Active peripheral(Confirmed ) Schizo-affective Active schizophrenia(Confir med) Sciatica(Confirmed) 2014 Active Seizure(Confirmed) Active [id number] Allergies, Adverse Reactions, Alerts Substance Reaction Severity Status aspirin Active Demerol HCl Active erythromycin Active Imitrex Active NSAIDs Active Stelazine Active sulfa drugs Active Toradol Active Medications acetaminophen 650 mg, 2 tab, Route: PO, Drug form: TAB, Q4H, Dosing Weight 111.364, kg, PRN He adache 1-5, Start date: 12/31/16 21:23:00 INFORMATION ASSURANCE SPECIALIST, Duration: 30 day, Stop date: 01/12 07/31 21:22:00 CDT Notes: Do not exceed 4 gm/day. (Same as: Tylenol) Start Date: 12/31/16 Stop Date: 01/01/17 Status: Discontinued acetaminophen-hydrocodone 325 mg-5 mg oral tablet 2 tab, Route: PO, Drug Form: TAB, Dosing Weight 111.364, kg, Q4H, PRN Pain Score 7-10, Start date: 12/31/16 21:23:00 INFORMATION ASSURANCE SPECIALIST, Duration: 30 day, Stop date: 01/30/17 21:22:00 CDT Notes: (Same as: [place] 325/5) Do not exceed 4gm/day of acetaminophen. Start Date: 12/31/16 Stop Date: 01/01/17 Status: Discontinued Ambien 10 mg, 2 tab, Route: PO, Drug form: TAB, Bedtime, Dosing Weight 111.364, kg, PRN Sleep, Start date: 12/31/16 21:27:00 INFORMATION ASSURANCE SPECIALIST, Duration: 30 day, Stop date: 01/30/17 21:26:00 CDT Notes: (Same As: Ambien) Start Date: 12/31/16 Stop Date: 01/01/17 Status: Discontinued BD Normal Saline Flush 10 mL, Route: IVP, Drug Form: INJ, PRN, PRN Line Flush, Start date: 12/31/16 21: 33:00 INFORMATION ASSURANCE SPECIALIST, Duration: 30 day, Stop date: 01/30/17 22:32:00 CDT Notes: (Same as: BD Posiflush) Start Date: 12/31/16 Stop Date: 01/01/17 Status: Discontinued buPROPion 12 hour sustained release 150 mg, 1 tab, Route: PO, Drug form: ERTAB, Q12H, Dosing Weight 111.364, kg, Sta rt date: 01/01/17 9:00:00 INFORMATION ASSURANCE SPECIALIST, Duration: 30 day, Stop date: 01/30/17 21:00:00 CD T Notes: (Do not crush) (Same As: Wellbutrin SR) Start Date: 01/01/17 Stop Date: 01/01/17 Status: Discontinued cyclobenzaprine 10 mg, 1 tab, Route: PO, Drug form: TAB, TID, Dosing Weight 111.364, kg, PRN as needed for muscle spasm, Start date: 12/31/16 21:25:00 INFORMATION ASSURANCE SPECIALIST, Duration: 30 day, St op date: 01/30/17 21:24:00 CDT Notes: (Same As: Flexeril) Start Date: 12/31/16 Stop Date: 01/01/17 Status: Discontinued Dextrose 50% Syringe 12.5 gm, 25 mL, Route: IVP, Drug Form: INJ, Dosing Weight 111.364, kg, PRN, PRN Blood Glucose Results, Start date: 12/31/16 21:23:00 INFORMATION ASSURANCE SPECIALIST, Duration: 30 day, Stop date: 01/30/17 22:22:00 CDT Start Date: 12/31/16 Stop Date: 01/01/17 Status: Discontinued Dextrose 50% Syringe 25 gm, 50 mL, Route: IVP, Drug Form: INJ, Dosing Weight 111.364, kg, PRN, PRN Bl ood Glucose Results, Start date: 12/31/16 21:23:00 INFORMATION ASSURANCE SPECIALIST, Duration: 30 day, Stop d ate: 01/30/17 22:22:00 CDT Start Date: 12/31/16 Stop Date: 01/01/17 Status: Discontinued Dilaudid 0.2 mg, 0.2 mL, Route: IVP, Drug form: INJ, ONCE, Dosing Weight 111.364, kg, PRN Pain Score 7-10, Start date: 01/01/17 8:39:00 INFORMATION ASSURANCE SPECIALIST Start Date: 01/01/17 Stop Date: 01/01/17 Status: Completed divalproex sodium 500 mg oral tablet, extended release(Depakote ER) 1,000 mg, 2 tab, Route: PO, Drug form: ERTAB, QPM, Dosing Weight 111.364, kg, St art date: 01/01/17 17:00:00 INFORMATION ASSURANCE SPECIALIST, Duration: 30 day, Stop date: 01/30/17 17:00:00 CDT Notes: (Same as: Depakote ER) Once daily dosing; indicated for migraines. Dival proex sodium extended-release tab. Do not chew or crush. "Do Not Crush" Start Date: 01/01/17 Stop Date: 01/01/17 Status: Canceled enoxaparin 40 mg, 0.4 mL, Route: SUB-Q, Drug form: INJ, [id number], Dosing Weight 111.364, kg , Consider for obese patients, Start date: 12/31/16 22:00:00 INFORMATION ASSURANCE SPECIALIST, Duration: 30 d ay, Stop date: 01/30/17 10:00:00 CDT Notes: (Same as: Lovenox) Start Date: 12/31/16 Stop Date: 01/01/17 Status: Discontinued furosemide 20 mg oral tablet 20 mg, 1 tab, Route: PO, Drug form: TAB, Daily, Dosing Weight 111.364, kg, Start date: 01/01/17 9:00:00 INFORMATION ASSURANCE SPECIALIST, Duration: 30 day, Stop date: 01/30/17 9:00:00 CDT Notes: (Same as: Lasix) May cause GI upset. Give with food or milk. Start Date: 01/01/17 Stop Date: 01/01/17 Status: Discontinued Geodon 60 mg, 3 cap, Route: PO, Drug form: CAP, TID, Dosing Weight 111.364, kg, Start d ate: 01/01/17 9:00:00 INFORMATION ASSURANCE SPECIALIST, Duration: 30 day, Stop date: 01/30/17 17:00:00 CDT Notes: (Same As: Geodon)Give with Food Start Date: 01/01/17 Stop Date: 01/01/17 Status: Discontinued glucagon 1 mg, Route: IM, Drug form: PDR/INJ, PRN, Dosing Weight 111.364, kg, PRN Blood G lucose Results, Start date: 12/31/16 21:23:00 INFORMATION ASSURANCE SPECIALIST, Duration: 30 day, Stop date: 01/30/17 22:22:00 CDT Start Date: 12/31/16 Stop Date: 01/01/17 Status: Discontinued influenza virus vaccine, inactivated 0.5 mL, Route: IM, ONCALL, Start date: 12/31/16 21:19:45 INFORMATION ASSURANCE SPECIALIST, Stop date: 7 21:14:45 CDT Start Date: 12/31/16 Stop Date: 12/31/16 Status: Deleted insulin aspart 10 unit, 0.1 mL, Route: SUB-Q, Drug form: SOLN, Bedtime, Dosing Weight 111.364, kg, PRN Blood Glucose Results, Start date: 12/31/16 21:23:00 INFORMATION ASSURANCE SPECIALIST, Duration: 30 d ay, Stop date: 01/30/17 21:22:00 CDT Notes: Roll in palms of hands gently; Do not shake vigorously. (Same as: Josh Cisneros)"single patient use only"WASTE: F/P - Black; E - Municipal Trash Bin Stable f or 28 days at room temperature.Expires in days from Date Start Date: 12/31/16 Stop Date: 01/01/17 Status: Discontinued insulin aspart 15 unit, 0.15 mL, Route: SUB-Q, Drug form: SOLN, TID-Before Meals, Dosing Weight 111.364, kg, PRN Blood Glucose Results, Start date: 12/31/16 21:23:00 INFORMATION ASSURANCE SPECIALIST, Dura tion: 30 day, Stop date: 01/30/17 21:22:00 CDT Notes: Roll in palms of hands gently; Do not shake vigorously. (Same as: Josh Cisneros)"single patient use only"WASTE: F/P - Black; E - Municipal Trash Bin Stable f or 28 days at room temperature.Expires in days from Date Start Date: 12/31/16 Stop Date: 01/01/17 Status: Discontinued insulin aspart 9 unit, 0.09 mL, Route: SUB-Q, Drug form: SOLN, TID-Before Meals, Dosing Weight 111.364, kg, PRN Blood Glucose Results, Start date: 12/31/16 21:23:00 INFORMATION ASSURANCE SPECIALIST, Durat ion: 30 day, Stop date: 01/30/17 21:22:00 CDT Notes: Roll in palms of hands gently; Do not shake vigorously. (Same as: NovoPARKER Cisneros)"single patient use only"WASTE: F/P - Black; E - Municipal Trash Bin Stable f or 28 days at room temperature.Expires in days from Date Start Date: 12/31/16 Stop Date: 01/01/17 Status: Discontinued insulin aspart 12 unit, 0.12 mL, Route: SUB-Q, Drug form: SOLN, TID-Before Meals, Dosing Weight 111.364, kg, PRN Blood Glucose Results, Start date: 12/31/16 21:23:00 INFORMATION ASSURANCE SPECIALIST, Dura tion: 30 day, Stop date: 01/30/17 21:22:00 CDT Notes: Roll in palms of hands gently; Do not shake vigorously. (Same as: NovoPARKER Cisneros)"single patient use only"WASTE: F/P - Black; E - Municipal Trash Bin Stable f or 28 days at room temperature.Expires in days from Date Start Date: 12/31/16 Stop Date: 01/01/17 Status: Discontinued insulin aspart 3 unit, 0.03 mL, Route: SUB-Q, Drug form: SOLN, TID-Before Meals, Dosing Weight 111.364, kg, PRN Blood Glucose Results, Start date: 12/31/16 21:23:00 INFORMATION ASSURANCE SPECIALIST, Durat ion: 30 day, Stop date: 01/30/17 21:22:00 CDT Notes: Roll in palms of hands gently; Do not shake vigorously. (Same as: NovoPARKER G)"single patient use only"WASTE: F/P - Black; E - Municipal Trash Bin Stable f or 28 days at room temperature.Expires in days from Date Start Date: 12/31/16 Stop Date: 01/01/17 Status: Discontinued insulin aspart 6 unit, 0.06 mL, Route: SUB-Q, Drug form: SOLN, TID-Before Meals, Dosing Weight 111.364, kg, PRN Blood Glucose Results, Start date: 12/31/16 21:23:00 INFORMATION ASSURANCE SPECIALIST, Durat ion: 30 day, Stop date: 01/30/17 21:22:00 CDT Notes: Roll in palms of hands gently; Do not shake vigorously. (Same as: Josh Cisneros)"single patient use only"WASTE: F/P - Black; E - Municipal Trash Bin Stable f or 28 days at room temperature.Expires in days from Date Start Date: 12/31/16 Stop Date: 01/01/17 Status: Discontinued insulin aspart 6 unit, 0.06 mL, Route: SUB-Q, Drug form: SOLN, Bedtime, Dosing Weight 111.364, kg, PRN Blood Glucose Results, Start date: 12/31/16 21:23:00 INFORMATION ASSURANCE SPECIALIST, Duration: 30 d ay, Stop date: 01/30/17 21:22:00 CDT Notes: Roll in palms of hands gently; Do not shake vigorously. (Same as: Josh Cisneros)"single patient use only"WASTE: F/P - Black; E - Municipal Trash Bin Stable f or 28 days at room temperature.Expires in days from Date Start Date: 12/31/16 Stop Date: 01/01/17 Status: Discontinued insulin aspart 8 unit, 0.08 mL, Route: SUB-Q, Drug form: SOLN, Bedtime, Dosing Weight 111.364, kg, PRN Blood Glucose Results, Start date: 12/31/16 21:23:00 INFORMATION ASSURANCE SPECIALIST, Duration: 30 d ay, Stop date: 01/30/17 21:22:00 CDT Notes: Roll in palms of hands gently; Do not shake vigorously. (Same as: Josh Cisneros)"single patient use only"WASTE: F/P - Black; E - Municipal Trash Bin Stable f or 28 days at room temperature.Expires in days from Date Start Date: 12/31/16 Stop Date: 01/01/17 Status: Discontinued insulin aspart 4 unit, 0.04 mL, Route: SUB-Q, Drug form: SOLN, Bedtime, Dosing Weight 111.364, kg, PRN Blood Glucose Results, Start date: 12/31/16 21:23:00 INFORMATION ASSURANCE SPECIALIST, Duration: 30 d ay, Stop date: 01/30/17 21:22:00 CDT Notes: Roll in palms of hands gently; Do not shake vigorously. (Same as: NovoPARKER G)"single patient use only"WASTE: F/P - Black; E - Municipal Trash Bin Stable f or 28 days at room temperature.Expires in days from Date Start Date: 12/31/16 Stop Date: 01/01/17 Status: Discontinued Keppra 250 mg oral tablet 500 mg, 1 tab, Route: PO, Drug form: TAB, BID, Dosing Weight 111.364, kg, Start date: 01/01/17 9:00:00 INFORMATION ASSURANCE SPECIALIST, Duration: 30 day, Stop date: 01/30/17 21:00:00 CDT Notes: (Same as:Keppra) Start Date: 01/01/17 Stop Date: 01/01/17 Status: Discontinued KlonoPIN 1 mg, 1 tab, Route: PO, Drug form: TAB, TID, Dosing Weight 111.364, kg, Start da te: 01/01/17 9:00:00 INFORMATION ASSURANCE SPECIALIST, Duration: 30 day, Stop date: 01/30/17 17:00:00 CDT Notes: (Same As: KlonoPIN) Start Date: 01/01/17 Stop Date: 01/01/17 Status: Discontinued Lipitor 40 mg, 1 tab, Route: PO, Drug form: TAB, Bedtime, Dosing Weight 111.364, kg, Sta rt date: 01/01/17 21:00:00 INFORMATION ASSURANCE SPECIALIST, Duration: 30 day, Stop date: 01/30/17 21:00:00 C DT Notes: (Same as: Lipitor) Start Date: 01/01/17 Stop Date: 01/01/17 Status: Canceled lisinopril 5 mg, Route: PO, Drug form: TAB, Daily, Dosing Weight 111.364, kg, Start date: 0 01/01/17 9:00:00 INFORMATION ASSURANCE SPECIALIST, Duration: 30 day, Stop date: 01/30/17 9:00:00 CDT Start Date: 01/01/17 Stop Date: 12/31/16 Status: Canceled lisinopril 20 mg, 1 tab, Route: PO, Drug form: TAB, Daily, Dosing Weight 111.364, kg, Start date: 01/01/17 9:00:00 INFORMATION ASSURANCE SPECIALIST, Duration: 30 day, Stop date: 01/30/17 9:00:00 CDT Notes: (Same as: Prinivil, Zestril) Start Date: 01/01/17 Stop Date: 01/01/17 Status: Discontinued lisinopril 20 mg oral tablet 20 mg=1 tab, PO, Daily, # 30 tab, 0 Refill(s) Start Date: 12/31/16 Status: Ordered Lyrica 25 mg, 1 cap, Route: PO, Drug form: CAP, BID, Dosing Weight 111.364, kg, Start d ate: 01/01/17 9:00:00 INFORMATION ASSURANCE SPECIALIST, Duration: 30 day, Stop date: 01/30/17 21:00:00 CDT Notes: (Same as: Lyrica) Start Date: 01/01/17 Stop Date: 01/01/17 Status: Discontinued metFORMIN 500 mg, PO, BID, 0 Refill(s) Start Date: 12/31/16 Status: Ordered metoprolol tartrate 25 mg, 1 tab, Route: PO, Drug form: TAB, Q12H, Dosing Weight 111.364, kg, Start date: 01/01/17 9:00:00 INFORMATION ASSURANCE SPECIALIST, Duration: 30 day, Stop date: 01/30/17 21:00:00 CDT Notes: (Same as: Lopressor) Start Date: 01/01/17 Stop Date: 01/01/17 Status: Discontinued morphine Sulfate 2 mg, 1 mL, Route: IVP, Drug form: INJ, Q15Min, Dosing Weight 111.364, kg, PRN C hest Pain, Start date: 12/31/16 21:23:00 INFORMATION ASSURANCE SPECIALIST, Duration: 2 doses or times, Stop d ate: Limited # of times Notes: (Same as:MORPhine Sulfate) Start Date: 12/31/16 Stop Date: 01/01/17 Status: Discontinued morphine Sulfate 2 mg, 1 mL, Route: IVP, Drug form: INJ, Q2H, Dosing Weight 111.364, kg, PRN Pain Score 4-6, Start date: 12/31/16 21:23:00 INFORMATION ASSURANCE SPECIALIST, Duration: 30 day, Stop date: 01/12 07/31 21:22:00 CDT Notes: (Same as:MORPhine Sulfate) Start Date: 12/31/16 Stop Date: 01/01/17 Status: Discontinued morphine Sulfate 4 mg, 1 mL, Route: IVP, Drug form: INJ, ONCE, Dosing Weight 100, kg, Priority: S TAT, Start date: 12/31/16 16:37:00 INFORMATION ASSURANCE SPECIALIST, Stop date: 12/31/16 16:37:00 INFORMATION ASSURANCE SPECIALIST Notes: (Same as:MORPhine Sulfate) Start Date: 12/31/16 Stop Date: 12/31/16 Status: Completed nitroglycerin 2% ointment 0.5 inch, Route: TOP, Drug Form: OINT, Dosing Weight 111.364, kg, TID, Start cate e: 01/01/17 6:00:00 INFORMATION ASSURANCE SPECIALIST, Duration: 30 day, Stop date: 01/30/17 18:00:00 CDT Notes: 1 gram is approximately 1 inch of nitroglycerin ointment (20 mg NTG pe r gram) (Same as:Nitro-Bid) Start Date: 01/01/17 Stop Date: 01/01/17 Status: Discontinued nitroglycerin SL Tab 0.4 mg, 1 tab, Route: SL, Drug form: TAB, Q5Min, Dosing Weight 111.364, kg, PRN Chest Pain, Start date: 12/31/16 21:23:00 INFORMATION ASSURANCE SPECIALIST, Duration: 30 day, Stop date: 01/12 07/31 22:22:00 CDT Notes: (Same as:Nitroquick, Nitrostat)"Do Not Crush" Sublingual tablet Start Date: 12/31/16 Stop Date: 01/01/17 Status: Discontinued ondansetron 4 mg, 2 mL, Route: IV, Drug form: INJ, Q4H, Dosing Weight 111.364, kg, PRN Nause a & Vomiting, Start date: 12/31/16 21:23:00 INFORMATION ASSURANCE SPECIALIST, Duration: 30 day, Stop date: 01/30/17 21:22:00 CDT Notes: (Same as: Zofran) MEDICATION WASTE Product Size: 4 mgProduct Was delonte: ___ mg Start Date: 12/31/16 Stop Date: 01/01/17 Status: Discontinued ondansetron 4 mg, 2 mL, Route: IVP, Drug form: INJ, ONCE, Dosing Weight 100, kg, Priority: S TAT, Start date: 12/31/16 16:37:00 INFORMATION ASSURANCE SPECIALIST, Stop date: 12/31/16 16:37:00 INFORMATION ASSURANCE SPECIALIST Notes: (Same as: Zofran) MEDICATION WASTE Product Size: 4 mgProduct Was delonte: ___ mg Start Date: 12/31/16 Stop Date: 12/31/16 Status: Completed Plavix 75 mg, 1 tab, Route: PO, Drug form: TAB, Daily, Dosing Weight 111.364, kg, Start date: 01/01/17 9:00:00 INFORMATION ASSURANCE SPECIALIST, Duration: 30 day, Stop date: 01/30/17 9:00:00 CDT Notes: (Same As: Plavix) Start Date: 01/01/17 Stop Date: 01/01/17 Status: Discontinued Saline Flush 0.9% 10 ml, Route: IVP, Drug Form: INJ, Dosing Weight 111.364, kg, PRN, PRN Line Flus h, Start date: 12/31/16 21:23:00 INFORMATION ASSURANCE SPECIALIST, Duration: 30 day, Stop date: 01/30/17 22:2 2:00 CDT Start Date: 12/31/16 Stop Date: 12/31/16 Status: Discontinued Saline Flush 0.9% 10 ml, Route: IVP, Drug Form: INJ, Dosing Weight 111.364, kg, Q12H, Start date: 01/01/17 9:00:00 INFORMATION ASSURANCE SPECIALIST, Duration: 30 day, Stop date: 01/30/17 21:00:00 CDT Notes: (Same as: BD Posiflush) Start Date: 01/01/17 Stop Date: 01/01/17 Status: Discontinued SEROquel 100 mg, 1 tab, Route: PO, Drug form: TAB, BID, Dosing Weight 111.364, kg, Start date: 01/01/17 9:00:00 INFORMATION ASSURANCE SPECIALIST, Duration: 30 day, Stop date: 01/30/17 17:00:00 CDT Notes: (Same as: SEROquel) Start Date: 01/01/17 Stop Date: 01/01/17 Status: Discontinued sodium chloride 0.45% 1000 ml INJ 1,000 mL 1,000 mL, Rate: 75 ml/hr, Infuse over: 13.3 hr, Route: IV, Dosing Weight 111.364 kg, Total Volume: 1,000, Start date: 12/31/16 21:23:00 INFORMATION ASSURANCE SPECIALIST, Duration: 30 day, S top date: 01/30/17 21:22:00 CDT Start Date: 12/31/16 Stop Date: 01/01/17 Status: Discontinued Sodium Chloride 0.9% IV 250 mL, Route: IVPB, Start date: 12/31/16 21:34:00 INFORMATION ASSURANCE SPECIALIST, Duration: 30 day, Stop d ate: 01/30/17 22:33:00 CDT, PRN Line Flush Start Date: 12/31/16 Stop Date: 01/01/17 Status: Discontinued Wellbutrin XL 150 mg/24 hours oral tablet, extended release 150 mg=1 tab, PO, Q12H, 0 Refill(s) Start Date: 12/31/16 Status: Ordered Results ELECTROLYTES 1 2 3 Most recent to oldest [Reference Range]: 142 mEq/L (01/01/17 2:45 AM) 144 mEq/L (12/31/16 6:00 PM) Sodium Lvl [135-145 mEq/L] 3.7 mEq/L (01/01/17 2:45 AM) 3.8 mEq/L (12/31/16 6:00 PM) Potassium Lvl [3.5-5.1 mEq/L] 108 mEq/L (01/01/17 2:45 AM) 110 mEq/L *HI* (12/31/16 6:00 PM) Chloride Lvl [95-109 mEq/L] 25 mEq/L (01/01/17 2:45 AM) 25 mEq/L (12/31/16 6:00 PM) CO2 [24-32 mEq/L] 12.7 mEq/L (01/01/17 2:45 AM) 12.8 mEq/L (12/31/16 6:00 PM) AGAP [10.0-20.0 mEq/L] CHEM PANEL 1 2 3 Most recent to oldest [Reference Range]: 0.70 mg/dL (01/01/17 2:45 AM) 0.70 mg/dL (12/31/16 6:00 PM) Creatinine Lvl [0.50-1.40 mg/dL] 103 mL/min/1.73m2 1 *NA* (01/01/17 2:45 AM) 103 mL/min/1.73m2 2 *NA* (12/31/16 6:00 PM) eGFR 14 mg/dL (01/01/17 2:45 AM) 16 mg/dL (12/31/16 6:00 PM) BUN [7-22 mg/dL] 20 (01/01/17 2:45 AM) 23 (12/31/16 6:00 PM) B/C Ratio [6-25] 97 mg/dL (01/01/17 2:45 AM) 90 mg/dL (12/31/16 6:00 PM) Glucose Lvl [70-99 mg/dL] 7.1 g/dL (01/01/17 2:45 AM) 7.5 g/dL (12/31/16 6:00 PM) Total Protein [6.4-8.4 g/dL] 3.3 g/dL *LOW* (01/01/17 2:45 AM) 3.4 g/dL *LOW* (12/31/16 6:00 PM) Albumin Lvl [3.5-5.0 g/dL] 3.8 g/dL (01/01/17 2:45 AM) 4.1 g/dL (12/31/16 6:00 PM) Globulin [2.7-4.2 g/dL] 0.9 (01/01/17 2:45 AM) 0.8 (12/31/16 6:00 PM) A/G Ratio [0.7-1.6] 9.1 mg/dL (01/01/17 2:45 AM) 8.5 mg/dL (12/31/16 6:00 PM) Calcium Lvl [8.5-10.5 mg/dL] 1.8 mg/dL (01/01/17 2:45 AM) Magnesium Lvl [1.8-2.4 mg/dL] 30 unit/L (01/01/17 2:45 AM) 32 unit/L (12/31/16 6:00 PM) ALT [0-65 unit/L] 13 unit/L (01/01/17 2:45 AM) 12 unit/L (12/31/16 6:00 PM) AST [0-37 unit/L] 125 unit/L (01/01/17 2:45 AM) 138 unit/L *HI* (12/31/16 6:00 PM) Alk Phos [39-136 unit/L] 0.3 mg/dL (01/01/17 2:45 AM) 0.3 mg/dL (12/31/16 6:00 PM) Bili Total [0.2-1.3 mg/dL] 1Result Comment: The eGFR is calculated using [...] tiplied by the estimated BMI. CARDIAC ENZYMES 1 2 3 Most recent to oldest [Reference Range]: 29 unit/L (01/01/17 8:47 AM) 33 unit/L (01/01/17 2:45 AM) 34 unit/L (12/31/16 6:00 PM) Total CK [12-191 unit/L] <0.5 ng/mL (12/31/16 6:00 PM) CK MB [0.5-3.6 ng/mL] <1.5 (12/31/16 6:00 PM) CK MB Index [0.0-2.5] <0.02 ng/mL (01/01/17 8:47 AM) <0.02 ng/mL (01/01/17 2:45 AM) <0.02 ng/mL (12/31/16 6:00 PM) Troponin-I [0.00-0.40 ng/mL] LIPIDS 1 2 3 Most recent to oldest [Reference Range]: 4.59 (01/01/17 2:45 AM) CHD Risk [3.90-5.80] 179 mg/dL (01/01/17 2:45 AM) Chol [<=199 mg/dL] 137 mg/dL (01/01/17 2:45 AM) Trig [<=149 mg/dL] 39 mg/dL *LOW* (01/01/17 2:45 AM) HDL [>=61 mg/dL] 113 mg/dL *HI* (01/01/17 2:45 AM) LDL (Calculated) [<=99 mg/dL] 27 *NA* (01/01/17 2:45 AM) VLDL HEMATOLOGY 1 2 3 Most recent to oldest [Reference Range]: 7.7 K/CMM (01/01/17 2:45 AM) 8.4 K/CMM (12/31/16 6:00 PM) WBC [3.7-10.4 K/CMM] 3.99 M/CMM *LOW* (01/01/17 2:45 AM) 4.14 M/CMM *LOW* (12/31/16 6:00 PM) RBC [4.20-5.40 M/CMM] 12.2 g/dL (01/01/17 2:45 AM) 12.6 g/dL (12/31/16 6:00 PM) Hgb [12.0-16.0 g/dL] 36.3 % (01/01/17 2:45 AM) 37.7 % (12/31/16 6:00 PM) Hct [36.0-48.0 %] 91.0 fL (01/01/17 2:45 AM) 91.0 fL (12/31/16 6:00 PM) MCV [80.0-98.0 fL] 30.7 pg (01/01/17 2:45 AM) 30.4 pg (12/31/16 6:00 PM) MCH [27.0-31.0 pg] 33.7 g/dL (01/01/17 2:45 AM) 33.4 g/dL (12/31/16 6:00 PM) MCHC [32.0-36.0 g/dL] 13.1 % (01/01/17 2:45 AM) 12.8 % (12/31/16 6:00 PM) RDW [11.5-14.5 %] 168 K/CMM (01/01/17 2:45 AM) 179 K/CMM (12/31/16 6:00 PM) Platelet [133-450 K/CMM] 7.8 fL (01/01/17 2:45 AM) 7.8 fL (12/31/16 6:00 PM) MPV [7.4-10.4 fL] 43.1 % *LOW* (01/01/17 2:45 AM) 43.2 % *LOW* (12/31/16 6:00 PM) Segs [45.0-75.0 %] 49.1 % *HI* (01/01/17 2:45 AM) 50.0 % *HI* (12/31/16 6:00 PM) Lymphocytes [20.0-40.0 %] 5.2 % (01/01/17 2:45 AM) 4.9 % (12/31/16 6:00 PM) Monocytes [2.0-12.0 %] 2.2 % (01/01/17 2:45 AM) 1.6 % (12/31/16 6:00 PM) Eosinophils [0.0-4.0 %] 0.4 % (01/01/17 2:45 AM) 0.3 % (12/31/16 6:00 PM) Basophils [0.0-1.0 %] 3.3 K/CMM (01/01/17 2:45 AM) 3.6 K/CMM (12/31/16 6:00 PM) Segs-Bands # [1.5-8.1 K/CMM] 3.8 K/CMM (01/01/17 2:45 AM) 4.2 K/CMM (12/31/16 6:00 PM) Lymphocytes # [1.0-5.5 K/CMM] 0.4 K/CMM (01/01/17 2:45 AM) 0.4 K/CMM (12/31/16 6:00 PM) Monocytes # [0.0-0.8 K/CMM] 0.2 K/CMM (01/01/17 2:45 AM) 0.1 K/CMM (12/31/16 6:00 PM) Eosinophils # [0.0-0.5 K/CMM] 0.0 K/CMM (01/01/17 2:45 AM) 0.0 K/CMM (12/31/16 6:00 PM) Basophils # [0.0-0.2 K/CMM] 12.9 seconds (12/31/16 6:00 PM) PT [12.0-14.7 seconds] 0.95 (12/31/16 6:00 PM) INR [0.85-1.17] 26.1 seconds (12/31/16 6:00 PM) PTT [22.9-35.8 seconds] Immunizations Given and Recorded Vaccine Date Status Refusal Reason diphtheria/pertussis, acel/tetanus adult 01/06/13 Given influenza virus vaccine, inactivated 12/18/16 Given Procedures Procedure Date Related Diagnosis Body Site Appendectomy Cholecystectomy Hysterectomy Nasal tip rhinoplasty PTCA - Percutaneous transluminal coronary angioplasty Revision rhinoplasty Social History Social History Type Response Substance Abuse Use: None. Sexual Sexually active: No. Employment/School Status: Employed. Work/School description: part-time at [employer]. Alcohol Never Smoking Status Current every day smoker; Ready to change: No; Concerns about tobacco use in household: Yes; Lives with someone who smokes; Cigarette Smoking Last 365 Days No; Reg Smoking Cessation Counseling No Assessment and Plan No data available for this section
--- OUTSIDE RECORDS SUMMARY | 2019-02-28 22:39 | XMS REPORT | Summary of Care ---
Author Author [facility] Organization [facility] Address Unknown Phone Unavailable Encounter POLO Haynes(MARY BETH) [id number] Date(s): 02/27/16 - 02/28/16 [facility] [address] [employer] provided by [employer] [place] [address]- Discharge Diagnosis: Acute facial pain Discharge Disposition: Home Attending Physician: Ovidio Diop MD Vital Signs Most recent to 1 2 oldest [Reference Range]: Height 167.64 cm (02/27/16 8:11 PM) Temperature Oral 97.6 DegF 98.4 DegF [96.4-99.1 DegF] (02/28/16 1:04 AM) (02/27/16 8:11 PM) Blood Pressure 106/68 mmHg 144/94 mmHg [90-140/60-90 mmHg] (02/28/16 1:04 AM) *HI* (02/27/16 8:11 PM) Respiratory Rate 18 BRMIN 18 BRMIN [14-20 BRMIN] (02/28/16 1:04 AM) (02/27/16 8:11 PM) Peripheral Pulse 94 bpm 98 bpm Rate [60-100 bpm] (02/28/16 1:04 AM) (02/27/16 8:11 PM) Weight 86.364 kg (02/27/16 8:11 PM) Body Mass Index 30.73 m2 (02/27/16 8:11 PM) Problem List Condition Effective Dates Status Health Status Informant Anxiety(Confirmed) Resolved Autoimmune Resolved diabetes(Confirmed) Back Resolved fracture(Confirmed)1 Bipolar(Confirmed) Active Bladder Resolved disease(Confirmed) COPD(Confirmed) Resolved Diabetic Active care(Confirmed) Hepatitis Resolved C(Confirmed) Lupus(Confirmed) Resolved Schizo-affective Active schizophrenia(Confir med) Seizure(Confirmed) Resolved [id number] Allergies, Adverse Reactions, Alerts Substance Reaction Severity Status aspirin Active Demerol HCl Active erythromycin Active Imitrex Active NSAIDs Active Stelazine Active sulfa drugs Active Toradol Active Medications Dilaudid 1 mg, 0.5 mL, Route: IM, Drug form: INJ, ONCE, Dosing Weight 86.364, kg, Start d ate: 02/27/16 23:13:00 CDT, Stop date: 02/27/16 23:13:00 CDT Notes: Same as: Dilaudid Start Date: 02/27/16 Stop Date: 02/27/16 Status: Completed Dilaudid 1 mg, Route: IM, ONCE, Dosing Weight 86.364, kg, Start date: 02/27/16 22:14:00 C DT, Stop date: 02/27/16 22:14:00 CDT Start Date: 02/27/16 Stop Date: 02/27/16 Status: Completed [place] 5/325 oral tablet 2 tab, Route: PO, Drug Form: TAB, Dosing Weight 86.364, kg, ONCE, STAT, Start da te: 02/27/16 20:39:00 CDT, Stop date: 02/27/16 20:39:00 CDT Notes: (Same as: [place] 325/5) Do not exceed 4gm/day of acetaminophen. Start Date: 02/27/16 Stop Date: 02/27/16 Status: Completed [place] 5/325 oral tablet 1 tab, Route: PO, Drug Form: TAB, Dosing Weight 86.364, kg, ONCE, STAT, Start da te: 02/27/16 20:38:00 CDT, Stop date: 02/27/16 20:38:00 CDT Notes: (Same as: [place] 325/5) Do not exceed 4gm/day of acetaminophen. Start Date: 02/27/16 Stop Date: 02/27/16 Status: Discontinued [place] 5/325 oral tablet 1 tab, Route: PO, Drug Form: TAB, Dosing Weight 86.364, kg, ONCE, STAT, Start da te: 02/27/16 20:38:00 CDT, Stop date: 02/27/16 20:38:00 CDT Notes: (Same as: [place] 325/5) Do not exceed 4gm/day of acetaminophen. Start Date: 02/27/16 Stop Date: 02/27/16 Status: Discontinued Reglan 5 mg oral tablet 5 mg, 1 tab, Route: PO, Drug form: TAB, QID-Before Meals, Dosing Weight 86.364, kg, Start date: 02/27/16 21:00:00 CDT, Duration: 30 day, Stop date: 03/28/16 16: 30:00 CDT Notes: (Same as: Reglan) Take 30 min before meals Start Date: 02/27/16 Stop Date: 02/28/16 Status: Discontinued Zofran ODT 4 mg, Route: PO, Drug form: TABDIS, ONCE, Dosing Weight 86.364, kg, Priority: ST AT, Start date: 02/28/16 1:01:00 CDT, Stop date: 02/28/16 1:01:00 CDT Start Date: 02/28/16 Stop Date: 02/28/16 Status: Completed Results No data available for [...]
--- OUTSIDE RECORDS SUMMARY | 2019-02-28 22:39 | XMS REPORT | Summary of Care ---
Author Author [facility] Organization [facility] Address Unknown Phone Unavailable Encounter [facility] [place](MARY BETH) [id number] Date(s): 03/19/16 - 03/20/16 [facility] [address] [place] [address]- Discharge Disposition: Home Attending Physician: Harley Catherine MD Vital Signs 1 2 3 Most recent to oldest [Reference Range]: 162.56 cm (03/19/16 12:51 PM) 162.56 cm (03/19/16 5:26 AM) Height 88.7 kg (03/20/16 5:00 AM) 86.591 kg (03/19/16 12:51 PM) Current Weight 98.3 DegF (03/20/16 3:48 AM) 98.9 DegF (03/20/16 12:00 AM) 98.5 DegF (03/19/16 4:00 PM) Temperature Oral [96.4-99.1 DegF] 104/72 mmHg (03/20/16 3:48 AM) 98/69 mmHg (03/20/16 12:00 AM) 107/70 mmHg (03/19/16 4:00 PM) Blood Pressure [90-140/60-90 mmHg] 16 BRMIN (03/20/16 3:48 AM) 17 BRMIN (03/20/16 12:00 AM) 18 BRMIN (03/19/16 4:00 PM) Respiratory Rate [14-20 BRMIN] 78 bpm (03/20/16 3:48 AM) 89 bpm (03/20/16 12:00 AM) 96 bpm (03/19/16 4:00 PM) Peripheral Pulse Rate [60-100 bpm] 86.364 kg (03/19/16 5:26 AM) Weight 32.68 m2 (03/19/16 5:26 AM) Body Mass Index Problem List Condition Effective Dates Status Health Status Informant Anxiety(Confirmed) Active Autoimmune Active diabetes(Confirmed) Back Active fracture(Confirmed)1 Bipolar(Confirmed) Active Bladder Active disease(Confirmed) COPD(Confirmed) Active Diabetic Active care(Confirmed) Hepatitis Active C(Confirmed) Lupus(Confirmed) Active Neuropathy, 2014 Active peripheral(Confirmed ) Schizo-affective Active schizophrenia(Confir med) Sciatica(Confirmed) 2014 Active Seizure(Confirmed) Active 1H26-S2 Allergies, Adverse Reactions, Alerts Substance Reaction Severity Status aspirin Active Demerol HCl Active erythromycin Active Imitrex Active NSAIDs Active Stelazine Active sulfa drugs Active Toradol Active Medications Ambien 10 mg, 1 tab, Route: PO, Drug form: TAB, Bedtime, Dosing Weight 86.364, kg, PRN Sleep, Start date: 03/19/16 13:17:00 CDT, Duration: 30 day, Stop date: 04/18/16 13:16:00 CDT Notes: (Same As: Ambien) Start Date: 03/19/16 Stop Date: 03/20/16 Status: Discontinued clopidogrel 75 mg, 1 tab, Route: PO, Drug form: TAB, Daily, Dosing Weight 86.364, kg, Start date: 03/20/16 9:00:00 CDT, Duration: 30 day, Stop date: 04/18/16 9:00:00 CDT Notes: (Same As: Plavix) Start Date: 03/20/16 Stop Date: 03/20/16 Status: Discontinued cyclobenzaprine 10 mg, 1 tab, Route: PO, Drug form: TAB, TID, Dosing Weight 86.364, kg, PRN Musc le Spasms, Start date: 03/19/16 13:15:00 CDT, Duration: 30 day, Stop date: 04/18 13:14:00 CDT, pain Notes: (Same As: Flexeril) Start Date: 03/19/16 Stop Date: 03/20/16 Status: Discontinued divalproex sodium 500 mg oral tablet, extended release(Depakote ER) 500 mg, 1 tab, Route: PO, Drug form: ERTAB, QAM, Dosing Weight 86.364, kg, Start date: 03/20/16 9:00:00 CDT, Duration: 30 day, Stop date: 04/18/16 9:00:00 CDT Notes: (Same as: Depakote ER) Once daily dosing; indicated for migraines. Dival proex sodium extended-release tab. Do not chew or crush. "Do Not Crush" Start Date: 03/20/16 Stop Date: 03/20/16 Status: Discontinued divalproex sodium 500 mg oral tablet, extended release(Depakote ER) 1,000 mg, 2 tab, Route: PO, Drug form: ERTAB, QPM, Dosing Weight 86.364, kg, Sta rt date: 03/19/16 17:00:00 CDT, Duration: 30 day, Stop date: 04/17/16 17:00:00 C DT Notes: (Same as: Depakote ER) Once daily dosing; indicated for migraines. Dival proex sodium extended-release tab. Do not chew or crush. "Do Not Crush" Start Date: 03/19/16 Stop Date: 03/20/16 Status: Discontinued furosemide 20 mg oral tablet 20 mg, 1 tab, Route: PO, Drug form: TAB, Daily, Dosing Weight 86.364, kg, Start date: 03/20/16 9:00:00 CDT, Duration: 30 day, Stop date: 04/18/16 9:00:00 CDT Notes: (Same as: Lasix) May cause GI upset. Give with food or milk. Start Date: 03/20/16 Stop Date: 03/20/16 Status: Discontinued Geodon 60 mg, 3 cap, Route: PO, Drug form: CAP, TID, Dosing Weight 86.364, kg, Start da te: 03/19/16 17:00:00 CDT, Duration: 30 day, Stop date: 04/18/16 13:00:00 CDT Notes: (Same As: Geodon)Give with Food Start Date: 03/19/16 Stop Date: 03/20/16 Status: Discontinued Keppra 250 mg oral tablet 500 mg, 1 tab, Route: PO, Drug form: TAB, BID, Dosing Weight 86.364, kg, Start d ate: 03/19/16 17:00:00 CDT, Duration: 30 day, Stop date: 04/18/16 9:00:00 CDT Notes: (Same as:Keppra) Start Date: 03/19/16 Stop Date: 03/20/16 Status: Discontinued KlonoPIN 1 mg, 1 tab, Route: PO, Drug form: TAB, TID, Dosing Weight 86.364, kg, Start cate e: 03/19/16 17:00:00 CDT, Duration: 30 day, Stop date: 04/18/16 13:00:00 CDT Notes: (Same As: KlonoPIN) Start Date: 03/19/16 Stop Date: 03/20/16 Status: Discontinued Lyrica 25 mg, 1 cap, Route: PO, Drug form: CAP, BID, Dosing Weight 86.364, kg, Start da te: 03/19/16 17:00:00 CDT, Duration: 30 day, Stop date: 04/18/16 9:00:00 CDT Notes: (Same as: Lyrica) Start Date: 03/19/16 Stop Date: 03/20/16 Status: Discontinued morphine Sulfate 2 mg, Route: IVP, Drug form: INJ, ONCE, Dosing Weight 86.364, kg, Priority: STAT , Start date: 03/19/16 6:15:00 CDT, Stop date: 03/19/16 6:15:00 CDT Start Date: 03/19/16 Stop Date: 03/19/16 Status: Completed morphine Sulfate 2 mg, Route: IVP, ONCE, Dosing Weight 86.364, kg, Start date: 03/19/16 9:52:00 C DT, Stop date: 03/19/16 9:52:00 CDT Start Date: 03/19/16 Stop Date: 03/19/16 Status: Completed morphine Sulfate 2 mg, Route: IVP, Drug form: INJ, ONCE, Dosing Weight 86.364, kg, Priority: STAT , Start date: 03/19/16 8:05:00 CDT, Stop date: 03/19/16 8:05:00 CDT Start Date: 03/19/16 Stop Date: 03/19/16 Status: Completed morphine Sulfate 2 mg, 1 mL, Route: IVP, Drug form: INJ, Q4H, Dosing Weight 86.364, kg, PRN Chest Pain, Start date: 03/19/16 13:19:00 CDT, Duration: 30 day, Stop date: 04/18/16 13:18:00 CDT Notes: (Same as:MORPhine Sulfate) Start Date: 03/19/16 Stop Date: 03/20/16 Status: Discontinued morphine Sulfate 2 mg, 1 mL, Route: IVP, Drug form: INJ, Q15Min, Dosing Weight 86.364, kg, PRN Ch est Pain, Start date: 03/19/16 12:41:00 CDT, Duration: 2 doses or times, Stop da te: Limited # of times Notes: (Same as:MORPhine Sulfate) Start Date: 03/19/16 Stop Date: 03/20/16 Status: Discontinued nitroglycerin 0.4 mg, 1 tab, Route: SL, Drug form: TAB, Q5Min, Dosing Weight 86.364, kg, PRN C hest Pain, Priority: STAT, Start date: 03/19/16 6:14:00 CDT, Duration: 3 doses o r times, Stop date: Limited # of times Notes: (Same as:Nitroquick, Nitrostat)"Do Not Crush" Sublingual tablet Start Date: 03/19/16 Stop Date: 03/20/16 Status: Discontinued nitroglycerin 2% ointment 2 inch, Route: TOP, Drug Form: OINT, Dosing Weight 86.364, kg, ONCE, STAT, Start date: 03/19/16 8:19:00 CDT, Stop date: 03/19/16 8:19:00 CDT Start Date: 03/19/16 Stop Date: 03/19/16 Status: Completed nitroglycerin SL Tab 0.4 mg, 1 tab, Route: SL, Drug form: TAB, Q5Min, Dosing Weight 86.364, kg, PRN C hest Pain, Start date: 03/19/16 12:41:00 CDT, Duration: 3 doses or times, Stop d ate: Limited # of times Notes: (Same as:Nitroquick, Nitrostat)"Do Not Crush" Sublingual tablet Start Date: 03/19/16 Stop Date: 03/19/16 Status: Deleted Plavix 75 mg, Route: PO, Drug form: TAB, ONCE, Dosing Weight 86.364, kg, Priority: STAT , Start date: 03/19/16 8:03:00 CDT, Stop date: 03/19/16 8:03:00 CDT Start Date: 03/19/16 Stop Date: 03/19/16 Status: Completed QUEtiapine 200 mg, 1 tab, Route: PO, Drug form: TAB, Bedtime, Dosing Weight 86.364, kg, Sta rt date: 03/19/16 21:00:00 CDT, Duration: 30 day, Stop date: 04/17/16 21:00:00 C DT Notes: (Same as: SEROquel) Start Date: 03/19/16 Stop Date: 03/20/16 Status: Discontinued Saline Flush 0.9% 10 mL, Route: IVP, Drug Form: INJ, Dosing Weight 86.364, kg, PRN, PRN Line Flush , Start date: 03/19/16 5:44:00 CDT, Duration: 30 day, Stop date: 04/18/16 5:43:0 0 CDT Notes: (Same as: BD Posiflush) Start Date: 03/19/16 Stop Date: 03/20/16 Status: Discontinued Saline Flush 0.9% 10 ml, Route: IVP, Drug Form: INJ, Dosing Weight 86.364, kg, PRN, PRN Line Flush , Start date: 03/19/16 12:41:00 CDT, Duration: 30 day, Stop date: 04/18/16 12:40 :00 CDT Notes: (Same as: BD Posiflush) Start Date: 03/19/16 Stop Date: 03/19/16 Status: Deleted Saline Flush 0.9% 10 ml, Route: IVP, Drug Form: INJ, Dosing Weight 86.364, kg, Q12H, Start date: 0 03/19/16 21:00:00 CDT, Duration: 30 day, Stop date: 04/18/16 9:00:00 CDT Notes: (Same as: BD Posiflush) Start Date: 03/19/16 Stop Date: 03/20/16 Status: Discontinued SEROquel 50 mg, 2 tab, Route: PO, Drug form: TAB, BID, Dosing Weight 86.364, kg, Start da te: 03/19/16 17:00:00 CDT, Duration: 30 day, Stop date: 04/18/16 9:00:00 CDT Notes: (Same as: SEROquel) Start Date: 03/19/16 Stop Date: 03/20/16 Status: Discontinued Zofran 4 mg, 2 mL, Route: IVP, Drug form: INJ, Q8H, PRN Nausea, Start date: 03/19/16 14 :05:00 CDT, Duration: 30 day, Stop date: 04/18/16 14:04:00 CDT Notes: (Same as: Zofran) MEDICATION WASTE Product Size: 4 mgProduct Was delonte: ___ mg Start Date: 03/19/16 Stop Date: 03/20/16 Status: Discontinued Zofran 4 mg, Route: IVP, Drug form: INJ, ONCE, Dosing Weight 86.364, kg, Priority: STAT , Start date: 03/19/16 7:35:00 CDT, Stop date: 03/19/16 7:35:00 CDT Start Date: 03/19/16 Stop Date: 03/19/16 Status: Completed Results ELECTROLYTES Most recent to 1 oldest [Reference Range]: Sodium Lvl [135-145 140 mEq/L mEq/L] (03/19/16 6:29 AM) Potassium Lvl 4.3 mEq/L [3.5-5.1 mEq/L] (03/19/16 6:29 AM) Chloride Lvl [95-109 108 mEq/L mEq/L] (03/19/16 6:29 AM) CO2 [24-32 mEq/L] 25 mEq/L (03/19/16 6:29 AM) AGAP [10.0-20.0 11.3 mEq/L mEq/L] (03/19/16 6:29 AM) CHEM PANEL Most recent to 1 oldest [Reference Range]: Creatinine Lvl 0.77 mg/dL [0.50-1.40 mg/dL] (03/19/16 6:29 AM) eGFR 93 mL/min/1.73m2 1 *NA* (03/19/16 6:29 AM) BUN [7-22 mg/dL] 25 mg/dL *HI* (03/19/16 6:29 AM) B/C Ratio [6-25] 32 *HI* (03/19/16 6:29 AM) Glucose Lvl [70-99 106 mg/dL mg/dL] *HI* (5/6/16 6:29 AM) Total Protein 6.8 g/dL [6.4-8.4 g/dL] (03/19/16 6:29 AM) Albumin Lvl [3.5-5.0 3.0 g/dL g/dL] *LOW* (03/19/16 6:29 AM) Globulin [2.0-4.0 3.8 g/dL g/dL] (03/19/16 6:29 AM) A/G Ratio [0.7-1.6] 0.8 (03/19/16 6:29 AM) Calcium Lvl 9.1 mg/dL [8.5-10.5 mg/dL] (03/19/16 6:29 AM) Magnesium Lvl 2.1 mg/dL [1.8-2.4 mg/dL] (03/19/16 6:29 AM) ALT [0-65 unit/L] 15 unit/L (03/19/16 6:29 AM) AST [0-37 unit/L] 8 unit/L (03/19/16 6:29 AM) Alk Phos [39-136 108 unit/L unit/L] (03/19/16 6:29 AM) Bili Total [0.2-1.3 0.2 mg/dL mg/dL] (03/19/16 6:29 AM) 1Result Comment: The eGFR is calculated using [...] 1 oldest [Reference Range]: Total CK [12-191 45 unit/L unit/L] (03/19/16 6:29 AM) CK MB [0.5-3.6 <0.5 ng/mL ng/mL] (03/19/16 6:29 AM) CK MB Index <1.1 [0.0-2.5] (03/19/16 6:29 AM) Troponin-I <0.02 ng/mL [0.00-0.40 ng/mL] (03/19/16 6:29 AM) URINE AND STOOL Most recent to 1 oldest [Reference Range]: UA Turbidity [Clear] Clear (03/19/16 6:29 AM) UA Color [Yellow] Yellow *NA* (03/19/16 6:29 AM) UA pH [5.0-8.0] 7.0 (03/19/16:29 AM) UA Spec Grav 1.020 [<=1.030] (03/19/16 6:29 AM) UA Glucose Negative [Negative] (03/19/16 6:29 AM) UA Blood [Negative] Small *ABN* (03/19/16:29 AM) UA Ketones Negative [Negative] *NA* (03/19/16 6:29 AM) UA Protein Negative [Negative] (03/19/16 6:29 AM) UA Urobilinogen 0.2 EU/dL [0.1-1.0 EU/dL] (03/19/16 6:29 AM) UA Bili [Negative] Negative *NA* (03/19/16 6:29 AM) UA Leuk Est Trace [Negative] *ABN* (03/19/16:29 AM) UA Nitrite Negative [Negative] (03/19/16 6:29 AM) UA WBC [None Seen 3-5 /HPF /HPF] (03/19/16 6:29 AM) UA RBC [0-2 /HPF] 3-5 /HPF *ABN* (03/19/16 6:29 AM) UA Bacteria [None Occasional /HPF Seen /HPF] (03/19/16 6:29 AM) UA Sq Epi [Few /LPF] Few /LPF (03/19/16 6:29 AM) UA Mucus [None Seen Few /LPF /LPF] (03/19/16 6:29 AM) Micro? Performed (03/19/16 6:29 AM) HEMATOLOGY Most recent to 1 oldest [Reference Range]: WBC [3.7-10.4 K/CMM] 8.3 K/CMM (03/19/16 6:29 AM) RBC [4.20-5.40 4.05 M/CMM M/CMM] *LOW* (03/19/16:29 AM) Hgb [12.0-16.0 g/dL] 12.7 g/dL (03/19/16:29 AM) Hct [36.0-48.0 %] 38.9 % (03/19/16:29 AM) MCV [80.0-98.0 fL] 96.2 fL (03/19/16:29 AM) MCH [27.0-31.0 pg] 31.3 pg *HI* (03/19/16:29 AM) MCHC [32.0-36.0 32.6 g/dL g/dL] (03/19/16:29 AM) RDW [11.5-14.5 %] 14.6 % *HI* (03/19/16:29 AM) Platelet [133-450 186 K/CMM K/CMM] (03/19/16 6:29 AM) MPV [7.4-10.4 fL] 8.0 fL (03/19/16 6:29 AM) Segs [45.0-75.0 %] 43.9 % *LOW* (03/19/16:29 AM) Lymphocytes 46.4 % [20.0-40.0 %] *HI* (03/19/16:29 AM) Monocytes [2.0-12.0 7.5 % %] (03/19/16 6:29 AM) Eosinophils [0.0-4.0 1.2 % %] (03/19/16 6:29 AM) Basophils [0.0-1.0 1.0 % %] (03/19/16 6:29 AM) Segs-Bands # 3.7 K/CMM [1.5-8.1 K/CMM] (03/19/16 6:29 AM) Lymphocytes # 3.9 K/CMM [1.0-5.5 K/CMM] (03/19/16 6:29 AM) Monocytes # [0.0-0.8 0.6 K/CMM K/CMM] (03/19/16 6:29 AM) Eosinophils # 0.1 K/CMM [0.0-0.5 K/CMM] (03/19/16 6:29 AM) Basophils # [0.0-0.2 0.1 K/CMM K/CMM] (03/19/16 6:29 AM) PT [12.0-14.7 15.3 seconds seconds] *HI* (03/19/16 6:29 AM) INR [0.85-1.17] 1.18 *HI* (03/19/16 6:29 AM) PTT [22.9-35.8 32.8 seconds seconds] (03/19/16 6:29 AM) Immunizations Vaccine Date Refusal Reason diphtheria/pertussis, acel/tetanus adult 01/06/13 Procedures Procedure Date Related Diagnosis Body Site Appendectomy Cholecystectomy Hysterectomy Nasal tip rhinoplasty PTCA - Percutaneous transluminal coronary angioplasty Revision rhinoplasty Social History Social History Type Response Substance Abuse Use: None. Sexual Sexually active: No. Employment/School Status: Employed. Work/School description: part-time at [employer]. Alcohol Never Smoking Status Current every day smoker; Type: Cigarettes; Tobacco use per day: 10; Previous treatment: None; Ready to change: No; Concerns about tobacco use in household: No; Exposure to Tobacco Smoke None; Cigarette Smoking Last 365 Days No; Reg Smoking Cessation Counseling No Assessment and Plan No data available for this section
--- OUTSIDE RECORDS SUMMARY | 2019-02-28 22:39 | XMS REPORT | Summary of Care ---
Author Author [facility] Organization [facility] Address Unknown Phone Unavailable Encounter [facility](MARY BETH) [id number] Date(s): 02/26/16 - 02/27/16 [facility] [address] [employer] provided by [employer] [place] [address]- Discharge Diagnosis: Atypical rash Discharge Diagnosis: Aching headache Discharge Disposition: Home Attending Physician: Urban Rolle MD Vital Signs 1 2 3 Most recent to oldest [Reference Range]: 162.56 cm (02/26/16 6:03 PM) Height 96.8 DegF (02/27/16 6:18 AM) 98.0 DegF (02/27/16 5:00 AM) 98.4 DegF (02/26/16 11:44 PM) Temperature Oral [96.4-99.1 DegF] 112/57 mmHg (02/27/16 6:18 AM) 125/68 mmHg (02/27/16 5:00 AM) 142/92 mmHg *HI* (02/26/16 11:44 PM) Blood Pressure [90-140/60-90 mmHg] 16 BRMIN (02/27/16 6:18 AM) 16 BRMIN (02/27/16 5:00 AM) 18 BRMIN (02/26/16 11:44 PM) Respiratory Rate [14-20 BRMIN] 65 bpm (02/27/16 6:18 AM) 82 bpm (02/27/16 5:00 AM) 91 bpm (02/26/16 11:44 PM) Peripheral Pulse Rate [60-100 bpm] 86.364 kg (02/26/16 6:03 PM) Weight 32.68 m2 (02/26/16 6:03 PM) Body Mass Index Problem List Condition Effective Dates Status Health Status Informant Anxiety(Confirmed) Resolved Autoimmune Resolved diabetes(Confirmed) Back Resolved fracture(Confirmed)1 Bipolar(Confirmed) Active Bladder Resolved disease(Confirmed) COPD(Confirmed) Resolved Diabetic Active care(Confirmed) Hepatitis Resolved C(Confirmed) Lupus(Confirmed) Resolved Schizo-affective Active schizophrenia(Confir med) Seizure(Confirmed) Resolved 6F12-T9 Allergies, Adverse Reactions, Alerts Substance Reaction Severity Status aspirin Active Demerol HCl Active erythromycin Active Imitrex Active NSAIDs Active Stelazine Active sulfa drugs Active Toradol Active Medications acetaminophen-hydrocodone 325 mg-5 mg oral tablet 1 tab, Route: PO, Drug Form: TAB, Dosing Weight 86.364, kg, ONCE, STAT, Start da te: 02/27/16 4:12:00 CDT, Stop date: 02/27/16 4:12:00 CDT Notes: (Same as: [place] 325/5) Do not exceed 4gm/day of acetaminophen. Start Date: 02/27/16 Stop Date: 02/27/16 Status: Completed acetaminophen-hydrocodone 325 mg-5 mg oral tablet 1 tab, Route: PO, Drug Form: TAB, Dosing Weight 86.364, kg, ONCE, STAT, Start da te: 02/27/16 4:11:00 CDT, Stop date: 02/27/16 4:11:00 CDT Notes: (Same as: [place] 325/5) Do not exceed 4gm/day of acetaminophen. Start Date: 02/27/16 Stop Date: 02/27/16 Status: Completed promethazine 12.5 mg, 0.5 mL, Route: IM, Drug form: INJ, ONCE, Dosing Weight 86.364, kg, Prio rity: STAT, Start date: 02/27/16 4:12:00 CDT, Stop date: 02/27/16 4:12:00 CDT Notes: Do not give IV push. (Same as: Phenergan) Start Date: 02/27/16 Stop Date: 02/27/16 Status: Completed Results No data available for [...]
--- OUTSIDE RECORDS SUMMARY | 2019-02-28 22:40 | XMS REPORT | Summary of Care ---
Author Author [facility] Organization [facility] Address Unknown Phone Unavailable Encounter POLO Haynes(MARY BETH) [id number] Date(s): 01/16/17 - 01/17/17 [facility] [address] [employer] provided by [facility] [place] [address]- Discharge Diagnosis: Depression Discharge Diagnosis: Chest pain Discharge Disposition: Home or Self Care Attending Physician: Jeremy Doran MD Vital Signs 1 2 3 Most recent to oldest [Reference Range]: 162.56 cm (01/16/17 11:52 PM) Height 98.4 DegF (01/17/17 1:23 PM) 98.2 DegF (01/17/17 10:26 AM) 97.7 DegF (01/16/17 11:52 PM) Temperature Oral [96.4-99.1 DegF] 123/68 mmHg (01/17/17 1:23 PM) 110/79 mmHg (01/17/17 10:26 AM) 102/78 mmHg (01/17/17 6:00 AM) Blood Pressure [90-140/60-90 mmHg] 16 BRMIN (01/17/17 1:23 PM) 18 BRMIN (01/17/17 10:26 AM) 18 BRMIN (01/17/17 6:00 AM) Respiratory Rate [14-20 BRMIN] 76 bpm (01/17/17 1:23 PM) 82 bpm (01/17/17 10:26 AM) 85 bpm (01/17/17 6:00 AM) Peripheral Pulse Rate [60-100 bpm] 93.182 kg (01/16/17 11:52 PM) Weight 35.26 m2 (01/16/17 11:52 PM) Body Mass Index Problem List Condition Effective Dates Status Health Status Informant Acute myocardial Resolved ischemia(Confirmed) Anxiety(Confirmed) Active Autoimmune Active diabetes(Confirmed) Back Active fracture(Confirmed)1 Bipolar(Confirmed) Active Bladder Active disease(Confirmed) Melvina's Resolved osteochondritis(Conf irmed) COPD(Confirmed) Active Diabetic Active care(Confirmed) NE, old(Confirmed) Resolved Hepatitis Active C(Confirmed) Lupus(Confirmed) Active Neuropathy, 2015 Active peripheral(Confirmed ) Schizo-affective Active schizophrenia(Confir med) Sciatica(Confirmed) 2015 Active Seizure(Confirmed) Active [id number] Allergies, Adverse Reactions, Alerts Substance Reaction Severity Status aspirin Active Demerol HCl Active erythromycin Active Haldol Active Imitrex Active NSAIDs Active Stelazine Active sulfa drugs Active Toradol Active Medications Ativan 0.5 mg, Route: PO, Drug form: TAB, ONCE, Dosing Weight 93.182, kg, Priority: STA T, Start date: 01/17/17 1:50:00 CIRCUIT MANAGER, Stop date: 01/17/17 1:50:00 CIRCUIT MANAGER Start Date: 01/17/17 Stop Date: 01/17/17 Status: Completed [place] 10/325 oral tablet 1 tab, Route: PO, Drug Form: TAB, Dosing Weight 93.182, kg, ONCE, STAT, Start da te: 01/17/17 11:55:00 CIRCUIT MANAGER, Stop date: 01/17/17 11:55:00 CIRCUIT MANAGER Notes: Do not exceed 4gm/day of acetaminophen. (Same as: [place]hell 325/10) Start Date: 01/17/17 Stop Date: 01/17/17 Status: Completed tramadol 50 mg oral tablet 50 mg, 1 tab, Route: PO, Drug form: TAB, ONCE, Dosing Weight 93.182, kg, Priorit y: STAT, Start date: 01/17/17 10:45:00 CIRCUIT MANAGER, Stop date: 01/17/17 10:45:00 CIRCUIT MANAGER Notes: Not to exceed 400mg/day. (Same As: Ultram) Start Date: 01/17/17 Stop Date: 01/17/17 Status: Completed Valium 5 mg, 1 tab, Route: PO, Drug form: TAB, ONCE, Dosing Weight 93.182, kg, Priority : STAT, Start date: 01/17/17 9:12:00 CIRCUIT MANAGER, Stop date: 01/17/17 9:12:00 CIRCUIT MANAGER Notes: (Same as: Valium) Start Date: 01/17/17 Stop Date: 01/17/17 Status: Completed Zofran ODT 4 mg, 1 tab, Route: PO, Drug form: TABDIS, ONCE, Dosing Weight 93.182, kg, Prior ity: STAT, Start date: 01/17/17 10:14:00 CIRCUIT MANAGER, Stop date: 01/17/17 10:14:00 CIRCUIT MANAGER Notes: (Same as: Zofran ODT) Start Date: 01/17/17 Stop Date: 01/17/17 Status: Completed Results ELECTROLYTES Most recent to 1 oldest [Reference Range]: Sodium Lvl [135-145 142 mEq/L mEq/L] (01/17/17 2:24 AM) Potassium Lvl 3.9 mEq/L [3.5-5.1 mEq/L] (01/17/17 2:24 AM) Chloride Lvl [95-109 107 mEq/L mEq/L] (01/17/17 2:24 AM) CO2 [24-32 mEq/L] 24 mEq/L (01/17/17 2:24 AM) AGAP [10.0-20.0 14.9 mEq/L mEq/L] (01/17/17 2:24 AM) CHEM PANEL Most recent to 1 oldest [Reference Range]: Creatinine Lvl 1.10 mg/dL [0.50-1.40 mg/dL] (01/17/17 2:24 AM) eGFR 60 mL/min/1.73m2 1 *NA* (01/17/17 2:24 AM) BUN [7-22 mg/dL] 20 mg/dL (01/17/17 2:24 AM) Glucose Lvl [70-99 128 mg/dL mg/dL] *HI* (01/17/17 2:24 AM) Calcium Lvl 9.4 mg/dL [8.5-10.5 mg/dL] (01/17/17 2:24 AM) 1Result Comment: The eGFR is calculated [...] 1 oldest [Reference Range]: Total CK [12-191 40 unit/L unit/L] (01/17/17 2:24 AM) Troponin-I <0.02 ng/mL [0.00-0.40 ng/mL] (01/17/17 12:23 PM) DRUG SCREEN Most recent to 1 oldest [Reference Range]: U Amph Scr Negative [Negative] *NA* (01/17/17 2:11 AM) U Rahel Scr Negative [Negative] *NA* (01/17/17 2:11 AM) U Benzodia Scr Negative [Negative] *NA* (01/17/17 2:11 AM) U Cocaine Scr Negative [Negative] *NA* (01/17/17 2:11 AM) U Opiate Scr Negative [Negative] *NA* (01/17/17 2:11 AM) U Phencyc Scr Negative [Negative] *NA* (01/17/17 2:11 AM) U Cannab Scr Negative [Negative] *NA* (01/17/17 2:11 AM) UDS Note See Note *NA* (01/17/17 2:11 AM) TOXICOLOGY Most recent to 1 oldest [Reference Range]: Acetaminoph Lvl <2 [10-20] (01/17/17 2:24 AM) Salicylate Lvl 2.4 mg/dL [0.0-30.0 mg/dL] (01/17/17 2:24 AM) Etoh (%) <0.003 % (01/17/17 2:24 AM) Ethanol Lvl <3.0 mg/dL (01/17/17 2:24 AM) URINE AND STOOL Most recent to 1 oldest [Reference Range]: UA Turbidity [Clear] Clear (01/17/17 2:11 AM) UA Color [Yellow] Yellow *NA* (01/17/17 2:11 AM) UA pH [5.0-8.0] 7.0 (01/17/17 2:11 AM) UA Spec Grav 1.015 [<=1.030] (01/17/17 2:11 AM) UA Glucose Negative [Negative] (01/17/17 2:11 AM) UA Blood [Negative] Moderate *ABN* (01/17/17 2:11 AM) UA Ketones Trace [Negative] *ABN* (01/17/17 2:11 AM) UA Protein Negative [Negative] (01/17/17 2:11 AM) UA Urobilinogen 0.2 EU/dL [0.1-1.0 EU/dL] (01/17/17 2:11 AM) UA Bili [Negative] Negative *NA* (01/17/17 2:11 AM) UA Leuk Est Negative [Negative] (01/17/17 2:11 AM) UA Nitrite Negative [Negative] (01/17/17 2:11 AM) UA WBC [None Seen 0-2 /HPF /HPF] (01/17/17 2:11 AM) UA RBC 1-3 *NA* (01/17/17 2:11 AM) UA Bacteria [None Few /HPF Seen /HPF] (01/17/17 2:11 AM) UA Sq Epi [Few /LPF] Few /LPF (01/17/17 2:11 AM) HEMATOLOGY Most recent to 1 oldest [Reference Range]: WBC [3.7-10.4 K/CMM] 9.0 K/CMM (01/17/17 2:24 AM) RBC [4.20-5.40 4.28 M/CMM M/CMM] (01/17/17 2:24 AM) Hgb [12.0-16.0 g/dL] 13.4 g/dL (01/17/17 2:24 AM) Hct [36.0-48.0 %] 39.2 % (01/17/17 2:24 AM) MCV [80.0-98.0 fL] 91.7 fL (01/17/17 2:24 AM) MCH [27.0-31.0 pg] 31.4 pg *HI* (01/17/17 2:24 AM) MCHC [32.0-36.0 34.3 g/dL g/dL] (01/17/17 2:24 AM) RDW [11.5-14.5 %] 13.9 % (01/17/17 2:24 AM) Platelet [133-450 189 K/CMM K/CMM] (01/17/17 2:24 AM) MPV [7.4-10.4 fL] 7.7 fL (01/17/17 2:24 AM) Segs [45.0-75.0 %] 50.7 % (01/17/17 2:24 AM) Lymphocytes 40.4 % [20.0-40.0 %] *HI* (01/17/17 2:24 AM) Monocytes [2.0-12.0 6.2 % %] (01/17/17 2:24 AM) Eosinophils [0.0-4.0 2.2 % %] (01/17/17 2:24 AM) Basophils [0.0-1.0 0.5 % %] (01/17/17 2:24 AM) Segs-Bands # 4.6 K/CMM [1.5-8.1 K/CMM] (01/17/17 2:24 AM) Lymphocytes # 3.6 K/CMM [1.0-5.5 K/CMM] (01/17/17 2:24 AM) Monocytes # [0.0-0.8 0.6 K/CMM K/CMM] (01/17/17 2:24 AM) Eosinophils # 0.2 K/CMM [0.0-0.5 K/CMM] (01/17/17 2:24 AM) Immunizations Given and Recorded Vaccine Date Status Refusal Reason diphtheria/pertussis, acel/tetanus adult 01/06/13 Given influenza virus vaccine, inactivated 12/18/16 Given Not Given Vaccine Date Status Refusal Reason pneumococcal 23-valent vaccine1 01/15/17 Not Given Parent Or Guardian Refuses 1Result Comment: PATEINT REFUSE Procedures Procedure Date Related Diagnosis Body Site Appendectomy Cholecystectomy Hysterectomy Nasal tip rhinoplasty PTCA - Percutaneous transluminal coronary angioplasty Revision rhinoplasty Social History Social History Type Response Substance Abuse Use: None. Sexual Sexually active: No. Employment/School Status: Employed. Work/School description: part-time at [employer]. Alcohol Never Smoking Status Current every day smoker; Type: Cigarettes; Tobacco use per day: 10; Previous treatment: None; Ready to change: No; Concerns about tobacco use in household: No; Exposure to Tobacco Smoke None; Cigarette Smoking Last 365 Days Yes; Reg Smoking Cessation Counseling No Assessment and Plan No data available for this section
--- OUTSIDE RECORDS SUMMARY | 2019-02-28 22:40 | XMS REPORT | Summary of Care ---
Author Author [facility] Organization [facility] Address Unknown Phone Unavailable Encounter POLO Haynes(MARY BETH) [id number] Date(s): 01/24/17 - 01/24/17 [facility] [address] [employer] provided by [facility] [employer] [facility] [place] [address]- Discharge Diagnosis: Chest pain Discharge Disposition: Home or Self Care Attending Physician: Jeremy Doran MD Vital Signs 1 2 3 Most recent to oldest [Reference Range]: 162.56 cm (01/24/17 12:10 PM) Height 98 DegF (01/24/17 7:20 PM) 97.9 DegF (01/24/17 5:19 PM) 98.9 DegF (01/24/17 2:39 PM) Temperature Oral [96.4-99.1 DegF] 95/54 mmHg (01/24/17 7:20 PM) 103/65 mmHg (01/24/17 5:19 PM) 108/63 mmHg (01/24/17 2:39 PM) Blood Pressure [90-140/60-90 mmHg] 20 BRMIN (01/24/17 7:20 PM) 38 BRMIN *HI* (01/24/17 5:19 PM) 33 BRMIN *HI* (01/24/17 2:39 PM) Respiratory Rate [14-20 BRMIN] 83 bpm (01/24/17 12:10 PM) Peripheral Pulse Rate [60-100 bpm] 93.182 kg (01/24/17 12:10 PM) Weight 35.26 m2 (01/24/17 12:10 PM) Body Mass Index Problem List Condition Effective Dates Status Health Status Informant Acute myocardial Resolved ischemia(Confirmed) Anxiety(Confirmed) Active Autoimmune Active diabetes(Confirmed) Back Active fracture(Confirmed)1 Bipolar(Confirmed) Active Bladder Active disease(Confirmed) Melvina's Resolved osteochondritis(Conf irmed) COPD(Confirmed) Active Diabetic Active care(Confirmed) MT, old(Confirmed) Resolved Hepatitis Active C(Confirmed) Lupus(Confirmed) Active Neuropathy, 2015 Active peripheral(Confirmed ) Schizo-affective Active schizophrenia(Confir med) Sciatica(Confirmed) 2014 Active Seizure(Confirmed) Active [id number] Allergies, Adverse Reactions, Alerts Substance Reaction Severity Status aspirin Active Demerol HCl Active erythromycin Active Haldol Active Imitrex Active NSAIDs Active Stelazine Active sulfa drugs Active Toradol Active Medications Dilaudid 1 mg, Route: IV, ONCE, Dosing Weight 93.182, kg, Start date: 01/24/17 18:33:00 C DT, Stop date: 01/24/17 18:33:00 CDT Start Date: 01/24/17 Stop Date: 01/24/17 Status: Completed Dilaudid 0.5 mg, 0.25 mL, Route: IVP, Drug form: INJ, ONCE, Dosing Weight 93.182, kg, Miriam ority: STAT, Start date: 01/24/17 17:54:00 CDT, Stop date: 01/24/17 17:54:00 CDT Notes: Same as: Dilaudid Start Date: 01/24/17 Stop Date: 01/24/17 Status: Completed morphine Sulfate 4 mg, 1 mL, Route: IVP, Drug form: INJ, ONCE, Dosing Weight 93.182, kg, Priority : STAT, Start date: 01/24/17 15:00:00 CDT, Stop date: 01/24/17 15:00:00 CDT Notes: (Same as:MORPhine Sulfate) Start Date: 01/24/17 Stop Date: 01/24/17 Status: Completed nitroglycerin 0.4 mg sublingual tablet 0.4 mg, 1 tab, Route: SL, Drug form: TAB, Q5Min, Dosing Weight 93.182, kg, PRN C hest Pain, Priority: STAT, Start date: 01/24/17 15:28:00 CDT, Duration: 3 doses or times, Stop date: Limited # of times Start Date: 01/24/17 Stop Date: 01/24/17 Status: Discontinued ondansetron 4 mg, 2 mL, Route: IVP, Drug form: INJ, ONCE, Dosing Weight 93.182, kg, Priority : STAT, Start date: 01/24/17 15:00:00 CDT, Stop date: 01/24/17 15:00:00 CDT Notes: (Same as: Jen) MEDICATION WASTE Product Size: 4 mgProduct Was delonte: ___ mg Start Date: 01/24/17 Stop Date: 01/24/17 Status: Completed Results ELECTROLYTES Most recent to 1 oldest [Reference Range]: Sodium Lvl [135-145 143 mEq/L mEq/L] (01/24/17 3:59 PM) Potassium Lvl 4.9 mEq/L [3.5-5.1 mEq/L] (01/24/17 3:59 PM) Chloride Lvl [95-109 107 mEq/L mEq/L] (01/24/17 3:59 PM) CO2 [24-32 mEq/L] 28 mEq/L (01/24/17 3:59 PM) AGAP [10.0-20.0 12.9 mEq/L mEq/L] (01/24/17 3:59 PM) CHEM PANEL Most recent to 1 oldest [Reference Range]: Creatinine Lvl 0.79 mg/dL [0.50-1.40 mg/dL] (01/24/17 3:59 PM) eGFR 89 mL/min/1.73m2 1 *NA* (01/24/17 3:59 PM) BUN [7-22 mg/dL] 12 mg/dL (01/24/17 3:59 PM) Glucose Lvl [70-99 92 mg/dL mg/dL] (01/24/17 3:59 PM) Calcium Lvl 9.9 mg/dL [8.5-10.5 mg/dL] (01/24/17 3:59 PM) 1Result Comment: The eGFR is calculated [...] Range]: Total CK [12-191 40 unit/L unit/L] (01/24/17 3:59 PM) Troponin-T <0.010 ng/mL [0.000-0.100 ng/mL] (01/24/17 3:59 PM) Troponin-I <0.02 ng/mL [0.00-0.40 ng/mL] (01/24/17 3:59 PM) HEMATOLOGY Most recent to 1 oldest [Reference Range]: WBC [3.7-10.4 K/CMM] 9.2 K/CMM (01/24/17 3:59 PM) RBC [4.20-5.40 4.21 M/CMM M/CMM] (01/24/17 3:59 PM) Hgb [12.0-16.0 g/dL] 13.5 g/dL (01/24/17 3:59 PM) Hct [36.0-48.0 %] 38.8 % (01/24/17 3:59 PM) MCV [80.0-98.0 fL] 92.1 fL (01/24/17 3:59 PM) MCH [27.0-31.0 pg] 32.0 pg *HI* (01/24/17 3:59 PM) MCHC [32.0-36.0 34.8 g/dL g/dL] (01/24/17 3:59 PM) RDW [11.5-14.5 %] 14.3 % (01/24/17 3:59 PM) Platelet [133-450 204 K/CMM K/CMM] (01/24/17 3:59 PM) MPV [7.4-10.4 fL] 7.9 fL (01/24/17 3:59 PM) Segs [45.0-75.0 %] 49.1 % (01/24/17 3:59 PM) Lymphocytes 42.7 % [20.0-40.0 %] *HI* (01/24/17 3:59 PM) Monocytes [2.0-12.0 5.9 % %] (01/24/17 3:59 PM) Eosinophils [0.0-4.0 1.7 % %] (01/24/17 3:59 PM) Basophils [0.0-1.0 0.6 % %] (01/24/17 3:59 PM) Segs-Bands # 4.5 K/CMM [1.5-8.1 K/CMM] (01/24/17 3:59 PM) Lymphocytes # 3.9 K/CMM [1.0-5.5 K/CMM] (01/24/17 3:59 PM) Monocytes # [0.0-0.8 0.5 K/CMM K/CMM] (01/24/17 3:59 PM) Eosinophils # 0.2 K/CMM [0.0-0.5 K/CMM] (01/24/17 3:59 PM) Basophils # [0.0-0.2 0.1 K/CMM K/CMM] (01/24/17 3:59 PM) Immunizations Given and Recorded Vaccine Date [...] Employment/School Status: Employed. Work/School description: part-time at [employer]. Alcohol Never Smoking Status Current every day smoker; Type: Cigarettes; Tobacco use per day: 10; Previous treatment: None; Ready to change: No; Concerns about tobacco use in household: No; Exposure to Tobacco Smoke None; Cigarette Smoking Last 365 Days Yes; Reg Smoking Cessation Counseling No Assessment and Plan No data available for this section
--- OUTSIDE RECORDS SUMMARY | 2019-02-28 22:40 | XMS REPORT | Summary of Care ---
Author Author [facility] Organization [facility] Address Unknown Phone Unavailable Encounter POLO Haynes(MARY BETH) [id number] Date(s): 01/07/17 - 01/07/17 [facility] [address] [place] [address]- [phone] Discharge Diagnosis: Bacterial enteritis Discharge Disposition: Home or Self Care Attending Physician: Almas Villavicencio MD Referring Physician: Rashaad Rivera MD Vital Signs 1 2 3 Most recent to oldest [Reference Range]: 162.56 cm (01/07/17 6:58 AM) Height 98.5 DegF (01/07/17 3:05 PM) 97.9 DegF (01/07/17 1:21 PM) 98.0 DegF (01/07/17 6:58 AM) Temperature Oral [96.4-99.1 DegF] 143/82 mmHg *HI* (01/07/17 3:05 PM) 137/87 mmHg (01/07/17 1:21 PM) 132/89 mmHg (01/07/17 11:19 AM) Blood Pressure [90-140/60-90 mmHg] 19 BRMIN (01/07/17 3:05 PM) 20 BRMIN (01/07/17 1:21 PM) 18 BRMIN (01/07/17 11:19 AM) Respiratory Rate [14-20 BRMIN] 90 bpm (01/07/17 3:05 PM) 77 bpm (01/07/17 1:21 PM) 81 bpm (01/07/17 11:19 AM) Peripheral Pulse Rate [60-100 bpm] 93.182 kg (01/07/17 6:58 AM) Weight 35.26 m2 (01/07/17 6:58 AM) Body Mass Index Problem List Condition Effective Dates Status Health Status Informant Anxiety(Confirmed) Active Autoimmune Active diabetes(Confirmed) Back Active fracture(Confirmed)1 Bipolar(Confirmed) Active Bladder Active disease(Confirmed) Melvina's Resolved osteochondritis(Conf irmed) COPD(Confirmed) Active Diabetic Active care(Confirmed) Hepatitis Active C(Confirmed) Lupus(Confirmed) Active Neuropathy, 2014 Active peripheral(Confirmed ) Schizo-affective Active schizophrenia(Confir med) Sciatica(Confirmed) 2014 Active Seizure(Confirmed) Active 6U05-I7 Allergies, Adverse Reactions, Alerts Substance Reaction Severity Status aspirin Active Demerol HCl Active erythromycin Active Imitrex Active NSAIDs Active Stelazine Active sulfa drugs Active Toradol Active Medications Cipro 500 mg oral tablet 500 mg=1 tab, PO, Q12H, X 10 day, # 20 tab, 0 Refill(s) Start Date: 01/07/17 Stop Date: 01/17/17 Status: Ordered Flagyl 500 mg oral tablet 500 mg=1 tab, PO, Q8H, X 7 day, # 21 tab, 0 Refill(s) Start Date: 01/07/17 Stop Date: 01/14/17 Status: Ordered morphine Sulfate 4 mg, 1 mL, Route: IVP, Drug form: INJ, ONCE, Dosing Weight 93.182, kg, Priority : STAT, Start date: 01/07/17 7:15:00 GASOLINE SERVICE ATTENDANT, Stop date: 01/07/17 7:15:00 GASOLINE SERVICE ATTENDANT Notes: (Same as:MORPhine Sulfate) Start Date: 01/07/17 Stop Date: 01/07/17 Status: Completed morphine Sulfate 4 mg, 1 mL, Route: IVP, Drug form: INJ, ONCE, Dosing Weight 93.182, kg, Priority : STAT, Start date: 01/07/17 11:06:00 GASOLINE SERVICE ATTENDANT, Stop date: 01/07/17 11:06:00 GASOLINE SERVICE ATTENDANT Notes: (Same as:MORPhine Sulfate) Start Date: 01/07/17 Stop Date: 01/07/17 Status: Completed Omnipaque 300 injectable solution 85 mL, Route: IVP, Drug Form: SOLN, Dosing Weight 93.182, kg, ONCALL, GFR > 45 mL/min, STAT, Start date: 01/07/17 7:33:00 GASOLINE SERVICE ATTENDANT, Duration: 1 doses or times Notes: (Same as:Omnipaque 300).WASTE: F/P - Black; E - Municipal Trash Bin Start Date: 01/07/17 Stop Date: 01/07/17 Status: Completed Omnipaque 300 injectable solution 120 mL, Route: IVP, Dosing Weight 93.182, kg, ONCALL, GFR > 45 mL/min, STAT, Start date: 01/07/17 7:30:00 GASOLINE SERVICE ATTENDANT, Duration: 1 doses or times Start Date: 01/07/17 Stop Date: 01/07/17 Status: Discontinued ondansetron 4 mg, 2 mL, Route: IVP, Drug form: INJ, ONCE, Dosing Weight 93.182, kg, Priority : STAT, Start date: 01/07/17 7:15:00 GASOLINE SERVICE ATTENDANT, Stop date: 01/07/17 7:15:00 GASOLINE SERVICE ATTENDANT Notes: (Same as: Zofran) MEDICATION WASTE Product Size: 4 mgProduct Was delonte: ___ mg Start Date: 01/07/17 Stop Date: 01/07/17 Status: Completed ondansetron 4 mg, 2 mL, Route: IVP, Drug form: INJ, ONCE, Dosing Weight 93.182, kg, Priority : STAT, Start date: 01/07/17 11:06:00 GASOLINE SERVICE ATTENDANT, Stop date: 01/07/17 11:06:00 GASOLINE SERVICE ATTENDANT Notes: (Same as: Zofran) MEDICATION WASTE Product Size: 4 mgProduct Was delonte: ___ mg Start Date: 01/07/17 Stop Date: 01/07/17 Status: Completed Sodium Chloride 0.9% (Bolus) IV 1,000 mL, 1000 ml/hr, Infuse Over: 1 hr, Route: IV, 1,000, Drug form: INJ, ONCE, Priority: STAT, Dosing Weight 93.182 kg, Start date: 01/07/17 7:15:00 GASOLINE SERVICE ATTENDANT, Dura tion: 1 doses or times, Stop date: 01/07/17 7:15:00 GASOLINE SERVICE ATTENDANT Start Date: 01/07/17 Stop Date: 01/07/17 Status: Completed Tylenol with Codeine #3 oral tablet 1 - 2 tab, PO, Q4H, PRN Pain, X 4 day, # 36 tab, 0 Refill(s) Start Date: 01/07/17 Stop Date: 01/11/17 Status: Ordered Zofran ODT 4 mg oral tablet, disintegrating 4 mg=1 tab, PO, BID, PRN Nausea and Vomiting, Dissolve tab under tongue, X 5 day , # 10 tab, 0 Refill(s) Start Date: 01/07/17 Stop Date: 01/12/17 Status: Ordered Results ELECTROLYTES Most recent to 1 oldest [Reference Range]: Sodium Lvl [135-145 143 mEq/L mEq/L] (01/07/17 9:18 AM) Potassium Lvl 4.2 mEq/L [3.5-5.1 mEq/L] (01/07/17 9:18 AM) Chloride Lvl [95-109 106 mEq/L mEq/L] (01/07/17 9:18 AM) CO2 [24-32 mEq/L] 26 mEq/L (01/07/17 9:18 AM) AGAP [10.0-20.0 15.2 mEq/L mEq/L] (01/07/17 9:18 AM) CHEM PANEL Most recent to 1 oldest [Reference Range]: Creatinine Lvl 0.76 mg/dL [0.50-1.40 mg/dL] (01/07/17 9:18 AM) eGFR 93 mL/min/1.73m2 1 *NA* (01/07/17 9:18 AM) BUN [7-22 mg/dL] 19 mg/dL (01/07/17 9:18 AM) B/C Ratio [6-25] 25 (01/07/17 9:18 AM) Glucose Lvl [70-99 97 mg/dL mg/dL] (01/07/17 9:18 AM) Total Protein 8.6 g/dL [6.4-8.4 g/dL] *HI* (01/07/17 9:18 AM) Albumin Lvl [3.5-5.0 4.0 g/dL g/dL] (01/07/17 9:18 AM) Globulin [2.7-4.2 4.6 g/dL g/dL] *HI* (01/07/17 9:18 AM) A/G Ratio [0.7-1.6] 0.9 (01/07/17 9:18 AM) Calcium Lvl 9.3 mg/dL [8.5-10.5 mg/dL] (01/07/17 9:18 AM) ALT [0-65 unit/L] 45 unit/L (01/07/17 9:18 AM) AST [0-37 unit/L] 20 unit/L (01/07/17 9:18 AM) Alk Phos [39-136 166 unit/L unit/L] *HI* (01/07/17 9:18 AM) Bili Total [0.2-1.3 0.4 mg/dL mg/dL] (01/07/17 9:18 AM) Lipase Lvl [73-393 63 unit/L unit/L] *LOW* (01/07/17 9:18 AM) 1Result Comment: The eGFR is calculated [...] Most recent to 1 oldest [Reference Range]: CK MB [0.5-3.6 <0.5 ng/mL ng/mL] (01/07/17 9:18 AM) Troponin-I <0.02 ng/mL [0.00-0.40 ng/mL] (01/07/17 9:18 AM) URINE AND STOOL Most recent to 1 oldest [Reference Range]: UA Turbidity [Clear] Slight *ABN* (01/07/17 11:23 AM) UA Color [Yellow] Light Yellow *NA* (01/07/17 11:23 AM) UA pH [5.0-8.0] 6.0 (01/07/17 11:23 AM) UA Spec Grav 1.047 [<=1.030] *HI* (01/07/17 11:23 AM) UA Glucose [Negative Negative mg/dL mg/dL] *NA* (01/07/17 11:23 AM) UA Blood [Negative] Moderate *ABN* (01/07/17 11:23 AM) UA Ketones [Negative Negative mg/dL mg/dL] *NA* (01/07/17 11:23 AM) UA Protein [Negative Negative mg/dL mg/dL] (01/07/17 11:23 AM) UA Urobilinogen <=1.0 mg/dL [0.1-1.0 mg/dL] *NA* (01/07/17 11:23 AM) UA Bili [Negative] Negative *NA* (01/07/17 11:23 AM) UA Leuk Est Negative [Negative] (01/07/17 11:23 AM) UA Nitrite Negative [Negative] (01/07/17 11:23 AM) UA WBC [0-5 /HPF] 1 /HPF (01/07/17 11:23 AM) UA RBC [0-2 /HPF] 13 /HPF *HI* (01/07/17 11:23 AM) UA Sq Epi [Few /LPF] Many /LPF *ABN* (01/07/17 11:23 AM) UA Mucus [None Seen Few /LPF /LPF] *NA* (01/07/17 11:23 AM) HEMATOLOGY Most recent to 1 oldest [Reference Range]: WBC [3.7-10.4 K/CMM] 7.9 K/CMM (01/07/17 9:18 AM) RBC [4.20-5.40 5.09 M/CMM M/CMM] (01/07/17 9:18 AM) Hgb [12.0-16.0 g/dL] 15.6 g/dL (01/07/17 9:18 AM) Hct [36.0-48.0 %] 46.7 % (01/07/17 9:18 AM) MCV [80.0-98.0 fL] 91.6 fL (01/07/17 9:18 AM) MCH [27.0-31.0 pg] 30.5 pg (01/07/17 9:18 AM) MCHC [32.0-36.0 33.4 g/dL g/dL] (01/07/17 9:18 AM) RDW [11.5-14.5 %] 12.9 % (01/07/17 9:18 AM) Platelet [133-450 224 K/CMM K/CMM] (01/07/17 9:18 AM) MPV [7.4-10.4 fL] 7.8 fL (01/07/17 9:18 AM) Segs [45.0-75.0 %] 62.7 % (01/07/17 9:18 AM) Lymphocytes 30.7 % [20.0-40.0 %] (01/07/17 9:18 AM) Monocytes [2.0-12.0 5.0 % %] (01/07/17 9:18 AM) Eosinophils [0.0-4.0 1.3 % %] (01/07/17 9:18 AM) Basophils [0.0-1.0 0.3 % %] (01/07/17 9:18 AM) Segs-Bands # 4.9 K/CMM [1.5-8.1 K/CMM] (01/07/17 9:18 AM) Lymphocytes # 2.4 K/CMM [1.0-5.5 K/CMM] (01/07/17 9:18 AM) Monocytes # [0.0-0.8 0.4 K/CMM K/CMM] (01/07/17 9:18 AM) Eosinophils # 0.1 K/CMM [0.0-0.5 K/CMM] (01/07/17 9:18 AM) Basophils # [0.0-0.2 0.0 K/CMM K/CMM] (01/07/17 9:18 AM) Immunizations Given and Recorded Vaccine Date Status Refusal Reason diphtheria/pertussis, acel/tetanus adult 01/06/13 Given influenza virus vaccine, inactivated 12/18/16 Given Procedures Procedure Date Related Diagnosis Body Site Appendectomy Cholecystectomy Hysterectomy Nasal tip rhinoplasty PTCA - Percutaneous transluminal coronary angioplasty Revision rhinoplasty Social History Social History Type Response Substance Abuse Use: None. Sexual Sexually active: No. Employment/School Status: Employed. Work/School description: part-time at [employer]. Alcohol Never Smoking Status Current every day smoker; Type: Cigarettes; Tobacco use per day: 10; Previous treatment: None; Ready to change: No; Concerns about tobacco use in household: No; Exposure to Tobacco Smoke None; Cigarette Smoking Last 365 Days No; Reg Smoking Cessation Counseling No Assessment and Plan No data available for this section
--- OUTSIDE RECORDS SUMMARY | 2019-02-28 22:40 | XMS REPORT | Summary of Care ---
Author Author [facility] Organization [facility] Address Unknown Phone Unavailable Encounter POLO Haynes(MARY BETH) [id number] Date(s): 02/03/17 - 02/03/17 [facility] [address] [employer] provided by [facility] [employer] [facility] [place] [address]- Discharge Diagnosis: Acute angina Discharge Disposition: Home or Self Care Attending Physician: Rosa Loza MD Vital Signs 1 2 3 Most recent to oldest [Reference Range]: 165.1 cm (02/03/17 2:16 PM) Height 97.9 DegF (02/03/17 5:30 PM) 98.2 DegF (02/03/17 2:16 PM) Temperature Oral [96.4-99.1 DegF] 100/66 mmHg (02/03/17 7:00 PM) 113/74 mmHg (02/03/17 5:30 PM) 111/78 mmHg (02/03/17 4:00 PM) Blood Pressure [90-140/60-90 mmHg] 16 BRMIN (02/03/17 7:00 PM) 18 BRMIN (02/03/17 5:30 PM) 16 BRMIN (02/03/17 4:00 PM) Respiratory Rate [14-20 BRMIN] 92 bpm (02/03/17 2:16 PM) Peripheral Pulse Rate [60-100 bpm] 125 kg (02/03/17 2:16 PM) Weight 45.86 m2 (02/03/17 2:16 PM) Body Mass Index Problem List Condition Effective Dates Status Health Status Informant Acute myocardial Resolved ischemia(Confirmed) Anxiety(Confirmed) Active Autoimmune Active diabetes(Confirmed) Back Active fracture(Confirmed)1 Bipolar(Confirmed) Active Bladder Active disease(Confirmed) Melvina's Resolved osteochondritis(Conf irmed) COPD(Confirmed) Active Diabetic Active care(Confirmed) [place], old(Confirmed) Resolved Hepatitis Active C(Confirmed) Lupus(Confirmed) Active Neuropathy, 2015 Active peripheral(Confirmed ) Schizo-affective Active schizophrenia(Confir med) Sciatica(Confirmed) 2015 Active Seizure(Confirmed) Active [id number] Allergies, Adverse Reactions, Alerts Substance Reaction Severity Status aspirin Active Demerol HCl Active erythromycin Active Haldol Active Imitrex Active NSAIDs Active Stelazine Active sulfa drugs Active Toradol Active Medications morphine Sulfate 4 mg, Route: IVP, ONCE, Dosing Weight 125, kg, Priority: STAT, Start date: 02/03 15:41:00 CDT, Stop date: 02/03/17 15:41:00 CDT Start Date: 02/03/17 Stop Date: 02/03/17 Status: Completed ondansetron 4 mg, Route: IVP, Drug form: INJ, ONCE, Dosing Weight 125, kg, Priority: STAT, S tart date: 02/03/17 15:41:00 CDT, Stop date: 02/03/17 15:41:00 CDT Start Date: 02/03/17 Stop Date: 02/03/17 Status: Completed potassium chloride 20 mEq/15 mL oral liquid 60 mEq, Route: PO, Drug form: LIQ, ONCE, Dosing Weight 125, kg, Priority: STAT, Start date: 02/03/17 18:12:00 CDT, Stop date: 02/03/17 18:12:00 CDT Start Date: 02/03/17 Stop Date: 02/03/17 Status: Completed Results ELECTROLYTES Most recent to 1 oldest [Reference Range]: Sodium Lvl [135-145 143 mEq/L mEq/L] (02/03/17 5:15 PM) Potassium Lvl 3.0 mEq/L 1 [3.5-5.1 mEq/L] *CRIT* (02/03/17 5:15 PM) Chloride Lvl [95-109 108 mEq/L mEq/L] (02/03/17 5:15 PM) CO2 [24-32 mEq/L] 23 mEq/L *LOW* (02/03/17 5:15 PM) AGAP [10.0-20.0 15.0 mEq/L mEq/L] (02/03/17 5:15 PM) 1Result Comment: Critical Result(s) called to Dr. Larissa Aquino at _02/03/2017 17:49 by_CPang. Read back OK. CHEM PANEL Most recent to 1 oldest [Reference Range]: Creatinine Lvl 0.69 mg/dL [0.50-1.40 mg/dL] (02/03/17 5:15 PM) eGFR 103 mL/min/1.73m2 1 *NA* (02/03/17 5:15 PM) BUN [7-22 mg/dL] 11 mg/dL (02/03/17 5:15 PM) Glucose Lvl [70-99 88 mg/dL mg/dL] (02/03/17 5:15 PM) Calcium Lvl 9.3 mg/dL [8.5-10.5 mg/dL] (02/03/17 5:15 PM) Lactic Acid Lvl 1.2 mMol/L [0.5-2.2 mMol/L] (02/03/17 5:15 PM) 1Result Comment: The eGFR is calculated [...] Most recent to 1 oldest [Reference Range]: Troponin-I <0.02 ng/mL [0.00-0.40 ng/mL] (02/03/17 5:15 PM) HEMATOLOGY Most recent to 1 oldest [Reference Range]: WBC [3.7-10.4 K/CMM] 9.5 K/CMM (02/03/17 5:15 PM) RBC [4.20-5.40 4.05 M/CMM M/CMM] *LOW* (02/03/17 5:15 PM) Hgb [12.0-16.0 g/dL] 13.0 g/dL (02/03/17 5:15 PM) Hct [36.0-48.0 %] 37.0 % (02/03/17 5:15 PM) MCV [80.0-98.0 fL] 91.4 fL (02/03/17 5:15 PM) MCH [27.0-31.0 pg] 32.2 pg *HI* (02/03/17 5:15 PM) MCHC [32.0-36.0 35.2 g/dL g/dL] (02/03/17 5:15 PM) RDW [11.5-14.5 %] 14.2 % (02/03/17 5:15 PM) Platelet [133-450 199 K/CMM K/CMM] (02/03/17 5:15 PM) MPV [7.4-10.4 fL] 8.2 fL (02/03/17 5:15 PM) Segs [45.0-75.0 %] 46.9 % (02/03/17 5:15 PM) Lymphocytes 45.5 % [20.0-40.0 %] *HI* (02/03/17 5:15 PM) Monocytes [2.0-12.0 5.3 % %] (02/03/17 5:15 PM) Eosinophils [0.0-4.0 1.5 % %] (02/03/17 5:15 PM) Basophils [0.0-1.0 0.8 % %] (02/03/17 5:15 PM) Segs-Bands # 4.4 K/CMM [1.5-8.1 K/CMM] (02/03/17 5:15 PM) Lymphocytes # 4.3 K/CMM [1.0-5.5 K/CMM] (02/03/17 5:15 PM) Monocytes # [0.0-0.8 0.5 K/CMM K/CMM] (02/03/17 5:15 PM) Eosinophils # 0.1 K/CMM [0.0-0.5 K/CMM] (02/03/17 5:15 PM) Basophils # [0.0-0.2 0.1 K/CMM K/CMM] (02/03/17 5:15 PM) Immunizations Given and Recorded Vaccine Date [...] Employment/School Status: Employed. Work/School description: part-time at [employer]. Alcohol Never Smoking Status Current every day smoker; Type: Cigarettes; Exposure to Tobacco Smoke None; Cigarette Smoking Last 365 Days Yes; Reg Smoking Cessation Counseling No Assessment and Plan No data available for this section
--- OUTSIDE RECORDS SUMMARY | 2019-02-28 22:40 | XMS REPORT | Summary of Care ---
Author Author [facility] Organization [facility] Address Unknown Phone Unavailable Encounter POLO Haynes(MARY BETH) [id number] Date(s): 01/30/17 - 01/30/17 [facility] [address] [employer] provided by [employer] [place] [address]- Discharge Diagnosis: Chest pain Discharge Disposition: Home or Self Care Attending Physician: Jarrod Moreira MD Referring Physician: Rashaad Rivera MD Vital Signs 1 2 3 Most recent to oldest [Reference Range]: 162.56 cm (01/30/17 10:15 AM) Height 98.3 DegF (01/30/17 6:45 PM) 98.1 DegF (01/30/17 4:00 PM) 98.6 DegF (01/30/17 10:15 AM) Temperature Oral [96.4-99.1 DegF] 101/57 mmHg (01/30/17 6:45 PM) 100/59 mmHg (01/30/17 6:00 PM) 85/63 mmHg *LOW* (01/30/17 5:00 PM) Blood Pressure [90-140/60-90 mmHg] 18 BRMIN (01/30/17 6:45 PM) 16 BRMIN (01/30/17 6:00 PM) 18 BRMIN (01/30/17 5:00 PM) Respiratory Rate [14-20 BRMIN] 80 bpm (01/30/17 10:15 AM) Peripheral Pulse Rate [60-100 bpm] 93.182 kg (01/30/17 10:15 AM) Weight 35.26 m2 (01/30/17 10:15 AM) Body Mass Index Problem List Condition Effective Dates Status Health Status Informant Acute myocardial Resolved ischemia(Confirmed) Anxiety(Confirmed) Active Autoimmune Active diabetes(Confirmed) Back Active fracture(Confirmed)1 Bipolar(Confirmed) Active Bladder Active disease(Confirmed) Melvina's Resolved osteochondritis(Conf irmed) COPD(Confirmed) Active Diabetic Active care(Confirmed) [place], old(Confirmed) Resolved Hepatitis Active C(Confirmed) Lupus(Confirmed) Active Neuropathy, 2014 Active peripheral(Confirmed ) Schizo-affective Active schizophrenia(Confir med) Sciatica(Confirmed) 2014 Active Seizure(Confirmed) Active [id number]-E7 Allergies, Adverse Reactions, Alerts Substance Reaction Severity Status aspirin Active Demerol HCl Active erythromycin Active Haldol Active Imitrex Active NSAIDs Active Stelazine Active sulfa drugs Active Toradol Active Medications morphine Sulfate 4 mg, Route: IVP, ONCE, Dosing Weight 93.182, kg, Start date: 01/30/17 10:39:00 CDT, Stop date: 01/30/17 10:39:00 CDT Start Date: 01/30/17 Stop Date: 01/30/17 Status: Completed [place] 5/325 oral tablet 1 tab, Route: PO, Drug Form: TAB, Dosing Weight 93.182, kg, ONCE, STAT, Start da te: 01/30/17 18:15:00 CDT, Stop date: 01/30/17 18:15:00 CDT Notes: (Same as: [place] 325/5) Do not exceed 4gm/day of acetaminophen. Start Date: 01/30/17 Stop Date: 01/30/17 Status: Completed NS (Bolus) IV 1,000 mL, 1,000 ml/hr, Infuse Over: 1 hr, Route: IV, 1,000, Drug form: INJ, ONCE , Priority: STAT, Dosing Weight 93.182 kg, Start date: 01/30/17 11:12:00 CDT, Du ration: 1 doses or times, Stop date: 01/30/17 11:12:00 CDT Start Date: 01/30/17 Stop Date: 01/30/17 Status: Completed NS (Bolus) IV 1,000 mL, 1,000 ml/hr, Infuse Over: 1 hr, Route: IV, 1,000, Drug form: INJ, ONCE , Priority: STAT, Dosing Weight 93.182 kg, Start date: 01/30/17 16:09:00 CDT, Du ration: 1 doses or times, Stop date: 01/30/17 16:09:00 CDT Start Date: 01/30/17 Stop Date: 01/30/17 Status: Completed Zofran 4 mg, Route: IVP, Drug form: INJ, ONCE, Dosing Weight 93.182, kg, Priority: STAT , Start date: 01/30/17 10:39:00 CDT, Stop date: 01/30/17 10:39:00 CDT Start Date: 01/30/17 Stop Date: 01/30/17 Status: Completed Zofran ODT 4 mg, 1 tab, Route: PO, Drug form: TABDIS, ONCE, Dosing Weight 93.182, kg, Prior ity: STAT, Start date: 01/30/17 18:15:00 CDT, Stop date: 01/30/17 18:15:00 CDT Notes: (Same as: Zofran ODT) Start Date: 01/30/17 Stop Date: 01/30/17 Status: Completed Results ELECTROLYTES Most recent to 1 2 oldest [Reference Range]: Sodium Lvl [135-145 140 mEq/L mEq/L] (01/30/17 11:20 AM) Potassium Lvl 3.9 mEq/L [3.5-5.1 mEq/L] (01/30/17 11:20 AM) Chloride Lvl [95-109 106 mEq/L mEq/L] (01/30/17 11:20 AM) CO2 [24-32 mEq/L] 20 mEq/L *LOW* (01/30/17 11:20 AM) AGAP [10.0-20.0 17.9 mEq/L mEq/L] (01/30/17 11:20 AM) CHEM PANEL Most recent to 1 2 oldest [Reference Range]: Creatinine Lvl 0.79 mg/dL [0.50-1.40 mg/dL] (01/30/17 11:20 AM) eGFR 89 mL/min/1.73m2 1 *NA* (01/30/17 11:20 AM) BUN [7-22 mg/dL] 13 mg/dL (01/30/17 11:20 AM) Glucose Lvl [70-99 84 mg/dL mg/dL] (01/30/17 11:20 AM) Calcium Lvl 8.5 mg/dL [8.5-10.5 mg/dL] (01/30/17 11:20 AM) Lactic Acid Lvl 1.2 mMol/L [0.5-2.2 mMol/L] (01/30/17 2:57 PM) Lactic Acid WB 1.1 mmol/L 3.0 mmol/L [0.5-2.2 mmol/L] (01/30/17 2:57 PM) *HI* (01/30/17 11:01 AM) 1Result Comment: The eGFR is calculated [...] recent to 1 2 oldest [Reference Range]: Troponin-I <0.02 ng/mL <0.02 ng/mL [0.00-0.40 ng/mL] (01/30/17 2:57 PM) (01/30/17 11:20 AM) URINE AND STOOL Most recent to 1 2 oldest [Reference Range]: UA Turbidity [Clear] Clear (01/30/17 5:28 PM) UA Color [Yellow] Yellow *NA* (01/30/17 5:28 PM) UA pH [5.0-8.0] 6.0 (01/30/17 5:28 PM) UA Spec Grav 1.020 [<=1.030] (01/30/17 5:28 PM) UA Glucose [Negative Negative mg/dL mg/dL] *NA* (01/30/17 5:28 PM) UA Blood [Negative] Small *ABN* (01/30/17 5:28 PM) UA Ketones [Negative Negative mg/dL mg/dL] *NA* (01/30/17 5:28 PM) UA Protein [Negative 50 mg/dL mg/dL] *ABN* (01/30/17 5:28 PM) UA Urobilinogen <=1.0 mg/dL [0.1-1.0 mg/dL] *NA* (01/30/17 5:28 PM) UA Bili [Negative] Negative *NA* (01/30/17 5:28 PM) UA Leuk Est Negative [Negative] (01/30/17 5:28 PM) UA Nitrite Negative [Negative] (01/30/17 5:28 PM) UA WBC [0-5 /HPF] 2 /HPF (01/30/17 5:28 PM) UA RBC [0-2 /HPF] 5 /HPF *HI* (01/30/17 5:28 PM) UA Bacteria [None Occasional /HPF Seen /HPF] *NA* (01/30/17 5:28 PM) UA Sq Epi [Few /LPF] Few /LPF *NA* (01/30/17 5:28 PM) UA Mucus [None Seen Few /LPF /LPF] *NA* (01/30/17 5:28 PM) HEMATOLOGY Most recent to 1 2 oldest [Reference Range]: WBC [3.7-10.4 K/CMM] 10.5 K/CMM *HI* (01/30/17 11:20 AM) RBC [4.20-5.40 4.08 M/CMM M/CMM] *LOW* (01/30/17 11:20 AM) Hgb [12.0-16.0 g/dL] 13.1 g/dL (01/30/17 11:20 AM) Hct [36.0-48.0 %] 37.2 % (01/30/17 11:20 AM) MCV [80.0-98.0 fL] 91.4 fL (01/30/17 11:20 AM) MCH [27.0-31.0 pg] 32.1 pg *HI* (01/30/17 11:20 AM) MCHC [32.0-36.0 35.1 g/dL g/dL] (01/30/17 11:20 AM) RDW [11.5-14.5 %] 14.2 % (01/30/17 11:20 AM) Platelet [133-450 194 K/CMM K/CMM] (01/30/17 11:20 AM) MPV [7.4-10.4 fL] 8.1 fL (01/30/17 11:20 AM) Segs [45.0-75.0 %] 57.2 % (01/30/17 11:20 AM) Lymphocytes 34.5 % [20.0-40.0 %] (01/30/17 11:20 AM) Monocytes [2.0-12.0 6.4 % %] (01/30/17 11:20 AM) Eosinophils [0.0-4.0 1.2 % %] (01/30/17 11:20 AM) Basophils [0.0-1.0 0.7 % %] (01/30/17 11:20 AM) Segs-Bands # 6.0 K/CMM [1.5-8.1 K/CMM] (01/30/17 11:20 AM) Lymphocytes # 3.6 K/CMM [1.0-5.5 K/CMM] (01/30/17 11:20 AM) Monocytes # [0.0-0.8 0.7 K/CMM K/CMM] (01/30/17 11:20 AM) Eosinophils # 0.1 K/CMM [0.0-0.5 K/CMM] (01/30/17 11:20 AM) Basophils # [0.0-0.2 0.1 K/CMM K/CMM] (01/30/17 11:20 AM) Immunizations Given and Recorded Vaccine Date [...] Employment/School Status: Employed. Work/School description: part-time at [employer]. Alcohol Never Smoking Status Current every day smoker; Type: Cigarettes; Tobacco use per day: 10; Previous treatment: None; Ready to change: No; Concerns about tobacco use in household: No; Exposure to Tobacco Smoke None; Cigarette Smoking Last 365 Days Yes; Reg Smoking Cessation Counseling No Assessment and Plan No data available for this section
--- OUTSIDE RECORDS SUMMARY | 2019-02-28 22:40 | XMS REPORT | Summary of Care ---
Author Author [facility] Organization [facility] Address Unknown Phone Unavailable Encounter POLO Haynes(MARY BETH) [id number] Date(s): 01/09/17 - 01/09/17 [facility] [address] [place] [address]- Discharge Diagnosis: Abdominal pain in female Discharge Diagnosis: Enteritis Discharge Disposition: Home or Self Care Attending Physician: Cinthia Stubbs DO Referring Physician: Rashaad Rivera MD Vital Signs Most recent to 1 2 oldest [Reference Range]: Height 162.56 cm (01/09/17 8:29 AM) Temperature Oral 98.2 DegF 98.8 DegF [96.4-99.1 DegF] (01/09/17 10:28 AM) (01/09/17 8:29 AM) Blood Pressure 102/60 mmHg 126/90 mmHg [90-140/60-90 mmHg] (01/09/17 10:28 AM) (01/09/17 8:29 AM) Respiratory Rate 18 BRMIN 20 BRMIN [14-20 BRMIN] (01/09/17 10:28 AM) (01/09/17 8:29 AM) Peripheral Pulse 85 bpm 94 bpm Rate [60-100 bpm] (01/09/17 10:28 AM) (01/09/17 8:29 AM) Weight 93.182 kg (01/09/17 8:29 AM) Body Mass Index 35.26 m2 (01/09/17 8:29 AM) Problem List Condition Effective Dates Status Health Status Informant Anxiety(Confirmed) Active Autoimmune Active diabetes(Confirmed) Back Active fracture(Confirmed)1 Bipolar(Confirmed) Active Bladder Active disease(Confirmed) Melvina's Resolved osteochondritis(Conf irmed) COPD(Confirmed) Active Diabetic Active care(Confirmed) Hepatitis Active C(Confirmed) Lupus(Confirmed) Active Neuropathy, 2014 Active peripheral(Confirmed ) Schizo-affective Active schizophrenia(Confir med) Sciatica(Confirmed) 2014 Active Seizure(Confirmed) Active 3F28-I9 Allergies, Adverse Reactions, Alerts Substance Reaction Severity Status aspirin Active Demerol HCl Active erythromycin Active Imitrex Active NSAIDs Active Stelazine Active sulfa drugs Active Toradol Active Medications morphine Sulfate 4 mg, Route: IVP, ONCE, Dosing Weight 93.182, kg, Priority: STAT, Start date: 9:02:00 EPIDEMIOLOGIST, Stop date: 01/09/17 9:02:00 EPIDEMIOLOGIST Start Date: 01/09/17 Stop Date: 01/09/17 Status: Completed [place] 5/325 oral tablet 1 tab, Route: PO, Drug Form: TAB, Dosing Weight 93.182, kg, ONCE, STAT, Start da te: 01/09/17 10:24:00 EPIDEMIOLOGIST, Stop date: 01/09/17 10:24:00 EPIDEMIOLOGIST Notes: (Same as: [place] 325/5) Do not exceed 4gm/day of acetaminophen. Start Date: 01/09/17 Stop Date: 01/09/17 Status: Completed ondansetron 4 mg, Route: IVP, ONCE, Dosing Weight 93.182, kg, Priority: STAT, Start date: 9:02:00 EPIDEMIOLOGIST, Stop date: 01/09/17 9:02:00 EPIDEMIOLOGIST Start Date: 01/09/17 Stop Date: 01/09/17 Status: Completed Saline Flush 0.9% 10 mL, Route: IVP, Drug Form: INJ, Dosing Weight 93.182, kg, PRN, PRN Line Flush , Start date: 01/09/17 9:02:00 EPIDEMIOLOGIST, Duration: 30 day, Stop date: 02/08/17 10:01: 00 CDT Notes: (Same as: BD Posiflush) Start Date: 01/09/17 Stop Date: 01/09/17 Status: Discontinued Sodium Chloride 0.9% (Bolus) IV 1,000 mL, 2,000 ml/hr, Infuse Over: 30 minutes, Route: IV, ONCE, Priority: STAT, Dosing Weight 93.182 kg, Start date: 01/09/17 9:02:00 EPIDEMIOLOGIST, Duration: 1 doses or times, Stop date: 01/09/17 9:02:00 EPIDEMIOLOGIST Start Date: 01/09/17 Stop Date: 01/09/17 Status: Completed Tylenol with Codeine #3 oral tablet 1 - 2 tab, PO, Q4H, PRN Pain, X 2 day, # 20 tab, 0 Refill(s) Start Date: 01/09/17 Stop Date: 01/11/17 Status: Completed Results ELECTROLYTES Most recent to 1 oldest [Reference Range]: Sodium Lvl [135-145 144 mEq/L mEq/L] (01/09/17 9:34 AM) Potassium Lvl 3.7 mEq/L [3.5-5.1 mEq/L] (01/09/17 9:34 AM) Chloride Lvl [95-109 110 mEq/L mEq/L] *HI* (01/09/17 9:34 AM) CO2 [24-32 mEq/L] 24 mEq/L (01/09/17 9:34 AM) AGAP [10.0-20.0 13.7 mEq/L mEq/L] (01/09/17 9:34 AM) CHEM PANEL Most recent to 1 oldest [Reference Range]: Creatinine Lvl 0.77 mg/dL [0.50-1.40 mg/dL] (01/09/17 9:34 AM) eGFR 92 mL/min/1.73m2 1 *NA* (01/09/17 9:34 AM) BUN [7-22 mg/dL] 12 mg/dL (01/09/17 9:34 AM) Glucose Lvl [70-99 117 mg/dL mg/dL] *HI* (01/09/17 9:34 AM) Total Protein 7.5 g/dL [6.4-8.4 g/dL] (01/09/17 9:34 AM) Albumin Lvl [3.5-5.0 3.4 g/dL g/dL] *LOW* (01/09/17 9:34 AM) Globulin [2.7-4.2 4.1 g/dL g/dL] (01/09/17 9:34 AM) A/G Ratio [0.7-1.6] 0.8 (01/09/17 9:34 AM) Calcium Lvl 8.9 mg/dL [8.5-10.5 mg/dL] (01/09/17 9:34 AM) ALT [0-65 unit/L] 39 unit/L (01/09/17 9:34 AM) AST [0-37 unit/L] 14 unit/L (01/09/17 9:34 AM) Alk Phos [39-136 150 unit/L unit/L] *HI* (01/09/17 9:34 AM) Bili Total [0.2-1.3 0.2 mg/dL mg/dL] (01/09/17 9:34 AM) Bili Direct [0.0-0.3 0.1 mg/dL mg/dL] (01/09/17 9:34 AM) Bili Indirect 0.1 mg/dL [0.0-1.0 mg/dL] (01/09/17 9:34 AM) Lipase Lvl [73-393 59 unit/L unit/L] *LOW* (01/09/17 9:34 AM) 1Result Comment: The eGFR is calculated [...] be mul tiplied by the estimated BMI. URINE AND STOOL Most recent to 1 oldest [Reference Range]: UA Turbidity [Clear] Slight *ABN* (01/09/17 9:34 AM) UA Color Yellow *NA* (01/09/17 9:34 AM) UA pH [5.0-8.0] 6.0 (01/09/17 9:34 AM) UA Spec Grav 1.019 [<=1.030] (01/09/17 9:34 AM) UA Glucose [Negative Negative mg/dL mg/dL] *NA* (01/09/17 9:34 AM) UA Blood [Negative] Small *ABN* (01/09/17 9:34 AM) UA Ketones [Negative Negative mg/dL mg/dL] *NA* (01/09/17 9:34 AM) UA Protein [Negative 30 mg/dL mg/dL] *ABN* (01/09/17 9:34 AM) UA Urobilinogen <=1.0 mg/dL [0.1-1.0 mg/dL] *NA* (01/09/17 9:34 AM) UA Bili [Negative] Negative *NA* (01/09/17 9:34 AM) UA Leuk Est Negative [Negative] (01/09/17 9:34 AM) UA Nitrite Negative [Negative] (01/09/17 9:34 AM) UA WBC [0-5 /HPF] 2 /HPF (01/09/17 9:34 AM) UA RBC [0-2 /HPF] 10 /HPF *HI* (01/09/17 9:34 AM) UA Bacteria [None Occasional /HPF Seen /HPF] *NA* (01/09/17 9:34 AM) UA Sq Epi [Few /LPF] Few /LPF *NA* (01/09/17 9:34 AM) UA Mucus [None Seen Few /LPF /LPF] *NA* (01/09/17 9:34 AM) HEMATOLOGY Most recent to 1 oldest [Reference Range]: WBC [3.7-10.4 K/CMM] 7.7 K/CMM (01/09/17 9:34 AM) RBC [4.20-5.40 4.39 M/CMM M/CMM] (01/09/17 9:34 AM) Hgb [12.0-16.0 g/dL] 13.5 g/dL (01/09/17 9:34 AM) Hct [36.0-48.0 %] 40.1 % (01/09/17 9:34 AM) MCV [80.0-98.0 fL] 91.5 fL (01/09/17 9:34 AM) MCH [27.0-31.0 pg] 30.8 pg (01/09/17 9:34 AM) MCHC [32.0-36.0 33.6 g/dL g/dL] (01/09/17 9:34 AM) RDW [11.5-14.5 %] 13.3 % (01/09/17 9:34 AM) Platelet [133-450 164 K/CMM K/CMM] (01/09/17 9:34 AM) MPV [7.4-10.4 fL] 7.7 fL (01/09/17 9:34 AM) Segs [45.0-75.0 %] 63.7 % (01/09/17 9:34 AM) Lymphocytes 29.4 % [20.0-40.0 %] (01/09/17 9:34 AM) Monocytes [2.0-12.0 4.8 % %] (01/09/17 9:34 AM) Eosinophils [0.0-4.0 1.5 % %] (01/09/17 9:34 AM) Basophils [0.0-1.0 0.6 % %] (01/09/17 9:34 AM) Segs-Bands # 4.9 K/CMM [1.5-8.1 K/CMM] (01/09/17 9:34 AM) Lymphocytes # 2.3 K/CMM [1.0-5.5 K/CMM] (01/09/17 9:34 AM) Monocytes # [0.0-0.8 0.4 K/CMM K/CMM] (01/09/17 9:34 AM) Eosinophils # 0.1 K/CMM [0.0-0.5 K/CMM] (01/09/17 9:34 AM) Basophils # [0.0-0.2 0.0 K/CMM K/CMM] (01/09/17 9:34 AM) Immunizations Given and Recorded Vaccine Date Status Refusal Reason diphtheria/pertussis, acel/tetanus adult 01/06/13 Given influenza virus vaccine, inactivated 12/18/16 Given Procedures Procedure Date Related Diagnosis Body Site Appendectomy Cholecystectomy Hysterectomy Nasal tip rhinoplasty PTCA - Percutaneous transluminal coronary angioplasty Revision rhinoplasty Social History Social History Type Response Substance Abuse Use: None. Sexual Sexually active: No. Employment/School Status: Employed. Work/School description: part-time at [employer]. Alcohol Never Smoking Status Current every day smoker; Type: Cigarettes; Tobacco use per day: 10; Previous treatment: None; Ready to change: No; Concerns about tobacco use in household: No; Exposure to Tobacco Smoke None; Cigarette Smoking Last 365 Days No; Reg Smoking Cessation Counseling No Assessment and Plan No data available for this section
--- OUTSIDE RECORDS SUMMARY | 2019-02-28 22:40 | XMS REPORT | Summary of Care ---
Author Author [facility] Organization [facility] Address Unknown Phone Unavailable Encounter POLO Haynes(MARY BETH) [id number] Date(s): 01/24/17 - 01/25/17 [facility] [address] [employer] provided by [facility] [employer] [facility] [place] [address]- Discharge Diagnosis: Chest pain Discharge Disposition: Home or Self Care Attending Physician: Laurel Childs MD Vital Signs 1 2 3 Most recent to oldest [Reference Range]: 162.56 cm (01/24/17 10:34 PM) Height 97.2 DegF (01/24/17 10:34 PM) Temperature Oral [96.4-99.1 DegF] 105/58 mmHg (01/25/17 3:00 AM) 104/64 mmHg (01/25/17 2:01 AM) 111/68 mmHg (01/25/17 12:37 AM) Blood Pressure [90-140/60-90 mmHg] 20 BRMIN (01/24/17 10:34 PM) Respiratory Rate [14-20 BRMIN] 99 bpm (01/24/17 10:34 PM) Peripheral Pulse Rate [60-100 bpm] 93.182 kg (01/24/17 10:34 PM) Weight 35.26 m2 (01/24/17 10:34 PM) Body Mass Index Problem List Condition Effective Dates Status Health Status Informant Acute myocardial Resolved ischemia(Confirmed) Anxiety(Confirmed) Active Autoimmune Active diabetes(Confirmed) Back Active fracture(Confirmed)1 Bipolar(Confirmed) Active Bladder Active disease(Confirmed) Melvina's Resolved osteochondritis(Conf irmed) COPD(Confirmed) Active Diabetic Active care(Confirmed) MO, old(Confirmed) Resolved Hepatitis Active C(Confirmed) Lupus(Confirmed) Active Neuropathy, 2015 Active peripheral(Confirmed ) Schizo-affective Active schizophrenia(Confir med) Sciatica(Confirmed) 2014 Active Seizure(Confirmed) Active [id number] Allergies, Adverse Reactions, Alerts Substance Reaction Severity Status aspirin Active Demerol HCl Active erythromycin Active Haldol Active Imitrex Active NSAIDs Active Stelazine Active sulfa drugs Active Toradol Active Medications morphine Sulfate 4 mg, Route: IM, ONCE, Dosing Weight 93.182, kg, Priority: STAT, Start date: 2:59:00 CDT, Stop date: 01/25/17 2:59:00 CDT Start Date: 01/25/17 Stop Date: 01/25/17 Status: Completed Tylenol 650 mg, 2 tab, Route: PO, Drug form: TAB, ONCE, Dosing Weight 93.182, kg, Priori ty: STAT, Start date: 01/25/17 1:29:00 CDT, Stop date: 01/25/17 1:29:00 CDT Notes: Do not exceed 4 gm/day. (Same as: Tylenol) Start Date: 01/25/17 Stop Date: 01/25/17 Status: Completed Zofran 4 mg, 1 tab, Route: PO, Drug form: TABDIS, ONCE, Dosing Weight 93.182, kg, Prior ity: STAT, Start date: 01/25/17 1:29:00 CDT, Stop date: 01/25/17 1:29:00 CDT Notes: (Same as: Zofran ODT) Start Date: 01/25/17 Stop Date: 01/25/17 Status: Completed Results CARDIAC ENZYMES Most recent to 1 oldest [Reference Range]: Troponin-I <0.02 ng/mL [0.00-0.40 ng/mL] (01/25/17 1:20 AM) Immunizations Given and Recorded Vaccine Date [...] Employment/School Status: Employed. Work/School description: part-time at [employer] Alcohol Never Smoking Status Current every day smoker; Type: Cigarettes; Tobacco use per day: 10; Previous treatment: None; Ready to change: No; Concerns about tobacco use in household: No; Exposure to Tobacco Smoke None; Cigarette Smoking Last 365 Days Yes; Reg Smoking Cessation Counseling No Assessment and Plan No data available for this section
--- OUTSIDE RECORDS SUMMARY | 2019-02-28 22:40 | XMS REPORT | Summary of Care ---
Author Author [facility] Organization [facility] Address Unknown Phone Unavailable Encounter POLO Haynes(MARY BETH) [id number] Date(s): 01/14/17 - 01/15/17 [facility] [address] [employer] provided by [facility] [place] [address]- Discharge Disposition: Home or Self Care Attending Physician: Prince Gurinder Banks MD Admitting Physician: Prince Gurinder Banks MD Vital Signs 1 2 3 Most recent to oldest [Reference Range]: 162.56 cm (01/14/17 2:14 PM) 162.56 cm (01/14/17 10:55 AM) Height 97.9 DegF (01/15/17 12:22 PM) 97.7 DegF (01/15/17 8:32 AM) 98.8 DegF (01/15/17 4:39 AM) Temperature Oral [96.4-99.1 DegF] 110/55 mmHg (01/15/17 12:22 PM) 140/79 mmHg (01/15/17 8:32 AM) 133/93 mmHg (01/15/17 4:39 AM) Blood Pressure [90-140/60-90 mmHg] 18 BRMIN (01/15/17 12:22 PM) 17 BRMIN (01/15/17 8:32 AM) 23 BRMIN *HI* (01/14/17 4:16 PM) Respiratory Rate [14-20 BRMIN] 94 bpm (01/15/17 12:22 PM) 92 bpm (01/15/17 8:32 AM) 97 bpm (01/14/17 4:16 PM) Peripheral Pulse Rate [60-100 bpm] 93.182 kg (01/14/17 2:14 PM) 93.182 kg (01/14/17 10:55 AM) Weight 35.26 m2 (01/14/17 2:14 PM) 35.26 m2 (01/14/17 10:55 AM) Body Mass Index Problem List Condition Effective Dates Status Health Status Informant Acute myocardial Resolved ischemia(Confirmed) Anxiety(Confirmed) Active Autoimmune Active diabetes(Confirmed) Back Active fracture(Confirmed)1 Bipolar(Confirmed) Active Bladder Active disease(Confirmed) Melvina's Resolved osteochondritis(Conf irmed) COPD(Confirmed) Active Diabetic Active care(Confirmed) CA, old(Confirmed) Resolved Hepatitis Active C(Confirmed) Lupus(Confirmed) Active Neuropathy, 2015 Active peripheral(Confirmed ) Schizo-affective Active schizophrenia(Confir med) Sciatica(Confirmed) 2014 Active Seizure(Confirmed) Active [id number] Allergies, Adverse Reactions, Alerts Substance Reaction Severity Status aspirin Active Demerol HCl Active erythromycin Active Haldol Active Imitrex Active NSAIDs Active Stelazine Active sulfa drugs Active Toradol Active Medications Ambien 5 mg, 1 tab, Route: PO, Drug form: TAB, Bedtime, Dosing Weight 93.182, kg, PRN Candido winters, Start date: 01/14/17 18:39:00 [employer], Stop date: 02/13/17 18:38:00 CDT Notes: (Same As: Ambien) Start Date: 01/14/17 Stop Date: 01/15/17 Status: Discontinued cyclobenzaprine 10 mg, 1 tab, Route: PO, Drug form: TAB, TID, Dosing Weight 93.182, kg, PRN Spacandido m, Start date: 01/14/17 18:38:00 [employer], Duration: 30 day, Stop date: 02/13/17 18:3 7:00 CDT Notes: (Same As: Flexeril) Start Date: 01/14/17 Stop Date: 01/15/17 Status: Discontinued divalproex sodium 500 mg oral tablet, extended release(Depakote ER) 1,000 mg, 2 tab, Route: PO, Drug form: ERTAB, QPM, Dosing Weight 93.182, kg, Sta rt date: 01/15/17 17:00:00 [employer], Duration: 30 day, Stop date: 02/13/17 17:00:00 C DT Notes: (Same as: Depakote ER) Once daily dosing; indicated for migraines. Dival proex sodium extended-release tab. Do not chew or crush. "Do Not Crush" Start Date: 01/15/17 Stop Date: 01/15/17 Status: Canceled GI cocktail 30 mL, Route: PO, Drug Form: SUSP, Dosing Weight 93.182, kg, ONCE, STAT, Start d ate: 01/14/17 11:14:00 [employer], Stop date: 01/14/17 11:14:00 [employer] Notes: G.I. Cocktail=antacid with simethicone 22.5 mL - lidocaine viscous 7.5 mL Start Date: 01/14/17 Stop Date: 01/14/17 Status: Completed Keppra 250 mg oral tablet 500 mg, 2 tab, Route: PO, Drug form: TAB, BID, Dosing Weight 93.182, kg, Start d ate: 01/15/17 9:00:00 [employer], Duration: 30 day, Stop date: 02/13/17 17:00:00 CDT Notes: (Same as:Keppra) Start Date: 01/15/17 Stop Date: 01/15/17 Status: Discontinued KlonoPIN 1 mg, 1 tab, Route: PO, Drug form: TAB, TID, Dosing Weight 93.182, kg, Start cate e: 01/15/17 9:00:00 [employer], Duration: 30 day, Stop date: 02/13/17 17:00:00 CDT Notes: (Same As: KlonoPIN) Start Date: 01/15/17 Stop Date: 01/15/17 Status: Discontinued lidocaine topical patch (5% film) 1 patch, TOP, Daily, # 30 patch, 0 Refill(s), Pharmacy: [id number] Start Date: 01/15/17 Status: Ordered lidocaine topical patch (5% film) 1 patch, Route: TOP, Daily, Drug form: FILM, Start date: 01/14/17 16:30:00 [employer], Duration: 30 day, Stop date: 02/12/17 16:30:00 CDT Start Date: 01/14/17 Stop Date: 01/15/17 Status: Discontinued Lipitor 40 mg, 1 tab, Route: PO, Drug form: TAB, Bedtime, Dosing Weight 93.182, kg, Star t date: 01/14/17 21:00:00 [employer], Duration: 30 day, Stop date: 02/12/17 21:00:00 CD T Notes: (Same as: Lipitor) Start Date: 01/14/17 Stop Date: 01/15/17 Status: Discontinued Lipitor 40 mg oral tablet 40 mg, PO, Bedtime, # 14 tab, 0 Refill(s), Pharmacy: [facility] [id number] Start Date: 01/15/17 Stop Date: 01/29/17 Status: Ordered lisinopril 20 mg, 1 tab, Route: PO, Drug form: TAB, Daily, Dosing Weight 93.182, kg, Start date: 01/15/17 9:00:00 [employer], Duration: 30 day, Stop date: 02/13/17 9:00:00 CDT Notes: (Same as: Prinivil, Zestril) Start Date: 01/15/17 Stop Date: 01/15/17 Status: Discontinued lisinopril 20 mg oral tablet 20 mg=1 tab, PO, Daily, # 14 tab, 0 Refill(s), Pharmacy: [facility] [id number] Start Date: 01/15/17 Stop Date: 01/29/17 Status: Ordered Lyrica 25 mg, 1 cap, Route: PO, Drug form: CAP, BID, Dosing Weight 93.182, kg, Start da te: 01/15/17 9:00:00 [employer], Duration: 30 day, Stop date: 02/13/17 17:00:00 CDT Notes: (Same as: Lyrica) Start Date: 01/15/17 Stop Date: 01/15/17 Status: Discontinued metoprolol tartrate 25 mg oral tablet 25 mg=1 tab, PO, BID, # 28 tab, 0 Refill(s), Pharmacy: [facility] [id number] Start Date: 01/15/17 Stop Date: 01/29/17 Status: Ordered morphine Sulfate 4 mg, 1 mL, Route: IVP, Drug form: INJ, ONCE, Dosing Weight 93.182, kg, Start da te: 01/15/17 8:58:00 [employer], Stop date: 01/15/17 8:58:00 [employer] Notes: (Same as:MORPhine Sulfate) Start Date: 01/15/17 Stop Date: 01/15/17 Status: Completed morphine Sulfate 4 mg, 2 mL, Route: IVP, Drug form: INJ, ONCE, Dosing Weight 93.182, kg, Start da te: 01/14/17 17:48:00 [employer], Stop date: 01/14/17 17:48:00 [employer] Notes: (Same as:MORPhine Sulfate) Start Date: 01/14/17 Stop Date: 01/14/17 Status: Completed morphine Sulfate 4 mg, Route: IVP, ONCE, Dosing Weight 93.182, kg, Priority: STAT, Start date: 12:32:00 [employer], Stop date: 01/14/17 12:32:00 [employer] Start Date: 01/14/17 Stop Date: 01/14/17 Status: Completed morphine Sulfate 2 mg, 1 mL, Route: IVP, Drug form: INJ, ONCE, Dosing Weight 93.182, kg, Start da te: 01/14/17 16:24:00 [employer], Stop date: 01/14/17 16:24:00 [employer] Notes: (Same as:MORPhine Sulfate) Start Date: 01/14/17 Stop Date: 01/14/17 Status: Discontinued morphine Sulfate 4 mg, 1 mL, Route: IVP, Drug form: INJ, ONCE, Dosing Weight 93.182, kg, Priority : STAT, Start date: 01/14/17 11:14:00 [employer], Stop date: 01/14/17 11:14:00 [employer] Notes: (Same as:MORPhine Sulfate) Start Date: 01/14/17 Stop Date: 01/14/17 Status: Completed nitroglycerin 0.4 mg sublingual tablet 0.4 mg=1 tab, SL, Q5Min, PRN Chest Pain, Give up to 3 doses. Call 911 if pain pe rsists., # 25 tab, 3 Refill(s), Pharmacy: [facility] [id number] Start Date: 01/15/17 Status: Ordered nitroglycerin 2% topical ointment 1 inch, Route: TOP, Drug Form: OINT, Dosing Weight 93.182, kg, Q6H, PRN Chest Pa in, Routine, Start date: 01/15/17 0:19:00 [employer], Duration: 30 day, Stop date: 01/28 0:18:00 CDT Notes: 1 gram is approximately 1 inch of nitroglycerin ointment (20 mg NTG pe r gram) (Same as:Nitro-Bid) Start Date: 01/15/17 Stop Date: 01/15/17 Status: Discontinued Omnipaque 350mg/ml 100 mL, Route: IVP, Drug Form: SOLN, Dosing Weight 93.182, kg, ONCALL, STAT, Sta rt date: 01/14/17 19:13:00 [employer], Duration: 1 doses or times, Dose=2.2ml/kg, Max mnnv=[id number] -- "To be infused by Radiology Staff ONLY" Start Date: 01/14/17 Stop Date: 01/14/17 Status: Completed ondansetron 4 mg, 2 mL, Route: IVP, Drug form: INJ, ONCE, Dosing Weight 93.182, kg, Priority : STAT, Start date: 01/14/17 11:15:00 [employer], Stop date: 01/14/17 11:15:00 [employer] Notes: (Same as: Zofran) MEDICATION WASTE Product Size: 4 mgProduct Was delonte: __0_ mg Start Date: 01/14/17 Stop Date: 01/14/17 Status: Completed Plavix 75 mg, 1 tab, Route: PO, Drug form: TAB, Daily, Dosing Weight 93.182, kg, Start date: 01/15/17 9:00:00 [employer], Duration: 30 day, Stop date: 02/13/17 9:00:00 CDT Notes: (Same As: Plavix) Start Date: 01/15/17 Stop Date: 01/15/17 Status: Discontinued Plavix 75 mg oral tablet 75 mg=1 tab, PO, Daily, # 14 tab, 0 Refill(s), Pharmacy: [facility] [id number] Start Date: 01/15/17 Stop Date: 01/29/17 Status: Ordered pneumococcal 23-valent vaccine 0.5 mL, Route: IM, Drug Form: INJ, Daily, Start date: 01/15/17 9:00:00 [employer], Dura tion: 1 doses or times, Stop date: 01/15/17 9:00:00 [employer] Notes: (Same as: Pneumovax 23) Refrigerate Start Date: 01/15/17 Stop Date: 01/15/17 Status: Completed remove patch 1 patch, Route: TOP, Daily, Drug form: ERFILM, Start date: 01/15/17 4:30:00 [employer], Duration: 30 day, Stop date: 02/13/17 4:30:00 CDT Notes: Remove patch 12 hours after application each day. Start Date: 01/15/17 Stop Date: 01/15/17 Status: Discontinued SEROquel 100 mg, 1 tab, Route: PO, Drug form: TAB, BID, Dosing Weight 93.182, kg, Start d ate: 01/15/17 0:00:00 [employer], Duration: 30 day, Stop date: 02/13/17 17:00:00 CDT Notes: (Same as: SEROquel) Start Date: 01/15/17 Stop Date: 01/15/17 Status: Discontinued Ultram 50 mg oral tablet 100 mg, 2 tab, Route: PO, Drug form: TAB, Q6H, Dosing Weight 93.182, kg, PRN Jada n Score 4-6, Start date: 01/15/17 0:18:00 [employer], Duration: 30 day, Stop date: 01/28 0:17:00 CDT Notes: Not to exceed 400mg/day. (Same As: Ultram) Start Date: 01/15/17 Stop Date: 01/15/17 Status: Discontinued Wellbutrin 150 mg, 1 tab, Route: PO, Drug form: ERTAB, Q12H, Dosing Weight 93.182, kg, Star t date: 01/14/17 21:00:00 [employer], Duration: 30 day, Stop date: 02/13/17 9:00:00 CDT Notes: (Do not crush) (Same As: Wellbutrin SR) Start Date: 01/14/17 Stop Date: 01/15/17 Status: Discontinued Zofran 4 mg, 1 tab, Route: PO, Drug form: TAB, Q8H, Dosing Weight 93.182, kg, PRN Nause a, Start date: 01/15/17 0:18:00 [employer], Duration: 30 day, Stop date: 02/14/17 0:17: 00 CDT Notes: (Same as: Zofran) Start Date: 01/15/17 Stop Date: 01/15/17 Status: Discontinued Results ELECTROLYTES Most recent to 1 2 oldest [Reference Range]: Sodium Lvl [135-145 137 mEq/L 139 mEq/L mEq/L] (01/15/17 4:50 AM) (01/14/17 11:37 AM) Potassium Lvl 4.2 mEq/L 4.5 mEq/L [3.5-5.1 mEq/L] (01/15/17 4:50 AM) (01/14/17 11:37 AM) Chloride Lvl [95-109 104 mEq/L 108 mEq/L mEq/L] (01/15/17 4:50 AM) (01/14/17 11:37 AM) CO2 [24-32 mEq/L] 22 mEq/L 21 mEq/L *LOW* *LOW* (01/15/17 4:50 AM) (01/14/17 11:37 AM) AGAP [10.0-20.0 15.2 mEq/L 14.5 mEq/L mEq/L] (01/15/17 4:50 AM) (01/14/17 11:37 AM) CHEM PANEL Most recent to 1 2 oldest [Reference Range]: Creatinine Lvl 0.71 mg/dL 0.65 mg/dL [0.50-1.40 mg/dL] (01/15/17 4:50 AM) (01/14/17 11:37 AM) eGFR 102 mL/min/1.73m2 1 105 mL/min/1.73m2 2 *NA* *NA* (01/15/17 4:50 AM) (01/14/17 11:37 AM) BUN [7-22 mg/dL] 12 mg/dL 12 mg/dL (01/15/17 4:50 AM) (01/14/17 11:37 AM) Glucose Lvl [70-99 108 mg/dL 112 mg/dL mg/dL] *HI* *HI* (01/15/17 4:50 AM) (01/14/17 11:37 AM) Calcium Lvl 9.0 mg/dL 9.3 mg/dL [8.5-10.5 mg/dL] (01/15/17 4:50 AM) (01/14/17 11:37 AM) 1Result Comment: The eGFR is calculated [...] recent to 1 2 oldest [Reference Range]: Troponin-T <0.010 ng/mL [0.000-0.100 ng/mL] (01/14/17 2:32 PM) Troponin-I <0.02 ng/mL [0.00-0.40 ng/mL] (01/14/17 11:37 AM) DRUG SCREEN Most recent to 1 2 oldest [Reference Range]: U Alcohol [Negative] Negative *NA* (01/15/17 4:52 AM) U Methadone Scr Negative [Negative] *NA* (01/15/17 4:52 AM) U Propoxyph Scr Negative [Negative] *NA* (01/15/17 4:52 AM) U Amph Scr Negative [Negative] *NA* (01/15/17 4:52 AM) U Rahel Scr Negative [Negative] *NA* (01/15/17 4:52 AM) U Benzodia Scr Negative [Negative] *NA* (01/15/17 4:52 AM) U Cocaine Scr Negative [Negative] *NA* (01/15/17 4:52 AM) U Opiate Scr Positive [Negative] *ABN* (01/15/17 4:52 AM) U Phencyc Scr Negative [Negative] *NA* (01/15/17 4:52 AM) U Cannab Scr Negative [Negative] *NA* (01/15/17 4:52 AM) UDS Note See Note (01/15/17 4:52 AM) HEMATOLOGY Most recent to 1 2 oldest [Reference Range]: WBC [3.7-10.4 K/CMM] 6.8 K/CMM 7.3 K/CMM (01/15/17 4:50 AM) (01/14/17 11:37 AM) RBC [4.20-5.40 4.11 M/CMM 4.44 M/CMM M/CMM] *LOW* (01/14/17 11:37 AM) (01/15/17 4:50 AM) Hgb [12.0-16.0 g/dL] 13.0 g/dL 14.1 g/dL (01/15/17 4:50 AM) (01/14/17 11:37 AM) Hct [36.0-48.0 %] 37.3 % 40.6 % (01/15/17 4:50 AM) (01/14/17 11:37 AM) MCV [80.0-98.0 fL] 90.8 fL 91.4 fL (01/15/17 4:50 AM) (01/14/17 11:37 AM) MCH [27.0-31.0 pg] 31.7 pg 31.8 pg *HI* *HI* (01/15/17 4:50 AM) (01/14/17 11:37 AM) MCHC [32.0-36.0 34.9 g/dL 34.8 g/dL g/dL] (01/15/17 4:50 AM) (01/14/17 11:37 AM) RDW [11.5-14.5 %] 13.6 % 13.7 % (01/15/17 4:50 AM) (01/14/17 11:37 AM) Platelet [133-450 173 K/CMM 183 K/CMM K/CMM] (01/15/17 4:50 AM) (01/14/17 11:37 AM) MPV [7.4-10.4 fL] 8.0 fL 7.7 fL (01/15/17 4:50 AM) (01/14/17 11:37 AM) Segs [45.0-75.0 %] 48.9 % 57.6 % (01/15/17 4:50 AM) (01/14/17 11:37 AM) Lymphocytes 42.5 % 35.5 % [20.0-40.0 %] *HI* (01/14/17 11:37 AM) (01/15/17 4:50 AM) Monocytes [2.0-12.0 5.7 % 5.2 % %] (01/15/17 4:50 AM) (01/14/17 11:37 AM) Eosinophils [0.0-4.0 2.1 % 1.3 % %] (01/15/17 4:50 AM) (01/14/17 11:37 AM) Basophils [0.0-1.0 0.8 % 0.4 % %] (01/15/17 4:50 AM) (01/14/17 11:37 AM) Segs-Bands # 3.3 K/CMM 4.2 K/CMM [1.5-8.1 K/CMM] (01/15/17 4:50 AM) (01/14/17 11:37 AM) Lymphocytes # 2.9 K/CMM 2.6 K/CMM [1.0-5.5 K/CMM] (01/15/17 4:50 AM) (01/14/17 11:37 AM) Monocytes # [0.0-0.8 0.4 K/CMM 0.4 K/CMM K/CMM] (01/15/17 4:50 AM) (01/14/17 11:37 AM) Eosinophils # 0.1 K/CMM 0.1 K/CMM [0.0-0.5 K/CMM] (01/15/17 4:50 AM) (01/14/17 11:37 AM) Basophils # [0.0-0.2 0.1 K/CMM K/CMM] (01/15/17 4:50 AM) Immunizations Given and Recorded Vaccine Date [...] Employment/School Status: Employed. Work/School description: part-time at [employer]. Alcohol Never Smoking Status Current every day smoker; Type: Cigarettes; Tobacco use per day: 10; Previous treatment: None; Ready to change: No; Concerns about tobacco use in household: No; Exposure to Tobacco Smoke None; Cigarette Smoking Last 365 Days Yes; Reg Smoking Cessation Counseling No Assessment and Plan Extracted from: Title: History and Physical Author: Prince Gurinder Banks MD Date: 01/14/17 Assessment/Plan 46 year old F with multiple co-morbidities admitted with: 1.Acute chest pain ACS. vs pericardits vs. dissection - PLAN: Trend trop. CT chest ordered. Will continue with desk monitor. Otherwise, continue PLAVIX and statin Ordered: Admit/Condition Admit/Condition 2.Seizure Will resume above AED 3.Anxiety Mood is currently stable 4.COPD Currently not in acute exacerbation Orders: Ambulation Up ad osmel Basic Metabolic Panel Cardiac Monitoring (e.g. ED, PACU, IMU, ICU) CDM Admission Acute Care Direct Admit Chest w contrast CT Complete Blood Count w/ Diff and Platelet Diet NPO Urine Drug Screen (L&D) Provide Education AC4 Patient Education AC4 Resuscitation (Code) Status Telemetry (e.g. Acute Care Floor) Vital Signs Prophylaxis Heparin SUBC Disposition D/C tomorrow
--- OUTSIDE RECORDS SUMMARY | 2019-02-28 22:41 | XMS REPORT ---
[facility] Address Unknown Phone Unavailable Care Team Providers Care Public Affairs Officer Name Role Phone HERMILA SophiaGiovani SORENSON Unavailable Unavailable [facility] Unavailable Unavailable Payers Payer Name Policy Type Policy Number Effective Date Expiration Date Problems This patient has no known problems. Allergies, Adverse Reactions, Alerts Allergy Name Allergy Type Status Severity Reaction(s) Onset Date Inactive Date Treating Clinician Comments meperidine HCl DA Active OR 2019-01-27 00:00:00 dicyclomine HCl DA Active OR 2019-01-27 00:00:00 Erythromycin Lactobionate DA Active 2019-01-27 00:00:00 ketorolac tromethamine DA Active 2019-01-27 00:00:00 Iodinated Contrast- Oral and IV Dye DA [facility] 2019-01-27 00:00:00 NSAIDS (Non-Steroidal Anti-Inflamma DA Active 2019-01-27 00:00:00 Macrolide Antibiotics DA Active OR 2019-01-27 00:00:00 Sulfa (Sulfonamide Antibiotics) DA Active OR 2019-01-27 00:00:00 haloperidol DA Active 2019-01-27 00:00:00 aspirin DA Active OR 2019-01-27 00:00:00 erythromycin base DA Active 2019-01-27 00:00:00 sumatriptan DA Active OR 2019-01-27 00:00:00 tramadol DA Active U 2019-01-27 00:00:00 meperidine HCl DA Active OR 2018-09-21 00:00:00 dicyclomine HCl DA Active OR 2018-09-21 00:00:00 Erythromycin Lactobionate DA Active 2018-09-21 00:00:00 ketorolac tromethamine DA Active 2018-09-21 00:00:00 Iodinated Contrast- Oral and IV Dye DA Active 2018-09-21 00:00:00 NSAIDS (Non-Steroidal Anti-Inflamma DA Active SV 2018-09-21 00:00:00 Macrolide Antibiotics DA Active OR 2018-09-21 00:00:00 Sulfa (Sulfonamide Antibiotics) DA Active MO 2018-09-21 00:00:00 haloperidol DA Active 2018-09-21 00:00:00 aspirin DA Active OR 2018-09-21 00:00:00 erythromycin base DA Active 2018-09-21 00:00:00 sumatriptan DA Active OR 2018-09-21 00:00:00 tramadol DA Active U 2018-09-21 00:00:00 TOMATOES DA Active 2018-09-21 00:00:00 aspirin DA Active OR 2018-08-23 00:00:00 meperidine HCl DA Active U 2018-08-23 00:00:00 dicyclomine HCl DA Active U 2018-08-23 00:00:00 Erythromycin Lactobionate DA Active 2018-08-23 00:00:00 ketorolac tromethamine DA Active U 2018-08-23 00:00:00 Iodinated Contrast Media - IV Dye DA Active 2018-08-23 00:00:00 NSAIDS (Non-Steroidal Anti-Inflamma DA Active U 2018-08-23 00:00:00 Macrolide Antibiotics DA Active U 2018-08-23 00:00:00 Sulfa (Sulfonamide Antibiotics) DA Active U 2018-08-23 00:00:00 haloperidol DA Active U 2018-08-23 00:00:00 erythromycin base DA Active U 2018-08-23 00:00:00 sumatriptan DA Active U 2018-08-23 00:00:00 tramadol DA Active U 2018-08-23 00:00:00 meperidine HCl DA Active U 2017-07-12 00:00:00 dicyclomine HCl DA Active U 2017-07-12 00:00:00 Erythromycin Lactobionate DA Active SV 2017-07-12 00:00:00 ketorolac tromethamine DA Active U 2017-07-12 00:00:00 Iodinated Contrast Media - IV Dye DA Active SV 2017-07-12 00:00:00 NSAIDS (Non-Steroidal Anti-Inflamma DA Active U 2017-07-12 00:00:00 Macrolide Antibiotics DA Active U 2017-07-12 00:00:00 Sulfa (Sulfonamide Antibiotics) DA Active U 2017-07-12 00:00:00 haloperidol DA Active U 2017-07-12 00:00:00 aspirin DA Active MO 2017-07-12 00:00:00 erythromycin base DA Active U 2017-07-12 00:00:00 sumatriptan DA Active U 2017-07-12 00:00:00 tramadol DA Active U 2017-07-12 00:00:00 STALAZINE DA Active SV 2015-10-14 00:00:00 TOMATOES DA Active U 2015-03-20 00:00:00 Medications This patient has no known medications. Results Test Description Test Time Test Comments Text Results Atomic Results Result Comments GLUBED 2019-02-02 16:22:00 GLUBED (test code=GLUBED) 123 mg/dL 74-106 Performed by certified briquette machine operator at [facility] [id number] 16:22:00* Test Item Value Reference Range Comments GLUBED (test code=GLUBED) 113 mg/dL 74-106 Performed by certified briquette machine operator at [facility] [id number] 07:25:00* Test Item Value Reference Range Comments GLUBED (test code=GLUBED) 106 mg/dL 74-106 Performed by certified briquette machine operator at [facility] URINALYSIS [id number] 23:27:00* Test Item Value Reference Range Comments UA COLOR (test code=COLU) YELLOW YELLOW UA APPEARANCE (test code=APPU) SLIGHTLY CLOUDY CLEAR UA GLUCOSE DIPSTICK (test code=DGLUU) NEGATIVE mg/dL NEGATIVE UA BILIRUBIN DIPSTICK (test code=BILU) NEGATIVE mg/dL NEGATIVE UA KETONE DIPSTICK (test code=KETU) Negative mg/dL NEGATIVE UA SPECIFIC GRAVITY (test code=SGU) 1.011 1.001-1.035 UA BLOOD DIPSTICK (test code=KIMBERLY) 1+ (Small) NEGATIVE UA PH DIPSTICK (test code=JILLIAN) 7.0 5.0-8.0 UA PROTEIN DIPSTICK (test code=PROU) Negative mg/dL NEGATIVE UA UROBILINIOGEN DIPSTICK (test code=URO) NEGATIVE mg/dL NEGATIVE UA NITRITE DIPSTICK (test code=ALHAJI) NEGATIVE NEGATIVE UA LEUKOCYTE ESTERASE W REFLEX (test code=LEUUR) NEGATIVE NEGATIVE UA WBC (test code=WBCU) 0-5 #/HPF 0-5 UA RBC (test code=RBCU) 6-10 #/HPF 0-5 UA EPITHELIAL CELLS (test code=EPIU) FEW per HPF FEW UA BACTERIA (test code=BACU) FEW #/HPF NONE UA MUCUS (test code=MUCU) FEW #/LPF FEW UA AMORPHOUS SEDIMENT (test code=AMORU) MODERATE #/LPF NONE Urine Source? Clean CatchDRUGS OF ABUSE SCREEN [id number] 23:27:00* Test Item Value Reference Range Comments URN COCAINE (test code=COCAURN) NEGATIVE <300 ng/mL URN CANNABINOIDS (test code=CANNABURN) NEGATIVE <50 ng/mL URN AMPHETAMINE (test code=AMPHETURN) NEGATIVE <1000 ng/mL URN BARBITURATE (test code=BARBITURN) NEGATIVE <200 ng/mL URN BENZODIAZEPINE (test code=BENZOURN) NEGATIVE <200 ng/mL URN OPIATES (test code=OPIATURN) POSITIVE <300 ng/mL This test provides only a preliminary test result. A morespecific alternate chemical method must be used in order toobtain a confirmed analytical result. Gas chromatography/mass spectrometry (GC/MS) is thepreferred confirmatory method. Other chemical confirmationmethods are available. Clinical consideration and professional judgment should be applied to any drug of abusetest result, particularly when preliminary positive resultsare used.Unconfirmed screening results must not be used fornon-medical purposes (e.g., employment testing, legaltesting). URN PHENCYCLIDINE (PCP) (test code=PHENCURN) NEGATIVE <25 ng/mL URN METHADONE (test code=METHAURN) NEGATIVE <300 ng/mL Urine Source? Clean CatchURINALYSIS [id number] 23:11:00* Test Item Value Reference Range Comments UA COLOR (test code=COLU) YELLOW YELLOW UA APPEARANCE (test code=APPU) SLIGHTLY CLOUDY CLEAR UA GLUCOSE DIPSTICK (test code=DGLUU) NEGATIVE mg/dL NEGATIVE UA BILIRUBIN DIPSTICK (test code=BILU) NEGATIVE mg/dL NEGATIVE UA KETONE DIPSTICK (test code=KETU) Negative mg/dL NEGATIVE UA SPECIFIC GRAVITY (test code=SGU) 1.011 1.001-1.035 UA BLOOD DIPSTICK (test code=KIMBERLY) 1+ (Small) NEGATIVE UA PH DIPSTICK (test code=JILLIAN) 7.0 5.0-8.0 UA PROTEIN DIPSTICK (test code=PROU) Negative mg/dL NEGATIVE UA UROBILINIOGEN DIPSTICK (test code=URO) NEGATIVE mg/dL NEGATIVE UA NITRITE DIPSTICK (test code=ALHAJI) NEGATIVE NEGATIVE UA LEUKOCYTE ESTERASE W REFLEX (test code=LEUUR) NEGATIVE NEGATIVE UA WBC (test code=WBCU) 0-5 #/HPF 0-5 UA RBC (test code=RBCU) 6-10 #/HPF 0-5 UA EPITHELIAL CELLS (test code=EPIU) FEW per HPF FEW UA BACTERIA (test code=BACU) FEW #/HPF NONE UA MUCUS (test code=MUCU) FEW #/LPF FEW UA AMORPHOUS SEDIMENT (test code=AMORU) MODERATE #/LPF NONE Urine Source? Clean CatchDRUGS OF ABUSE SCREEN [id number] 23:11:00* Test Item Value Reference Range Comments URN COCAINE (test code=COCAURN) <300 ng/mL URN CANNABINOIDS (test code=CANNABURN) <50 ng/mL URN AMPHETAMINE (test code=AMPHETURN) <1000 ng/mL URN BARBITURATE (test code=BARBITURN) <200 ng/mL URN BENZODIAZEPINE (test code=BENZOURN) <200 ng/mL URN OPIATES (test code=OPIATURN) <300 ng/mL URN PHENCYCLIDINE (PCP) (test code=PHENCURN) <25 ng/mL URN METHADONE (test code=METHAURN) <300 ng/mL Urine Source? Clean CatchBASIC METABOLIC [id number] 22:09:00* Test Item Value Reference Range Comments SODIUM (test code=NA) 142 mmol/L 136-145 RESULT VERIFIED BY REPEAT ANALYSIS POTASSIUM (test code=K) 3.8 mmol/L 3.5-5.1 CHLORIDE (test code=CL) 105.0 mmol/L 98-107 CARBON DIOXIDE (test code=CO2) 29.0 mmol/L 21-32 ANION GAP (test code=GAP) 11.8 10-20 GLUCOSE (test code=GLU) 105 mg/dL 74-106 BLOOD UREA NITROGEN (test code=BUN) 18 mg/dL 7-18 GLOMERULAR FILTRATION RATE (test code=GFR) > 60 mL/min >=60 Estimated GFR by using Modified MDRD formula.Chronic kidney disease is defined as either kidney damageor GFR <60 mL/min/1.73 m2 for >3 months. CREATININE (test code=CREAT) 0.80 mg/dL 0.55-1.02 Note change in reference range due to change in reagent. BUN/CREATININE RATIO (test code=BUN/CREA) 22.5 10-20 CALCIUM (test code=CA) 9.0 mg/dL 8.5-10.1 HEPATIC FUNCTION [id number] 22:09:00* Test Item Value Reference Range Comments TOTAL PROTEIN (test code=PROT) 6.9 gram/dL 6.4-8.2 ALBUMIN (test code=ALB) 3.3 g/dL 3.4-5.0 GLOBULIN (test code=GLOB) 3.6 gram/dL 2.7-4.2 ALBUMIN/GLOBULIN RATIO (test code=A/G) 0.9 0.75-1.50 BILIRUBIN TOTAL (test code=BILT) 0.50 mg/dL 0.0-1.0 BILIRUBIN DIRECT (test code=BILD) 0.17 mg/dL 0.0-0.20 SGOT/AST (test code=AST) 13 IUnit/L 15-37 SGPT/ALT (test code=ALT) 29 IUnit/L 12-78 ALKALINE PHOSPHATASE TOTAL (test code=ALKP) 97 IUnit/L 45-117 Note change in reference range due to change in reagent. HCG SERUM [id number] 22:09:00* Test Item Value Reference Range Comments HCG SERUM QUAL (test code=HCGQL) NEGATIVE NEGATIVE This HCGQL test is NOT applicable for MALE patients.Check with nurse about probable order error.If Tumor Marker Test needed, nurse should order test "HCGTU"(Test #550.51409) [id number] 22:09:00* Test Item Value Reference Range Comments ALCOHOL (test code=ALC) < 3 mg/dL 0.0-3.0 INTERPRETIVE DATA NOTE: POSITIVE SCREENING RESULTS SHOULD BE CONSIDERED PRESUMPTIVE.WHEN COLLECTED FOR MEDICAL PURPOSES ONLY. SPECIMEN WILL NOTBE COLLECTED BY CHAIN OF CUSTODY.IF A CONFIRMATION OF POSITIVE RESULTS IS DESIRED, ACONFIRMATION TEST MUST BE REQUESTED BY THE PHYSICIAN AT ANADDITIONAL CHARGE TO THE PATIENT. BASIC METABOLIC [id number] 22:04:00* Test Item Value Reference Range Comments SODIUM (test code=NA) 142 mmol/L 136-145 RESULT VERIFIED BY REPEAT ANALYSIS POTASSIUM (test code=K) 3.8 mmol/L 3.5-5.1 CHLORIDE (test code=CL) 105.0 mmol/L 98-107 CARBON DIOXIDE (test code=CO2) mmol/L 21-32 ANION GAP (test code=GAP) 10-20 GLUCOSE (test code=GLU) mg/dL 74-106 BLOOD UREA NITROGEN (test code=BUN) mg/dL 7-18 GLOMERULAR FILTRATION RATE (test code=GFR) mL/min >=60 CREATININE (test code=CREAT) mg/dL 0.55-1.02 BUN/CREATININE RATIO (test code=BUN/CREA) 10-20 CALCIUM (test code=CA) mg/dL 8.5-10.1 HEPATIC FUNCTION [id number] 22:04:00* Test Item Value Reference Range Comments TOTAL PROTEIN (test code=PROT) gram/dL 6.4-8.2 ALBUMIN (test code=ALB) g/dL 3.4-5.0 GLOBULIN (test code=GLOB) gram/dL 2.7-4.2 ALBUMIN/GLOBULIN RATIO (test code=A/G) 0.75-1.50 BILIRUBIN TOTAL (test code=BILT) mg/dL 0.0-1.0 BILIRUBIN DIRECT (test code=BILD) mg/dL 0.0-0.20 SGOT/AST (test code=AST) IUnit/L 15-37 SGPT/ALT (test code=ALT) IUnit/L 12-78 ALKALINE PHOSPHATASE TOTAL (test code=ALKP) IUnit/L 45-117 HCG SERUM [id number] 22:04:00* Test Item Value Reference Range Comments HCG SERUM QUAL (test code=HCGQL) NEGATIVE NEGATIVE This HCGQL test is NOT applicable for MALE patients.Check with nurse about probable order error.If Tumor Marker Test needed, nurse should order test "HCGTU"(Test #550.98252) [id number] 22:04:00* Test Item Value Reference Range Comments ALCOHOL (test code=ALC) mg/dL 0-3 BASIC METABOLIC [id number] 21:59:00* Test Item Value Reference Range Comments SODIUM (test code=NA) mmol/L 136-145 POTASSIUM (test code=K) mmol/L 3.5-5.1 CHLORIDE (test code=CL) mmol/L 98-107 CARBON DIOXIDE (test code=CO2) mmol/L 21-32 ANION GAP (test code=GAP) 10-20 GLUCOSE (test code=GLU) mg/dL 74-106 BLOOD UREA NITROGEN (test code=BUN) mg/dL 7-18 GLOMERULAR FILTRATION RATE (test code=GFR) mL/min >=60 CREATININE (test code=CREAT) mg/dL 0.55-1.02 BUN/CREATININE RATIO (test code=BUN/CREA) 10-20 CALCIUM (test code=CA) mg/dL 8.5-10.1 HEPATIC FUNCTION [id number] 21:59:00* Test Item Value Reference Range Comments TOTAL PROTEIN (test code=PROT) gram/dL 6.4-8.2 ALBUMIN (test code=ALB) g/dL 3.4-5.0 GLOBULIN (test code=GLOB) gram/dL 2.7-4.2 ALBUMIN/GLOBULIN RATIO (test code=A/G) 0.75-1.50 BILIRUBIN TOTAL (test code=BILT) mg/dL 0.0-1.0 BILIRUBIN DIRECT (test code=BILD) mg/dL 0.0-0.20 SGOT/AST (test code=AST) IUnit/L 15-37 SGPT/ALT (test code=ALT) IUnit/L 12-78 ALKALINE PHOSPHATASE TOTAL (test code=ALKP) IUnit/L 45-117 HCG SERUM [id number] 21:59:00* Test Item Value Reference Range Comments HCG SERUM QUAL (test code=HCGQL) NEGATIVE NEGATIVE This HCGQL test is NOT applicable for MALE patients.Check with nurse about probable order error.If Tumor Marker Test needed, nurse should order test "HCGTU"(Test #550.71569) [id number] 21:59:00* Test Item Value Reference Range Comments ALCOHOL (test code=ALC) mg/dL 0-3 CBC W/O [id number] 21:55:00* Test Item Value Reference Range Comments WHITE BLOOD CELL (test code=WBC) 8.2 K/mm3 4.5-12.5 RED BLOOD CELL (test code=RBC) 4.49 mill/mm3 3.7-5.2 HEMOGLOBIN (test code=HGB) 13.0 gram/dL 11.5-15.5 HEMATOCRIT (test code=HCT) 42.1 % 36.0-46.0 MEAN CELL VOLUME (test code=MCV) 93.8 fL 80-98 RESULT VERIFIED BY REPEAT ANALYSIS MEAN CELL HGB (test code=MCH) 29.0 picogram 27.0-33.0 MEAN CELL HGB CONCETRATION (test code=MCHC) 30.9 gram/dL 33.0-36.0 RED CELL DISTRIBUTION WIDTH (test code=RDW) 15.7 % 11.6-16.2 PLATELET COUNT (test code=PLT) 120 K/mm3 150-450 MEAN PLATELET VOLUME (test code=MPV) 9.7 fL 6.7-11.0 [id number] 15:42:00* Test Item Value Reference Range Comments GLUBED (test code=GLUBED) 94 mg/dL 74-106 Performed by certified briquette machine operator at [facility] LIPID PROFILE (CORONARY RISK)2019-02-01 11:50:00* Test Item Value Reference Range Comments TRIGLYCERIDES (test code=TRIG) 93 mg/dL 20-150 CHOLESTEROL (test code=CHOL) 127 mg/dL 0-200 CHOLESTEROL/HDL RATIO (test code=CHOLHDL) 2.0 RATIO 0-4.9 RISK ASSOCIATED WITH CHOL/HDL RATIOS: Risk Male Female1/2 AVERAGE 3.43 3.27AVERAGE 4.97 4.442X AVERAGE 9.55 7.053X AVERAGE 23.39 11.04 REFERENCE VALUE IS RELATED TO RISK LEVELS ASRECOMMENDED BY THE CODY. HEART, LUNG, AND BLOOD INST. HDL CHOLESTEROL (test code=HDL) 55 mg/dL 40-60 LIPOPROTEIN LDL (test code=LDL) 62 mg/dL 100-129 Reference Interval: mg/dL mmol/L Optimal <100 <2.6Near/above optimal 100-129 2.6- 3.3Borderline High 130-159 3.4-4.1High 160-189 4.1-4.9Very High >=190 >=4.9=========This LDL result is a direct measurement.========= [id number] 11:50:00* Test Item Value Reference Range Comments TROPONIN-I (test code=TROPI) <0.015 ng/mL 0-0.045 COMMENTS TO RADIO MECHANIC HELPER: COLLECT 3 HOURS AFTER PREVIOUS [id number] 11:40:00* Test Item Value Reference Range Comments GLYCOSYLATED HEMOGLOBIN (HA1C) (test code=GLYHGB) 6.6 % HbA1 4.8-6.0 ESTIMATED AVERAGE GLUCOSE (test code=EAG) 143 MG/DL [id number] 09:00:00* Test Item Value Reference Range Comments TROPONIN-I (test code=TROPI) <0.015 ng/mL 0-0.045 COMMENTS TO RADIO MECHANIC HELPER: COLLECT 3 HOURS AFTER PREVIOUS [id number] 07:36:00* Test Item Value Reference Range Comments GLUBED (test code=GLUBED) 94 mg/dL 74-106 Performed by certified briquette machine operator at [facility] B-TYPE NATRIURETIC [id number] 04:26:00* Test Item Value Reference Range Comments B-TYPE NATRIURETIC PEPTIDE (test code=BNP) 21.3 pgram/mL 0-100 [id number] 03:35:00* Test Item Value Reference Range Comments TROPONIN-I (test code=TROPI) <0.015 ng/mL 0-0.045 PROTHROMBIN [id number] 03:12:00* Test Item Value Reference Range Comments PROTHROMBIN TIME PATIENT (test code=PTP) 10.8 seconds 9.0-14.0 INTERNATIONAL NORMAL RATIO (test code=INR) 0.9 0.8-1.2 The therapeutic range for oral anticoagulant therapy formost indications is an international normalized ratio (INR)of between 2.0 and 3.0. The recommended therapeutic INRrange for various clinical situations is listed below: Clinical Situation INR range Pulmonary e mbolism treatment (2.0-3.0)Venous thrombosis treatmentVenous thrombosis prophylaxis (high risk surgery)Prevention of systemic embolism from: Acute myocardial infarction Valvular heart disease Atrial fibrillation Mechanical prosthetic heart valves (2.5-3.5) IS PATIENT ON ANTICOAGULANTS? NTHROMBOPLASTIN TIME [id number] 03:12:00* Test Item Value Reference Range Comments THROMBOPLASTIN TIME PARTIAL (test code=PTT) 26.6 seconds 25.0-36.5 IS PATIENT ON ANTICOAGULANTS? NBASIC METABOLIC [id number] 02:37:00* Test Item Value Reference Range Comments SODIUM (test code=NA) 134 mmol/L 136-145 POTASSIUM (test code=K) 3.8 mmol/L 3.5-5.1 CHLORIDE (test code=CL) 103.0 mmol/L 98-107 CARBON DIOXIDE (test code=CO2) 21.0 mmol/L 21-32 ANION GAP (test code=GAP) 13.8 10-20 GLUCOSE (test code=GLU) 171 mg/dL 74-106 BLOOD UREA NITROGEN (test code=BUN) 20 mg/dL 7-18 GLOMERULAR FILTRATION RATE (test code=GFR) > 60 mL/min >=60 Estimated GFR by using Modified MDRD formula.Chronic kidney disease is defined as either kidney damageor GFR <60 mL/min/1.73 m2 for >3 months. CREATININE (test code=CREAT) 0.80 mg/dL 0.55-1.02 Note change in reference range due to change in reagent. BUN/CREATININE RATIO (test code=BUN/CREA) 25.9 10-20 CALCIUM (test code=CA) 8.4 mg/dL 8.5-10.1 HEPATIC FUNCTION [id number] 02:37:00* Test Item Value Reference Range Comments TOTAL PROTEIN (test code=PROT) 6.5 gram/dL 6.4-8.2 ALBUMIN (test code=ALB) 2.8 g/dL 3.4-5.0 GLOBULIN (test code=GLOB) 3.7 gram/dL 2.7-4.2 ALBUMIN/GLOBULIN RATIO (test code=A/G) 0.8 0.75-1.50 BILIRUBIN TOTAL (test code=BILT) 0.50 mg/dL 0.0-1.0 BILIRUBIN DIRECT (test code=BILD) 0.14 mg/dL 0.0-0.20 SGOT/AST (test code=AST) 11 IUnit/L 15-37 SGPT/ALT (test code=ALT) 26 IUnit/L 12-78 ALKALINE PHOSPHATASE TOTAL (test code=ALKP) 89 IUnit/L 45-117 Note change in reference range due to change in reagent. [id number] 02:37:00* Test Item Value Reference Range Comments LIPASE (test code=LIP) 31 U/L 73.0-393.0 [id number] 02:37:00* Test Item Value Reference Range Comments MAGNESIUM (test code=MAG) 1.9 mg/dL 1.8-2.4 [id number] 02:37:00* Test Item Value Reference Range Comments TROPONIN-I (test code=TROPI) <0.015 ng/mL 0-0.045 BASIC METABOLIC [id number] 02:27:00* Test Item Value Reference Range Comments SODIUM (test code=NA) 134 mmol/L 136-145 POTASSIUM (test code=K) 3.8 mmol/L 3.5-5.1 CHLORIDE (test code=CL) 103.0 mmol/L 98-107 CARBON DIOXIDE (test code=CO2) mmol/L 21-32 ANION GAP (test code=GAP) 10-20 GLUCOSE (test code=GLU) mg/dL 74-106 BLOOD UREA NITROGEN (test code=BUN) mg/dL 7-18 GLOMERULAR FILTRATION RATE (test code=GFR) mL/min >=60 CREATININE (test code=CREAT) mg/dL 0.55-1.02 BUN/CREATININE RATIO (test code=BUN/CREA) 10-20 CALCIUM (test code=CA) mg/dL 8.5-10.1 HEPATIC FUNCTION [id number] 02:27:00* Test Item Value Reference Range Comments TOTAL PROTEIN (test code=PROT) gram/dL 6.4-8.2 ALBUMIN (test code=ALB) g/dL 3.4-5.0 GLOBULIN (test code=GLOB) gram/dL 2.7-4.2 ALBUMIN/GLOBULIN RATIO (test code=A/G) 0.75-1.50 BILIRUBIN TOTAL (test code=BILT) mg/dL 0.0-1.0 BILIRUBIN DIRECT (test code=BILD) mg/dL 0.0-0.20 SGOT/AST (test code=AST) IUnit/L 15-37 SGPT/ALT (test code=ALT) IUnit/L 12-78 ALKALINE PHOSPHATASE TOTAL (test code=ALKP) IUnit/L 45-117 [id number] 02:27:00* Test Item Value Reference Range Comments LIPASE (test code=LIP) U/L 73.0-393.0 [id number] 02:27:00* Test Item Value Reference Range Comments MAGNESIUM (test code=MAG) mg/dL 1.8-2.4 [id number] 02:27:00* Test Item Value Reference Range Comments TROPONIN-I (test code=TROPI) ng/mL 0-0.045 CBC W/O [id number] 02:17:00* Test Item Value Reference Range Comments WHITE BLOOD CELL (test code=WBC) 9.0 K/mm3 4.5-12.5 RED BLOOD CELL (test code=RBC) 4.54 mill/mm3 3.7-5.2 HEMOGLOBIN (test code=HGB) 13.2 gram/dL 11.5-15.5 HEMATOCRIT (test code=HCT) 47.7 % 36.0-46.0 MEAN CELL VOLUME (test code=MCV) 105.1 fL 80-98 MEAN CELL HGB (test code=MCH) 29.1 picogram 27.0-33.0 MEAN CELL HGB CONCETRATION (test code=MCHC) 27.7 gram/dL 33.0-36.0 RED CELL DISTRIBUTION WIDTH (test code=RDW) 15.8 % 11.6-16.2 PLATELET COUNT (test code=PLT) 119 K/mm3 150-450 MEAN PLATELET VOLUME (test code=MPV) 9.2 fL 6.7-11.0 CBC W/O [id number] 02:11:00* Test Item Value Reference Range Comments WHITE BLOOD CELL (test code=WBC) K/mm3 4.5-12.5 RED BLOOD CELL (test code=RBC) mill/mm3 3.7-5.2 HEMOGLOBIN (test code=HGB) 13.2 gram/dL 11.5-15.5 HEMATOCRIT (test code=HCT) % 36.0-46.0 MEAN CELL VOLUME (test code=MCV) fL 80-98 MEAN CELL HGB (test code=MCH) picogram 27.0-33.0 MEAN CELL HGB CONCETRATION (test code=MCHC) gram/dL 33.0-36.0 RED CELL DISTRIBUTION WIDTH (test code=RDW) % 11.6-16.2 PLATELET COUNT (test code=PLT) K/mm3 150-450 MEAN PLATELET VOLUME (test code=MPV) fL 6.7-11.0 TROPONIN I [id number] 01:42:00* Test Item Value Reference Range Comments TROPONIN I RAPID (test code=TROPIRAP) 0.06 ng/mL <0.08 Please Note New Reference Range 0.00-0.079 ng/mL - Negative>or=0.08 ng/mL - Positive The use of serial sampling and testing protocol is arecommended practice.An elevated troponin level alone is often not sufficient fordiagnosis of myocardial infarction. Troponin results obtained by different assays may vary.Evaluation of the extent of myocardial damage based onincrease of troponin would be valid only if similarmethodology is used. - XR CHEST 1 [id number] 01:33:00 FAX: Norma Childers MD [phone] [place]: St: PRE Name: Whitney [facility] : [birth year] Age/S: 48/F [address] [facility] Unit #: [id number] Loc: [place] [address] Phys: Norma Childers MD Acct: [id number] Dis Date: Status: PRE ER PHONE #: [phone] Exam Date: 02/01/2019 013 FAX #: [phone] Reason: CHEST PAIN EXAMS: CPT CODE: [id number] XR CHEST 1 V [id number] EXAM: - XR CHEST 1 V HISTORY: Chest pain. COMPARISON: January 27, 2019. F INDINGS: Single AP view of the chest is provided. Heart size and vascularity are within normal limits. The lungs are clear of focal c onsolidation. No effusion, pneumothorax, or acute osseous abnormality. IMPRESSION: No radiographic evidence of acute card iopulmonary process. Electronically Signed by Sea Albarran MD on 0 02/01/2019 at 0133 Reported and signed by: Sea Albarran MD CC: Norma Childers MD Technologist: Marie Jimenez Trnscrd Date/Time/By: 02/01/2019 (013) : By: [email or web address] Orig Print D/T: S: 02/01/2019 (0136) PAGE 1 Signed Report LIPID PROFILE (CORONARY RISK)2019-01-30 12:12:00* Test Item Value Reference Range Comments TRIGLYCERIDES (test code=TRIG) 150 mg/dL 20-150 CHOLESTEROL (test code=CHOL) 146 mg/dL 0-200 CHOLESTEROL/HDL RATIO (test code=CHOLHDL) 2.0 RATIO 0-4.9 RISK ASSOCIATED WITH CHOL/HDL RATIOS: Risk Male Female1/2 AVERAGE 3.43 3.27AVERAGE 4.97 4.442X AVERAGE 9.55 7.053X AVERAGE 23.39 11.04 REFERENCE VALUE IS RELATED TO RISK LEVELS ASRECOMMENDED BY THE CODY. HEART, LUNG, AND BLOOD INST. HDL CHOLESTEROL (test code=HDL) 63 mg/dL 40-60 LIPOPROTEIN LDL (test code=LDL) 65 mg/dL 100-129 Reference Interval: mg/dL mmol/L Optimal <100 <2.6Near/above optimal 100-129 2.6- 3.3Borderline High 130-159 3.4-4.1High 160-189 4.1-4.9Very High >=190 >=4.9=========This LDL result is a direct measurement.========= HEPATIC FUNCTION [id number] 12:12:00* Test Item Value Reference Range Comments TOTAL PROTEIN (test code=PROT) 6.0 gram/dL 6.4-8.2 ALBUMIN (test code=ALB) 2.9 g/dL 3.4-5.0 GLOBULIN (test code=GLOB) 3.1 gram/dL 2.7-4.2 ALBUMIN/GLOBULIN RATIO (test code=A/G) 0.9 0.75-1.50 BILIRUBIN TOTAL (test code=BILT) 0.40 mg/dL 0.0-1.0 BILIRUBIN DIRECT (test code=BILD) 0.13 mg/dL 0.0-0.20 SGOT/AST (test code=AST) 16 IUnit/L 15-37 SGPT/ALT (test code=ALT) 30 IUnit/L 12-78 ALKALINE PHOSPHATASE TOTAL (test code=ALKP) 91 IUnit/L 45-117 Note change in reference range due to change in reagent. [id number] 12:12:00* Test Item Value Reference Range Comments PHOSPHORUS (test code=PHOS) 3.8 mg/dL 2.5-4.9 URIC [id number] 12:12:00* Test Item Value Reference Range Comments URIC ACID (test code=URIC) 8.9 mg/dL 2.6-7.2 [id number] 12:12:00* Test Item Value Reference Range Comments LIPASE (test code=LIP) 42 U/L 73.0-393.0 [id number] 12:12:00* Test Item Value Reference Range Comments MAGNESIUM (test code=MAG) 2.0 mg/dL 1.8-2.4 THYROID STIMULATING [id number] 12:12:00* Test Item Value Reference Range Comments THYROID STIMULATING HORMONE (test code=TSH) 1.660 uIU/mL 0.36-3.74 TSH REFERENCE RANGES: EUTHYROID: 0.35 - 4.3 mIU/mL HYPO : > 5.5 mIU/mL HYPER : < 0.35 mIU/mL VITAMIN D 1,34-[id number] 12:12:00* Test Item Value Reference Range Comments VITAMIN D 1,25-DIHYDROXY (test pjui=IXUR909) 20.5 pg/mL 19.9-79.3 Performed At: [facility] [id number] Sanjai MD Ph:[phone] performed at: [facility] [address] [place] [address] [id number] 17:17:00* Test Item Value Reference Range Comments GLUBED (test code=GLUBED) 185 mg/dL 74-106 Performed by certified briquette machine operator at [facility] BASIC METABOLIC [id number] 12:25:00* Test Item Value Reference Range Comments SODIUM (test code=NA) 139 mmol/L 136-145 POTASSIUM (test code=K) 4.1 mmol/L 3.5-5.1 CHLORIDE (test code=CL) 104.0 mmol/L 98-107 CARBON DIOXIDE (test code=CO2) 30.0 mmol/L 21-32 ANION GAP (test code=GAP) 9.1 10-20 GLUCOSE (test code=GLU) 113 mg/dL 74-106 BLOOD UREA NITROGEN (test code=BUN) 19 mg/dL 7-18 GLOMERULAR FILTRATION RATE (test code=GFR) > 60 mL/min >=60 Estimated GFR by using Modified MDRD formula.Chronic kidney disease is defined as either kidney damageor GFR <60 mL/min/1.73 m2 for >3 months. CREATININE (test code=CREAT) 0.70 mg/dL 0.55-1.02 Note change in reference range due to change in reagent. BUN/CREATININE RATIO (test code=BUN/CREA) 28.3 10-20 CALCIUM (test code=CA) 8.8 mg/dL 8.5-10.1 CBC W/AUTO [id number] 11:54:00* Test Item Value Reference Range Comments WHITE BLOOD CELL (test code=WBC) 9.9 K/mm3 4.5-12.5 RED BLOOD CELL (test code=RBC) 4.44 mill/mm3 3.7-5.2 HEMOGLOBIN (test code=HGB) 13.1 gram/dL 11.5-15.5 HEMATOCRIT (test code=HCT) 41.6 % 36.0-46.0 MEAN CELL VOLUME (test code=MCV) 93.7 fL 80-98 MEAN CELL HGB (test code=MCH) 29.5 picogram 27.0-33.0 MEAN CELL HGB CONCETRATION (test code=MCHC) 31.5 gram/dL 33.0-36.0 RED CELL DISTRIBUTION WIDTH (test code=RDW) 15.8 % 11.6-16.2 RED CELL DISTRIBUTION WIDTH SD (test code=RDW-SD) 54.4 fL 37.0-51.0 PLATELET COUNT (test code=PLT) 113 K/mm3 150-450 MEAN PLATELET VOLUME (test code=MPV) 9.9 fL 6.7-11.0 NEUTROPHIL % (test code=NT%) 53.4 % 39.0-69.0 IMMATURE GRANULOCYTE % (test code=IG%) 3.7 % 0.0-5.0 LYMPHOCYTE % (test code=LY%) 35.5 % 25.0-55.0 MONOCYTE % (test code=MO%) 6.7 % 0.0-10.0 EOSINOPHIL % (test code=EO%) 0.3 % 0.0-5.0 BASOPHIL % (test code=BA%) 0.4 % 0.0-1.0 NUCLEATED RBC % (test code=NRBC%) 0.0 % 0-0 NEUTROPHIL # (test code=NT#) 5.26 K/mm3 1.8-7.7 IMMATURE GRANULOCYTE # (test code=IG#) 0.36 x10 3/uL 0-0.03 LYMPHOCYTE # (test code=LY#) 3.50 K/mm3 1.0-5.0 MONOCYTE # (test code=MO#) 0.66 K/mm3 0-0.8 EOSINOPHIL # (test code=EO#) 0.03 K/mm3 0.0-0.5 BASOPHIL # (test code=BA#) 0.04 K/mm3 0.0-0.2 NUCLEATED RBC # (test code=NRBC#) 0.00 K/mm3 0.0-0.1 MANUAL DIFF REQUIRED (test code=MDIFF) NO [id number] 11:50:00* Test Item Value Reference Range Comments GLUBED (test code=GLUBED) 107 mg/dL 74-106 Performed by certified briquette machine operator at [facility] CBC W/AUTO [id number] 11:49:00* Test Item Value Reference Range Comments WHITE BLOOD CELL (test code=WBC) K/mm3 4.5-12.5 RED BLOOD CELL (test code=RBC) mill/mm3 3.7-5.2 HEMOGLOBIN (test code=HGB) 13.1 gram/dL 11.5-15.5 HEMATOCRIT (test code=HCT) 41.6 % 36.0-46.0 MEAN CELL VOLUME (test code=MCV) fL 80-98 MEAN CELL HGB (test code=MCH) picogram 27.0-33.0 MEAN CELL HGB CONCETRATION (test code=MCHC) gram/dL 33.0-36.0 RED CELL DISTRIBUTION WIDTH (test code=RDW) % 11.6-16.2 RED CELL DISTRIBUTION WIDTH SD (test code=RDW-SD) fL 37.0-51.0 PLATELET COUNT (test code=PLT) K/mm3 150-450 MEAN PLATELET VOLUME (test code=MPV) fL 6.7-11.0 NEUTROPHIL % (test code=NT%) % 39.0-69.0 IMMATURE GRANULOCYTE % (test code=IG%) % 0.0-5.0 LYMPHOCYTE % (test code=LY%) % 25.0-55.0 MONOCYTE % (test code=MO%) % 0.0-10.0 EOSINOPHIL % (test code=EO%) % 0.0-5.0 BASOPHIL % (test code=BA%) % 0.0-1.0 NEUTROPHIL # (test code=NT#) K/mm3 1.8-7.7 LYMPHOCYTE # (test code=LY#) K/mm3 1.0-5.0 MONOCYTE # (test code=MO#) K/mm3 0-0.8 EOSINOPHIL # (test code=EO#) K/mm3 0.0-0.5 BASOPHIL # (test code=BA#) K/mm3 0.0-0.2 [id number] 07:32:00* Test Item Value Reference Range Comments GLUBED (test code=GLUBED) 95 mg/dL 74-106 Performed by certified briquette machine operator at [facility] [id number] 23:43:00* Test Item Value Reference Range Comments TROPONIN-I (test code=TROPI) <0.015 ng/mL 0-0.045 COMMENTS TO RADIO MECHANIC HELPER: COLLECT 3 HOURS AFTER PREVIOUS SAMPLELIPID PROFILE (CORONARY RISK)2019-01-27 23:35:00* Test Item Value Reference Range Comments TRIGLYCERIDES (test code=TRIG) 150 mg/dL 20-150 CHOLESTEROL (test code=CHOL) 146 mg/dL 0-200 CHOLESTEROL/HDL RATIO (test code=CHOLHDL) 2.0 RATIO 0-4.9 RISK ASSOCIATED WITH CHOL/HDL RATIOS: Risk Male Female1/2 AVERAGE 3.43 3.27AVERAGE 4.97 4.442X AVERAGE 9.55 7.053X AVERAGE 23.39 11.04 REFERENCE VALUE IS RELATED TO RISK LEVELS ASRECOMMENDED BY THE CODY. HEART, LUNG, AND BLOOD INST. HDL CHOLESTEROL (test code=HDL) 63 mg/dL 40-60 LIPOPROTEIN LDL (test code=LDL) 65 mg/dL 100-129 Reference Interval: mg/dL mmol/L Optimal <100 <2.6Near/above optimal 100-129 2.6- 3.3Borderline High 130-159 3.4-4.1High 160-189 4.1-4.9Very High >=190 >=4.9=========This LDL result is a direct measurement.========= HEPATIC FUNCTION [id number] 23:35:00* Test Item Value Reference Range Comments TOTAL PROTEIN (test code=PROT) 6.0 gram/dL 6.4-8.2 ALBUMIN (test code=ALB) 2.9 g/dL 3.4-5.0 GLOBULIN (test code=GLOB) 3.1 gram/dL 2.7-4.2 ALBUMIN/GLOBULIN RATIO (test code=A/G) 0.9 0.75-1.50 BILIRUBIN TOTAL (test code=BILT) 0.40 mg/dL 0.0-1.0 BILIRUBIN DIRECT (test code=BILD) 0.13 mg/dL 0.0-0.20 SGOT/AST (test code=AST) 16 IUnit/L 15-37 SGPT/ALT (test code=ALT) 30 IUnit/L 12-78 ALKALINE PHOSPHATASE TOTAL (test code=ALKP) 91 IUnit/L 45-117 Note change in reference range due to change in reagent. [id number] 23:35:00* Test Item Value Reference Range Comments PHOSPHORUS (test code=PHOS) 3.8 mg/dL 2.5-4.9 URIC [id number] 23:35:00* Test Item Value Reference Range Comments URIC ACID (test code=URIC) 8.9 mg/dL 2.6-7.2 [id number] 23:35:00* Test Item Value Reference Range Comments LIPASE (test code=LIP) 42 U/L 73.0-393.0 [id number] 23:35:00* Test Item Value Reference Range Comments MAGNESIUM (test code=MAG) 2.0 mg/dL 1.8-2.4 THYROID STIMULATING [id number] 23:35:00* Test Item Value Reference Range Comments THYROID STIMULATING HORMONE (test code=TSH) 1.660 uIU/mL 0.36-3.74 TSH REFERENCE RANGES: EUTHYROID: 0.35 - 4.3 mIU/mL HYPO : > 5.5 mIU/mL HYPER : < 0.35 mIU/mL VITAMIN D 1,65-[id number] 23:35:00* Test Item Value Reference Range Comments VITAMIN D 1,25-DIHYDROXY (test fpqv=VSSP916) pgram/mL C REACTIVE [id number] 21:08:00* Test Item Value Reference Range Comments C REACTIVE PROTEIN (test code=CRP) 1.00 mg/dL 0-0.3 [id number] 20:31:00* Test Item Value Reference Range Comments GLUBED (test code=GLUBED) 137 mg/dL 74-106 Performed by certified briquette machine operator at [facility] B-TYPE NATRIURETIC [id number] 20:30:00* Test Item Value Reference Range Comments B-TYPE NATRIURETIC PEPTIDE (test code=BNP) 40.36 pgram/mL 0-100 [id number] 19:36:00* Test Item Value Reference Range Comments TROPONIN-I (test code=TROPI) <0.015 ng/mL 0-0.045 COMMENTS TO RADIO MECHANIC HELPER: COLLECT 3 HOURS AFTER PREVIOUS [id number] 19:31:00* Test Item Value Reference Range Comments GLYCOSYLATED HEMOGLOBIN (HA1C) (test code=GLYHGB) 6.9 % HbA1 4.8-6.0 ESTIMATED AVERAGE GLUCOSE (test code=EAG) 151 MG/DL [id number] 17:35:00* Test Item Value Reference Range Comments GLUBED (test code=GLUBED) 94 mg/dL 74-106 Performed by certified briquette machine operator at [facility] BASIC METABOLIC [id number] 14:32:00* Test Item Value Reference Range Comments SODIUM (test code=NA) 140 mmol/L 136-145 POTASSIUM (test code=K) 3.6 mmol/L 3.5-5.1 CHLORIDE (test code=CL) 102.0 mmol/L 98-107 CARBON DIOXIDE (test code=CO2) 35.0 mmol/L 21-32 ANION GAP (test code=GAP) 6.6 10-20 GLUCOSE (test code=GLU) 93 mg/dL 74-106 BLOOD UREA NITROGEN (test code=BUN) 24 mg/dL 7-18 GLOMERULAR FILTRATION RATE (test code=GFR) > 60 mL/min >=60 Estimated GFR by using Modified MDRD formula.Chronic kidney disease is defined as either kidney damageor GFR <60 mL/min/1.73 m2 for >3 months. CREATININE (test code=CREAT) 0.90 mg/dL 0.55-1.02 Note change in reference range due to change in reagent. BUN/CREATININE RATIO (test code=BUN/CREA) 26.0 10-20 CALCIUM (test code=CA) 8.4 mg/dL 8.5-10.1 [id number] 14:32:00* Test Item Value Reference Range Comments TROPONIN-I (test code=TROPI) <0.015 ng/mL 0-0.045 TROPONIN I [id number] 14:02:00* Test Item Value Reference Range Comments TROPONIN I RAPID (test code=TROPIRAP) 0.01 ng/mL <0.08 Please Note New Reference Range 0.00-0.079 ng/mL - Negative>or=0.08 ng/mL - Positive The use of serial sampling and testing protocol is arecommended practice.An elevated troponin level alone is often not sufficient fordiagnosis of myocardial infarction. Troponin results obtained by different assays may vary.Evaluation of the extent of myocardial damage based onincrease of troponin would be valid only if similarmethodology is used. CBC W/O [id number] 13:48:00* Test Item Value Reference Range Comments WHITE BLOOD CELL (test code=WBC) K/mm3 4.5-12.5 RED BLOOD CELL (test code=RBC) mill/mm3 3.7-5.2 HEMOGLOBIN (test code=HGB) 12.2 gram/dL 11.5-15.5 HEMATOCRIT (test code=HCT) 40.2 % 36.0-46.0 MEAN CELL VOLUME (test code=MCV) fL 80-98 MEAN CELL HGB (test code=MCH) picogram 27.0-33.0 MEAN CELL HGB CONCETRATION (test code=MCHC) gram/dL 33.0-36.0 RED CELL DISTRIBUTION WIDTH (test code=RDW) % 11.6-16.2 PLATELET COUNT (test code=PLT) K/mm3 150-450 MEAN PLATELET VOLUME (test code=MPV) fL 6.7-11.0 CBC W/O [id number] 13:48:00* Test Item Value Reference Range Comments WHITE BLOOD CELL (test code=WBC) 12.7 K/mm3 4.5-12.5 RED BLOOD CELL (test code=RBC) 4.18 mill/mm3 3.7-5.2 HEMOGLOBIN (test code=HGB) 12.2 gram/dL 11.5-15.5 HEMATOCRIT (test code=HCT) 40.2 % 36.0-46.0 MEAN CELL VOLUME (test code=MCV) 96.2 fL 80-98 MEAN CELL HGB (test code=MCH) 29.2 picogram 27.0-33.0 MEAN CELL HGB CONCETRATION (test code=MCHC) 30.3 gram/dL 33.0-36.0 RED CELL DISTRIBUTION WIDTH (test code=RDW) 15.7 % 11.6-16.2 PLATELET COUNT (test code=PLT) 113 K/mm3 150-450 MEAN PLATELET VOLUME (test code=MPV) 9.3 fL 6.7-11.0 - XR CHEST 1 [id number] 13:23:00 FAX: Eddie Lunsford MD [phone] [place]: St: PRE Name: SHIRLENE HOLLAND [facility] : [birth year] Age/S: 48/F [address] [facility] Unit #: [id number] Loc: [place] [address] Phys: Eddie Lunsford MD Acct: [id number] Dis Date: Status: PRE ER PHONE #: [phone] Exam Date: 01/27/2019 1315 FAX #: [phone] Reason: CHEST PAIN EXAMS: CPT CODE: [id number] XR CHEST 1 V [id number] REASON FOR EXAM: CHEST PAIN EXAM ORDER DATE: 01/27/2019 12:56 PM Ordering Ramin: Eddie Lunsford MD PROCEDURE: - XR CHEST 1 V ALEX RISON: 12/06/2018 FINDINGS: Portable AP frontal view of the chest obtained at 1:11 PM shows clear lungs without evidence of consolidation. T here is no evidence of effusion. The heart size is within normal limits. Pulmonary vasculatures are unremarkable. IMPRESSION: No ac tive disease. at 1323 Reported and signed by: Bebeto Hodge M.D. CC: Eddie Lunsford MD Technologist: NIURKA SELLERS(R) Trnscrd Date/Time/By: 01/27/2019 (1323) : By: [email or web address] Orig Print D/T: S: 01/27/2019 (0615) PAGE 1 Signed Report [id number] 10:28:00* Test Item Value Reference Range Comments GLUBED (test code=GLUBED) 153 mg/dL 70-110 [id number] 07:10:00* Test Item Value Reference Range Comments GLUBED (test code=GLUBED) 119 mg/dL 70-110 [id number] 22:41:00* Test Item Value Reference Range Comments GLUBED (test code=GLUBED) 182 mg/dL 70-110 [id number] 16:13:00* Test Item Value Reference Range Comments GLUBED (test code=GLUBED) 133 mg/dL 70-110 [id number] 16:10:00* Test Item Value Reference Range Comments GLUBED (test code=GLUBED) 174 mg/dL 70-110 [id number] 07:12:00* Test Item Value Reference Range Comments GLUBED (test code=GLUBED) 107 mg/dL 70-110 BASIC METABOLIC [id number] 06:56:00* Test Item Value Reference Range Comments SODIUM (test code=NA) 143 mmol/l 134.0-147.0 POTASSIUM (test code=K) 4.2 mmol/L 3.6-5.2 CHLORIDE (test code=CL) 106 mmol/l 98.0-107.0 CARBON DIOXIDE (test code=CO2) 30.0 mmol/l 21.0-33.0 ANION GAP (test code=GAP) 11.2 0-20 GLUCOSE (test code=GLU) 107 mg/dl 70.0-110.0 BLOOD UREA NITROGEN (test code=BUN) 18 mg/dl 7.0-18.0 CREATININE (test code=CREAT) 0.80 mg/dL 0.60-1.30 GFR NON BLACK (test code=GFRNONBLACK) 80 mL/min 90-95 GFR BLACK (test code=GFRBLACK) 97 mL/min 109-115 CALCIUM (test code=CA) 9.4 mg/dl 8.0-10.5 CBC W/AUTO [id number] 06:42:00* Test Item Value Reference Range Comments WHITE BLOOD CELL (test code=WBC) 13.2 K/mm3 4.5-11.0 RED BLOOD CELL (test code=RBC) 3.95 M/mm3 3.80-5.20 HEMOGLOBIN (test code=HGB) 12.0 gm/dL 12.0-16.0 HEMATOCRIT (test code=HCT) 36.8 % 36.0-48.0 MEAN CELL VOLUME (test code=MCV) 93.2 UM3 82.0-99.0 MEAN CELL HGB (test code=MCH) 30.4 UUG 25.5-32.5 MEAN CELL HGB CONCETRATION (test code=MCHC) 32.6 gm/dL 29.0-35.5 RED CELL DISTRIBUTION WIDTH (test code=RDW) 13.2 % 11.5-15.0 PLATELET COUNT (test code=PLT) 163 K/mm3 150-400 MEAN PLATELET VOLUME (test code=MPV) 10.2 fl 7.4-10.4 NEUTROPHIL % (test code=NT%) 67.7 % 49.0-76.0 LYMPHOCYTE % (test code=LY%) 24.9 % 23.0-38.0 MONOCYTE % (test code=MO%) 3.9 % 1.0-10.0 EOSINOPHIL % (test code=EO%) 0.1 % 1.0-5.0 BASOPHIL % (test code=BA%) 0.2 % 0.0-1.0 NEUTROPHIL # (test code=NT#) 9.0 K/mm3 2.4-6.3 LYMPHOCYTE # (test code=LY#) 3.3 K/mm3 1.2-4.0 MONOCYTE # (test code=MO#) 0.5 K/mm3 0.0-0.6 EOSINOPHIL # (test code=EO#) 0.0 K/MM3 0.0-0.7 BASOPHIL # (test code=BA#) 0.0 K/mm3 0.0-0.2 [id number] 21:45:00* Test Item Value Reference Range Comments GLUBED (test code=GLUBED) 181 mg/dL 70-110 [id number] 16:06:00* Test Item Value Reference Range Comments GLUBED (test code=GLUBED) 158 mg/dL 70-110 [id number] 11:40:00* Test Item Value Reference Range Comments GLUBED (test code=GLUBED) 83 mg/dL 70-110 CARDIAC ENZYMES [id number] 08:32:00* Test Item Value Reference Range Comments CREATINE KINASE (CK) (test code=CK) 13 Units/L 26-192 CKMB (test code=CKMBT) <0.5 NG/ML 0.5-5.0 DISREGARD CKMB INDEX CALCULATION WHENEVER THE CKMBT ISREPORTED <0.5 CKMB INDEX (test code=CKMBI) 3.8 0.0-2.5 TROPONIN-I (test code=TROPI) <0.02 NG/ML 0.00-0.06 REFERENCE RANGE TROPONIN I HEALTHY INDIVIDUALS: <0.06 ng/mL R/O ISCHEMIA: 0.07 - 0.60 ng/mL CUT-OFF RANGE FOR AMI: 0.60 - 1.5 ng/mL : Specimen comments: Please see the initial specimen in the lab as the first draw on this series Comments to Forestry Supervisor: Please draw the 2nd specimen q4hrs after the first and the 3rd 8hrs after the first.Specime n comments: drawn Q4hrs then O4ofkHeztdeyj to Forestry Supervisor: Patient is currently in the ED waiting on a bedCOMPREHENSIVE METABOLIC [id number] 08:31:00* Test Item Value Reference Range Comments SODIUM (test code=NA) 144 mmol/l 134.0-147.0 POTASSIUM (test code=K) 3.6 mmol/L 3.6-5.2 CHLORIDE (test code=CL) 108 mmol/l 98.0-107.0 CARBON DIOXIDE (test code=CO2) 28.8 mmol/l 21.0-33.0 ANION GAP (test code=GAP) 10.8 0-20 GLUCOSE (test code=GLU) 78 mg/dl 70.0-110.0 BLOOD UREA NITROGEN (test code=BUN) 22 mg/dl 7.0-18.0 CREATININE (test code=CREAT) 0.78 mg/dL 0.60-1.30 GFR NON BLACK (test code=GFRNONBLACK) 83 mL/min 90-95 GFR BLACK (test code=GFRBLACK) 100 mL/min 109-115 TOTAL PROTEIN (test code=PROT) 6.5 gm/dL 6.4-8.2 ALBUMIN (test code=ALB) 2.5 gm/dl 3.2-4.7 CALCIUM (test code=CA) 9.1 mg/dl 8.0-10.5 BILIRUBIN TOTAL (test code=BILT) 0.2 mg/dl 0.0-1.0 SGOT/AST (test code=AST) 6 Units/L 15.0-37.0 SGPT/ALT (test code=ALT) 10 Units/L 12.0-78.0 ALKALINE PHOSPHATASE TOTAL (test code=ALKP) 79 Units/L 50.0-136.0 Comments to Forestry Supervisor: Patient is currently in the ED waiting on a bedLIPID PROFILE (CORONARY RISK)2018-12-06 08:31:00* Test Item Value Reference Range Comments TRIGLYCERIDES (test code=TRIG) 76 mg/dl 40.0-150.0 CHOLESTEROL (test code=CHOL) 120 mg/dl 0.0-200.0 CHOLESTEROL/HDL RATIO (test code=CHOLHDL) 2.6 RATIO HDL CHOLESTEROL (test code=HDL) 46 mg/dl 30.0-60.0 LIPOPROTEIN LDL (test code=LDL) 59 mg/dl 70-130 Comments to Forestry Supervisor: Patient is currently in the ED waiting on a [id number] 08:31:00* Test Item Value Reference Range Comments MAGNESIUM (test code=MAG) 1.9 mg/dl 1.8-2.4 Comments to Forestry Supervisor: Patient is currently in the ED waiting on a bed- XR CHEST 1 [id number] 08:20:00 FAX: Garcia Ernst [phone] [place]: St: ADM FAX: Yudy Toledo MD [phone] FAX: Robb Coburn MD Name: SHIRLENE LORENZO [facility] : 1970 Age/S: 48/F [address] Unit #: [id number] Loc: [address] [place], [place]: [place] [id number] Acct: [id number] Dis Date: Status: ADM IN ONE #: [phone] Exam Date: 12/06/2018 0819 FAX #: [phone] Reason: CP EXAMS: CPT CODE: [id number] XR CHEST 1 V [id number] Location: U19. CHEST, FRONTAL VIEW HISTORY: CP FINDINGS: Since 05/05/19, minimal left basilar a telectasis is present. Lungs are otherwise clear. The heart size is norm al. Right PICC line within the SVC. IMPRESSION: Minimal left basilar atelectasis. Electronically Si gned by Ramin Willingham on 12/06/2018 at 08 20 Reported and signed by: Faraz gibbs M.D. CC: Garcia Mcgregor MD; Yudy Santacruz MD; Grace Coburn MD Technologist: ANGELLA Hummel [facility] Date/Time/By: 12/06/2018 (08) : By: [email or web address] PAGE 1 Signed Report FAX: Garcia Bosch [phone] [place]: St: ADM FAX: Yudy Toledo MD [phone] FAX: Robb Coburn MD --------- Name: SHIRLENE LORENZO [facility] : [birth year] Age/S: 48/F [address] Unit #: [id number] Loc: [address] [place], [place]: [place] [id number] Acct: [id number] Dis Date: Status: ADM IN PHONE #: [phone] Exam Date: 12/06/2018 0819 FAX #: [phone] Reason: CP EXAMS: CPT CODE: [id number] XR CHEST 1 V [id number] <Continued> Orig Print D/T: S: 12/06/2018 (6346) PAGE 2 Signed Report CBC W/AUTO DIFF 2018-12-06 07:49:00* Test Item Value Reference Range Comments WHITE BLOOD CELL (test code=WBC) 13.4 K/mm3 4.5-11.0 RED BLOOD CELL (test code=RBC) 3.87 M/mm3 3.80-5.20 HEMOGLOBIN (test code=HGB) 11.6 gm/dL 12.0-16.0 HEMATOCRIT (test code=HCT) 36.4 % 36.0-48.0 MEAN CELL VOLUME (test code=MCV) 94.1 UM3 82.0-99.0 MEAN CELL HGB (test code=MCH) 30.0 UUG 25.5-32.5 MEAN CELL HGB CONCETRATION (test code=MCHC) 31.9 gm/dL 29.0-35.5 RED CELL DISTRIBUTION WIDTH (test code=RDW) 13.6 % 11.5-15.0 PLATELET COUNT (test code=PLT) 178 K/mm3 150-400 MEAN PLATELET VOLUME (test code=MPV) 10.0 fl 7.4-10.4 NEUTROPHIL % (test code=NT%) 52.6 % 49.0-76.0 LYMPHOCYTE % (test code=LY%) 38.1 % 23.0-38.0 MONOCYTE % (test code=MO%) 5.4 % 1.0-10.0 EOSINOPHIL % (test code=EO%) 0.3 % 1.0-5.0 BASOPHIL % (test code=BA%) 0.3 % 0.0-1.0 NEUTROPHIL # (test code=NT#) 7.0 K/mm3 2.4-6.3 LYMPHOCYTE # (test code=LY#) 5.1 K/mm3 1.2-4.0 MONOCYTE # (test code=MO#) 0.7 K/mm3 0.0-0.6 EOSINOPHIL # (test code=EO#) 0.0 K/MM3 0.0-0.7 BASOPHIL # (test code=BA#) 0.0 K/mm3 0.0-0.2 Comments to Forestry Supervisor: Patient is currently in the ED waiting on a [id number] 07:07:00* Test Item Value Reference Range Comments GLUBED (test code=GLUBED) 83 mg/dL 70-110 PROCALCITONIN (PCT)2018-12-06 03:23:00* Test Item Value Reference Range Comments PROCALCITONIN (PCT) (test code=PROCAL) <0.05 ng/mL 0.00-0.05 PROCALCITONIN (PCT) NORMAL RANGE (ADULT): <0.05 NG/ML. * a concentration <0.5 ng/mL represents a low risk of severe sepsis and/or septic shock.* a concentration >2 ng/mL represents a high risk of severe sepsis and/or septic shock.Nevertheless, concentrations <0.5 ng/mL do not exclude aninfection, on account of localized infections (withoutsystemic signs) which can be associated with such lowconcentrations, or a systemic infection in its initialstages (< 6 hours). Furthermore, increased procalcitonincan occur without infection. PCT concentrations between 0.5and 2.0 ng/mL should be interpreted taking into account thepatient's history. It is recommended to retest PCT within6-24 hours if any concentrations <2 ng/mL are obtained. Specimen comments: Clean CatchPROCALCITONIN (PCT)2018-12-06 03:21:00* Test Item Value Reference Range Comments PROCALCITONIN (PCT) (test code=PROCAL) < 0.05 ng/mL 0.00-0.05 PROCALCITONIN (PCT) NORMAL RANGE (ADULT): <0.05 NG/ML. * a concentration <0.5 ng/mL represents a low risk of severe sepsis and/or septic shock.* a concentration >2 ng/mL represents a high risk of severe sepsis and/or septic shock.Nevertheless, concentrations <0.5 ng/mL do not exclude aninfection, on account of localized infections (withoutsystemic signs) which can be associated with such lowconcentrations, or a systemic infection in its initialstages (< 6 hours). Furthermore, increased procalcitonincan occur without infection. PCT concentrations between 0.5and 2.0 ng/mL should be interpreted taking into account thepatient's history. It is recommended to retest PCT within6-24 hours if any concentrations <2 ng/mL are obtained. Specimen comments: Clean CatchCARDIAC ENZYMES [id number] 03:07:00* Test Item Value Reference Range Comments CREATINE KINASE (CK) (test code=CK) 24 Units/L 26-192 CKMB (test code=CKMBT) <0.5 NG/ML 0.5-5.0 DISREGARD CKMB INDEX CALCULATION WHENEVER THE CKMBT ISREPORTED <0.5 CKMB INDEX (test code=CKMBI) 2.1 0.0-2.5 TROPONIN-I (test code=TROPI) <0.02 NG/ML 0.00-0.06 REFERENCE RANGE TROPONIN I HEALTHY INDIVIDUALS: <0.06 ng/mL R/O ISCHEMIA: 0.07 - 0.60 ng/mL CUT-OFF RANGE FOR AMI: 0.60 - 1.5 ng/mL : Specimen comments: Please see the initial specimen in the lab as the first draw on this series Comments to Forestry Supervisor: Please draw the 2nd specimen q4hrs after the first and the 3rd 8hrs after the first.Specime n comments: drawn Q4hrs then [id number] to Forestry Supervisor: Patient is currently in the ED waiting on a [id number] 23:05:00* Test Item Value Reference Range Comments TROPONIN-I (test code=TROPI) <0.02 NG/ML 0.00-0.06 REFERENCE RANGE TROPONIN I HEALTHY INDIVIDUALS: <0.06 ng/mL R/O ISCHEMIA: 0.07 - 0.60 ng/mL CUT-OFF RANGE FOR AMI: 0.60 - 1.5 ng/mL LACTIC ACID [id number] 21:39:00* Test Item Value Reference Range Comments LACTIC ACID REPEAT (test code=LACTR) 2.0 mmol/L 0.4-2.0 [id number] 21:31:00* Test Item Value Reference Range Comments GLUBED (test code=GLUBED) 223 mg/dL 70-110 DRUGS OF ABUSE SCREEN [id number] 19:52:00* Test Item Value Reference Range Comments URN COCAINE (test code=COCAURN) NEGATIVE NEGATIVE Cocaine cut-off concentration: 300 ng/mL URN CANNABINOIDS (test code=CANNABURN) NEGATIVE NEGATIVE Cannabinoids cut-off concentration: 50 ng/mL URN AMPHETAMINE (test code=AMPHETURN) NEGATIVE NEGATIVE Amphetamine cut-off concentration: 1000 ng/mL URN BARBITURATE (test code=BARBITURN) NEGATIVE NEGATIVE Barbiturate cut-off concentration: 200 ng/mL URN BENZODIAZEPINE (test code=BENZOURN) NEGATIVE NEGATIVE Benzodiazepine cut- off concentration: 200 ng/mL URN OPIATES (test code=OPIATURN) POSITIVE NEGATIVE UNCONFIRMED INITIAL SCREENING ONLY; SUGGEST ADDITIONALCONFIRMATORY TESTING.Opiates cut-off concentration: 200 ng/mL URN PHENCYCLIDINE (PCP) (test code=PHENCURN) NEGATIVE NEGATIVE Phencyclidine(PCP) cut-off concentration: 25 ng/ml URN METHADONE (test code=METHAURN) NEGATIVE NEGATIVE Methadone cut-off concentration: 300 ng/mL Specimen comments: Clean CatchURINALYSIS [id number] 19:49:00* Test Item Value Reference Range Comments UA COLOR (test code=COLU) YELLOW UA APPEARANCE (test code=APPU) CLEAR UA GLUCOSE DIPSTICK (test code=DGLUU) NORMAL mg/dl NORMAL UA BILIRUBIN DIPSTICK (test code=BILU) NEGATIVE mg/dL NEGATIVE UA KETONE DIPSTICK (test code=KETU) NEGATIVE mg/dl NEGATIVE UA SPECIFIC GRAVITY (test code=SGU) 1.015 1.000-1.030 UA BLOOD DIPSTICK (test code=KIMBERLY) 25 Aamir/micL Aamir/micL NEGATIVE UA PH DIPSTICK (test code=JILLIAN) 6.5 5.0-9.0 UA PROTEIN DIPSTICK (test code=PROU) NEGATIVE mg/dl NEGATIVE UA UROBILINIOGEN DIPSTICK (test code=URO) NORMAL mg/dl NORMAL UA NITRITE DIPSTICK (test code=ALHAJI) NEGATIVE NEGATIVE UA LEUKOCYTE ESTERASE DIPSTICK (test code=LEUU) NEGATIVE Maninder/micL NEGATIVE UA WBC (test code=WBCU) 0-2 WBC/HPF NONE UA RBC (test code=RBCU) 1-3 RBC/HPF 0-3 UA EPITHELIAL CELLS (test code=EPIU) 1-3 EPI/HPF 0-3 UA BACTERIA (test code=BACU) FEW NONE Specimen comments: Clean CatchURINALYSIS [id number] 19:44:00* Test Item Value Reference Range Comments UA COLOR (test code=COLU) YELLOW UA APPEARANCE (test code=APPU) CLEAR UA GLUCOSE DIPSTICK (test code=DGLUU) NORMAL mg/dl NORMAL UA BILIRUBIN DIPSTICK (test code=BILU) NEGATIVE mg/dL NEGATIVE UA KETONE DIPSTICK (test code=KETU) NEGATIVE mg/dl NEGATIVE UA SPECIFIC GRAVITY (test code=SGU) 1.015 1.000-1.030 UA BLOOD DIPSTICK (test code=KIMBERLY) 25 Aamir/micL Aamir/micL NEGATIVE UA PH DIPSTICK (test code=JILLIAN) 6.5 5.0-9.0 UA PROTEIN DIPSTICK (test code=PROU) NEGATIVE mg/dl NEGATIVE UA UROBILINIOGEN DIPSTICK (test code=URO) NORMAL mg/dl NORMAL UA NITRITE DIPSTICK (test code=ALHAJI) NEGATIVE NEGATIVE UA LEUKOCYTE ESTERASE DIPSTICK (test code=LEUU) NEGATIVE Maninder/micL NEGATIVE UA WBC (test code=WBCU) WBC/HPF NONE UA RBC (test code=RBCU) RBC/HPF 0-3 UA EPITHELIAL CELLS (test code=EPIU) EPI/HPF 0-3 UA BACTERIA (test code=BACU) NONE Specimen comments: Clean CatchBASIC METABOLIC [id number] 18:37:00* Test Item Value Reference Range Comments SODIUM (test code=NA) 135 mmol/l 134.0-147.0 POTASSIUM (test code=K) 3.9 mmol/L 3.6-5.2 CHLORIDE (test code=CL) 101 mmol/l 98.0-107.0 CARBON DIOXIDE (test code=CO2) 25.8 mmol/l 21.0-33.0 ANION GAP (test code=GAP) 12.1 0-20 GLUCOSE (test code=GLU) 250 mg/dl 70.0-110.0 BLOOD UREA NITROGEN (test code=BUN) 27 mg/dl 7.0-18.0 CREATININE (test code=CREAT) 0.99 mg/dL 0.60-1.30 GFR NON BLACK (test code=GFRNONBLACK) 63 mL/min 90-95 GFR BLACK (test code=GFRBLACK) 76 mL/min 109-115 CALCIUM (test code=CA) 9.2 mg/dl 8.0-10.5 Specimen comments: .Specimen comments: Clean CatchB-TYPE NATRIURETIC PEPTIDE 2018-12-05 18:37:00* Test Item Value Reference Range Comments B-TYPE NATRIURETIC PEPTIDE (test code=BNP) 26.6 PG/ML 5-100 Specimen comments: .Specimen comments: Clean [id number] 18:37:00 * Test Item Value Reference Range Comments TROPONIN-I (test code=TROPI) <0.02 NG/ML 0.00-0.06 REFERENCE RANGE TROPONIN I HEALTHY INDIVIDUALS: <0.06 ng/mL R/O ISCHEMIA: 0.07 - 0.60 ng/mL CUT-OFF RANGE FOR AMI: 0.60 - 1.5 ng/mL Specimen comments: .Specimen comments: Clean CatchLACTIC [id number] 18:31:00 * Test Item Value Reference Range Comments LACTIC ACID (test code=LACT) 3.8 MMOL/L 0.4-2.0 BASIC METABOLIC [id number] 18:27:00* Test Item Value Reference Range Comments SODIUM (test code=NA) 135 mmol/l 134.0-147.0 POTASSIUM (test code=K) 3.9 mmol/L 3.6-5.2 CHLORIDE (test code=CL) 101 mmol/l 98.0-107.0 CARBON DIOXIDE (test code=CO2) 25.8 mmol/l 21.0-33.0 ANION GAP (test code=GAP) 12.1 0-20 GLUCOSE (test code=GLU) 250 mg/dl 70.0-110.0 BLOOD UREA NITROGEN (test code=BUN) 27 mg/dl 7.0-18.0 CREATININE (test code=CREAT) 0.99 mg/dL 0.60-1.30 GFR NON BLACK (test code=GFRNONBLACK) 63 mL/min 90-95 GFR BLACK (test code=GFRBLACK) 76 mL/min 109-115 CALCIUM (test code=CA) 9.2 mg/dl 8.0-10.5 Specimen comments: .Specimen comments: Clean CatchB-TYPE NATRIURETIC PEPTIDE 2018-12-05 18:27:00* Test Item Value Reference Range Comments B-TYPE NATRIURETIC PEPTIDE (test code=BNP) PG/ML 5-100 Specimen comments: .Specimen comments: Clean [id number] 18:27:00 * Test Item Value Reference Range Comments TROPONIN-I (test code=TROPI) <0.02 NG/ML 0.00-0.06 REFERENCE RANGE TROPONIN I HEALTHY INDIVIDUALS: <0.06 ng/mL R/O ISCHEMIA: 0.07 - 0.60 ng/mL CUT-OFF RANGE FOR AMI: 0.60 - 1.5 ng/mL Specimen comments: .Specimen comments: Clean Catch- XR CHEST 1 [id number] 18:23:00 FAX: Garcia Ernst [phone] [place]: St: REG FAX: Robb Coburn MD Name: SHIRLENE LORENZO [facility] : 1970 Age/S: 48/F [address] [facility] Unit #: [id number] Loc: [place], [place] Phys: [place] [id number] Acct: [id number] Dis Date: Status: REG ER PHONE #: [phone] Exam Date: 12/05/2018 1818 FAX #: [phone] Reason: SOB EXAMS: CPT CODE: [id number] XR CHEST 1 V 04973 AP VIEW OF THE CHEST LOCATION: B2 CLINICAL HISTORY: Shortness of breath. COMPARISON: Chest radiograph 11/25/2018. FINDINGS: The cardiomediastinal shadow is within normal limits. The lungs are clear. No pleural fluids. Degenerative bony changes are noted. No acute bony abnormality is found. IMPRESSION: No radiographic evidence of acute cardiopulmonary disease process. at 1823 Reported and signed by: Yadi Sparks M.D. CC: Garcia Mcgregor MD; Robb Coburn MD Technologist: JOSE EDUARDO DEAL Trnscrd Date/Time/By: 12/05/2018 (1822) : By: Janeth PAGE 1 Signed Report FAX: Slick Ernst [phone] [place]: St: REG FAX: Robb Coburn MD Name: SHIRLENE LORENZO [facility] : 1970 Age/S: 48/F [address] [facility] Unit #[facility] [id number] [place]: [place] [id number] Acct: [id number] Dis Date: Status: REG ER PHONE #: [phone] Exam Date: 12/05/2018 1818 FAX #: [phone] Reason: SOB EXAMS: CPT CODE: [id number] XR CHEST 1 V 29594 <Continued> Orig Print D/T: S: 12/05/2018 (383) PAGE 2 Signed Report PROTHROMBIN [id number] 18:21:00* Test Item Value Reference Range Comments PROTHROMBIN TIME PATIENT (test code=PTP) 11.1 SECONDS 9.9-12.8 INTERNATIONAL NORMAL RATIO (test code=INR) 0.9 0.89-1.14 THE INR IS TO BE USED ONLY FOR MONITORING ORAL ANTICOAGULANTTHERAPY. THE FOLLOWING ARE SUGGESTED RANGES FROM THEAMERICAN COLLEGE OF CHEST PHYSICIANS:INDICATION INR VALUEPROPHYLAXIS OF VENOUS THROMBOSIS (ORTHOPEDIC SURGERY) 2.0 - 3.0PROPHYLAXIS OF VENOUS THROMBOSIS (OTHER THAN HIGH-RISK SURGERY) 2.0 - 3.0TREATMENT OF DEEP VEIN THROMBOSIS OR PULMONARY EMBOLISM 2.0 - 3.0PREVENTION OF SYSTEMIC EMBOLISM TISSUE HEART VALVES 2.0 - 3.0 ACUTE MYOCARDIAL INFARCTION (TO PREVENT SYSTEMIC EMBOLISM) 2.0 - 3.0 ACUTE MYOCARDIAL INFARCTION (TO PREVENT RECURRENT INFARCT) 2.5 - 3.0 VALVULAR HEART DISEASE 2.0 - 3.0 ATRIAL FIBRILATION 2.0 - 3.0BILEAFLET MECHANICAL VALVE IN AORTIC POSITION 2.0 - 3.0MECHANICAL PROSTHETIC VALVES (HIGH RISK) 2.5 - 3.5PRESENCE OF LUPUS ANTICOAGULANT OR ANTIPHOSPHOLIPID ANTIBODIES 2.5 - 3.5 Specimen comments: .THROMBOPLASTIN TIME [id number] 18:21:00* Test Item Value Reference Range Comments THROMBOPLASTIN TIME PARTIAL (test code=PTT) 27.90 SECONDS 25.86-36.07 [facility] Therapeutic Range - APTT of 55.8-85.4 secondscorrelates with plasma heparin concentration of 0.2-0.4 u/mL New range effective - 01/09/2017 Specimen comments: .BASIC METABOLIC [id number] 18:20:00* Test Item Value Reference Range Comments SODIUM (test code=NA) 135 mmol/l 134.0-147.0 POTASSIUM (test code=K) 3.9 mmol/L 3.6-5.2 CHLORIDE (test code=CL) 101 mmol/l 98.0-107.0 CARBON DIOXIDE (test code=CO2) 25.8 mmol/l 21.0-33.0 ANION GAP (test code=GAP) 12.1 0-20 GLUCOSE (test code=GLU) mg/dl 70.0-110.0 BLOOD UREA NITROGEN (test code=BUN) mg/dl 7.0-18.0 CREATININE (test code=CREAT) mg/dL 0.60-1.30 GFR NON BLACK (test code=GFRNONBLACK) mL/min 90-95 GFR BLACK (test code=GFRBLACK) mL/min 109-115 CALCIUM (test code=CA) mg/dl 8.0-10.5 Specimen comments: .Specimen comments: Clean CatchB-TYPE NATRIURETIC PEPTIDE 2018-12-05 18:20:00* Test Item Value Reference Range Comments B-TYPE NATRIURETIC PEPTIDE (test code=BNP) PG/ML 5-100 Specimen comments: .Specimen comments: Clean [id number] 18:20:00 * Test Item Value Reference Range Comments TROPONIN-I (test code=TROPI) NG/ML 0.00-0.06 Specimen comments: .Specimen comments: Clean CatchCBC W/O [id number] 18:14:00* Test Item Value Reference Range Comments WHITE BLOOD CELL (test code=WBC) 11.2 K/mm3 4.5-11.0 RED BLOOD CELL (test code=RBC) 4.44 M/mm3 3.80-5.20 HEMOGLOBIN (test code=HGB) 13.3 gm/dL 12.0-16.0 HEMATOCRIT (test code=HCT) 40.6 % 36.0-48.0 MEAN CELL VOLUME (test code=MCV) 91.4 UM3 82.0-99.0 MEAN CELL HGB (test code=MCH) 30.0 UUG 25.5-32.5 MEAN CELL HGB CONCETRATION (test code=MCHC) 32.8 gm/dL 29.0-35.5 RED CELL DISTRIBUTION WIDTH (test code=RDW) 13.4 % 11.5-15.0 PLATELET COUNT (test code=PLT) 180 K/mm3 150-400 MEAN PLATELET VOLUME (test code=MPV) 9.6 fl 7.4-10.4 Specimen comments: .[id number] 16:13:00* Test Item Value Reference Range Comments GLUBED (test code=GLUBED) 202 mg/dL 70-110 [id number] 11:08:00* Test Item Value Reference Range Comments GLUBED (test code=GLUBED) 111 mg/dL 70-110 [id number] 08:03:00* Test Item Value Reference Range Comments GLUBED (test code=GLUBED) 112 mg/dL 70-110 [id number] 07:23:00* Test Item Value Reference Range Comments CREATININE (test code=CREAT) 0.81 mg/dL 0.60-1.30 [id number] 21:29:00* Test Item Value Reference Range Comments GLUBED (test code=GLUBED) 213 mg/dL 70-110 [id number] 16:06:00* Test Item Value Reference Range Comments GLUBED (test code=GLUBED) 172 mg/dL 70-110 [id number] 12:33:00* Test Item Value Reference Range Comments GLUBED (test code=GLUBED) 109 mg/dL 70-110 [id number] 07:56:00* Test Item Value Reference Range Comments GLUBED (test code=GLUBED) 120 mg/dL 70-110 [id number] 21:46:00* Test Item Value Reference Range Comments GLUBED (test code=GLUBED) 266 mg/dL 70-110 [id number] 15:53:00* Test Item Value Reference Range Comments GLUBED (test code=GLUBED) 198 mg/dL 70-110 [id number] 12:25:00* Test Item Value Reference Range Comments GLUBED (test code=GLUBED) 137 mg/dL 70-110 [id number] 08:07:00* Test Item Value Reference Range Comments GLUBED (test code=GLUBED) 107 mg/dL 70-110 [id number] 21:47:00* Test Item Value Reference Range Comments GLUBED (test code=GLUBED) 209 mg/dL 70-110 [id number] 16:47:00* Test Item Value Reference Range Comments GLUBED (test code=GLUBED) 197 mg/dL 70-110 MYOCARD IMAGING, MULTI, PHARM, [id number] 12:29:00FINAL REPORT PROCEDURE: Rest/Stress MYOCARDIAL PERFUSION SCAN with regadenosine CPT CODE: 91578, 60991, 13919 INDICATION: Chest pain PROTOCOL: The patient underwent [...] thickening. The QGS LVEF is 67%. IMPRESSION: N ormal myocardial perfusion. Normal resting LV function. Signed: Pasha Lugo MDReport Verified Date/Time: 07/03/2018 12:29:53 Reading Location: [facility] Cardiology Reading Room -GLUCOSE [id number] 12:07:00* Test Item Value Reference Range Comments POC-GLUCOSE METER (BEAKER) (test mgwb=5917) 129 mg/dL 70-110 TESTED AT [facility] [address] [facility] [address] POCT-GLUCOSE [id number] 06:05:00* Test Item Value Reference Range Comments POC-GLUCOSE METER (BEAKER) (test dxpv=6261) 113 mg/dL 70-110 TESTED AT [facility] [address] [facility] [address] COMPREHENSIVE METABOLIC [id number] 03:58:00* Test Item Value Reference Range Comments TOTAL PROTEIN (BEAKER) (test strk=048) 6.3 gm/dL 6.0-8.5 ALBUMIN (BEAKER) (test jxfq=6973) 3.4 g/dL 3.5-5.0 ALKALINE PHOSPHATASE (BEAKER) (test hjbp=170) 105 U/L 30-115 BILIRUBIN TOTAL (BEAKER) (test jgln=380) 0.2 mg/dL 0.1-1.3 SODIUM (BEAKER) (test atzj=565) 139 meq/L 135-148 POTASSIUM (BEAKER) (test knib=637) 4.5 meq/L 3.5-5.5 CHLORIDE (BEAKER) (test irek=025) 111 meq/L 98-106 CO2 (BEAKER) (test zdgc=809) 20 meq/L 20-31 BLOOD UREA NITROGEN (BEAKER) (test powh=560) 20 mg/dL 10-26 CREATININE (BEAKER) (test fpnu=189) 0.69 mg/dL 0.50-1.20 GLUCOSE RANDOM (BEAKER) (test bosd=619) 99 mg/dL 70-110 CALCIUM (BEAKER) (test ebuo=724) 8.7 mg/dL 8.5-10.5 AST (SGOT) (BEAKER) (test piir=567) 16 U/L 5-40 ALT (SGPT) (BEAKER) (test anch=130) 37 U/L 6-50 EGFR (BEAKER) (test tidb=4998) 90 mL/min/1.73 sq m ESTIMATED GFR IS NOT ACCURATE CREATININE CLEARANCE IN PREDICTING GLOMERULAR FILTRATION RATE. ESTIMATED GFR IS NOT APPLICABLE FOR DIALYSIS PATIENTS. POCT-GLUCOSE [id number] 20:11:00* Test Item Value Reference Range Comments POC-GLUCOSE METER (BEAKER) (test yrdd=2219) 132 mg/dL 70-110 TESTED AT [facility] [id number] [place] [address] CBC (HEMOGRAM ONLY)2018-07-02 16:46:00* Test Item Value Reference Range Comments WHITE BLOOD CELL COUNT (BEAKER) (test zaji=212) 6.2 K/ L 4.0-10.0 RED BLOOD CELL COUNT (BEAKER) (test tewq=361) 3.61 M/ L 4.00-5.00 HEMOGLOBIN (BEAKER) (test tlsr=710) 11.6 GM/DL 12.0-15.0 HEMATOCRIT (BEAKER) (test oyzu=111) 33.8 % 36.0-45.0 MEAN CORPUSCULAR VOLUME (BEAKER) (test lhid=897) 93.4 fL 82.0-99.0 MEAN CORPUSCULAR HEMOGLOBIN (BEAKER) (test gejz=069) 32.0 pg 27.0-33.0 MEAN CORPUSCULAR HEMOGLOBIN CONC (BEAKER) (test ugix=710) 34.3 GM/DL 32.0-36.0 RED CELL DISTRIBUTION WIDTH (BEAKER) (test frwt=884) 13.3 % 12.0-15.0 PLATELET COUNT (BEAKER) (test bnqw=021) 126 K/CU MM 150-430 MEAN PLATELET VOLUME (BEAKER) (test awhn=174) 8.1 fL 6.5-10.5 NUCLEATED RED BLOOD CELLS (BEAKER) (test rjcm=841) 0 /100 WBC 0-0 POCT-GLUCOSE [id number] 15:54:00* Test Item Value Reference Range Comments POC-GLUCOSE METER (BEAKER) (test yggt=2959) 99 mg/dL 70-110 TESTED AT [facility] [address] [facility] [address] POCT-GLUCOSE [id number] 11:32:00* Test Item Value Reference Range Comments POC-GLUCOSE METER (BEAKER) (test jejd=5194) 135 mg/dL 70-110 TESTED AT [facility] [address] [facility] [address] POCT-GLUCOSE [id number] 05:49:00* Test Item Value Reference Range Comments POC-GLUCOSE METER (BEAKER) (test kblz=0294) 101 mg/dL 70-110 TESTED AT [facility] [address] [facility] [address] POCT-GLUCOSE [id number] 20:57:00* Test Item Value Reference Range Comments POC-GLUCOSE METER (BEAKER) (test dimi=7089) 101 mg/dL 70-110 TESTED AT [facility] [address] [facility] [address] POCT-GLUCOSE [id number] 16:09:00* Test Item Value Reference Range Comments POC-GLUCOSE METER (BEAKER) (test szqq=8551) 114 mg/dL 70-110 TESTED AT [facility] [address] [facility] [address] RAD, CHEST, 1 VIEW, NON [id number] 13:12:00Reason for exam:->chest painShould this be performed at the bedside?->YesFINAL REPORT Chest, AP view. History: Chest pain. Comparison: 01/05/2017. Discussion: The cardiomediastinal silhouette and pulmonary vasculature are within normal limits. The lungs are clear without evidence of consolidation or effusion. There are no acute osseous abnormalities. The soft tissues are unremarkable. IMPRESSION: No acute cardiopulmonary abnormality. Signed: Eli Arcos MDReport Verified Date/Time: 07/01/2018 13:12:56 Reading Location: [facility] C0[facility] Ortho Consult Reading Room -GLUCOSE [id number] 11:18:00* Test Item Value Reference Range Comments POC-GLUCOSE METER (BEAKER) (test ftgj=1001) 93 mg/dL 70-110 TESTED AT [facility] [address] [facility] [address] [id number] 10:00:00* Test Item Value Reference Range Comments PARTIAL THROMBOPLASTIN TIME (BEAKER) (test ktfw=003) 24.1 seconds 23.2-36.1 POCT-GLUCOSE [id number] 06:14:00* Test Item Value Reference Range Comments POC-GLUCOSE METER (BEAKER) (test guxt=4020) 102 mg/dL 70-110 TESTED AT [facility] [address] [facility] [address] LIPID [id number] 05:33:00* Test Item Value Reference Range Comments TRIGLYCERIDES (BEAKER) (test wpps=623) 151 mg/dL CHOLESTEROL (BEAKER) (test xkco=993) 162 mg/dL HDL CHOLESTEROL (BEAKER) (test hwsi=700) 30 mg/dL LDL CHOLESTEROL CALCULATED (BEAKER) (test btli=637) 102 mg/dL Triglyceride Reference Range: Low Risk <150 Borderline 150-199 High Risk 200-499 Very High Risk >=500Cholesterol Reference Range: Low Risk <200 Borderline 200-239 High Risk >240HDL Cholesterol Reference Range: Low Risk >=60 High Risk <40LDL Cholesterol Reference Range: Optimal <100 Near Optimal 100-129 Borderline 130-159 High 160-189 Very High >=190 TROPONIN [id number] 05:29:00* Test Item Value Reference Range Comments TROPONIN I (BEAKER) (test uzvj=002) < ng/mL 0.00-0.15 Troponin I (TnI) levels must be interpreted in the context of the presenting sym ptoms and the clinical findings. Elevated TnI levels indicate myocardial damage, but are not specific for ischemic heart disease. Elevated TnI levels are seen in patients with other cardiac conditions (including myocarditis and congestive h eart failure), and slight TnI elevations occur in patients with other conditions , including sepsis, renal failure, acidosis, acute neurological disease, and per sistent tachyarrhythmia.[id number] 05:22:00* Test Item Value Reference Range Comments MAGNESIUM (BEAKER) (test dbaf=792) 1.7 mg/dL 1.5-3.0 BASIC METABOLIC [id number] 05:22:00* Test Item Value Reference Range Comments SODIUM (BEAKER) (test zroy=071) 139 meq/L 135-148 POTASSIUM (BEAKER) (test cavd=770) 3.6 meq/L 3.5-5.5 CHLORIDE (BEAKER) (test dzev=890) 111 meq/L 98-106 CO2 (BEAKER) (test uhnf=507) 17 meq/L 20-31 BLOOD UREA NITROGEN (BEAKER) (test gkvk=265) 19 mg/dL 10-26 CREATININE (BEAKER) (test kypk=279) 0.74 mg/dL 0.50-1.20 GLUCOSE RANDOM (BEAKER) (test xqum=244) 98 mg/dL 70-110 CALCIUM (BEAKER) (test mamg=121) 9.2 mg/dL 8.5-10.5 EGFR (BEAKER) (test ozug=6609) 83 mL/min/1.73 sq m ESTIMATED GFR IS NOT ACCURATE CREATININE CLEARANCE IN PREDICTING GLOMERULAR FILTRATION RATE. ESTIMATED GFR IS NOT APPLICABLE FOR DIALYSIS PATIENTS. CBC W/PLT COUNT & AUTO [id number] 04:58:00* Test Item Value Reference Range Comments WHITE BLOOD CELL COUNT (BEAKER) (test zsma=439) 6.7 K/ L 4.0-10.0 RED BLOOD CELL COUNT (BEAKER) (test tejs=000) 3.76 M/ L 4.00-5.00 HEMOGLOBIN (BEAKER) (test zagx=732) 12.2 GM/DL 12.0-15.0 HEMATOCRIT (BEAKER) (test aikq=598) 34.9 % 36.0-45.0 MEAN CORPUSCULAR VOLUME (BEAKER) (test lwlj=218) 92.9 fL 82.0-99.0 MEAN CORPUSCULAR HEMOGLOBIN (BEAKER) (test evou=532) 32.5 pg 27.0-33.0 MEAN CORPUSCULAR HEMOGLOBIN CONC (BEAKER) (test pbaf=201) 35.0 GM/DL 32.0-36.0 RED CELL DISTRIBUTION WIDTH (BEAKER) (test mylr=581) 13.4 % 12.0-15.0 PLATELET COUNT (BEAKER) (test ehrq=508) 134 K/CU MM 150-430 MEAN PLATELET VOLUME (BEAKER) (test nvzv=094) 7.6 fL 6.5-10.5 NUCLEATED RED BLOOD CELLS (BEAKER) (test swir=760) 0 /100 WBC 0-0 NEUTROPHILS RELATIVE PERCENT (BEAKER) (test mzym=703) 46 % LYMPHOCYTES RELATIVE PERCENT (BEAKER) (test xvnz=618) 47 % MONOCYTES RELATIVE PERCENT (BEAKER) (test xphb=181) 5 % EOSINOPHILS RELATIVE PERCENT (BEAKER) (test yehw=904) 2 % BASOPHILS RELATIVE PERCENT (BEAKER) (test dsqx=796) 1 % NEUTROPHILS ABSOLUTE COUNT (BEAKER) (test zjjr=646) 3.00 K/ L 1.80-8.00 LYMPHOCYTES ABSOLUTE COUNT (BEAKER) (test kkti=484) 3.20 K/ L 1.48-4.50 MONOCYTES ABSOLUTE COUNT (BEAKER) (test fzdi=107) 0.30 K/ L 0.00-1.30 EOSINOPHILS ABSOLUTE COUNT (BEAKER) (test nixs=760) 0.10 K/ L 0.00-0.50 BASOPHILS ABSOLUTE COUNT (BEAKER) (test wkgm=917) 0.00 K/ L 0.00-0.20 [id number] 01:33:00* Test Item Value Reference Range Comments PARTIAL THROMBOPLASTIN TIME (BEAKER) (test womt=338) 26.4 seconds 23.2-36.1 Prior to initiating heparinTROPONIN [id number] 23:17:00* Test Item Value Reference Range Comments TROPONIN I (BEAKER) (test msgy=419) 0.01 ng/mL 0.00-0.15 Troponin I (TnI) levels must be interpreted in the context of the presenting sym ptoms and the clinical findings. Elevated TnI levels indicate myocardial damage, but are not specific for ischemic heart disease. Elevated TnI levels are seen in patients with other cardiac conditions (including myocarditis and congestive h eart failure), and slight TnI elevations occur in patients with other conditions , including sepsis, renal failure, acidosis, acute neurological disease, and per sistent tachyarrhythmia.B-TYPE NATRIURETIC FACTOR (BNP)2018-06-30 23:17:00* Test Item Value Reference Range Comments B-TYPE NATRIURETIC PEPTIDE (BEAKER) (test ommq=822) 11 pg/mL 0-100 PLATELET [id number] 22:49:00* Test Item Value Reference Range Comments PLATELET COUNT (BEAKER) (test ieik=599) 139 K/CU MM 150-430 POCT-GLUCOSE [id number] 21:45:00* Test Item Value Reference Range Comments POC-GLUCOSE METER (BEAKER) (test xxpg=3680) 90 mg/dL 70-110 TESTED AT [facility] [id number] [facility] [address] B-TYPE NATRIURETIC FACTOR (BNP)2017-01-05 11:40:00* Test Item Value Reference Range Comments B-TYPE NATRIURETIC PEPTIDE (BEAKER) (test bwbs=447) < pg/mL 0-100 CREATINE KINASE (CK), TOTAL AND [id number] 11:36:00* Test Item Value Reference Range Comments CREATINE KINASE TOTAL (BEAKER) (test zcrb=494) 30 U/L 29-200 CREATINE KINASE-MB (BEAKER) (test hpai=034) 0.3 ng/mL 0.0-6.6 CREATINE KINASE-MB INDEX (BEAKER) (test lses=584) 1.0 % Effective 10/01/2014: CK-MB Reference Range ChangeNew: 0.0-6.6 Previous: 0.0- 4.9CK-MB Reference Range:<6.7 Normal6.7-10.0 Borderline>10.0 Abnormal TROPONIN [id number] 11:36:00* Test Item Value Reference Range Comments TROPONIN I (BEAKER) (test zkbt=637) < ng/mL 0.00-0.03 Effective 10/01/2014: Reference Range ChangeNew: 0.00-0.03 Previous 0.00-0.15T roponin I (TnI) levels must be interpreted in the context of the presenting symp toms and the clinical findings. Elevated TnI levels indicate myocardial damage, but are not specific for ischemic heart disease. Elevated TnI levels are seen in patients with other cardiac conditions (including myocarditis and congestive he art failure), and slight TnI elevations occur in patients with other conditions, including sepsis, renal failure, acidosis, acute neurological disease, and pers istent tachyarrhythmia.PT/[id number] 11:16:00* Test Item Value Reference Range Comments PROTIME (BEAKER) (test bcuy=360) 13.0 seconds 11.7-14.7 INR (BEAKER) (test rekl=581) 1.0 <=5.9 PARTIAL THROMBOPLASTIN TIME (BEAKER) (test vdnc=795) 24.9 seconds 22.5-36.0 RECOMMENDED COUMADIN/WARFARIN INR THERAPY RANGESSTANDARD DOSE: 2.0 - 3.0 Inclu karishma: PROPHYLAXIS for venous thrombosis, systemic embolization; TREATMENT for cesar ous thrombosis and/or pulmonary embolus.HIGH RISK: Target INR is 2.5-3.5 for pat ients with mechanical heart valves.[id number] 11:16:00* Test Item Value Reference Range Comments MAGNESIUM (BEAKER) (test omra=122) 2.2 mg/dL 1.6-2.6 BASIC METABOLIC [id number] 11:16:00* Test Item Value Reference Range Comments SODIUM (BEAKER) (test xbol=441) 140 meq/L 136-145 POTASSIUM (BEAKER) (test pkrg=147) 4.1 meq/L 3.5-5.1 CHLORIDE (BEAKER) (test ftyj=472) 109 meq/L 98-107 CO2 (BEAKER) (test bwgm=378) 17 meq/L 22-29 BLOOD UREA NITROGEN (BEAKER) (test cqxv=848) 15 mg/dL 7-21 CREATININE (BEAKER) (test hbhi=243) 0.76 mg/dL 0.57-1.25 GLUCOSE RANDOM (BEAKER) (test sfbd=261) 100 mg/dL 70-105 CALCIUM (BEAKER) (test moeb=204) 9.9 mg/dL 8.4-10.2 EGFR (BEAKER) (test nsiv=3475) 81 mL/min/1.73 sq m ESTIMATED GFR IS NOT ACCURATE CREATININE CLEARANCE IN PREDICTING GLOMERULAR FILTRATION RATE. ESTIMATED GFR IS NOT APPLICABLE FOR DIALYSIS PATIENTS. CBC W/PLT COUNT & AUTO [id number] 10:59:00* Test Item Value Reference Range Comments WHITE BLOOD CELL COUNT (BEAKER) (test nsxw=781) 7.2 K/ L 4.0-10.0 RED BLOOD CELL COUNT (BEAKER) (test djhr=237) 4.65 M/ L 4.00-5.00 HEMOGLOBIN (BEAKER) (test bekl=724) 14.8 GM/DL 12.0-15.0 HEMATOCRIT (BEAKER) (test tare=640) 43.0 % 36.0-45.0 MEAN CORPUSCULAR VOLUME (BEAKER) (test jpbt=043) 92.5 fL 82.0-99.0 MEAN CORPUSCULAR HEMOGLOBIN (BEAKER) (test kkoa=067) 31.9 pg 27.0-33.0 MEAN CORPUSCULAR HEMOGLOBIN CONC (BEAKER) (test yaul=367) 34.5 GM/DL 32.0-36.0 RED CELL DISTRIBUTION WIDTH (BEAKER) (test iqsh=455) 13.1 % 10.3-14.2 PLATELET COUNT (BEAKER) (test ylfl=564) 214 K/CU MM 150-430 MEAN PLATELET VOLUME (BEAKER) (test etdm=350) 6.8 fL 6.5-10.5 NUCLEATED RED BLOOD CELLS (BEAKER) (test ccln=219) 0 /100 WBC 0-0 NEUTROPHILS RELATIVE PERCENT (BEAKER) (test oten=224) 50 % LYMPHOCYTES RELATIVE PERCENT (BEAKER) (test xski=919) 41 % MONOCYTES RELATIVE PERCENT (BEAKER) (test qxuj=034) 6 % EOSINOPHILS RELATIVE PERCENT (BEAKER) (test ymbf=834) 1 % BASOPHILS RELATIVE PERCENT (BEAKER) (test kmpe=914) 1 % NEUTROPHILS ABSOLUTE COUNT (BEAKER) (test sfay=994) 3.62 K/ L 1.80-8.00 LYMPHOCYTES ABSOLUTE COUNT (BEAKER) (test zmgo=153) 2.96 K/ L 1.48-4.50 MONOCYTES ABSOLUTE COUNT (BEAKER) (test dqtk=244) 0.44 K/ L 0.00-1.30 EOSINOPHILS ABSOLUTE COUNT (BEAKER) (test lgys=983) 0.10 K/ L 0.00-0.50 BASOPHILS ABSOLUTE COUNT (BEAKER) (test uluh=153) 0.07 K/ L 0.00-0.20 0.00
[2019-02-28] MEDS ORDERED: ASPIRIN 81 MG CHEW TAB PO ONE (22:45)
[2019-02-28] MEDS ORDERED: ACETAMINOPHEN 325 MG TAB PO ONE (23:00)
[2019-02-28 23:48] LABS: BASOPHILS % 0.3 % (0.0-1.0); EOSINOPHILS # (AUTO) 0.1 (0.0-0.4); HEMATOCRIT 33.5 % (34.2-44.1); LYMPHOCYTES # (AUTO) 3.7 (1.0-3.2); LYMPHOCYTES % 38.9 % (18.0-39.1); MEAN CORPUSCULAR HGB CONC 32.8 g/dL (31-35); MEAN CORPUSCULAR VOLUME 91.3 fL (81-99); MONOCYTES # (AUTO) 0.6 (0.2-0.8); MONOCYTES % 6.2 % (4.4-11.3); NEUTROPHILS # (AUTO) 4.9 (2.1-6.9); NEUTROPHILS % 52.3 % (38.7-80.0); PLATELET COUNT 185 x10e3/uL (140-360); RED BLOOD COUNT 3.67 x10e6/uL (3.6-5.1); RED CELL DISTRIBUTION WIDTH 15.8 % (11.7-14.4)
[2019-02-28 23:57] LABS: INFLUENZAE A&B ANTIGEN (RAPID) NEGATIVE (NEGATIVE); STREPTOCOCCUS GRP A ANTIGEN NEGATIVE (NEGATIVE)
--- NOTE | 2019-03-01 | Diagnostic Imaging Report ---
EXAMINATION: CHEST SINGLE (PORTABLE) COMPARISON: None INDICATION: ^chest pain ^[id number] ^2349 ^Y DISCUSSION: Frontal view of the chest obtained at 2349 hours. HEART AND MEDIASTINUM: The cardiomediastinal silhouette is unremarkable. LINES: None. LUNGS: Right infrahilar airspace opacity may represent atelectasis or infiltrate. Left lung is clear. No interstitial edema. PLEURA: No pleural effusion or pneumothorax. BONES AND SOFT TISSUES: No focal osseous lesion. The soft tissues are normal. IMPRESSION: Right infrahilar airspace opacity may represent atelectasis or infiltrate. Recommend correlation with PA and lateral chest x-ray if clinically feasible. Signed by: Dr. Nita Coburn MD on 02/28/2019 11:57 PM
[2019-03-01 00:03] LABS: ALANINE AMINOTRANSFERASE 15 IU/L (0-55); ALBUMIN 2.9 g/dL (3.5-5.0); ALBUMIN/GLOBULIN RATIO 0.8 (0.8-2.0); ALKALINE PHOSPHATASE 95 IU/L (40-150); ANION GAP 13.6 mmol/L (8-16); BLOOD UREA NITROGEN 8 mg/dL (7-26); BUN/CREATININE RATIO 13 (6-25); CALCIUM 9.5 mg/dL (8.4-10.2); CARBON DIOXIDE 24 mmol/L (22-29); CHLORIDE 106 mmol/L (98-107); CREATINE KINASE 22 IU/L (29-168); CREATININE, SERUM 0.61 mg/dL (0.57-1.11); EST GLOMERULAR FILTRATION RATE > 60 ML/MIN (60-); GLUCOSE 104 mg/dL (74-118); POTASSIUM 3.6 mmol/L (3.5-5.1); SODIUM 140 mmol/L (136-145)
[2019-03-01 00:12] LABS: B-TYPE NATRIURETIC PEPTIDE2 53.3 pg/mL (0-100)
[2019-03-01] MEDS ORDERED: SODIUM CHLORIDE 0.9% 500ML 500 ML IV ONE (01:00)
[2019-03-01] MEDS ORDERED: CEFTRIAXONE SOD 1 GM/NS 50 ML 50 ML IV ONE (01:00)
[2019-03-01 03:32] VITALS: BP 107/69
== END 2019-03-01 03:44 | disposition home or self-care (01) ==
LOC: ER 22:30
DX: R50.9 Fever, unspecified (principal); R05 Cough; J15.9 Unspecified bacterial pneumonia; I10 Essential (primary) hypertension; J44.9 Chronic obstructive pulmonary disease, unspecified; I50.9 Heart failure, unspecified; Z86.73 Personal history of transient ischemic attack (TIA), and cerebral infarction without residual deficits
CPT/HCPCS: 36415; 71045; 80053; 82550; 82553; 83518; 83605; 83880; 84484; 85025; 87070; 87400; 93005; 99284; J0696; J7040

== ENCOUNTER 2019-03-24 13:35 | Inpatient (IN) | payer MEDICARE, OTHER ==
[~2019-03-24] VITALS: Ht 162.6 cm; Wt 113.4 kg
[2019-03-24] MEDS ORDERED: SODIUM CHLORIDE 0.9% 500ML 500 ML IV ONE (14:45)
[2019-03-24 14:55] LABS: BASOPHILS % 0.3 % (0.0-1.0); HEMATOCRIT 37.6 % (34.2-44.1); HEMOGLOBIN 12.5 g/dL (12.0-16.0); LYMPHOCYTES % 8.1 % (18.0-39.1); MEAN CORPUSCULAR HEMOGLOBIN 30.3 pg (28-32); MEAN CORPUSCULAR HGB CONC 33.2 g/dL (31-35); MEAN CORPUSCULAR VOLUME 91.3 fL (81-99); MONOCYTES # (AUTO) 0.2 (0.2-0.8); MONOCYTES % 1.5 % (4.4-11.3); NEUTROPHILS % 85.4 % (38.7-80.0); PLATELET COUNT 187 x10e3/uL (140-360); RED BLOOD COUNT 4.12 x10e6/uL (3.6-5.1); RED CELL DISTRIBUTION WIDTH 14.6 % (11.7-14.4)
[2019-03-24 14:58] LABS: BILIRUBIN,URINE NEGATIVE (NEGATIVE); CLARITY,URINE HAZY (CLEAR); COLOR,URINE YELLOW (YELLOW); KETONES,URINE NEGATIVE (NEGATIVE); LEUKOCYTE ESTERASE ,URINE NEGATIVE (NEGATIVE); NITRITE,URINE NEGATIVE (NEGATIVE); PROTEIN,URINE DIPSTICK NEGATIVE (NEGATIVE); URINE UROBILINOGEN 0.2 mg/dL (0.2 - 1)
[2019-03-24] MEDS ORDERED: MORPHINE SULFATE INJ 4 MG/ML INJ 1ML IV ONE (15:00)
[2019-03-24] MEDS ORDERED: ONDANSETRON HCL INJ 2MG/ML 2ML 2 MG/ML VIAL IV ONE (15:00)
[2019-03-24] MEDS ORDERED: PIPER-TAZ 3.375 GM 50 ML IV ONE (15:00)
[2019-03-24 15:01] LABS: INR 0.92; PARTIAL THROMBOPLASTIN TIME 25.6 seconds (23.8-35.5); PROTHROMBIN TIME 12.8 seconds (11.9-14.5)
[2019-03-24 15:02] LABS: BACTERIA,URINE FEW /HPF; EPITHELIAL CELLS,URINE FEW /LPF; WBC,URINE (MAN) 0-5 /HPF (0-5)
[2019-03-24 15:10] LABS: ALANINE AMINOTRANSFERASE 11 IU/L (0-55); ALBUMIN 3.2 g/dL (3.5-5.0); ALBUMIN/GLOBULIN RATIO 0.9 (0.8-2.0); ALKALINE PHOSPHATASE 88 IU/L (40-150); ANION GAP 14.2 mmol/L (8-16); BLOOD UREA NITROGEN 19 mg/dL (7-26); BUN/CREATININE RATIO 24 (6-25); CALCIUM 9.5 mg/dL (8.4-10.2); CARBON DIOXIDE 25 mmol/L (22-29); CHLORIDE 105 mmol/L (98-107); CREATINE KINASE 12 IU/L (29-168); CREATININE, SERUM 0.79 mg/dL (0.57-1.11); EST GLOMERULAR FILTRATION RATE > 60 ML/MIN (60-); GLUCOSE 184 mg/dL (74-118); MAGNESIUM 2.3 MG/DL (1.3-2.1); POTASSIUM 4.2 mmol/L (3.5-5.1); SODIUM 140 mmol/L (136-145)
--- NOTE | 2019-03-24 15:39 | Diagnostic Imaging Report ---
EXAMINATION: CHEST SINGLE (PORTABLE) INDICATION: ^FACIAL CELLULITIS COMPARISON: Chest x-ray 02/28/2019. FINDINGS: AP view TUBES and LINES: None. LUNGS: Lungs are well inflated. Lungs are clear. There is no evidence of pneumonia or pulmonary edema. PLEURA: No pleural effusion or pneumothorax. HEART AND MEDIASTINUM: The cardiomediastinal silhouette is unremarkable. BONES AND SOFT TISSUES: No acute osseous lesion. Soft tissues are unremarkable. UPPER ABDOMEN: No free air under the diaphragm. IMPRESSION: No acute thoracic abnormality. Signed by: Dr. Luis F Cagle M.D. on 03/24/2019 3:35 PM
[2019-03-24 15:42] LABS: BAND NEUTROPHILS % (MANUAL) 2 %; LYMPHOCYTES % (MANUAL) 10 % (19-48); MONOCYTES % (MANUAL) 3 % (3.4-9.0); NEUTROPHILS % (MANUAL) 85 % (40-74); PLATELET ESTIMATE ADEQUATE; PLATELET MORPHOLOGY COMMENT NORMAL; RBC MORPHOLOGY COMMENT NORMAL
[2019-03-24] MEDS ORDERED: VANCOMYCIN 1GM/NS 250 ML 250 ML IV ONE (16:00)
--- NOTE | 2019-03-24 18:00 | NUR ---
RADIOLOGY CALLED ABOUT PICC LINE ORDER AND INFORMED THAT PT SIGNED CONSENT FOR PICC LINE
--- NOTE | 2019-03-24 18:26 | Diagnostic Imaging Report ---
History:Right cheek redness Comparison studies: None Technique: Axial images were obtained through the maxillofacial region. Coronal and sagittal images reconstructed from the axial data. Dose modulation, iterative reconstruction, and/or weight based adjustment of the mA/kV was utilized to reduce the radiation dose to as low as reasonably achievable. Intravenous contrast: None Findings: Soft tissues: No abnormalities. Bones: No fractures or bone abnormalities. Orbits: Globes: Intact Extra or intraconal abnormalities: None. Paranasal sinuses: Peripheral mucosal thickening in the right maxillary sinus Focal opacification of a left posterior ethmoid air cell. Otherwise clear. Incidental punctate atherosclerotic calcifications in the right carotid bulb IMPRESSION: 1. No acute maxillofacial abnormalities. 2. Specifically, no significant CT abnormality in the right cheek Signed by: Dr. Elias Desai M.D. on 03/24/2019 6:22 PM
[2019-03-24] MEDS ORDERED: DEXTROSE 50% SYRINGE 50 ML IV PRN (18:45)
[2019-03-24] MEDS ORDERED: SODIUM CHLORIDE 0.9% 1000ML 1,000 ML IV ONE (18:45)
--- NOTE | 2019-03-24 19:25 | Diagnostic Imaging Report ---
EXAMINATION: CHEST XRAY LINE PLACEMENT INDICATION: ^PICC PLACEMENT ^[id number] ^1905 COMPARISON: 03/24/2019 FINDINGS: AP view TUBES and LINES: Right PICC in place with tip projecting over the mid SVC. LUNGS: Lungs are well inflated. Central vascular congestion. No definite focal consolidation. PLEURA: No pleural effusion or pneumothorax. HEART AND MEDIASTINUM: The cardiomediastinal silhouette is unremarkable. BONES AND SOFT TISSUES: No acute osseous lesion. Soft tissues are unremarkable. UPPER ABDOMEN: No free air under the diaphragm. IMPRESSION: Right PICC in place with tip overlying mid SVC. No visible pneumothorax. Signed by: Dr. Chase Tolliver MD on 03/24/2019 7:22 PM
[2019-03-24] MEDS: ONDANSETRON HCL INJ 2MG/ML 2ML 2 MG/ML VIAL IV PRN (19:48)
[2019-03-24] MEDS: MORPHINE SULFATE INJ 4 MG/ML INJ 1ML IV PRN (19:48)
[2019-03-24 21:00] VITALS: BP 92/55
[2019-03-24] MEDS: INSULIN LISPRO 100 UNIT/1 ML 3ML VIAL SQ SCH (21:00)
--- NOTE | 2019-03-24 21:00 | NUR ---
PATIENT IS A NEW ADMIT THAT ARRIVED VIA STRETCHER. PATIENT IS AWAKE AND TALKING. PATIENT HAS BEEN ASSISTED INTO THE BED. BED IS IN THE LOWEST POSITION AND CALL LUO IS WITHIN REACH. WILL CONTINUE TO MONITOR PATIENT.
[2019-03-24 21:16] VITALS: BP 92/55
[2019-03-24] MEDS ORDERED: SODIUM CHLORIDE 0.9% 250ML 250 ML ONE (23:03)
[2019-03-24] MEDS: PIPER-TAZ 3.375 GM 50 ML IV SCH (23:12)
--- NOTE | 2019-03-24 23:48 | NUR ---
patient is requesting pain medication. patient's blood pressure has been assessed and found to be too low to receive pain medication. Patient has been told she cannot have pain medication due to her low blood pressure. patient is very upset about not being able to get pain medication. Patient has been told that MD will be notified so as to get instructions on what can be done to address the patient's pain. Will continue to monitor patient for pain.
--- NOTE | 2019-03-24 23:50 | NUR ---
has been paged. awaiting call back from physician.
[2019-03-25] VITALS (9 sets, daily range): BP systolic 89–127; BP diastolic 54–74
[2019-03-25] MEDS: MORPHINE SULFATE INJ 4 MG/ML INJ 1ML IV PRN ×2 (01:03→05:31)
[2019-03-25] MEDS: ONDANSETRON HCL INJ 2MG/ML 2ML 2 MG/ML VIAL IV PRN ×2 (01:03→05:31)
[2019-03-25] MEDS: PIPER-TAZ 3.375 GM 50 ML IV SCH ×4 (02:45→21:20)
[2019-03-25] MEDS: VANCOMYCIN 1GM/NS 250 ML 250 ML IV SCH ×3 (03:36→22:35)
[2019-03-25] MEDS ORDERED: KEPPRA500 MG PO (04:20)
[2019-03-25] MEDS ORDERED: GEODON20 MG PO (04:20)
[2019-03-25] MEDS ORDERED: RISPERIDONE1 MG PO (04:20)
[2019-03-25] MEDS ORDERED: LISINOPRIL2.5 MG PO (04:20)
[2019-03-25] MEDS ORDERED: LIPITOR20 MG PO (04:20)
[2019-03-25] MEDS ORDERED: CYCLOBENZAPRINE10 MG PO (04:20)
[2019-03-25] MEDS ORDERED: METOPROLOL TART25 MG PO (04:20)
[2019-03-25] MEDS ORDERED: ZOLPIDEM TARTRA10 MG PO (04:20)
[2019-03-25] MEDS ORDERED: LYRICA50 MG PO (04:20)
[2019-03-25] MEDS ORDERED: MORPHINE SULFAT30 M2 PO (04:20)
[2019-03-25] MEDS ORDERED: LORAZEPAM0.5 MG PO (04:20)
[2019-03-25] MEDS ORDERED: CLOPIDOGREL75 MG PO (04:20)
[2019-03-25] MEDS ORDERED: CYMBALTA30 MG PO (04:20)
[2019-03-25] MEDS ORDERED: CLARITIN-D 241 EACH PO (04:20)
[2019-03-25] MEDS ORDERED: NORCO 10-325 T1 EACH PO (04:20)
[2019-03-25] MEDS ORDERED: LEXAPRO10 MG PO (04:20)
[2019-03-25] MEDS ORDERED: DIVALPROEX SOD500 MG PO (04:20)
[2019-03-25] MEDS ORDERED: METFORMIN HCL500 MG PO (04:20)
[2019-03-25] MEDS ORDERED: TOPIRAMATE25 MG PO (04:20)
[2019-03-25] MEDS ORDERED: PROMETHAZINE HC25 M1 PO (04:20)
[2019-03-25 06:06] LABS: BASOPHILS # (AUTO) 0.1 (0.0-0.1); BASOPHILS % 0.4 % (0.0-1.0); EOSINOPHILS # (AUTO) 0.1 (0.0-0.4); EOSINOPHILS % 0.8 % (0.0-6.0); HEMATOCRIT 34.3 % (34.2-44.1); HEMOGLOBIN 10.8 g/dL (12.0-16.0); LYMPHOCYTES # (AUTO) 4.5 (1.0-3.2); LYMPHOCYTES % 37.6 % (18.0-39.1); MEAN CORPUSCULAR HEMOGLOBIN 29.8 pg (28-32); MEAN CORPUSCULAR HGB CONC 31.5 g/dL (31-35); MEAN CORPUSCULAR VOLUME 94.8 fL (81-99); MONOCYTES # (AUTO) 0.6 (0.2-0.8); NEUTROPHILS # (AUTO) 6.3 (2.1-6.9); NEUTROPHILS % 53.3 % (38.7-80.0); PLATELET COUNT 137 x10e3/uL (140-360); RED BLOOD COUNT 3.62 x10e6/uL (3.6-5.1); RED CELL DISTRIBUTION WIDTH 14.8 % (11.7-14.4)
[2019-03-25 06:39] LABS: ALANINE AMINOTRANSFERASE 9 IU/L (0-55); ALBUMIN 2.9 g/dL (3.5-5.0); ALKALINE PHOSPHATASE 74 IU/L (40-150); ANION GAP 11.5 mmol/L (8-16); BLOOD UREA NITROGEN 15 mg/dL (7-26); BUN/CREATININE RATIO 22 (6-25); CARBON DIOXIDE 27 mmol/L (22-29); CHLORIDE 107 mmol/L (98-107); CREATININE, SERUM 0.69 mg/dL (0.57-1.11); EST GLOMERULAR FILTRATION RATE > 60 ML/MIN (60-); GLUCOSE 96 mg/dL (74-118); POTASSIUM 3.5 mmol/L (3.5-5.1); SODIUM 142 mmol/L (136-145)
--- NOTE | 2019-03-25 06:56 | NUR ---
report given to day nurse. patient is resting comfortably in bed. bed is in lowest position and call campos is within reach.
--- NOTE | 2019-03-25 07:02 | NUR ---
Received patient mid fowlers position, side rails upx2, call light within reach. AAOX3 to time, person, place. Respirations even and unlabored. Instructed patient to use call light for assistance. Voiced understanding. Will continue to monitor.
[2019-03-25] MEDS: INSULIN LISPRO 100 UNIT/1 ML 3ML VIAL SQ SCH ×4 (07:30→20:50)
[2019-03-25 07:54] LABS: EOSINOPHILS % (MANUAL) 1 % (0-7); LYMPHOCYTES % (MANUAL) 32 % (19-48); MONOCYTES % (MANUAL) 7 % (3.4-9.0); NEUTROPHILS % (MANUAL) 60 % (40-74); PLATELET ESTIMATE ADEQUATE; PLATELET MORPHOLOGY COMMENT NORMAL
--- NOTE | 2019-03-25 08:00 | NUR ---
c/o blurry vision to right eye. Right eye red with discharge noted. aware. See orders
[2019-03-25] MEDS: METOPROLOL TARTRATE 25 MG TAB PO SCH ×2 (09:00→15:52)
[2019-03-25] MEDS ORDERED: MORPHINE SULFATE 15MG TAB CR PO SCH (09:00)
[2019-03-25] MEDS: TOPIRAMATE 25 MG TAB PO SCH (09:00)
[2019-03-25] MEDS: LEVETIRACETAM 500 MG TAB PO SCH ×2 (09:00→15:52)
[2019-03-25] MEDS: PREGABALIN 50 MG CAP PO SCH ×3 (09:00→21:20)
[2019-03-25] MEDS: RISPERIDONE 1 MG TAB PO SCH ×2 (09:00→15:54)
[2019-03-25] MEDS: LISINOPRIL 2.5 MG TAB PO SCH (09:00)
[2019-03-25] MEDS: ESCITALOPRAM OXALATE 10 MG TAB PO SCH (09:00)
[2019-03-25] MEDS: CLOPIDOGREL BISULFATE 75 MG TAB PO SCH (09:00)
[2019-03-25] MEDS ORDERED: SODIUM CHLORIDE 0.9% 250ML 250 ML ONE ×2 (09:13→21:02)
[2019-03-25] MEDS ORDERED: HYDROMORPHONE 20MG/ NS 100ML IV PRN (09:15)
[2019-03-25] MEDS: DEPAKOTE DELAYED-RELEASE TAB 500 MG PO SCH ×2 (10:15→15:52)
[2019-03-25] MEDS: HYDROMORPHONE 2MG/ML 2 MG/ML ML IV PRN ×3 (10:15→22:58)
--- NOTE | 2019-03-25 14:45 | NUR ---
aware of lactic acid 27.6 from 03/24/19
[2019-03-25] MEDS: ONDANSETRON HCL 4 MG ORAL DISINTEGRATING TAB PO PRN ×2 (14:51→22:59)
[2019-03-25] MEDS: METFORMIN HCL 500 MG TAB PO SCH (15:52)
--- NOTE | 2019-03-25 16:02 | History and Physical ---
SUBJECTIVE: The patient is here for right-sided facial pain. HISTORY OF PRESENTING ILLNESS: Ms. Estela Mishra with a complex medical history, comes in with right-sided eye pain and discharge from the eye. The patient was in usual state of health until about two days prior to admission. The patient, two days prior to admission started with right-sided facial pain. The pain was described as burning and intense in nature, 8/10 in intensity and also affecting her right eye vision and did see some diplopia at that point of time. PAST MEDICAL HISTORY: History of hyperlipidemia, history of coronary artery disease, history of Melvina's granulomatosis, history of hyperlipidemia, history of chronic depression, history of seizure disorder, history of diabetes mellitus, history of trigeminal neuralgia, a history of CHF, and history of angioplasties. PAST SURGICAL HISTORY: History of appendectomy, cholecystectomy, partial anoplasty, temporal artery biopsy, and history of stent and RCA. MEDICATIONS: She takes atorvastatin 40 mg at nighttime, Plavix 75 daily, cyclobenzaprine 10 mg q.8 hours. The patient is also on Depakote 500 mg twice a day, duloxetine 30 mg daily, escitalopram 20 mg daily, hydrocodone 10/325 q.6 hours, Keppra 500 mg twice a day, lisinopril 2.5 mg twice a day, Claritin-D twice a day, Lorazepam 0.5 q.8 hours, metformin 500 mg twice a day, metoprolol tartrate 25 mg twice a day, morphine sulfate 30 ER b.i.d., Lyrica 50 mg daily, promethazine 25 mg q.6 hours, risperidone 3 mg twice a day, topiramate 25 mg daily, Geodon 20 mg daily and zolpidem 10 mg at nighttime. ALLERGIES: THE PATIENT'S ALLERGIES INCLUDE ERYTHROMYCIN, NSAIDS, SULFA, ASPIRIN, DICYCLOMINE, DOXYCYCLINE, HALOPERIDOL, KETOROLAC, AND MEPERIDINE. REVIEW OF SYSTEMS: Negative for chest pain. Positive for shortness of breath. Positive for some nausea. No vomiting. No diarrhea. No constipation. No rectal bleeding. Positive for diplopia. Positive for headache. Positive for discharge from the eye and positive for erythema and tenderness in the right eye too. PHYSICAL EXAMINATION: VITAL SIGNS: Temperature is 97.6, pulse of 85, respirations of 19, blood pressure is 109/74, pulse oximetry of 98% on 2 L of nasal cannula. HEENT: The patient is status post rhinoplasty with missing ala of the right nose. The patient also has a missing pinna of the right ear, status post surgery and biopsy scar present. The patient has facial erythema and tenderness in the left maxillary area with tenderness and erythema spreading on to periorbital area and also into the inner canthus of the right eye. The patient has a faint discharge, looks bloody from the right canthus. CVS: S1, S2 normal. Positive ejection-type systolic murmur. LUNGS: Decreased air entry. ABDOMEN: Nontender, nondistended. EXTREMITIES: No clubbing and trace edema. LABORATORY VALUES: Initial white count is 11,000. The patient's hemoglobin was 12.5, hematocrit of 37.6, platelet count was 187, neutrophil count of 10, left shift present. Chemistry show sodium of 140, potassium 4.2, BUN was 20, and creatinine 0.79, glucose of 184, lactic acid of 27.6, magnesium 2.3. CK, CK-MB, and troponin have been negative so far. Coags are normal. Urine was essentially normal. IMAGING STUDIES: Face CT shows no acute maxillofacial abnormalities. No significant CT abnormalities in the right side. Chest x-ray with no acute thoracic abnormalities and the patient had a catheter placement. The patient has been started on Zosyn and vancomycin in lieu of her facial cellulitis. The patient also is on a sliding scale. We will restart her home medications today. ASSESSMENT: 1. Facial cellulitis. 2. History of temporal arteritis. 3. History of Melvina's granulomatosis. 4. Hypertension. 5. Hyperlipidemia. 6. Coronary artery disease. 7. Diabetes mellitus. 8. Hypertension. 9. History of questionable temporal arteritis. 10. History of chronic pain. 11. History of angioplasty. PLAN: Plan is to restart oral medications. Continue with antibiotics. A consult with Ophthalmology for diplopia will be done. Dr. Redd will be consulted. Also, the patient will have a consult with Dr. Rees for Infectious Disease and labs will be done on a daily basis. Sedimentation rate and CRP will be followed through. Further recommendation per clinical course. We will also do a culture from the right eye discharge. MD YOBANY Rankin/MODL /[id number]
--- NOTE | 2019-03-25 16:48 | Consultation ---
DATE OF CONSULTATION: REASON FOR CONSULTATION: Cellulitis of the face. HISTORY OF PRESENT ILLNESS: This patient is 48-year-old white female, history of obesity, history of Alison disease, status post right-sided face rhinoplasty where part of her ear was resected and placed on her nose because of the Alison. The patient was coming here with fever and chills with right side of the face painful, redness, and swollen. The patient has been sick for two days. The patient came here where she was evaluated. The patient has history of obesity and they could not get an IV access in her, so the patient had a PICC line, is on IV antibiotic, Infectious Disease asked to see the patient. The patient is currently lying in bed comfortably. PAST MEDICAL HISTORY: The patient has history of obesity, COPD, diabetes mellitus, hypertension, CHF, coronary artery disease, myocardial infarction, CVA, Alison disease, seizure disorder, history of lupus. PAST SURGICAL HISTORY: Appendectomy, cholecystectomy, partial rhinoplasty, temporal artery biopsy. ALLERGIES: NKA. SOCIAL HISTORY: She denies smoking, drug abuse, or alcohol abuse. FAMILY HISTORY: Noncontributory. REVIEW OF SYSTEMS: GENERAL: At present time, there is no fever, no chills. Not feeling well. HEENT: There is no headache, but she does have face pain. There is no double vision, no hearing problem. : There is no urgency or frequency. SKIN: There is no other rash. GI: No nausea. No vomiting. JOINTS: There is no erythema or edema. Her all other systems are within normal limit according to her except for what mentioned above. LABORATORY DATA: Reviewed. Blood culture is still pending. White count on admission 11.8, hemoglobin of 10.8, and her platelet of 137. Sodium 142, potassium 3.5, creatinine 0.9. MEDICATION LIST: She is on Dilaudid, vancomycin, Risperdal, Lyrica, Keppra, Zosyn, Prinivil. Her laboratory data reviewed, chart reviewed. PHYSICAL EXAMINATION: GENERAL: She is currently alert, oriented, does not seem to be in acute distress. VITAL SIGNS: Stable. Afebrile. Temperature 97.4, heart rate 91, respirations 17, blood pressure 102/59. HEENT: She does not appear icteric. Part of her nose is still missing, part of her ear on the right is still missing. Slight erythema noted and edema also noted on the right side of the face. NECK: Supple. No JVD. No lymphadenopathy. No thyromegaly. CHEST: Clear bilateral. HEART: S1, S2. No S3, S4, or murmur. ABDOMEN: Soft. No tenderness. No hepatosplenomegaly. EXTREMITIES: Otherwise no edema. SKIN: There is no rash. IMPRESSION: 1. Cellulitis of the right side of the face. She is currently on vancomycin and Zosyn, seems to be doing better. 2. History of Alison disease. 3. History of lupus. 4. History of seizure disorder. 5. History of cerebrovascular accident. 6. History of coronary artery disease. 7. History of congestive heart failure. 8. History of diabetes mellitus. 9. Status post rhinoplasty. 10. Obesity. PLAN: 1. Continue with vancomycin and Zosyn for now. We will await blood cultures and then modify after. 2. Medical issues as mentioned above all seem to be stable. Continue with her home medication. 3. We will follow vancomycin trough, recheck CBC, recheck chem panel. Discussed with the patient, discussed with nursing team. Thank you for asking me to see this patient. MD ANDREW Morel/CHINTAN /[id number]
--- NOTE | 2019-03-25 19:10 | NUR ---
Report given to oncoming nurse of patient's status. No s/s of acute distress noted.
--- NOTE | 2019-03-25 19:30 | NUR ---
Patient received sitting in bed. AAO x 4. No complaints of pain. No signs of respiratory distress. Fall precautions implemented. Call light within reach.
[2019-03-25] MEDS: DULOXETINE HCL 30 MG DELAYED RELEASE PO SCH (21:20)
[2019-03-25] MEDS: MORPHINE SULFATE 15MG TAB CR PO SCH (21:20)
[2019-03-25] MEDS: ATORVASTATIN 20 MG TAB PO SCH (21:20)
[2019-03-25] MEDS: ZOLPIDEM TARTRATE 10 MG TAB PO SCH (21:20)
--- NOTE | 2019-03-25 21:40 | NUR ---
BLOOD SPECIMEN SENT TO LAB FOR ANALYSIS OF VANCOMYCIN LEVEL.
[2019-03-26] VITALS (8 sets, daily range): BP systolic 91–106; BP diastolic 54–63
[2019-03-26] MEDS: PIPER-TAZ 3.375 GM 50 ML IV SCH ×4 (03:10→21:34)
[2019-03-26] MEDS: HYDROMORPHONE 2MG/ML 2 MG/ML ML IV PRN ×4 (05:25→21:34)
[2019-03-26 05:43] LABS: BASOPHILS % 0.4 % (0.0-1.0); EOSINOPHILS # (AUTO) 0.2 (0.0-0.4); EOSINOPHILS % 1.7 % (0.0-6.0); HEMATOCRIT 31.1 % (34.2-44.1); HEMOGLOBIN 10.1 g/dL (12.0-16.0); LYMPHOCYTES # (AUTO) 3.8 (1.0-3.2); LYMPHOCYTES % 40.8 % (18.0-39.1); MEAN CORPUSCULAR HEMOGLOBIN 30.8 pg (28-32); MEAN CORPUSCULAR HGB CONC 32.5 g/dL (31-35); MEAN CORPUSCULAR VOLUME 94.8 fL (81-99); MONOCYTES # (AUTO) 0.5 (0.2-0.8); MONOCYTES % 5.1 % (4.4-11.3); NEUTROPHILS # (AUTO) 4.6 (2.1-6.9); NEUTROPHILS % 49.6 % (38.7-80.0); PLATELET COUNT 127 x10e3/uL (140-360); RED BLOOD COUNT 3.28 x10e6/uL (3.6-5.1); RED CELL DISTRIBUTION WIDTH 14.7 % (11.7-14.4)
[2019-03-26 06:10] LABS: ALANINE AMINOTRANSFERASE 10 IU/L (0-55); ALBUMIN 2.5 g/dL (3.5-5.0); ALBUMIN/GLOBULIN RATIO 0.9 (0.8-2.0); ALKALINE PHOSPHATASE 65 IU/L (40-150); ANION GAP 8.5 mmol/L (8-16); BLOOD UREA NITROGEN 12 mg/dL (7-26); BUN/CREATININE RATIO 20 (6-25); CARBON DIOXIDE 26 mmol/L (22-29); CHLORIDE 112 mmol/L (98-107); CREATININE, SERUM 0.61 mg/dL (0.57-1.11); EST GLOMERULAR FILTRATION RATE > 60 ML/MIN (60-); GLUCOSE 84 mg/dL (74-118); MAGNESIUM 1.8 MG/DL (1.3-2.1); POTASSIUM 3.5 mmol/L (3.5-5.1); SODIUM 143 mmol/L (136-145)
--- NOTE | 2019-03-26 07:00 | NUR ---
Walking rounds done. Shift report given to oncoming nurse about patient's status.
[2019-03-26] MEDS: INSULIN LISPRO 100 UNIT/1 ML 3ML VIAL SQ SCH ×4 (07:30→21:00)
--- NOTE | 2019-03-26 07:30 | NUR ---
REC'D PT AAOX3, O2 RUNNING AT 2L/MIN VIA NC, PT ON SEMI-ADAN'S POSITION. NO S/S OF DISTRESS. PT C/O PAIN LEVEL 9/10. BED IN LOWEST POSITION, SIDE RAILS UP X2, AND CALL LUO WITHIN REACH.
[2019-03-26] MEDS: VANCOMYCIN 1GM/NS 250 ML 250 ML IV SCH ×2 (08:04→22:11)
[2019-03-26] MEDS: METFORMIN HCL 500 MG TAB PO SCH ×2 (08:04→16:58)
[2019-03-26] MEDS: DEPAKOTE DELAYED-RELEASE TAB 500 MG PO SCH ×2 (08:04→17:00)
[2019-03-26] MEDS: LEVETIRACETAM 500 MG TAB PO SCH ×2 (08:05→16:58)
[2019-03-26] MEDS: ESCITALOPRAM OXALATE 10 MG TAB PO SCH (08:06)
[2019-03-26] MEDS: PREGABALIN 50 MG CAP PO SCH ×3 (08:06→21:35)
[2019-03-26] MEDS: RISPERIDONE 1 MG TAB PO SCH ×2 (08:07→17:00)
[2019-03-26] MEDS: MORPHINE SULFATE 15MG TAB CR PO SCH ×2 (08:07→21:36)
[2019-03-26] MEDS: TOPIRAMATE 25 MG TAB PO SCH (08:07)
[2019-03-26] MEDS: CLOPIDOGREL BISULFATE 75 MG TAB PO SCH (08:07)
[2019-03-26] MEDS: LORAZEPAM 0.5 MG TAB PO PRN (08:10)
[2019-03-26] MEDS: LISINOPRIL 2.5 MG TAB PO SCH (08:25)
[2019-03-26] MEDS: METOPROLOL TARTRATE 25 MG TAB PO SCH ×2 (08:25→17:00)
--- NOTE | 2019-03-26 12:05 | NUR ---
WOUND CARE CONSULTATION- INITIAL EVALUATION Patient admitted from home to ER for chronic pain, facial cellulitis. HX: Alison's Disease, Lupus, Obesity, Right Face Rhinoplasty with failed graft from right ear donor site, Seizures, CVA, COPD, DM, HTN, CHF, CAD, MS, Smokes 1/2 pack a day. LABS: WBC9.21 HGB10.1 HCT31.1 NEUT%49.6 GLU84 IV ABX: Zosyn, Vancomycin. - Dr. Rees on Case. Opthalmology on case for right eye cellulitis Wound Care Consulted for recommendation of Nare Ulceration. PATIENT VISIT: Patient AAOX4. Calm and Cooperative during visit. Presents with ulceration to nare. partial right nare missing -RT- Alison Disease process. Recent history of reconstruction using a part of her right hear.( Right ear lobe healed with missing area) Area failed, she verbalizes it was because she continued smoking cigarettes after the surgery and the area necrosed and graft collapsed. Inner right nasal canal is pink and moist. Dry blood noted to outer nare area. Appears stable. States she uses Bactroban at home when it becomes irritated, inflamed or if it looks like its becoming infected. Nasal bridge pink and intact. No Swelling noted. Right Eye with periorbital edema and redness eye closed and unable to open. Opthalmology on the case and is managing care of eye in conjunction with Infectious Diseases. Right nasal bridge to inner canthus presents with two superficial ulcerations with irregular edges. Likely scratches. Patient unable to verbalize etiology and states maybe she scratched her eye not knowingly during sleep. IMPRESSION: Right Nare - Ulcer -Surgical- S/P Failed Auto Graft. - Stable Right Eye , Periorbital Cellulitis. RECOMMENDATION:( Defer right eye tx to Opthalmology ) - please note allergy to Erythromycin & Sulfa. 1. Right Nare -Ulcer -Surgical - S/P Failed Graft. - Cleanse area with NS and 4x4 gauze - Apply thin layer of Bactroban and Leave Open To Air Thank you for consulting with Wound Care. Addendum: 03/26/19 at 1223 by Gregorio Rose RN Amended: Links added.
--- NOTE | 2019-03-26 14:00 | NUR ---
Pt's status changed to inpatient per Dr. Turner's order. IMM letter delivered and explained to pt. She verbalized understanding. Signed copy placed in chart. Copy to pt's transition of care folder.
[2019-03-26] MEDS ORDERED: SODIUM CHLORIDE 0.9% 250ML 250 ML ONE (16:13)
--- NOTE | 2019-03-26 18:00 | NUR ---
PT IS ASLEEP WITH NO S/S OF DISTRESS. CHEST IS RISING UP AND DOWN WITH UNLABORED BREATHING. BED IN LOWEST POSITION, SIDE RAILS UP X2, AND CALL LUO WITHIN REACH. WHEELCHAIR AT PT BEDSIDE.
[2019-03-26] MEDS: DULOXETINE HCL 30 MG DELAYED RELEASE PO SCH (21:34)
[2019-03-26] MEDS: ZOLPIDEM TARTRATE 10 MG TAB PO SCH (21:34)
[2019-03-26] MEDS: ATORVASTATIN 20 MG TAB PO SCH (21:35)
--- NOTE | 2019-03-26 21:50 | NUR ---
PATIENT OBSERVED COMING FROM THE RESTROOM IN THE WHEELCHAIR. SHE WAS EDUCATED TO CALL FOR ASSISTANCE UPON GETTING OUT OF THE BED SINCE SHE WAS JUST MEDICATED FOR PAIN. SHE WAS ASSISTED TO THE BED WITH CALL LIGHT IN EASY REACH.
--- NOTE | 2019-03-26 23:19 | Progress Note ---
DATE: HISTORY OF PRESENT ILLNESS: A 48-year-old female comes in with cellulitis of the right upper jaw, face area in the maxillary and ethmoidal area. The patient is currently feeling better. The erythema and tenderness around the face have come down. The patient has not been seen by Ophthalmology yet and complains of diplopia. Pain is better. The patient is on Dilaudid and multiple medications for pain control. OBJECTIVE: VITAL SIGNS: Temperature is 97.6, pulse is 74, blood pressure is 103/60. HEENT: The patient with missing ala and also part of nose. The patient is status post rhinoplasty. Cellulitis and erythema around the maxillary sinuses of decreased intensity. HEENT otherwise normal. CARDIOVASCULAR SYSTEM: S1 and S2 distant. ABDOMEN: Nontender, nondistended. LUNGS: Decreased air entry. EXTREMITIES: No clubbing, no cyanosis. Positive for edema. LABORATORY VALUES: White count has come down to 9.21, hemoglobin 10.1, hematocrit 31.2. Chemistries: Glucoses have been running between 136 to 180s. Toxicology vancomycin trough was 12. Urine was negative. MICROBIOLOGY: The patient's urine culture grew gram-negative bacilli, has susceptibility and pending blood cultures have been negative. ASSESSMENT: 1. Cellulitis of the right side of the face. Continue vancomycin and Zosyn, trough to be done regularly. 2. History of Alison's and lupus erythematosus. We will continue on steroids. 3. Seizure disorder. Continue with medication. 4. History of coronary artery disease, congestive heart failure, and diabetes mellitus. Continue with CV and diabetic medication. 5. Obesity. Continue to monitor the patient. Continue rechecking CBCs and Chem panels and also wound culture has been done and we will continue to monitor the patient. Further recommendation per clinical course. An ID will also continue to see the patient. MD GABO RankinJ/MODL /[id number]
[2019-03-27] VITALS (9 sets, daily range): BP systolic 94–135; BP diastolic 54–88
--- NOTE | 2019-03-27 02:03 | NUR ---
PATIENT IS SOUNDLY ASLEEP, NO RESPIRATORY DISTRESS OBSERVED AND NO SIGN OF PAIN NOTED.
[2019-03-27] MEDS: HYDROMORPHONE 2MG/ML 2 MG/ML ML IV PRN ×5 (02:35→19:52)
--- NOTE | 2019-03-27 02:36 | NUR ---
PATIENT BACK FROM THE RESTROOM WITH STAFF ASSISTANCE, SHE'S NOW BACK IN BED. SHE C/O PAIN TO THE RIGHT SIDE OF HER FACE WITH PAIN SCORE #9, MEDICATED WITH DILAUDID ORDERED. ASSISTED WITH ADLS, CALL LIGHT WITHIN EASY REACH, WILL REASSESS FOR EFFECTIVENESS OF THE PAIN MEDICATION.
[2019-03-27] MEDS: PIPER-TAZ 3.375 GM 50 ML IV SCH ×4 (03:35→23:00)
[2019-03-27] MEDS: INSULIN LISPRO 100 UNIT/1 ML 3ML VIAL SQ SCH ×4 (07:30→21:40)
--- NOTE | 2019-03-27 07:30 | NUR ---
REC'D PT AAOX3, ON RA, PT C/O PAIN 05/23, NO S/S OF DISTRESS. BED IN LOWEST POSITION, SIDE RAILS UP X2, AND CALL LUO WITHIN REACH.
[2019-03-27] MEDS: METFORMIN HCL 500 MG TAB PO SCH ×2 (08:48→17:54)
[2019-03-27] MEDS: ESCITALOPRAM OXALATE 10 MG TAB PO SCH (08:49)
[2019-03-27] MEDS: LEVETIRACETAM 500 MG TAB PO SCH ×2 (08:49→17:54)
[2019-03-27] MEDS: DEPAKOTE DELAYED-RELEASE TAB 500 MG PO SCH ×2 (08:49→17:54)
[2019-03-27] MEDS: CLOPIDOGREL BISULFATE 75 MG TAB PO SCH (08:50)
[2019-03-27] MEDS: PREGABALIN 50 MG CAP PO SCH ×3 (08:50→21:40)
[2019-03-27] MEDS: RISPERIDONE 1 MG TAB PO SCH ×2 (08:50→17:56)
[2019-03-27] MEDS: TOPIRAMATE 25 MG TAB PO SCH (08:57)
[2019-03-27] MEDS: METOPROLOL TARTRATE 25 MG TAB PO SCH ×2 (08:57→17:00)
[2019-03-27] MEDS: MORPHINE SULFATE 15MG TAB CR PO SCH ×2 (08:57→21:40)
[2019-03-27] MEDS: LISINOPRIL 2.5 MG TAB PO SCH (08:58)
[2019-03-27] MEDS: VANCOMYCIN 1GM/NS 250 ML 250 ML IV SCH ×2 (10:30→21:40)
--- NOTE | 2019-03-27 11:19 | NUR ---
CALLED DR. LINN REGARDING URINE CULTURE FOR MULTI-DRUG RESISTANCE FOR ZOSYN. PT HAS ZOSYN ON ORDER. NO ANSWER FROM DR. LINN. LEFT A VOICEMAIL REGARDING THIS SITUATION.
--- NOTE | 2019-03-27 12:44 | NUR ---
WOUND CARE CONSULTATION- FOLLOW UP VISIT Patient admitted from home to ER for chronic pain, facial cellulitis. HX: Alison's Disease, Lupus, Obesity, Right Face Rhinoplasty with failed graft from right ear donor site, Seizures, CVA, COPD, DM, HTN, CHF, CAD, RI, Smokes 1/2 pack a day. LABS: WBC9.21 IV ABX: Zosyn, Vancomycin. - Dr. Rees on Case. Ophthalmology on case for right eye cellulitis PATIENT VISIT: Patient AAOX4. Calm and Cooperative during visit. Presents with healing ulceration to right nare. HX: Recent history of reconstruction using a part of her right hear.( Right ear lobe healed with missing area) Area failed, she verbalizes it was because she continued smoking cigarettes after the surgery and the area necrosed and graft collapsed. Inner right nasal canal is pink and moist. Dry blood noted to outer nare area. Continues to be stable. Standing order for Bactroban. Nasal bridge pink and intact. No Swelling noted. Right Eye with periorbital edema improving and redness improving. Eye closed and unable to open. Ophthalmology on the case and is managing care of eye in conjunction with Infectious Diseases. Right nasal bridge to inner canthus presents with two superficial ulcerations with irregular edges. Likely scratches. Patient unable to verbalize etiology and states maybe she scratched her eye not knowingly during sleep. Cultures done today to right eye and right nare areas as requested and walked to lab. IMPRESSION Right Nare - Ulcer -Surgical- S/P Failed Auto Graft. - Stable Right Eye , Periorbital Cellulitis. RECOMMENDATION:Continue Current Treatment Plan. Thank you for consulting with Wound Care. Addendum: 03/27/19 at 1248 by Gregorio Rose RN Amended: Links added.
--- NOTE | 2019-03-27 15:05 | NUR ---
Visit made by the Spiritual Care Department Pastoral Visitor, Mimi Yoon. PV provided pastoral presence, prayer, hospitality, and supportive listening. Pastoral Visitor informed pt/family of the scope of Radiologic Tech Services and availability. FILIBERTO VILLAGOMEZ Carton Wrapper Spiritual Care Department O: [phone] Pager: [phone] ([phone] number calling from)
--- NOTE | 2019-03-27 18:10 | NUR ---
ASSISTED PT TO THE RESTROOM AND BACK TO BED. NO S/S OF DISTRESS. ENCOURAGED ICE PACK WRAPPED IN A WASH CLOTH TO APPLY TO RIGHT SIDE OF FACE FOR PAIN. BED IN LOWEST POSITION, SIDE RAILS UP X2, AND CALL LIGHT WITHIN REACH.
[2019-03-27] MEDS: MUPIROCIN 2% OINT 22 GM TUBE TOP SCH (18:34)
--- NOTE | 2019-03-27 19:32 | NUR ---
SPOKE WITH DR HERNANDEZ THAT THIS PATIENT'S URINE CULTURE AND SENSITIVITY IS RESISTANT FOR ZOSYN, STATED TO CONTINUE THE ZOSYN AND HE ORDERED MACROBID 100MG ORAL TWICE DAILY. THE PRIMARY NURSE WAS NOTIFIED OF THESE ORDERS.
[2019-03-27] MEDS: PROMETHAZINE HCL 25 MG TAB PO PRN (19:52)
[2019-03-27] MEDS: NITROFURANTOIN MACROCRYSTALS 100 MG CAP PO SCH (21:40)
[2019-03-27] MEDS: ZOLPIDEM TARTRATE 10 MG TAB PO SCH (21:40)
[2019-03-27] MEDS: ATORVASTATIN 20 MG TAB PO SCH (21:40)
[2019-03-27] MEDS: DULOXETINE HCL 30 MG DELAYED RELEASE PO SCH (21:40)
--- NOTE | 2019-03-27 22:49 | Progress Note ---
DATE: SUBJECTIVE: The patient comes in with cellulitis of the face. Currently, the patient is complaining of pain and also discharge from the eye. A wound culture has been taken and an eye discharge culture has been taken too. The patient is currently getting pain medications every 4 hours and the pain has been controlled. Currently, the patient has about 3/10 pain intensity. OBJECTIVE: VITAL SIGNS: Temperature is 97.4, pulse of 95, respirations of 20, blood pressure is 135/69, pulse oximetry of 95%. HEENT: The patient with missing nasal ala and also part of her ears. The patient does have right-sided conjunctival injection with some drainage and also matting of the eyelids. CVS: S1, S2 distant. Regular rate and rhythm. ABDOMEN: Nontender, nondistended. EXTREMITIES: No clubbing, no cyanosis, no edema. LABORATORY VALUES: None done today. Chemistries; glucoses have been running very well between 100 to 150s. The patient's microbiology, urine culture grew up Escherichia coli, sensitive to Macrobid, sensitive to imipenem, gentamicin and ertapenem. MEDICATIONS: Include , risperidone pregabalin, Lyrica, metformin, Keppra, Depakote, hydromorphone, vancomycin, and also the patient is on Zosyn too. The blood cultures have been negative so far. ASSESSMENT: Cellulitis of the face. Continue with the vancomycin and the patient is on Zosyn, must be switched to Merrem. We will give ID a call. History of Melvina's granulomatosis, history of lupus erythematosus, history of seizure disorder, history of coronary artery disease and obesity. PLAN: Plan is to continue to monitor the patient. We will talk to ID about switching Zosyn and starting medicine more susceptible for the Escherichia coli. Continue to monitor the patient for further recommendation and clinical course. Consult with Dr. Redd has also been done. A culture has been taken. We will continue monitoring the patient's orbital cellulitis. Further recommendation per clinical course. MD YOBANY Rankin/JULIAL /[id number]
[2019-03-28] VITALS (9 sets, daily range): BP systolic 90–127; BP diastolic 50–74
[2019-03-28] MEDS: HYDROMORPHONE 2MG/ML 2 MG/ML ML IV PRN ×6 (01:37→21:24)
[2019-03-28] MEDS: PIPER-TAZ 3.375 GM 50 ML IV SCH ×4 (02:35→20:56)
[2019-03-28] MEDS: PROMETHAZINE HCL 25 MG TAB PO PRN (04:24)
--- NOTE | 2019-03-28 06:42 | NUR ---
SPOKE WITH DR. HERNANDEZ ABOUT CONSULTING WITH OPHTHALMOLOGY ABOUT THE PATIENTS RIGHT EYE IT IS REDDENED. WILL PASS INFORMATION ON TO DAY NURSE.
[2019-03-28] MEDS: INSULIN LISPRO 100 UNIT/1 ML 3ML VIAL SQ SCH ×4 (07:30→20:57)
--- NOTE | 2019-03-28 08:00 | NUR ---
RECEIVED REPORT FROM NIGHT NURSE, PT IS LYING IN BED, C/O PAIN TO RIGHT FACIAL AREA AND TENDERNESS TO LEFT LOWER EXTREMITY, PT REQUESTING PRN PAIN MEDICATION. PT EDUCATED ON MEDICATION ADMINISTRATION TIMES AND INFORMED SHE HAD AN HOUR LEFT BEFORE PRN PAIN MEDICATION WAS DUE. BED IN LOWEST POSITION, ROOM FREE OF CLUTTER, CALL LIGHT AND BEDSIDE TABLE WITHIN REACH. LIGHTS OFF AT PT'S REQUEST. LAST BOWEL MOVEMENT WAS YESTERDAY AFTERNOON (03/27/2019).
--- NOTE | 2019-03-28 08:22 | Progress Note ---
DATE: SUBJECTIVE: The patient is a 48-year-old female with multiple medical problems including lupus erythematosus and Alison's granulomatosis, comes in with right eye swelling and right eye periorbital edema and erythema. The patient was diagnosed with cellulitis, who is currently on multi regimen antibiotics. The patient's pain is stable, still continues to have 3/10 in intensity pain, throbbing in nature and periorbital and infraorbital too. Continues to take pain medication. All medicines have been renewed and continues to take all home medication. No seizure activities. No chest pain or shortness of breath either. PHYSICAL EXAMINATION: VITAL SIGNS: Temperature is 97.6, pulse of 79, respirations 20, blood pressure is 127/58, and pulse oximetry of 94% on room air. HEENT: Missing nasal ala and also part of the ear. The patient's erythema around the eye has decreased. However, the patient's conjunctiva looks more injected and tender for global palpation. LUNGS: Clear to auscultation bilaterally. HEART: S1 and S2 normal. Regular rate and rhythm. ABDOMEN: Nontender and nondistended. EXTREMITIES: Positive for trace edema. LABORATORY VALUES: Today's hemoglobin is 10.1, hematocrit of 31.1. Chemistries; blood glucoses have been running normal. Microbiology; the patient's clean catch showed E. coli, sensitive to Macrobid, which has been started. ASSESSMENT: 1. Periorbital cellulitis. 2. Questionable conjunctivitis. We will continue with monitoring the patient, and also a consult with Dr. Redd has been done. 3. Urinary tract infection, Escherichia coli. We will continue on Macrobid. 4. History of Alison's, lupus erythematosus, and history of seizures. We will continue with seizure medications and also with medicines for her Alison's and lupus erythematosus. DISPOSITION: The patient with multiple medical problems and comorbidities. The patient will probably need an LTAC. We will write for SNF and LTAC evaluation. At this moment, the patient will need more ophthalmological care and therefore we will keep the patient until the ophthalmological problems have resolved or resolving. MD YOBANY Rankin/MODL /[id number]
[2019-03-28] MEDS: DEPAKOTE DELAYED-RELEASE TAB 500 MG PO SCH ×2 (08:50→17:22)
[2019-03-28] MEDS: LEVETIRACETAM 500 MG TAB PO SCH ×2 (08:50→17:22)
[2019-03-28] MEDS: ESCITALOPRAM OXALATE 10 MG TAB PO SCH (08:50)
[2019-03-28] MEDS: METOPROLOL TARTRATE 25 MG TAB PO SCH ×2 (08:51→17:00)
[2019-03-28] MEDS: NITROFURANTOIN MACROCRYSTALS 100 MG CAP PO SCH ×2 (08:51→17:23)
[2019-03-28] MEDS: PREGABALIN 50 MG CAP PO SCH ×3 (08:51→20:57)
[2019-03-28] MEDS: MORPHINE SULFATE 15MG TAB CR PO SCH ×2 (08:52→20:57)
[2019-03-28] MEDS: RISPERIDONE 1 MG TAB PO SCH ×2 (08:52→17:23)
[2019-03-28] MEDS: LISINOPRIL 2.5 MG TAB PO SCH (08:52)
[2019-03-28] MEDS: TOPIRAMATE 25 MG TAB PO SCH (08:52)
[2019-03-28] MEDS: CLOPIDOGREL BISULFATE 75 MG TAB PO SCH (08:52)
[2019-03-28] MEDS: METFORMIN HCL 500 MG TAB PO SCH ×2 (08:53→17:22)
--- NOTE | 2019-03-28 10:00 | NUR ---
IMM letter delivered and explained to pt. She verbalized understanding. Signed copy placed in chart. Copy to pt's transition of care folder.
[2019-03-28] MEDS: VANCOMYCIN 1GM/NS 250 ML 250 ML IV SCH ×2 (10:18→21:30)
[2019-03-28] MEDS: MUPIROCIN 2% OINT 22 GM TUBE TOP SCH (11:06)
[2019-03-28] MEDS: LORAZEPAM 0.5 MG TAB PO PRN (14:50)
--- NOTE | 2019-03-28 17:40 | NUR ---
PT IN ROOM WATCHING TELEVISION. ROOM FREE OF CLUTTER, BED IN LOWEST POSITION, CALL LIGHT WITHIN REACH, FRESH ICE WATER GIVEN TO PT. NO FURTHER COMPLAINTS AT THIS MOMENT
[2019-03-28] MEDS: DULOXETINE HCL 30 MG DELAYED RELEASE PO SCH (20:56)
[2019-03-28] MEDS: ATORVASTATIN 20 MG TAB PO SCH (20:56)
[2019-03-28] MEDS: ZOLPIDEM TARTRATE 10 MG TAB PO SCH (20:56)
[2019-03-29] VITALS (8 sets, daily range): BP systolic 94–116; BP diastolic 53–67
[2019-03-29] MEDS: HYDROMORPHONE 2MG/ML 2 MG/ML ML IV PRN ×6 (01:37→21:47)
[2019-03-29] MEDS: PIPER-TAZ 3.375 GM 50 ML IV SCH ×4 (03:45→21:15)
[2019-03-29] MEDS ORDERED: SODIUM CHLORIDE 0.9% 250ML 250 ML ONE (04:45)
--- NOTE | 2019-03-29 06:43 | NUR ---
Dr. Aria Turner here to see patient. New orders received.
[2019-03-29] MEDS ORDERED: HYDROCODONE/APAP 5MG-325MG TAB PO PRN (06:45)
[2019-03-29 06:55] LABS: BASOPHILS # (AUTO) 0.1 (0.0-0.1); BASOPHILS % 0.5 % (0.0-1.0); EOSINOPHILS # (AUTO) 0.3 (0.0-0.4); EOSINOPHILS % 2.7 % (0.0-6.0); HEMATOCRIT 36.1 % (34.2-44.1); LYMPHOCYTES # (AUTO) 3.5 (1.0-3.2); LYMPHOCYTES % 37.5 % (18.0-39.1); MEAN CORPUSCULAR HEMOGLOBIN 30.8 pg (28-32); MEAN CORPUSCULAR HGB CONC 33.2 g/dL (31-35); MEAN CORPUSCULAR VOLUME 92.8 fL (81-99); MONOCYTES # (AUTO) 0.6 (0.2-0.8); MONOCYTES % 6.8 % (4.4-11.3); NEUTROPHILS # (AUTO) 4.7 (2.1-6.9); PLATELET COUNT 153 x10e3/uL (140-360); RED BLOOD COUNT 3.89 x10e6/uL (3.6-5.1); RED CELL DISTRIBUTION WIDTH 14.3 % (11.7-14.4)
[2019-03-29 07:03] LABS: ANION GAP 12.7 mmol/L (8-16); BLOOD UREA NITROGEN 12 mg/dL (7-26); BUN/CREATININE RATIO 17 (6-25); CALCIUM 9.2 mg/dL (8.4-10.2); CARBON DIOXIDE 25 mmol/L (22-29); CHLORIDE 108 mmol/L (98-107); EST GLOMERULAR FILTRATION RATE > 60 ML/MIN (60-); GLUCOSE 95 mg/dL (74-118); POTASSIUM 3.7 mmol/L (3.5-5.1); SODIUM 142 mmol/L (136-145)
[2019-03-29] MEDS: INSULIN LISPRO 100 UNIT/1 ML 3ML VIAL SQ SCH ×4 (07:30→21:00)
[2019-03-29] MEDS: LISINOPRIL 2.5 MG TAB PO SCH (09:00)
[2019-03-29] MEDS: METOPROLOL TARTRATE 25 MG TAB PO SCH ×2 (09:00→17:00)
[2019-03-29] MEDS: METFORMIN HCL 500 MG TAB PO SCH ×2 (09:10→17:40)
[2019-03-29] MEDS: NITROFURANTOIN MACROCRYSTALS 100 MG CAP PO SCH ×2 (09:10→17:40)
[2019-03-29] MEDS: MORPHINE SULFATE 15MG TAB CR PO SCH ×2 (09:10→21:15)
[2019-03-29] MEDS: TOPIRAMATE 25 MG TAB PO SCH (09:10)
[2019-03-29] MEDS: DEPAKOTE DELAYED-RELEASE TAB 500 MG PO SCH ×2 (09:10→17:39)
[2019-03-29] MEDS: PREGABALIN 50 MG CAP PO SCH ×3 (09:10→21:15)
[2019-03-29] MEDS: CLOPIDOGREL BISULFATE 75 MG TAB PO SCH (09:10)
[2019-03-29] MEDS: RISPERIDONE 1 MG TAB PO SCH ×2 (09:10→17:40)
[2019-03-29] MEDS: LEVETIRACETAM 500 MG TAB PO SCH ×2 (09:10→17:40)
[2019-03-29] MEDS: ESCITALOPRAM OXALATE 10 MG TAB PO SCH (09:10)
[2019-03-29] MEDS: LORAZEPAM 0.5 MG TAB PO PRN (09:18)
--- NOTE | 2019-03-29 10:00 | NUR ---
Notified AL that nare culture grew MRSA
[2019-03-29] MEDS: VANCOMYCIN 1GM/NS 250 ML 250 ML IV SCH ×2 (10:30→22:00)
--- NOTE | 2019-03-29 10:43 | Progress Note ---
DATE: Progress Note SUBJECTIVE: The patient is here for cellulitis of the face and also maxillary area. The patient does complain of some eye pain, which is excruciating at 8/10. The patient complaints that the Dilaudid is not lasting all 4 hours. Currently, otherwise asymptomatic, needs placement. The patient's medication list includes atorvastatin, clopidogrel, Depakote, duloxetine, escitalopram, hydromorphone, insulin, Keppra, lisinopril, lorazepam, metformin, metoprolol, morphine sulfate, MS Contin, , nitrofurantoin, Zosyn, and pregabalin and vancomycin. OBJECTIVE: VITAL SIGNS: Currently, temperature is 97.7, pulse of 93, blood pressure is 95/59, and pulse oximetry of 93%. HEENT: Normocephalic. The patient has ala missing of the right side of the nostril. Positive for missing part of the ear. Erythema and tenderness around the maxillary area better and down. Positive for conjunctival injection ophthalmologically. CVS: S1 and S2 normal. Distant. LUNGS: Decreased air entry. ABDOMEN: Nontender and nondistended. EXTREMITIES: No clubbing. No cyanosis. Positive for edema. LABORATORY DATA: Laboratory values are pending today. White count had come down to 9.2 on 03/26. Chemistries are all within normal limits. Pending labs for today. Blood sugars have been running from 112 to 150s. Microbiology gram stain grew Staphylococcus aureus, but susceptibility to follow and E coli in the urine, susceptible to Macrobid. ASSESSMENT: 1. Preorbital cellulitis, conjunctival injection with questionable conjunctivitis. 2. Staphylococcus aureus isolated. 3. Urinary tract infection, E coli. We will continue Macrobid. 4. History of Alison's granulomatosis. 5. History of lupus erythematosus and history of seizures. We will continue with medications for the same. DISPOSITION: Continue to monitor the patient, can be discharged to SNF and LTAC depending on PT evaluation. Further recommendation per clinical course. Continue to monitor the patient until resolution of symptoms. MD YOBANY Rankin/CHINTAN /[id number]
--- NOTE | 2019-03-29 14:55 | NUR ---
Patient is requesting [place]. BP taken 106/53. Per MD orders it can only be given if BP is >120.
[2019-03-29] MEDS: MUPIROCIN 2% OINT 22 GM TUBE TOP SCH (17:30)
[2019-03-29] MEDS: ATORVASTATIN 20 MG TAB PO SCH (21:15)
[2019-03-29] MEDS: DULOXETINE HCL 30 MG DELAYED RELEASE PO SCH (21:15)
[2019-03-29] MEDS: ZOLPIDEM TARTRATE 10 MG TAB PO SCH (22:58)
--- NOTE | 2019-03-29 23:38 | NUR ---
Dr. Ledesma called back . New order received to give a one time dose of Benadryl 12.5 mg. Addendum: 03/30/19 at 0725 by Jihan Reyna RN Entered in error. Wrong patient.
[2019-03-29] MEDS ORDERED: DIPHENHYDRAMINE HCL INJ 50 MG/ML VIAL IV ONE (23:45)
[2019-03-30] VITALS: BP 130/60
[2019-03-30] MEDS: HYDROMORPHONE 2MG/ML 2 MG/ML ML IV PRN ×4 (01:47→14:00)
[2019-03-30] MEDS: PIPER-TAZ 3.375 GM 50 ML IV SCH ×3 (03:37→17:28)
[2019-03-30 04:00] VITALS: BP 108/62
--- NOTE | 2019-03-30 07:12 | NUR ---
Walking rounds done. Shift report given to oncoming nurse regarding patient's status.
[2019-03-30 07:30] VITALS: BP 115/64
[2019-03-30] MEDS: INSULIN LISPRO 100 UNIT/1 ML 3ML VIAL SQ SCH ×3 (07:30→16:30)
--- NOTE | 2019-03-30 07:30 | NUR ---
REC'D PT AAOX3, PT C/O PAIN ON THE RIGHT SIDE OF FACE. PT ON RA. NO S/S OF DISTRESS. BED SIDE COMMODE AT BEDSIDE. SIDE RAILS UP X2, BED IN LOWEST POSITION, AND CALL LUO WITHIN REACH.
[2019-03-30 08:11] VITALS: BP 115/64
[2019-03-30] MEDS: VANCOMYCIN 1GM/NS 250 ML 250 ML IV SCH (08:36)
[2019-03-30] MEDS: METFORMIN HCL 500 MG TAB PO SCH ×2 (08:36→17:29)
[2019-03-30] MEDS: PREGABALIN 50 MG CAP PO SCH ×2 (08:37→17:28)
[2019-03-30] MEDS: ESCITALOPRAM OXALATE 10 MG TAB PO SCH (08:37)
[2019-03-30] MEDS: NITROFURANTOIN MACROCRYSTALS 100 MG CAP PO SCH ×2 (08:37→17:29)
[2019-03-30] MEDS: DEPAKOTE DELAYED-RELEASE TAB 500 MG PO SCH ×2 (08:37→17:29)
[2019-03-30] MEDS: LEVETIRACETAM 500 MG TAB PO SCH ×2 (08:37→17:29)
[2019-03-30] MEDS: CLOPIDOGREL BISULFATE 75 MG TAB PO SCH (08:38)
[2019-03-30] MEDS: MORPHINE SULFATE 15MG TAB CR PO SCH (08:38)
[2019-03-30] MEDS: TOPIRAMATE 25 MG TAB PO SCH (08:39)
[2019-03-30] MEDS: RISPERIDONE 1 MG TAB PO SCH ×2 (08:39→17:29)
[2019-03-30] MEDS: LISINOPRIL 2.5 MG TAB PO SCH (08:43)
[2019-03-30] MEDS: METOPROLOL TARTRATE 25 MG TAB PO SCH ×2 (08:43→17:00)
[2019-03-30] MEDS ORDERED: SODIUM CHLORIDE 0.9% 250ML 250 ML ONE (09:42)
--- NOTE | 2019-03-30 10:04 | NUR ---
IMM letter delivered and explained to pt. She verbalized understanding. Signed copy placed in chart. Copy to pt.
--- NOTE | 2019-03-30 10:59 | NUR ---
CM SPOKE TO PATIENT AT BEDSIDE REGARDING DISCHARGE PLAN. PATIENT INFORMED OF [facility]. [facility] EXPLAIN IN DETAIL. PATIENT VERBALLY AGREED TO BE TRANSFERRED TO [facility]. LTAC CHOICES GIVEN TO PATIENT. PATIENT CHOICE [facility] SINCE IT IS CLOSER TO FAMILY. CHOICE LETTER SIGNED AND PLACED IN CHART. [facility] LIAISON NOTIFIED. CLINICAL PENDING TO BE PICKED UP BY LIAISON MIGUEL FAULKNER. MOT INITIATED AND GIVEN TO [employer]AT [employer] ELEMENT MAKER JUNIOR. PENDING AUTH AND BED ASSIGNMENT FOR TRANSFER. [facility]: [address] [address] LIAISON NOTIFIED: MIGUEL FAULKNER
[2019-03-30 11:57] VITALS: BP 116/58
--- NOTE | 2019-03-30 13:09 | NUR ---
CM SPOKE TO PATIENT WITH [facility]IA[facility] MIGUEL FAULKNER. AFTER DISCUSSION ON CONTINUITY OF CARE WITH PHYSICIANS CARING FOR PATIENT AT FACILITY. PATIENT CHANGED HER CHOICE TO [facility]. PATIENT PENDING AUTH TO TRANSFER TO: [facility] Address: [address] [facility], [place] [address] LIAISON NOTIFIED: MIGUEL FAULKNER MOT UPDATED AND GIVEN TO IT SYSTEMS ENGINEER JUNIOR.
[2019-03-30] MEDS ORDERED: GENTAMICIN SULFATE 0.3% OP 5 ML BTL OU SCH (14:00)
[2019-03-30 16:50] VITALS: BP 113/71
--- NOTE | 2019-03-30 18:00 | NUR ---
[facility] CALLED TO NOTIFY THAT ROOM IS READY FOR PT. NOTIFIED DR. HERNANDEZ AND SAID OKAY TO D/C TODAY. Addendum: 03/30/19 at 1850 by DARWIN WILKINSON RN SPOKE TO MAUDE FAULKNER AND HAVE ROOM 306 READY FOR PT. GAVE NUMBER OF [phone] TO CALL TO GIVE REPORT.
[2019-03-30] MEDS: MUPIROCIN 2% OINT 22 GM TUBE TOP SCH (18:28)
--- NOTE | 2019-03-30 18:48 | NUR ---
GAVE REPORT TO GIOVANNI FOR PT TRANSFER TO TO [facility].
--- NOTE | 2019-03-30 18:51 | NUR ---
PT IS TO BE DISCHARGED TO [facility]. NO S/S OF DISTRESS. CALL LUO WITHIN REACH, BED IN LOWEST POSITION, AND BED IN LOWEST POSITION.
--- NOTE | 2019-03-30 20:26 | NUR ---
Patient was discharged to [facility] via stretcher by EMS. Patient in stable condition. Vital signs WNL.
--- NOTE | 2019-03-30 20:36 | Progress Note ---
DATE: SUBJECTIVE: The patient continues to have facial pain with facial erythema. The patient's pain is controlled at this time with medications and for breakthrough pain, she gets [place]. OBJECTIVE: VITAL SIGNS: Temperature is 97.8, pulse of 82, blood pressure is 113/71, and pulse oximetry of 95%. HEENT: Normocephalic, atraumatic. The patient's face has facial erythema and tenderness on the face. CVS: S1, S2. Regular. ABDOMEN: Nontender, nondistended. EXTREMITIES: No clubbing. No cyanosis. Positive for edema. LABORATORY VALUES: Yesterday's white count is 9.22, down from 11 initially, hemoglobin and hematocrit stable. Glucoses have been running normal. ASSESSMENT: 1. Facial cellulitis. 2. Staphylococcus aureus isolated. 3. Urinary tract infection of Escherichia coli. 4. History of Alison's granulomatosis and lupus erythematosus. PLAN: Plan is to continue with antibiotics. Continue with Macrobid. Continue to monitor the patient. The patient has been accepted at [facility]. We will transfer the patient over to [facility] and give her some physical therapy evaluation. Possible discharge in 1 to 2 weeks at the [facility]. MD YOBANY Rankin/CHINTAN /[id number]
== END 2019-03-30 20:24 | DRG 872 ==
LOC: ER 13:35 → ERHOLD 18:31 → MED/SURG2 20:27 → OBSVTOIN 03-26 13:26
PROVIDERS: ADMIT Family Medicine; ATTEND Family Medicine
PROC: 02HV33Z Insertion of Infusion Device into Superior Vena Cava, Percutaneous Approach (ICD-10-PCS; principal; 2019-03-24)
DX: A41.02 Sepsis due to Methicillin resistant Staphylococcus aureus (principal); L03.213 Periorbital cellulitis; M31.30 Wegener's granulomatosis without renal involvement; Z68.41 Body mass index [BMI] 40.0-44.9, adult; E78.5 Hyperlipidemia, unspecified; I25.10 Atherosclerotic heart disease of native coronary artery without angina pectoris; F32.9 Major depressive disorder, single episode, unspecified; E11.9 Type 2 diabetes mellitus without complications; I11.0 Hypertensive heart disease with heart failure; I50.9 Heart failure, unspecified; E66.9 Obesity, unspecified; G40.909 Epilepsy, unspecified, not intractable, without status epilepticus; Z86.73 Personal history of transient ischemic attack (TIA), and cerebral infarction without residual deficits; L93.0 Discoid lupus erythematosus; Z22.321 Carrier or suspected carrier of Methicillin susceptible Staphylococcus aureus; B96.20 Unspecified Escherichia coli [E. coli] as the cause of diseases classified elsewhere; B96.89 Other specified bacterial agents as the cause of diseases classified elsewhere; Z16.12 Extended spectrum beta lactamase (ESBL) resistance; H10.9 Unspecified conjunctivitis; E66.01 Morbid (severe) obesity due to excess calories
CPT/HCPCS: 36415; 36569; 70486; 71045; 80048; 80053; 80202; 81001; 81025; 82550; 82553; 82948; 83605; 83735; 84484; 85025; 85610; 85730; 87040; 87071; 87086; 87186; 87205; 93005; 96367; 96372; 96376; 99284; G0378; J2270; J2405; J2543; J3370; J7040; J7050